=== PATIENT | male | born 1935 | race Caucasian/White ===

== ENCOUNTER → 2016-05-18 | Outpatient (CLI) | payer OTHER ==
[~2016-05-18] MED LIST: ASPI81TA85 PO; ATEN-175 PO; ATOR-22 PO; CEPH500C PO; COEN100C2 PO; CRDCD120 PO; DOXY100C PO; FRS/40 PO; LINE1TAB6 PO; LNX25 PO; MAGN500T17 PO; NZRCR EXT; POTA1080 PO; TRMCR180 EXT; WARF-246 PO
[2016-05-18 11:01] LABS: ALT/SGPT 25 U/L (12-78); AST/SGOT 15 U/L (15-37); BLOOD UREA NITROGEN 17 mg/dl (7-18); BUN/CREATININE RATIO 17.2 (10-20); CALCIUM 8.7 mg/dl (8.5-10.1); CARBON DIOXIDE 31 mmol/L (21-32); CHLORIDE 107 mmol/L (98-107); GLUCOSE 112 mg/dl (70-99); POTASSIUM 3.8 mmol/L (3.5-5.1); SODIUM 147 mmol/L (136-145)
[2016-05-18 11:04] LABS: ALB/GLOB RATIO 1.2 (0.9-2); ALKALINE PHOSPHATASE 57 U/L (45-117); CHOLESTEROL 126 mg/dl (0-200); CHOLESTEROL/HDL RATIO 3.5; HDL CHOLESTEROL 36 mg/dl; LDL CHOLESTEROL CALCULATED 60 mg/dl; TRIGLYCERIDES 152 mg/dl (0-150); VERY LOW DENSITY LIPOPROT CALC 30 mg/dl
[2016-05-18 13:12] LABS: ESTIMATED AVERAGE GLUCOSE 143 mg/dl; HA1C FLAG Normal (Normal)
== END | disposition home or self-care (01) ==
LOC: C.LABFOXMH 10:00
PROVIDERS: ATTEND Internal Medicine
DX: E78.00 Pure hypercholesterolemia, unspecified (principal); E11.9 Type 2 diabetes mellitus without complications

== ENCOUNTER → 2016-09-25 | Outpatient (CLI) | payer OTHER ==
[2016-09-25 14:45] LABS: HEMATOCRIT 47.3 % (42-52); MEAN CELL VOLUME 96.3 fL (80-100); MEAN CORPUSCULAR HEMOGLOBIN 31.6 pg (25-34); MEAN CORPUSCULAR HGB CONC 32.8 g/dl (32-36); MEAN PLATELET VOLUME 11.8 fL (7.4-10.4); PLATELET COUNT 188 K/uL (130-400); RED BLOOD COUNT 4.91 M/uL (4.7-6.1)
[2016-09-25 16:48] LABS: LYME DISEASE AB IGM NEG (NEG)
[2016-09-25 16:51] LABS: LYME DISEASE AB IGG NEG (NEG)
--- NOTE | 2016-10-20 13:56 | CODING QUERY MEDICAL NECESSITY ---
CQSUPPORTING DIAGNOSIS NEEDED A supporting diagnosis is required for the test/procedure performed on this patient in order for us to be reimbursed by the patient's insurance. Please provide a supporting diagnosis for the following test/procedure listed below next to the test name along with your signature. *If there is no additional diagnosis for this patient that would support the following test/procedure please document that below next to the test/procedure. Test(s)/Procedure(s) that require a supporting diagnosis: DOS 09/25/16 VITAMIN B12 TEST Provider Signature: Date: Thank you Katya Haque Health Information Management Once completed, please kindly fax back to [phone] For questions please call [phone]
== END | disposition home or self-care (01) ==
LOC: C.LAB 14:13
PROVIDERS: ATTEND Internal Medicine
DX: E11.42 Type 2 diabetes mellitus with diabetic polyneuropathy (principal); G62.9 Polyneuropathy, unspecified

== ENCOUNTER → 2016-09-25 | Outpatient (CLI) | payer OTHER ==
[2016-09-25 09:31] LABS: BLOOD UREA NITROGEN 20 mg/dl (7-18); CARBON DIOXIDE 30 mmol/L (21-32); CHLORIDE 108 mmol/L (98-107); GLUCOSE 102 mg/dl (70-99); POTASSIUM 3.9 mmol/L (3.5-5.1); SODIUM 144 mmol/L (136-145)
[2016-09-25 11:39] LABS: ESTIMATED AVERAGE GLUCOSE 148 mg/dl; HA1C FLAG Normal (Normal)
== END | disposition home or self-care (01) ==
LOC: C.LABFOXMH 08:15
PROVIDERS: ATTEND Internal Medicine
DX: E11.9 Type 2 diabetes mellitus without complications (principal)

== ENCOUNTER 2016-10-20 17:28 | Emergency (ER) | payer OTHER ==
[~2016-10-20] VITALS: Ht 185.4 cm; Wt 102.0 kg
[2016-10-20 17:31] VITALS: TEMP 38.9; Ht 185.4 cm; Wt 102.0 kg
--- NOTE | 2016-10-20 17:38 | EMERGENCY ROOM VISIT NOTE ---
ED Visit Note First contact with patient: 17:35 I have seen and examined this patient with Alie Solis and generally agree with the treatment plan as discussed. Allergies Coded Allergies: NSAIDs (Verified Allergy, Severe, Facial swelling, 10/20/16) Vital Signs Date Time Temp Pulse Resp B/P (MAP) Pulse Ox O2 Delivery O2 Flow Rate FiO2 10/20/16 17:31 38.9 84 20 155/89 95 Room Air Departure Information Referrals Rosario Webb (PCP) Patient Instructions [facility]
[2016-10-20] MEDS ORDERED: ONDANSETRON INJ 2 MG/ML 2 ML VIAL IV STA (17:44)
[2016-10-20] MEDS ORDERED: SODIUM CHLORIDE 0.9% 1000ML 1,000 ML IV STA (17:44)
[2016-10-20 18:05] LABS: BASO % 0.1 %; BASO ABS # 0.03 K/uL (0-0.2); COMPLETE YES; HEMATOCRIT 47.8 % (42-52); IG% 0.4 %; LYMPH % 4.7 %; LYMPH ABS # 1.08 K/uL (1.2-3.4); MEAN CORPUSCULAR HEMOGLOBIN 32.5 pg (25-34); MEAN CORPUSCULAR HGB CONC 33.9 g/dl (32-36); MEAN PLATELET VOLUME 11.5 fL (7.4-10.4); MONO % 7.5 %; NEUT % 87.3 %; PLATELET COUNT 167 K/uL (130-400); RED BLOOD COUNT 4.98 M/uL (4.7-6.1)
[2016-10-20 18:20] LABS: BUN/CREATININE RATIO 12.7 (10-20); CALCIUM 9.1 mg/dl (8.5-10.1); CREATININE 1.2 mg/dl (0.60-1.40); POTASSIUM 3.7 mmol/L (3.5-5.1)
[2016-10-20] MEDS ORDERED: CRDCD120 PO (18:39)
[2016-10-20] MEDS ORDERED: POTA1080 PO (18:39)
[2016-10-20] MEDS ORDERED: LNX25 PO (18:39)
[2016-10-20] MEDS ORDERED: ATEN-175 PO (18:39)
[2016-10-20] MEDS ORDERED: COEN100C2 PO (18:39)
[2016-10-20] MEDS ORDERED: MAGN500T17 PO (18:39)
[2016-10-20] MEDS ORDERED: FRS/40 PO (18:39)
[2016-10-20] MEDS ORDERED: ASPI81TA85 PO (18:39)
[2016-10-20] MEDS ORDERED: WARF-246 PO ×2 (18:39)
[2016-10-20] MEDS ORDERED: ATOR-22 PO (18:39)
[2016-10-20 19:04] LABS: MANUAL MICROSCOPIC REQUIRED? NO; REVIEW REQ? NO; URINE APPEARANCE CLEAR (CLEAR); URINE BILIRUBIN NEG (NEG); URINE COLOR YELLOW; URINE NITRITE NEG (NEG); URINE PH 8.5 (4.5-7.5); URINE SPECIFIC GRAVITY 1.013 (1.000-1.030); UROBILINOGEN NEG (NEG)
[2016-10-20] MEDS ORDERED: ONDANSETRON HOME PACK 4MG OD TAB PO ONE (19:15)
--- NOTE | 2016-10-20 19:22 | EMERGENCY ROOM VISIT NOTE ---
History First contact with patient: 17:35 Chief Complaint: DEHYDRATION Stated Complaint: DIZZY - NAUSEA (WAS DEHYDRATED YESTERDAY) Nursing Triage Summary: pt reports [place] after working all day outside 1 day ago , reports " I am most likely electrolyte defficient" History of Present Illness The patient is a 80 year old male who presents to the Emergency Room with complaints of nausea and vomiting. The patient states yesterday that he worked out in the yard all day and when he came in he drank 3 large glasses of water. He thought he might be dehydrated. The patient states that he slept well last night since he was very tired. He slept longer than he normally does. This morning when he got up he drank another 3 large glasses of water. He states his urine looked normal in color. At that time he denied any headaches or dizziness. Today when he was visiting his at the half-way he was walking her back to her room at approximately 3 PM when he started feeling lightheaded and then started vomiting. He has had nausea and vomiting since 3 PM. The patient denies any associated abdominal pain any change in bowel habits. He had a normal bowel movement yesterday. He denies any urinary symptoms of frequency, urgency, dysuria or hematuria. The patient denies any chest pain or shortness of breath. Review of Systems 10 system review was performed and was negative unless stated otherwise history of present illness. Past Medical/Surgical History A. fib, kidney stones, knee surgery Social History Smoking Status: Never Smoker Smokeless Tobacco Use: No Alcohol Use: none Drug Use: none Marital Status: Housing Status: lives alone Occupation Status: retired Current/Historical Medications Scheduled Aspirin (Aspirin Dr), 81 MG PO DAILY Atenolol (Tenormin), 100 MG PO BID Atorvastatin (Lipitor), 20 MG PO DAILY Coenzyme Q10 (Ubidecarenone) (Coenzyme Q-10), 100 MG PO DAILY Digoxin (Digoxin), 0.25 MG PO DAILY Diltiazem HCl (Diltiazem Cd), 120 MG PO BID Furosemide (Lasix), 40 MG PO BID Magnesium Gluconate (Magnesium Gluconate), 55 MG PO BID Potassium Citrate (Alkalinizer (Potassium Citrate ER), 3,240 MG PO BID Warfarin Sodium (Warfarin Sodium), 5 MG PO 5XWK Warfarin Sodium (Warfarin Sodium), 7.5 MG PO 2XWK Physical Exam Vital Signs Date Time Temp Pulse Resp B/P (MAP) Pulse Ox O2 Delivery O2 Flow Rate FiO2 10/20/16 18:43 68 18 126/81 94 Room Air 10/20/16 17:31 38.9 84 20 155/89 95 Room Air Physical Exam GENERAL: 80-year-old white male appears in no acute distress. He is actively vomiting as I obtained his history and physical. MENTAL Status: Alert and oriented 3. MOUTH: Mucosa is moist NECK: Supple, no lymphadenopathy noted. No carotid bruits noted. LUNGS: Clear auscultation without wheezes rales or rhonchi. CARDIAC: Regular rate and rhythm without murmur. Pulses is full and equal throughout. BACK: No CVA tenderness noted. ABDOMEN: Positive bowel sounds all 4 quadrants. Soft, nontender to palpation without organomegaly or masses. Medical Decision & Procedures Laboratory Results 10/20/16 17:45 Red Blood Count 4.98, Mean Corpuscular Volume 96.0, Mean Corpuscular Hemoglobin 32.5, Mean Corpuscular Hemoglobin Concent 33.9, Mean Platelet Volume 11.5, Neutrophils (%) (Auto) 87.3, Lymphocytes (%) (Auto) 4.7, Monocytes (%) (Auto) 7.5, Eosinophils (%) (Auto) 0.0, Basophils (%) (Auto) 0.1, Neutrophils # (Auto) 19.87, Lymphocytes # (Auto) 1.08, Monocytes # (Auto) 1.72, Eosinophils # (Auto) 0.01, Basophils # (Auto) 0.03 10/20/16 17:45 Test 10/20/16 17:45 10/20/16 18:50 White Blood Count 22.80 K/uL (4.8-10.8) Red Blood Count 4.98 M/uL (4.7-6.1) Hemoglobin 16.2 g/dL (14.0-18.0) Hematocrit 47.8 % (42-52) Mean Corpuscular Volume 96.0 fL (80-100) Mean Corpuscular Hemoglobin 32.5 pg (25-34) Mean Corpuscular Hemoglobin Concent 33.9 g/dl (32-36) Platelet Count 167 K/uL (130-400) Mean Platelet Volume 11.5 fL (7.4-10.4) Neutrophils (%) (Auto) 87.3 % Lymphocytes (%) (Auto) 4.7 % Monocytes (%) (Auto) 7.5 % Eosinophils (%) (Auto) 0.0 % Basophils (%) (Auto) 0.1 % Neutrophils # (Auto) 19.87 K/uL (1.4-6.5) Lymphocytes # (Auto) 1.08 K/uL (1.2-3.4) Monocytes # (Auto) 1.72 K/uL (0.11-0.59) Eosinophils # (Auto) 0.01 K/uL (0-0.5) Basophils # (Auto) 0.03 K/uL (0-0.2) RDW Standard Deviation 46.3 fL (36.4-46.3) RDW Coefficient of Variation 13.3 % (11.5-14.5) Immature Granulocyte % (Auto) 0.4 % Immature Granulocyte # (Auto) 0.09 K/uL (0.00-0.02) Anion Gap 9.0 mmol/L (3-11) Est Creatinine Clear Calc Drug Dose 59.6 ml/min Estimated GFR () 64.9 Estimated GFR (Non- 56.0 BUN/Creatinine Ratio 12.7 (10-20) Calcium Level 9.1 mg/dl (8.5-10.1) Total Bilirubin 1.2 mg/dl (0.2-1) Direct Bilirubin 0.3 mg/dl (0-0.2) Aspartate Amino Transf (AST/SGOT) 25 U/L (15-37) Alanine Aminotransferase (ALT/SGPT) 37 U/L (12-78) Alkaline Phosphatase 71 U/L (45-117) Total Protein 7.5 gm/dl (6.4-8.2) Albumin 4.1 gm/dl (3.4-5.0) Lipase 232 U/L (73-393) Urine Color YELLOW Urine Appearance CLEAR (CLEAR) Urine pH 8.5 (4.5-7.5) Urine Specific [place] 1.013 (1.000-1.030) Urine Protein NEG (NEG) Urine Glucose (UA) NEG (NEG) Urine Ketones NEG (NEG) Urine Occult Blood NEG (NEG) Urine Nitrite NEG (NEG) Urine Bilirubin NEG (NEG) Urine Urobilinogen NEG (NEG) Urine Leukocyte Esterase NEG (NEG) Medications Administered Medications (Trade) Dose Ordered Sig/Maria Victoria Route Start Time Stop Time Status Last Admin Dose Admin Sodium Chloride 1,000 ml @ 999 mls/hr Q1H1M STAT IV 10/20/16 17:44 10/20/16 18:44 DC 10/20/16 17:50 999 MLS/HR Ondansetron HCl (Zofran Inj) 4 mg NOW STAT IV 10/20/16 17:44 10/20/16 17:46 DC 10/20/16 17:49 4 MG ED Course The patient was evaluated. The patient's EMR medication list were reviewed. IV access was obtained. The patient was given 1 L normal saline wide-open. CBC differential, renal profile and LFTs and lipase levels was ordered. The patient was given Zofran 4 mg IV push for nausea. The patient's labs are reviewed. The patient's electrolytes were normal. His white count was elevated 20,000 but this is most likely due to his vomiting. Urinalysis was ordered and was negative. The patient was reevaluated was feeling much better. He was given a cup of ice chips and was able to keep it down. The patient was independently evaluated by Dr. Ortiz who agreed with treatment plan. The patient was discharged home in stable condition with a family member driving. Medical Decision Differential diagnosis include viral gastroenteritis, kidney stone, UTI, bowel obstruction Medication Reconcilliation Current Medication List: was personally reviewed by me Blood Pressure Screening Patient's blood pressure: Normal blood pressure Impression Primary Impression: Viral gastroenteritis Departure Information Dispostion Home / Self-Care Condition GOOD Referrals Rosario Webb (PCP) Forms HOME CARE DOCUMENTATION FORM, IMPORTANT VISIT INFORMATION, WORK / SCHOOL INSTRUCTIONS Patient Instructions ED Diet Day, [facility] Additional Instructions Push fluids. Follow bland diet. Advance diet slowly as tolerated. Take Zofran as directed for nausea. Follow-up with your family doctor in 2 days for reevaluation. If symptoms worsen in the interim, return to ER.
[2016-10-20 19:29] VITALS: BP 152/100; PULSE 110; O2SAT 93
== END 2016-10-20 19:34 | disposition home or self-care (01) ==
LOC: C.EDB 17:28 → C.EDC 19:34
DX: A08.4 Viral intestinal infection, unspecified (principal); I48.91 Unspecified atrial fibrillation; Z87.442 Personal history of urinary calculi; Z98.890 Other specified postprocedural states; Z79.01 Long term (current) use of anticoagulants; Z79.82 Long term (current) use of aspirin; Z79.899 Other long term (current) drug therapy

== ENCOUNTER 2016-10-23 09:35 | Emergency (ER) | payer OTHER ==
[~2016-10-23] VITALS: Ht 185.4 cm; Wt 102.5 kg
[~2016-10-23 09:35] MED LIST changes: -CEPH500C PO; -DOXY100C PO; -LINE1TAB6 PO; -NZRCR EXT; -TRMCR180 EXT
[2016-10-23 09:39] VITALS: TEMP 36.9; Ht 185.4 cm; Wt 102.5 kg
[2016-10-23] MEDS ORDERED: SODIUM CHLORIDE 0.9% 1000ML 1,000 ML IV STA (09:49)
--- NOTE | 2016-10-23 09:56 | EMERGENCY ROOM VISIT NOTE ---
History Report prepared by Efrain: Cristiano Richmond Under the Supervision of: Dr. Sreedhar Cabello M.D. First contact with patient: 09:38 Chief Complaint: INFECTION Stated Complaint: CELLULITIS-RT LEG Nursing Triage Summary: Pt states seen here Tues night for GI sx. Noticed Wed right lower leg was "a little red." Pt stated he placed cortisone cream on it. Worse over night , tender. History of Present Illness The patient is a 80 year old male who presents to the Emergency Room with complaints of worsening right leg swelling and rash starting two or three days ago. The patient states that he was recently here for a GI issue, and once that cleared, his right leg rash came. The patient denies any fevers, chest pain, shortness of breath, passing out, or falling. The patient states that his right leg is usually more swollen than his left leg, and there is usually a white spot on his leg from an old wound. Source of History: patient Onset: two or three days ago Position: leg (right) Quality: other (rash and swelling) Timing: worsening Associated Symptoms: No LOC, No fevers, No chest pain, No SOB Review of Systems See HPI for pertinent positives & negatives. A total of 10 systems reviewed and were otherwise negative. Past Medical & Surgical Medical Problems: (1) A-fib (2) Gastroenteritis (3) Kidney stone Social History Smoking Status: Never Smoker Alcohol Use: none Drug Use: none Marital Status: Housing Status: lives alone Occupation Status: retired Current/Historical Medications Scheduled Aspirin (Aspirin Dr), 81 MG PO DAILY Atenolol (Tenormin), 100 MG PO BID Atorvastatin (Lipitor), 20 MG PO DAILY Cephalexin Monohydrate (Keflex), 500 MG PO QID Coenzyme Q10 (Ubidecarenone) (Coenzyme Q-10), 100 MG PO DAILY Digoxin (Digoxin), 0.25 MG PO DAILY Diltiazem HCl (Diltiazem Cd), 120 MG PO BID Doxycycline Hyclate (Vibramycin), 100 MG PO BID Furosemide (Lasix), 40 MG PO BID Magnesium Gluconate (Magnesium Gluconate), 55 MG PO BID Potassium Citrate (Alkalinizer (Potassium Citrate ER), 3,240 MG PO BID Warfarin Sodium (Warfarin Sodium), 5 MG PO 5XWK Warfarin Sodium (Warfarin Sodium), 7.5 MG PO 2XWK Allergies Coded Allergies: NSAIDs (Verified Allergy, Severe, Facial swelling, 10/23/16) Ibuprofen (Verified Allergy, Intermediate, Swollen lips, 10/23/16) Physical Exam Vital Signs Date Time Temp Pulse Resp B/P (MAP) Pulse Ox O2 Delivery O2 Flow Rate FiO2 10/23/16 15:07 72 16 137/79 96 10/23/16 13:50 76 16 132/78 96 Room Air 10/23/16 13:03 75 10/23/16 10:50 71 22 117/69 94 Room Air 10/23/16 09:57 82 10/23/16 09:39 36.9 81 18 108/74 95 Room Air Physical Exam GENERAL: Patient is well appearing and in no acute distress. HEENT: No acute trauma, normocephalic atraumatic, mucous membranes moist, no nasal congestion, no scleral icterus. NECK: No stridor, no adenopathy, no meningismus, trachea is midline. LUNGS: No dyspnea. Clear to auscultation and equal bilaterally. No wheeze, no rhonchi. HEART: Regular rate and rhythm. No murmurs, rubs, gallops appreciated. ABDOMEN: Soft, nontender, bowel sounds positive, no masses appreciated, no peritonitis. BACK: No midline tenderness, no CVA tenderness EXTREMITIES: Edema of the right leg greater than left which the patient states is chronic. Cellulitis of the entire anterior right leg from the ankle to the knee with centralized dark red area and whitish skin discoloration which may be chronic from injury. Normal motion all extremities, no cyanosis NEUROLOGIC: Alert and oriented, no acute motor or sensory deficits, no focal weakness, cranial nerves grossly intact. SKIN: No rash, no jaundice, no diaphoresis. Medical Decision & Procedures Laboratory Results 10/23/16 10:00 Red Blood Count 4.82, Mean Corpuscular Volume 95.4, Mean Corpuscular Hemoglobin 32.4, Mean Corpuscular Hemoglobin Concent 33.9, Mean Platelet Volume 11.7, Neutrophils (%) (Auto) 83.1, Lymphocytes (%) (Auto) 7.2, Monocytes (%) (Auto) 9.2, Eosinophils (%) (Auto) 0.1, Basophils (%) (Auto) 0.1, Neutrophils # (Auto) 12.93, Lymphocytes # (Auto) 1.12, Monocytes # (Auto) 1.43, Eosinophils # (Auto) 0.02, Basophils # (Auto) 0.01 10/23/16 10:00 Test 10/23/16 10:00 10/23/16 10:10 White Blood Count 15.56 K/uL (4.8-10.8) Red Blood Count 4.82 M/uL (4.7-6.1) Hemoglobin 15.6 g/dL (14.0-18.0) Hematocrit 46.0 % (42-52) Mean Corpuscular Volume 95.4 fL (80-100) Mean Corpuscular Hemoglobin 32.4 pg (25-34) Mean Corpuscular Hemoglobin Concent 33.9 g/dl (32-36) Platelet Count 146 K/uL (130-400) Mean Platelet Volume 11.7 fL (7.4-10.4) Neutrophils (%) (Auto) 83.1 % Lymphocytes (%) (Auto) 7.2 % Monocytes (%) (Auto) 9.2 % Eosinophils (%) (Auto) 0.1 % Basophils (%) (Auto) 0.1 % Neutrophils # (Auto) 12.93 K/uL (1.4-6.5) Lymphocytes # (Auto) 1.12 K/uL (1.2-3.4) Monocytes # (Auto) 1.43 K/uL (0.11-0.59) Eosinophils # (Auto) 0.02 K/uL (0-0.5) Basophils # (Auto) 0.01 K/uL (0-0.2) RDW Standard Deviation 47.4 fL (36.4-46.3) RDW Coefficient of Variation 13.4 % (11.5-14.5) Immature Granulocyte % (Auto) 0.3 % Immature Granulocyte # (Auto) 0.05 K/uL (0.00-0.02) Prothrombin Time 36.8 SECONDS (9.0-12.0) Prothromb Time International Ratio 3.3 (0.9-1.1) Activated Partial Thromboplast Time 40.6 SECONDS (21.0-31.0) Partial Thromboplastin Ratio 1.6 Anion Gap 8.0 mmol/L (3-11) Est Creatinine Clear Calc Drug Dose 65.1 ml/min Estimated GFR () 72.1 Estimated GFR (Non- 62.2 BUN/Creatinine Ratio 13.7 (10-20) Calcium Level 8.6 mg/dl (8.5-10.1) C-Reactive Protein 15.00 mg/dl (0-0.29) Digoxin Level 1.4 ng/ml (0.8-2.0) Bedside Lactic Acid Venous 1.69 mmol/L (0.90-1.70) Laboratory results as reviewed by me. Medications Administered Medications (Trade) Dose Ordered Sig/Maria Victoria Route Start Time Stop Time Status Last Admin Dose Admin Sodium Chloride 1,000 ml @ 75 mls/hr [id number] STAT IV 10/23/16 09:49 10/23/16 16:00 DC 10/23/16 10:41 75 MLS/HR Vancomycin HCl 2500 mg/Sodium Chloride 550 ml @ 200 mls/hr UD IV 10/23/16 11:00 10/23/16 16:00 DC 10/23/16 11:47 200 MLS/HR Ceftriaxone Sodium (Rocephin Inj) 1 gm NOW STAT IV 10/23/16 10:51 10/23/16 10:52 DC 10/23/16 11:03 1 GM ED Course 0938: The patient was evaluated in room B12. A complete history and physical exam was performed. 0949: Sodium Chloride 1000 ml @ 75 mls/hr IV 1050: I reevaluated the patient, and he is feeling better with his foot elevated. He does not want to be admitted. He will be put on antibiotics, and once it is done he will go home. He denies any history of MRSA, though he has a history of infections. 1051: Rocephin Inj 1gm IV 1100: Vancomycin HCl 2500mg/ Sodium Chloride 550ml @ 200mls/hr IV 1510: Reevaluated the patient. Discussed results and discharge instructions: He verbalized understanding and agreement. The patient is ready for discharge. Medical Decision Differential: Cellulitis, sepsis, DVT, CHF, Arterial Occlusion, Trauma, Lymphedema, amongst other pathologies entertained. 80 yr old male arrives with complaint of right leg cellulitis. Extensive and quite red which makes me think more likely strep related. Notes his history of multiple infectious in this leg over the decades due to injury many years ago. No further fevers, nor systemic symptoms. WBC 15 which is actually improvement from other day. CRP is bumped. All of this consistent with infection. I have obtained blood cultures. Patient notes he very much does not wish to stay in hospital. We will give initial IV dosing of abx and continue on abx doxy/ keflex as outpatient. Plan to RTED immediately if worsening symptoms or other concerns. I made it very clear he must follow up with PCP and coumadin clinic in the next few days. Medication Reconcilliation Current Medication List: was personally reviewed by me Blood Pressure Screening Patient's blood pressure: Normal blood pressure Impression Primary Impression: Cellulitis of leg without foot, right Scribe Attestation The scribe's documentation has been prepared under my direction and personally reviewed by me in its entirety. I confirm that the note above accurately reflects all work, treatment, procedures, and medical decision making performed by me. Departure Information Dispostion Home / Self-Care Prescriptions Doxycycline Hyclate (VIBRAMYCIN) 100 Mg Cap 100 MG PO BID for 10 Days, #20 CAP Prov: Sreedhar Cabello M.D. 10/23/16 Cephalexin Monohydrate (Keflex) 500 Mg Cap 500 MG PO QID for 10 Days, #40 CAP Prov: Sreedhar Cabello M.D. 10/23/16 Referrals Rosario Webb (PCP) Forms HOME CARE DOCUMENTATION FORM, IMPORTANT VISIT INFORMATION, WORK / SCHOOL INSTRUCTIONS Patient Instructions [facility] Additional Instructions Your Coumadin dosing may be effected by the antibiotics. Discuss this with your primary care provider. You must have your leg reevaluated in the next few days. This is important. Return if worsening rash, fevers, vomiting, passing out, pain, drainage or other concerns. Keep leg elevated as much as possible over the next few days. You should have your Digoxin level rechecked in the next few days along with recheck of your INR.
[2016-10-23 10:26] LABS: BASO % 0.1 %; BASO ABS # 0.01 K/uL (0-0.2); COMPLETE YES; EOS % 0.1 %; IG% 0.3 %; LYMPH % 7.2 %; LYMPH ABS # 1.12 K/uL (1.2-3.4); MEAN CELL VOLUME 95.4 fL (80-100); MEAN CORPUSCULAR HEMOGLOBIN 32.4 pg (25-34); MEAN CORPUSCULAR HGB CONC 33.9 g/dl (32-36); MEAN PLATELET VOLUME 11.7 fL (7.4-10.4); MONO % 9.2 %; NEUT % 83.1 %; PLATELET COUNT 146 K/uL (130-400); RED BLOOD COUNT 4.82 M/uL (4.7-6.1); WHITE BLOOD COUNT 15.56 K/uL (4.8-10.8)
[2016-10-23 10:35] LABS: INR 3.3 (0.9-1.1); PARTIAL THROMBOPLASTIN RATIO 1.6; PROTHROMBIN TIME (PATIENT) 36.8 SECONDS (9.0-12.0)
[2016-10-23 10:39] LABS: BUN/CREATININE RATIO 13.7 (10-20); CALCIUM 8.6 mg/dl (8.5-10.1); CREATININE 1.1 mg/dl (0.60-1.40); POTASSIUM 3.5 mmol/L (3.5-5.1)
[2016-10-23] MEDS ORDERED: CEFTRIAXONE SOD INJ 1 GM ADDVIAL IV STA (10:51)
[2016-10-23] MEDS ORDERED: VANCOMYCIN INJ 2,500 MG in SODIUM CHLORIDE 0.9% 500ML 500 ML IV SCH (11:00)
[2016-10-23] MEDS ORDERED: DOXY100C PO (13:50)
[2016-10-23] MEDS ORDERED: CEPH500C PO (13:50)
[2016-10-23 15:07] VITALS: BP 137/79; PULSE 72; O2SAT 96
== END 2016-10-23 15:08 | disposition home or self-care (01) ==
LOC: C.EDB 09:37
DX: L03.115 Cellulitis of right lower limb (principal); I48.91 Unspecified atrial fibrillation; Z87.442 Personal history of urinary calculi; Z79.82 Long term (current) use of aspirin; Z79.01 Long term (current) use of anticoagulants

== ENCOUNTER 2016-10-26 11:52 | Inpatient (IN) | payer OTHER ==
[~2016-10-26] VITALS: Ht 185.4 cm; Wt 102.0 kg
[~2016-10-26 11:52] MED LIST changes: +CEPH500C PO; +DOXY100C PO
[2016-10-26] MEDS ORDERED: SODIUM CHLORIDE 0.9% 1000ML 1,000 ML IV ONE (13:01)
[2016-10-26] MEDS ORDERED: SODIUM CHLORIDE 0.9% 1000ML 1,000 ML IV STA (13:01)
[2016-10-26] MEDS ORDERED: VANCOMYCIN INJ 2,500 MG in SODIUM CHLORIDE 0.9% 500ML 500 ML IV ONE (13:15)
[2016-10-26] MEDS ORDERED: CEFEPIME IV 2000 MG in DEXTROSE 5% 100ML IV ONE (13:15)
--- NOTE | 2016-10-26 13:24 | EMERGENCY ROOM VISIT NOTE ---
History Report prepared by Efrain: Cristiano Richmond Under the Supervision of: Dr. Prince Heck M.D. First contact with patient: 12:54 Chief Complaint: INFECTION Stated Complaint: CELLULITIS History of Present Illness The patient is an 80 year old male who presents to the Emergency Room with complaints of worsening right leg infection for the past week. The patient states that he was here three days ago for a cellulitis, and he was given IV antibiotics and then sent home with a prescription for antibiotics. The patient states that he was here a week ago as well for a virus that caused him to be light headed and vomit, and he is unsure if that is connected to this incident. He is currently denying any fever, chills, chest pain, shortness of breath, light headedness, dizziness, or leg pain. The patient has a history of A-fib, and he is on Coumadin and digoxin. Source of History: patient Onset: a week ago Position: leg (right) Quality: other (infection) Timing: worsening Associated Symptoms: No fevers, No chills, No chest pain, No SOB Review of Systems See HPI for pertinent positives & negatives. A total of 10 systems reviewed and were otherwise negative. Past Medical & Surgical Medical Problems: (1) A-fib (2) Cellulitis (3) Gastroenteritis (4) Kidney stone Old medical records were reviewed. Nurse's notes were reviewed and I agree with. Chronic anticoagulation with Coumadin for A. fib. He is also on dig Social History Smoking Status: Never Smoker Alcohol Use: none Drug Use: none Marital Status: Housing Status: lives alone Occupation Status: retired Current/Historical Medications Scheduled Aspirin (Aspirin Dr), 81 MG PO DAILY Atenolol (Tenormin), 100 MG PO BID Atorvastatin (Lipitor), 20 MG PO DAILY Cephalexin Monohydrate (Keflex), 500 MG PO QID Coenzyme Q10 (Ubidecarenone) (Coenzyme Q-10), 100 MG PO DAILY Digoxin (Digoxin), 0.25 MG PO DAILY Diltiazem HCl (Diltiazem Cd), 120 MG PO BID Doxycycline Hyclate (Vibramycin), 100 MG PO BID Furosemide (Lasix), 40 MG PO BID Magnesium Gluconate (Magnesium Gluconate), 55 MG PO BID Potassium Citrate (Alkalinizer (Potassium Citrate ER), 3,240 MG PO BID Warfarin Sodium (Warfarin Sodium), 5 MG PO 5XWK Warfarin Sodium (Warfarin Sodium), 7.5 MG PO 2XWK Allergies Coded Allergies: NSAIDs (Verified Allergy, Severe, Facial swelling, 10/26/16) Ibuprofen (Verified Allergy, Intermediate, Swollen lips, 10/26/16) Physical Exam Vital Signs Date Time Temp Pulse Resp B/P (MAP) Pulse Ox O2 Delivery O2 Flow Rate FiO2 10/26/16 13:30 78 18 132/82 98 Room Air 10/26/16 11:54 36.7 78 20 117/77 95 Room Air Physical Exam General: Well developed well nourished in no acute distress, breathing comfortably on room air. Normal speech HEENT: Normal cephalic atraumatic. Pupils are equal round and reactive to light. Extraocular movements are intact. Oropharynx is pink with moist mucous membranes. No swelling of the mouth lips or tongue. Neck: Supple with a midline trachea. No meningeal signs or stiffness, no JVD or bruits. No Stridor. Chest: Clear to auscultation bilaterally. No wheezes or rhonchi. No increased work of breathing. Heart: regular rate and rhythm. Abdomen: Soft nontender, nondistended without rebound guarding or rigidity. Extremities: Diffusely red right leg with some blistering. Appears to extend beyond the previously marked margins. Normal motors and sensation. No cyanosis clubbing. No calf tenderness Spine/Back. Non tender to palpation. No CVA tenderness Skin: Good turgor without rashes. Neurologic exam: Cranial nerves two through 12 are intact. Motor and sensation are intact and symmetrical throughout. Medical Decision & Procedures Laboratory Results 10/26/16 13:20 Red Blood Count 4.60, Mean Corpuscular Volume 94.1, Mean Corpuscular Hemoglobin 33.0, Mean Corpuscular Hemoglobin Concent 35.1, Mean Platelet Volume 10.9, Neutrophils (%) (Auto) 83.2, Lymphocytes (%) (Auto) 7.9, Monocytes (%) (Auto) 7.7, Eosinophils (%) (Auto) 0.2, Basophils (%) (Auto) 0.2, Neutrophils # (Auto) 15.18, Lymphocytes # (Auto) 1.44, Monocytes # (Auto) 1.40, Eosinophils # (Auto) 0.04, Basophils # (Auto) 0.03 10/26/16 13:20 Test 10/26/16 13:20 10/26/16 13:35 White Blood Count 18.24 K/uL (4.8-10.8) Red Blood Count 4.60 M/uL (4.7-6.1) Hemoglobin 15.2 g/dL (14.0-18.0) Hematocrit 43.3 % (42-52) Mean Corpuscular Volume 94.1 fL (80-100) Mean Corpuscular Hemoglobin 33.0 pg (25-34) Mean Corpuscular Hemoglobin Concent 35.1 g/dl (32-36) Platelet Count 248 K/uL (130-400) Mean Platelet Volume 10.9 fL (7.4-10.4) Neutrophils (%) (Auto) 83.2 % Lymphocytes (%) (Auto) 7.9 % Monocytes (%) (Auto) 7.7 % Eosinophils (%) (Auto) 0.2 % Basophils (%) (Auto) 0.2 % Neutrophils # (Auto) 15.18 K/uL (1.4-6.5) Lymphocytes # (Auto) 1.44 K/uL (1.2-3.4) Monocytes # (Auto) 1.40 K/uL (0.11-0.59) Eosinophils # (Auto) 0.04 K/uL (0-0.5) Basophils # (Auto) 0.03 K/uL (0-0.2) RDW Standard Deviation 47.2 fL (36.4-46.3) RDW Coefficient of Variation 13.7 % (11.5-14.5) Immature Granulocyte % (Auto) 0.8 % Immature Granulocyte # (Auto) 0.15 K/uL (0.00-0.02) Prothrombin Time 44.3 SECONDS (9.0-12.0) Prothromb Time International Ratio 3.9 (0.9-1.1) Activated Partial Thromboplast Time 48.6 SECONDS (21.0-31.0) Partial Thromboplastin Ratio 1.9 Anion Gap 6.0 mmol/L (3-11) Est Creatinine Clear Calc Drug Dose 74.5 ml/min Estimated GFR () 85.0 Estimated GFR (Non- 73.3 BUN/Creatinine Ratio 16.3 (10-20) Calcium Level 8.5 mg/dl (8.5-10.1) Total Bilirubin 1.0 mg/dl (0.2-1) Direct Bilirubin 0.4 mg/dl (0-0.2) Aspartate Amino Transf (AST/SGOT) 150 U/L (15-37) Alanine Aminotransferase (ALT/SGPT) 180 U/L (12-78) Alkaline Phosphatase 110 U/L (45-117) Total Protein 6.5 gm/dl (6.4-8.2) Albumin 2.6 gm/dl (3.4-5.0) Lipase 352 U/L (73-393) Digoxin Level 1.1 ng/ml (0.8-2.0) Bedside Lactic Acid Venous 1.27 mmol/L (0.90-1.70) Laboratory studies as stated above per my review. Medications Administered Medications (Trade) Dose Ordered Sig/Maria Victoria Route Start Time Stop Time Status Last Admin Dose Admin Sodium Chloride 1,000 ml @ 999 mls/hr Q1H1M STAT IV 10/26/16 13:01 10/26/16 14:01 DC 10/26/16 13:33 999 MLS/HR Sodium Chloride 1,000 ml @ 150 mls/hr Q6H40M ONCE IV 10/26/16 13:01 10/26/16 19:40 10/26/16 13:01 150 MLS/HR Cefepime HCl 2000 mg/Dextrose 112.5 ml @ 225 mls/hr NOW ONCE IV 10/26/16 13:15 10/26/16 13:44 DC 10/26/16 13:34 225 MLS/HR Vancomycin HCl 2500 mg/Sodium Chloride 550 ml @ 200 mls/hr NOW ONCE IV 10/26/16 13:15 10/26/16 15:59 DC 10/26/16 13:37 200 MLS/HR ECG Indication: other (infection) Rate (beats per minute): 84 Rhythm: atrial fibrillation Findings: RBBB Comparison ECG Date: no prior available ED Course 1254: Past medical records reviewed. The patient was evaluated in room C4, and a complete history and physical examination were performed. 1301: Sodium Chloride 1000 ml @ 150 mls/hr IV, Sodium Chloride 1000 ml @ 999 mls /hr IV 1315: Vancomycin HCl 2500mg mg/Sodium Chloride 550ml @ 200mls/hr IV, Cefepime HCl 2000mg/ Dextrose 112.5ml @ 225 mls hr IV 1420. I reevaluated the patient, and he was resting. 1429: Discussed the patient's case with Mireya Tucker PA-C. The patient will be evaluated for further management. Medical Decision Differentials include, but are not limited to; cellulitis, DVT, sepsis, electrolyte or metabolic abnormality. This patient comes in as described above. He was seen here recently for cellulitis and was given IV vancomycin and IV cefepime. He was sent home home on Doxy and Keflex. Despite this, he's had continuing redness. It looks about the same and it may be a little bit worse. he's had no fever or systemic complaints. He does have some blisters but no pustules significantly. IV access established and he was given IV vancomycin and IV cefepime. He was also given additional IV hydration. Blood cultures were again drawn they are negative thus far from Wednesday. His white count was elevated 18. Given his outpatient failure as well as continuing elevated white count and large area of cellulitis as well as his extremity of age and other comorbidities, I do think he needs to be admitted for further treatment and evaluation. I have consulted the hospitalist group and they saw him in the ER for these measures. Medication Reconcilliation Current Medication List: was personally reviewed by me Blood Pressure Screening Patient's blood pressure: Normal blood pressure Consults Time Called: 1420 Consulting Physician: Mireya Tucker PA-C Returned Call: [phone] Discussed the patient's case with Mireya Tucker PA-C. The patient will be evaluated for further management. Impression Primary Impression: Cellulitis Additional Impression: Failure of outpatient treatment Scribe Attestation The scribe's documentation has been prepared under my direction and personally reviewed by me in its entirety. I confirm that the note above accurately reflects all work, treatment, procedures, and medical decision making performed by me. Departure Information Dispostion Being Evaluated By Hospitalist Referrals Rosario Webb (PCP) Patient Instructions [facility] Problem Qualifiers
[2016-10-26 13:42] LABS: BASO % 0.2 %; BASO ABS # 0.03 K/uL (0-0.2); COMPLETE YES; EOS % 0.2 %; HEMATOCRIT 43.3 % (42-52); IG% 0.8 %; LYMPH % 7.9 %; LYMPH ABS # 1.44 K/uL (1.2-3.4); MEAN CELL VOLUME 94.1 fL (80-100); MEAN CORPUSCULAR HGB CONC 35.1 g/dl (32-36); MEAN PLATELET VOLUME 10.9 fL (7.4-10.4); MONO % 7.7 %; NEUT % 83.2 %; PLATELET COUNT 248 K/uL (130-400); WHITE BLOOD COUNT 18.24 K/uL (4.8-10.8)
[2016-10-26 13:59] LABS: BUN/CREATININE RATIO 16.3 (10-20); CALCIUM 8.5 mg/dl (8.5-10.1); CREATININE 0.96 mg/dl (0.60-1.40); POTASSIUM 3.8 mmol/L (3.5-5.1)
[2016-10-26 14:03] LABS: PARTIAL THROMBOPLASTIN RATIO 1.9; PROTHROMBIN TIME (PATIENT) 44.3 SECONDS (9.0-12.0)
[2016-10-26 14:09] LABS: INR 3.9 (0.9-1.1)
--- NOTE | 2016-10-26 15:07 | History and Physical ---
History & Physical Date & Time of Service: Oct 26, 2016 at 15:00 Chief Complaint: Cellulitis Primary Care Physician: Rosario Webb History of Present Illness Source: patient, family This patient is a pleasant 80-year-old male that presents the emergency department today from [facility] with complaints of worsening right leg redness and swelling. The patient was evaluated in the emergency department 3 days ago for the same complaint. He was diagnosed with cellulitis and started on Keflex and doxycycline. The patient has been taking the medication as prescribed with no improvement. He denies any significant pain at rest. He does complain of some discomfort in the leg when he is walking. He denies any injury to the leg. He denies any fever or chills. The patient denies any other symptoms over the last few days. He does report having a GI illness, but that was approximately 2 weeks ago. He denies any recent nausea, vomiting, diarrhea or abdominal pain. The patient has a history of A. fib and is on chronic anticoagulation. Past Medical/Surgical History A. fib Right bundle branch block Coronary artery disease Family History Mother-colon cancer Father-pancreatic cancer Social History Smoking Status: Never Smoker Smokeless Tobacco Use: No Alcohol Use: none Drug Use: none Marital Status: Housing status: lives alone Occupational Status: retired Immunizations History of Influenza Vaccine: Yes History of Tetanus Vaccine?: Unknown History of Pneumococcal: Yes History of Hepatitis B Vaccine: Unknown Multi-Drug Resistant Organisms History of MDRO: No Allergies Coded Allergies: NSAIDs (Verified Allergy, Severe, Facial swelling, 10/26/16) Ibuprofen (Verified Allergy, Intermediate, Swollen lips, 10/26/16) Home Medications Scheduled Aspirin (Aspirin Dr), 81 MG PO DAILY Atenolol (Tenormin), 100 MG PO BID Atorvastatin (Lipitor), 20 MG PO DAILY Cephalexin Monohydrate (Keflex), 500 MG PO QID Coenzyme Q10 (Ubidecarenone) (Coenzyme Q-10), 100 MG PO DAILY Digoxin (Digoxin), 0.25 MG PO DAILY Diltiazem HCl (Diltiazem Cd), 120 MG PO BID Doxycycline Hyclate (Vibramycin), 100 MG PO BID Furosemide (Lasix), 40 MG PO BID Magnesium Gluconate (Magnesium Gluconate), 55 MG PO BID Potassium Citrate (Alkalinizer (Potassium Citrate ER), 3,240 MG PO BID Warfarin Sodium (Warfarin Sodium), 5 MG PO 5XWK Warfarin Sodium (Warfarin Sodium), 7.5 MG PO 2XWK Review of Systems 10 system review performed and negative unless noted in HPI or below Physical Exam Vital Signs Date Time Temp Pulse Resp B/P (MAP) Pulse Ox O2 Delivery O2 Flow Rate FiO2 10/26/16 13:30 78 18 132/82 98 Room Air 10/26/16 11:54 36.7 78 20 117/77 95 Room Air General Appearance: no apparent distress Head: normocephalic Eyes: EOMI ENT: + pertinent finding (oral mucosa slightly dry) Neck: no JVD Respiratory/Chest: lungs clear Cardiovascular: no murmur, + irregularly irregular Abdomen/GI: normal bowel sounds, non tender, soft Extremities/Musculoskelatal: + pertinent finding (+1 pitting edema with associated significant erythema of the right lower extremity from the foot extending proximally to the mid thigh. Very small, 1 cm superficial wound to the lateral aspect of the right ankle that is oozing serous fluid.) Neurologic/Psych: no motor/sensory deficits, oriented x 3 Skin: warm/dry Diagnostics Laboratory Results Results Past 24 Hours Test 10/26/16 13:20 10/26/16 13:35 Range/Units White Blood Count 18.24 4.8-10.8 K/uL Red Blood Count 4.60 4.7-6.1 M/uL Hemoglobin 15.2 14.0-18.0 g/dL Hematocrit 43.3 42-52 % Mean Corpuscular Volume 94.1 80-100 fL Mean Corpuscular Hemoglobin 33.0 25-34 pg Mean Corpuscular Hemoglobin Concent 35.1 32-36 g/dl Platelet Count 248 130-400 K/uL Mean Platelet Volume 10.9 7.4-10.4 fL Neutrophils (%) (Auto) 83.2 % Lymphocytes (%) (Auto) 7.9 % Monocytes (%) (Auto) 7.7 % Eosinophils (%) (Auto) 0.2 % Basophils (%) (Auto) 0.2 % Neutrophils # (Auto) 15.18 1.4-6.5 K/uL Lymphocytes # (Auto) 1.44 1.2-3.4 K/uL Monocytes # (Auto) 1.40 0.11-0.59 K/uL Eosinophils # (Auto) 0.04 0-0.5 K/uL Basophils # (Auto) 0.03 0-0.2 K/uL RDW Standard Deviation 47.2 36.4-46.3 fL RDW Coefficient of Variation 13.7 11.5-14.5 % Immature Granulocyte % (Auto) 0.8 % Immature Granulocyte # (Auto) 0.15 0.00-0.02 K/uL Prothrombin Time 44.3 9.0-12.0 SECONDS Prothromb Time International Ratio 3.9 0.9-1.1 Activated Partial Thromboplast Time 48.6 21.0-31.0 SECONDS Partial Thromboplastin Ratio 1.9 Sodium Level 138 136-145 mmol/L Potassium Level 3.8 3.5-5.1 mmol/L Chloride Level 102 98-107 mmol/L Carbon Dioxide Level 30 21-32 mmol/L Anion Gap 6.0 3-11 mmol/L Blood Urea Nitrogen 16 7-18 mg/dl Creatinine 0.96 0.60-1.40 mg/dl Est Creatinine Clear Calc Drug Dose 74.5 ml/min Estimated GFR () 85.0 Estimated GFR (Non- 73.3 BUN/Creatinine Ratio 16.3 10-20 Random Glucose 126 70-99 mg/dl Calcium Level 8.5 8.5-10.1 mg/dl Total Bilirubin 1.0 0.2-1 mg/dl Direct Bilirubin 0.4 0-0.2 mg/dl Aspartate Amino Transf (AST/SGOT) 150 15-37 U/L Alanine Aminotransferase (ALT/SGPT) 180 12-78 U/L Alkaline Phosphatase 110 45-117 U/L Total Protein 6.5 6.4-8.2 gm/dl Albumin 2.6 3.4-5.0 gm/dl Lipase 352 73-393 U/L Digoxin Level 1.1 0.8-2.0 ng/ml Bedside Lactic Acid Venous 1.27 0.90-1.70 mmol/L Microbiology Results 10/26/16 Blood Culture, Received Pending 10/26/16 Blood Culture, Received Pending Impression Assessment and Plan 80-year-old male returns to the emergency department with worsening redness and swelling of the right lower extremity failed outpatient therapy of doxycycline and Keflex for cellulitis. Cellulitis -Admit to medical floor -Continue vancomycin and cefepime -Follow-up blood cultures -Follow CBC abnormal LFTs -Liver ultrasound -Recheck LFTs in the morning A. fib-INR supratherapeutic -Hold warfarin -Continue diltiazem, digoxin-check level -Follow INR Coronary artery disease -Continue aspirin 81 mg daily -Hold atorvastatin 20 mg for now given elevated LFTs -Hold home dose of Lasix 40 mg BID tonight in the setting of an acute infection DVT prophylaxis -INR supratherapeutic -No teds, SCDs given cellulitis CODE STATUS -LEVEL I FULL CODE. Well Attending Addendum: I have physically seen and examined this patient, have directed the physician assistants medical activities, and agree with the H&P as noted above with the following exceptions: NONE The patient is awake, well-developed and adequately nourished, alert and oriented 3, normocephalic and atraumatic, lying in bed and in no acute distress. HEENT--PERRL, EOMI, mucous membranes and oropharynx dry. Neck--supple, no JVD or bruits, thyroid normal, trachea midline, no adenopathy. Heart--normal S1 and S2, no extra beats, no murmurs, rubs or gallops. Lungs--clear bilaterally with good air movement, no respiratory distress, no accessory muscle use. Abdomen--normal bowel sounds and soft, nontender and nondistended, no hernias or masses, no organomegaly. Extremities--right lower extremity 3+ pitting edema, left lower extremity with 2 +. There are good distal pulses b/l. Dermatologic--right lower extremity with erythema from ankle to just below knee , the small area draining serous fluid. Neurologic--cranial nerves II through XII grossly intact. Rheumatologic--normal range of motion, nontender, muscles and joints. Psychiatric--normal affect. Assessment and Plan: 1. Right lower extremity cellulitis--admitted to medical floor. Placed on vancomycin IV per kinetic monitoring and cefepime 2000 mg IV every 8 hours. Follow blood cultures. Follow serial CBC with differential, BMP and magnesium levels. 2. CAD/atrial fibrillation/hypertension continue aspirin 81 mg by mouth daily. Hold WARFARIN due to mildly supratherapeutic INR, and repeat labs in the a.m. Continue diltiazem and digoxin. Hold Lasix 40 mg by mouth twice a day. Level of Care Med/Surg Advanced Directives Existing Advance Directive: Yes Existing Living Will: Yes Existing Power of Still Tender: Yes Resuscitation Status FULL RESUSCITATION VTE Prophylaxis VTE Risk Assessment Done? Y/N: Yes Risk Level: Low Given or contraindicated: Warfarin (Coumadin) Social Service Consult Lives in Alf
[2016-10-26] MEDS ORDERED: MAGNESIUM HYDROXIDE SUSP 30 ML UDC PO PRN (15:15)
[2016-10-26] MEDS ORDERED: ALUMINUM/MAGNESIUM/SIMETH (MAALOX MAX) 30 ML UDC PO PRN (15:15)
[2016-10-26] MEDS ORDERED: ONDANSETRON INJ 2 MG/ML 2 ML VIAL IV PRN (15:15)
[2016-10-26] MEDS ORDERED: ACETAMINOPHEN 325 MG TAB PO PRN (15:15)
[2016-10-26] MEDS ORDERED: VANCOMYCIN CONSULT ACTIVE PRN (15:30)
[2016-10-26] MEDS ORDERED: CEFEPIME CONSULT ACTIVE PRN ×2 (15:45)
--- NOTE | 2016-10-26 15:55 | Pharmacy Progress Note ---
Pharmacy Abx Initial Consult Date of Service Oct 26, 2016. Pharmacy Dosing Scope Date of Consult: 10/26/16 Consultation requested by: Bright Tucker, PAC Pharmacy is consulted to initiate vancomycin and cefepime IV dosing therapy, order appropriate labs and adjust drug dose/frequency. Subjective The patient is a 80 year old male admitted on 10/26/16. Objective Height (Feet): 6 Height (Inches): 1.00 Weight (Kilograms): 102.000 Vital Signs (Past 12Hrs) Vital Signs Past 12 Hours Date Time Temp Pulse Resp B/P (MAP) Pulse Ox O2 Delivery O2 Flow Rate FiO2 10/26/16 13:30 78 18 132/82 98 Room Air 10/26/16 11:54 36.7 78 20 117/77 95 Room Air Lab Results (24Hrs) Laboratory Tests (24 Hours) Test 10/26/16 13:20 White Blood Count 18.24 K/uL (4.8-10.8) H Red Blood Count 4.60 M/uL (4.7-6.1) L Hemoglobin 15.2 g/dL (14.0-18.0) Hematocrit 43.3 % (42-52) Mean Corpuscular Volume 94.1 fL (80-100) Mean Corpuscular Hemoglobin 33.0 pg (25-34) Mean Corpuscular Hemoglobin Concent 35.1 g/dl (32-36) Platelet Count 248 K/uL (130-400) Mean Platelet Volume 10.9 fL (7.4-10.4) H Neutrophils (%) (Auto) 83.2 % Lymphocytes (%) (Auto) 7.9 % Monocytes (%) (Auto) 7.7 % Eosinophils (%) (Auto) 0.2 % Basophils (%) (Auto) 0.2 % Neutrophils # (Auto) 15.18 K/uL (1.4-6.5) H Lymphocytes # (Auto) 1.44 K/uL (1.2-3.4) Monocytes # (Auto) 1.40 K/uL (0.11-0.59) H Eosinophils # (Auto) 0.04 K/uL (0-0.5) Basophils # (Auto) 0.03 K/uL (0-0.2) Micro Results Date/Time Source Procedure Growth Status 10/26/16 13:30 Blood Blood Culture Pending Received 10/26/16 13:20 Blood Blood Culture Pending Received Risk Factors for Resistance * Resident in a fdc or extended-care facility * Antimicrobial use within the last 90 days -failed Keflex and doxycycline AS400 ADMINISTRATOR Assessment & Plan Assessment 80 year old male admitted with worsening R leg cellulitis, after being sent home from the ER a few days ago on Keflex and doxycycline. Est PK parameters: Vd 0.7 L/kg, Raza 0.066 hr-1, t1/2 10.5 hrs Plan Vancomycin IV * Loading dose: 2500 mg (25 mg/kg) given in the ER * Maintenance dose: 1000 mg IV (10 mg/kg) every 12 hours * Goal trough level for cellulitis : ~15 mcg/mL * Trough level ordered for 10/28/16 prior to the 4th overall dose Cefepime * 2 gm IV q12h - no adjustment for CrCL > 60 Pharmacy will continue to follow and will adjust dose/frequency as necessary. Thank you.
--- NOTE | 2016-10-26 17:13 | DIAGNOSTIC IMAGING REPORT ---
ABDOMEN LIMITED (US) HISTORY: Nausea abnormal LFTs vomiting. COMPARISON: None. FINDINGS: Pancreas: The pancreas demonstrates a normal echotexture. Liver: 4 x 3 cm septated cyst left hepatic lobe. Gallbladder: Gallstones CBD: 6 mm Right kidney: 12 cm maximum linear dimension. No evidence for hydronephrosis. IMPRESSION: 1. Septated liver cyst. 2. Gallstones. 3. Normal caliber bile ducts. The above report was generated using voice recognition software. It may contain grammatical, syntax or spelling errors. Electronically signed by: Cameron Solis M.D. 10/26/2016 5:11 PM Dictated Date/Time: 10/26/2016 5:09 PM
[2016-10-26 17:25] VITALS: Ht 185.4 cm; Wt 102.0 kg
[2016-10-26 17:27] VITALS: BP 144/87; PULSE 76; TEMP 36.9; O2SAT 94
[2016-10-26 20:58] VITALS: BP 132/87; PULSE 76
[2016-10-26] MEDS: DILTIAZEM HCL 120 MG CAPCR PO SCH (21:05)
[2016-10-26] MEDS: CEFEPIME IV 2,000 MG in DEXTROSE 5% 100ML 100 ML IV SCH (23:43)
[2016-10-27 00:12] VITALS: BP 135/78; PULSE 72; TEMP 36.7; O2SAT 95
[2016-10-27] MEDS: VANCOMYCIN INJ 1,000 MG in SODIUM CHLORIDE 0.9% 250ML 250 ML IV SCH ×2 (02:02→13:55)
[2016-10-27 06:12] LABS: BASO % 0.3 %; BASO ABS # 0.04 K/uL (0-0.2); COMPLETE YES; EOS % 0.8 %; HEMATOCRIT 37.9 % (42-52); IG% 0.8 %; LYMPH % 13.8 %; LYMPH ABS # 1.79 K/uL (1.2-3.4); MEAN CELL VOLUME 94.5 fL (80-100); MEAN CORPUSCULAR HEMOGLOBIN 32.9 pg (25-34); MEAN CORPUSCULAR HGB CONC 34.8 g/dl (32-36); MEAN PLATELET VOLUME 10.3 fL (7.4-10.4); MONO % 10.8 %; NEUT % 73.5 %; PLATELET COUNT 257 K/uL (130-400); RED BLOOD COUNT 4.01 M/uL (4.7-6.1)
[2016-10-27 06:18] LABS: INR 3.5 (0.9-1.1); PROTHROMBIN TIME (PATIENT) 39.9 SECONDS (9.0-12.0)
[2016-10-27 06:45] LABS: BUN/CREATININE RATIO 13.8 (10-20); CREATININE 0.81 mg/dl (0.60-1.40); POTASSIUM 3.4 mmol/L (3.5-5.1)
[2016-10-27 06:48] LABS: ALB/GLOB RATIO 0.6 (0.9-2)
[2016-10-27 07:08] VITALS: BP 129/72; PULSE 99; TEMP 37; O2SAT 97
[2016-10-27] MEDS: DILTIAZEM HCL 120 MG CAPCR PO SCH ×2 (08:57→21:29)
[2016-10-27] MEDS: ASPIRIN 81 MG ECTAB PO SCH (08:57)
[2016-10-27 10:09] VITALS: BP 121/71; PULSE 84; O2SAT 94
[2016-10-27] MEDS: CEFEPIME IV 2,000 MG in DEXTROSE 5% 100ML 100 ML IV SCH ×2 (13:21→23:50)
[2016-10-27] MEDS: DIGOXIN 0.25 MG TAB PO SCH (15:52)
[2016-10-27 15:55] VITALS: BP 122/71; PULSE 74; TEMP 36.7; O2SAT 98
--- NOTE | 2016-10-27 20:15 | Progress Note ---
Subjective Date of Service: Oct 27, 2016. Subjective Pt evaluation today including: conversation w/ patient, physical exam, chart review, lab review, review of inpatient medication list Problem List Medical Problems: (1) Cellulitis of leg without foot, right Status: Acute (2) Failure of outpatient treatment Status: Acute (3) Viral gastroenteritis Status: Acute Review of Systems Constitutional: No see HPI, No fever, No chills, No sweats, No weight loss, No weakness, No fatigue, No problem reported Eyes: No see HPI, No worsening of vision, No eye pain, No redness, No discharge , No diplopia, No problem reported ENT: No see HPI, No hearing loss, No unusual epistaxis, No nasal symptoms, No sore throat, No tinnitus, No dental problems, No trouble swallowing, No problem reported Respiratory: No see HPI, No cough, No sputum, No wheezing, No shortness of breath, No dyspnea on exertion, No dyspnea at rest, No hemoptysis, No problem reported Cardiac: No see HPI, No chest pain, No orthopnea, No PND, No edema, No claudication, No palpitations, No problem reported Abdomen: No see HPI, No pain, No nausea, No vomiting, No diarrhea, No constipation, No GI bleeding, No problem reported Musculoskeletal: + swelling, No see HPI, No joint pain, No muscle pain, No calf pain, No problem reported Male : No see HPI, No dysuria, No urinary frequency, No incontinence, No nocturia more than once/night, No slowing stream, No hematuria, No sexual dysfunction, No problem reported Neurologic: No see HPI, No memory loss, No paralysis, No weakness, No numbness/ tingling, No vertigo, No balance problems, No problem reported Psychiatric: No see HPI, No depression symptoms, No anhedonism, No anxiety, No insomnia, No substance abuse, No problem reported Heme: No see HPI, No abnormal bleeding/bruising, No clotting problems, No swollen lymph nodes, No night sweats, No problem reported Endo: No see HPI, No fatigue, No excessive thirst, No excessive urination, No problem reported Skin: No see HPI, No rash, No itch, No new/changing skin lesions, No color change, No bleeding, No problem reported Objective Vital Signs Date Time Temp Pulse Resp B/P (MAP) Pulse Ox O2 Delivery O2 Flow Rate FiO2 10/27/16 16:10 Room Air 10/27/16 15:55 36.7 74 17 122/71 (88) 98 10/27/16 15:52 72 10/27/16 11:20 Room Air 10/27/16 10:09 84 94 10/27/16 07:08 37.0 99 20 129/72 (91) 97 Room Air 10/27/16 00:12 36.7 72 16 135/78 (97) 95 Room Air 10/27/16 00:00 Room Air 10/26/16 20:58 76 132/87 (102) Physical Exam General Appearance: WD/WN, no apparent distress Eyes: normal inspection, EOMI ENT: normal ENT inspection, hearing grossly normal, TMs normal, pharynx normal Neck: supple Respiratory/Chest: chest non-tender, lungs clear, normal breath sounds, no respiratory distress, no accessory muscle use Cardiovascular: regular rate, rhythm, no edema, no gallop, no JVD, no murmur Abdomen: normal bowel sounds, non tender, soft, no organomegaly Extremities: normal range of motion, non-tender, normal inspection, no pedal edema, no calf tenderness 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79 K/uL Monocytes # (Auto) 1.40 K/uL Eosinophils # (Auto) 0.10 K/uL Basophils # (Auto) 0.04 K/uL RDW Standard Deviation 47.5 fL RDW Coefficient of Variation 13.5 % Immature Granulocyte % (Auto) 0.8 % Immature Granulocyte # (Auto) 0.10 K/uL Prothrombin Time 39.9 SECONDS Prothromb Time International Ratio 3.5 Sodium Level 141 mmol/L Potassium Level 3.4 mmol/L Chloride Level 108 mmol/L Carbon Dioxide Level 26 mmol/L Anion Gap 7.0 mmol/L Blood Urea Nitrogen 11 mg/dl Creatinine 0.81 mg/dl Est Creatinine Clear Calc Drug Dose 88.2 ml/min Estimated GFR () 95.9 Estimated GFR (Non- 82.8 BUN/Creatinine Ratio 13.8 Random Glucose 108 mg/dl Calcium Level 8.0 mg/dl Magnesium Level 2.0 mg/dl Total Bilirubin 1.2 mg/dl Aspartate Amino Transf (AST/SGOT) 92 U/L Alanine Aminotransferase (ALT/SGPT) 138 U/L Alkaline Phosphatase 90 U/L Total Protein 5.5 gm/dl Albumin 2.1 gm/dl Globulin 3.4 gm/dl Albumin/Globulin Ratio 0.6 Digoxin Level 0.9 ng/ml Assessment and Plan 80-year-old male P/W right lower extremity cellulitis failed outpatient therapy of doxycycline and Keflex for cellulitis. Cellulitis -obtain R L Ext US R/O DVT -Continue vancomycin and cefepime -Follow-up blood cultures, obtain wound Cx -ID consult abnormal LFTs -Liver ultrasound showed liver cyst (patient instructed to F/U on it as an out patient) -LFTs improved, Recheck LFTs in the morning A. fib-INR supratherapeutic -continue Holding warfarin -Continue diltiazem, digoxin-check level -Follow INR Coronary artery disease -Continue aspirin 81 mg daily -continue Holding atorvastatin 20 mg for now given elevated LFTs -Hold home dose of Lasix 40 mg BID tonight in the setting of an acute infection DVT prophylaxis -INR supratherapeutic -No teds, SCDs given cellulitis CODE STATUS -LEVEL I FULL CODE.
--- NOTE | 2016-10-27 21:12 | DIAGNOSTIC IMAGING REPORT ---
RIGHT VENOUS DOPP LOWER EXT UNILAT CLINICAL HISTORY: 80 years-old Male presenting with R/O DVT Right. TECHNIQUE: Real-time grayscale and color and spectral Doppler ultrasound imaging of the veins of the right lower extremity was performed. Compression and augmentation were also utilized. COMPARISON: None. FINDINGS: Right: Common femoral vein: Patent. Femoral vein: Patent. Greater saphenous vein: Patent. Popliteal vein: Patent. Calf veins: Limited visualization secondary to subcutaneous edema. Other: Prominent right groin lymph nodes, which maintain fatty sandie and a reniform shape, likely reactive and benign. Subcutaneous edema noted in the lower leg with dilated lymphatics. IMPRESSION: No evidence of deep venous thrombosis. Electronically signed by: Michel Perez M.D. 10/27/2016 9:11 PM Dictated Date/Time: 10/27/2016 9:09 PM
[2016-10-27 23:28] VITALS: BP 135/85; PULSE 78; TEMP 36.9; O2SAT 95
[2016-10-28] VITALS: O2SAT 94
[2016-10-28] MEDS ORDERED: VANCOMYCIN TROUGH ONE (01:30)
[2016-10-28] MEDS: VANCOMYCIN INJ 1,000 MG in SODIUM CHLORIDE 0.9% 250ML 250 ML IV SCH (02:43)
[2016-10-28 06:13] LABS: BASO % 0.4 %; BASO ABS # 0.05 K/uL (0-0.2); COMPLETE YES; EOS % 1.6 %; HEMATOCRIT 39.3 % (42-52); IG% 1.3 %; LYMPH % 16.9 %; LYMPH ABS # 2.13 K/uL (1.2-3.4); MEAN CELL VOLUME 95.2 fL (80-100); MEAN CORPUSCULAR HGB CONC 32.6 g/dl (32-36); MEAN PLATELET VOLUME 9.8 fL (7.4-10.4); MONO % 12.5 %; NEUT % 67.3 %; PLATELET COUNT 310 K/uL (130-400); RED BLOOD COUNT 4.13 M/uL (4.7-6.1); WHITE BLOOD COUNT 12.61 K/uL (4.8-10.8)
[2016-10-28 06:34] LABS: INR 2.5 (0.9-1.1); PROTHROMBIN TIME (PATIENT) 28.1 SECONDS (9.0-12.0)
[2016-10-28 06:49] LABS: CREATININE 0.84 mg/dl (0.60-1.40)
[2016-10-28 06:50] LABS: BUN/CREATININE RATIO 13.2 (10-20); CALCIUM 8.1 mg/dl (8.5-10.1); POTASSIUM 3.4 mmol/L (3.5-5.1)
[2016-10-28 06:52] LABS: ALB/GLOB RATIO 0.6 (0.9-2); PHOSPHORUS 2.9 mg/dl (2.5-4.9)
[2016-10-28 07:52] VITALS: BP 129/80; PULSE 62; TEMP 37.1; O2SAT 96
[2016-10-28] MEDS: DILTIAZEM HCL 120 MG CAPCR PO SCH ×2 (08:11→20:23)
[2016-10-28] MEDS: ASPIRIN 81 MG ECTAB PO SCH (08:11)
[2016-10-28] MEDS ORDERED: POTASSIUM CHLORIDE 10 MEQ TABCR PO STA (10:03)
--- NOTE | 2016-10-28 10:12 | Medical Consult ---
Consultation Date of Consultation: Oct 28, 2016. Attending Physician: Fritz Olmos MD Reason for Consultation: Right lower extremity cellulitis History of Present Illness 80-year-old male with history of chronic atrial fibrillation with chronic lower extremity edema, prior episode of cellulitis 6 years ago in the right leg, who was well until 10 days ago when he suffered from what sounds like an acute gastroenteritis. He subsequently developed increasing redness and swelling of his right leg. He was seen in the emergency department and started on doxycycline and cephalexin, but infection worsened with spread of erythema and blistering of the skin patient returned and was admitted to the hospital. He has been started empirically on vancomycin and cefepime. Blood cultures are negative, Gram stain from the blister fluid negative for organisms, culture is pending. Patient has not had any significant fever chills or other associated systemic complaints. He was using topical cortisone for possible dermatitis as well. Past Medical/Surgical History Medical Problems: (1) Cellulitis of leg without foot, right Status: Acute (2) Failure of outpatient treatment Status: Acute (3) Viral gastroenteritis Status: Acute Medical Problems: (1) A-fib (2) Cellulitis (3) Gastroenteritis (4) Kidney stone Family History Noncontributory Social History Smoking Status: Never Smoker Smokeless Tobacco Use: No Alcohol Use: none Drug Use: none Marital Status: Housing Status: lives alone Occupation Status: retired Allergies Coded Allergies: NSAIDs (Verified Allergy, Severe, Facial swelling, 10/26/16) Ibuprofen (Verified Allergy, Intermediate, Swollen lips, 10/26/16) Current Inpatient Medications Current Inpatient Medications Medications (Trade) Dose Ordered Sig/Maria Victoria Route Start Time Stop Time Status Last Admin Dose Admin Acetaminophen (Tylenol Tab) 650 mg Q4H PRN PO 10/26/16 15:15 11/25/16 15:14 Al Hydrox/Mg Hydrox/Simethicone (Maalox Max Susp) 15 ml Q4H PRN PO 10/26/16 15:15 11/25/16 15:14 Magnesium Hydroxide (Milk Of Magnesia Susp) 30 ml Q6H PRN PO 10/26/16 15:15 11/25/16 15:14 Ondansetron HCl (Zofran Inj) 4 mg Q6H PRN IV 10/26/16 15:15 11/25/16 15:14 Aspirin (Ecotrin Tab) 81 mg DAILY PO 10/27/16 09:00 11/26/16 08:59 10/28/16 08:11 81 MG Atenolol (Tenormin Tab) 100 mg BID PO 10/26/16 21:00 11/25/16 20:59 10/28/16 08:11 100 MG Digoxin (Lanoxin Tab) 0.25 mg DAILY@1600 PO 10/27/16 16:00 11/26/16 15:59 10/27/16 15:52 0.25 MG Diltiazem HCl (Cardizem Cd Cap) 120 mg BID PO 10/26/16 21:00 11/25/16 20:59 10/28/16 08:11 120 MG Ceftaroline Fosamil 600 mg/ Sodium Chloride 270 ml @ 250 mls/hr Q12H IV 10/28/16 11:00 11/07/16 09:59 Warfarin Sodium (Coumadin Tab) 5 mg UD PO 10/28/16 10:15 11/27/16 10:14 UNV Warfarin Sodium (Coumadin Tab) 7.5 mg UD PO 10/28/16 10:15 11/27/16 10:14 UNV Potassium Chloride (Klor-Con M10) 40 meq NOW STAT PO 10/28/16 10:03 10/28/16 10:04 UNV Review of Systems All systems were reviewed and are negative except as per HPI Physical Exam Date Time Temp Pulse Resp B/P (MAP) Pulse Ox O2 Delivery O2 Flow Rate FiO2 10/28/16 07:52 37.1 62 16 129/80 (96) 96 Room Air 10/28/16 00:00 94 Room Air 10/27/16 23:28 36.9 78 18 135/85 (102) 95 Room Air 10/27/16 16:10 Room Air 10/27/16 15:55 36.7 74 17 122/71 (88) 98 10/27/16 15:52 72 10/27/16 11:20 Room Air 10/27/16 10:09 84 94 General Appearance: WD/WN, no apparent distress Head: normocephalic, atraumatic Eyes: normal inspection, EOMI, sclerae normal ENT: normal ENT inspection, hearing grossly normal, pharynx normal Neck: supple, no adenopathy, thyroid normal, trachea midline Respiratory/Chest: chest non-tender, lungs clear, normal breath sounds, no respiratory distress Cardiovascular: no gallop, no murmur, + irregularly irregular Abdomen/GI: normal bowel sounds, non tender, soft, no organomegaly Back: normal inspection, no CVA tenderness Extremities/Musculoskelatal: normal capillary refill, + inflammation (Right leg ), + swelling (Right greater than left leg) Neurologic/Psych: alert, normal mood/affect, oriented x 3 Skin: normal color, + pertinent finding (Cellulitis of the right leg from above the knee to the foot with blistering) Lymphatic: no adenopathy Laboratory Results Date/Time Source Procedure Growth Status 10/27/16 20:00 Skin Arm , Left Lower Gram Stain - Final Resulted 10/27/16 20:00 Skin Arm , Left Lower Wound Culture Pending Resulted Last 24 Hours Test 10/28/16 01:38 10/28/16 05:44 Vancomycin Level Trough 9.5 mcg/ml White Blood Count 12.61 K/uL Red Blood Count 4.13 M/uL Hemoglobin 12.8 g/dL Hematocrit 39.3 % Mean Corpuscular Volume 95.2 fL Mean Corpuscular Hemoglobin 31.0 pg Mean Corpuscular Hemoglobin Concent 32.6 g/dl Platelet Count 310 K/uL Mean Platelet Volume 9.8 fL Neutrophils (%) (Auto) 67.3 % Lymphocytes (%) (Auto) 16.9 % Monocytes (%) (Auto) 12.5 % Eosinophils (%) (Auto) 1.6 % Basophils (%) (Auto) 0.4 % Neutrophils # (Auto) 8.48 K/uL Lymphocytes # (Auto) 2.13 K/uL Monocytes # (Auto) 1.58 K/uL Eosinophils # (Auto) 0.20 K/uL Basophils # (Auto) 0.05 K/uL RDW Standard Deviation 47.6 fL RDW Coefficient of Variation 13.7 % Immature Granulocyte % (Auto) 1.3 % Immature Granulocyte # (Auto) 0.17 K/uL Prothrombin Time 28.1 SECONDS Prothromb Time International Ratio 2.5 Sodium Level 143 mmol/L Potassium Level 3.4 mmol/L Chloride Level 110 mmol/L Carbon Dioxide Level 27 mmol/L Anion Gap 6.0 mmol/L Blood Urea Nitrogen 11 mg/dl Creatinine 0.84 mg/dl Est Creatinine Clear Calc Drug Dose 85.1 ml/min Estimated GFR () 94.5 Estimated GFR (Non- 81.5 BUN/Creatinine Ratio 13.2 Random Glucose 107 mg/dl Calcium Level 8.1 mg/dl Phosphorus Level 2.9 mg/dl Magnesium Level 2.0 mg/dl Total Bilirubin 1.0 mg/dl Aspartate Amino Transf (AST/SGOT) 93 U/L Alanine Aminotransferase (ALT/SGPT) 140 U/L Alkaline Phosphatase 88 U/L Total Protein 5.7 gm/dl Albumin 2.2 gm/dl Globulin 3.5 gm/dl Albumin/Globulin Ratio 0.6 Patient Name: JASON BENJAMIN Unit Number: [id number] Dictated: 10/27/162108 Transcribed: 10/27/162108 PBS Printed Date/Time: [~ rep prt dt]/[~ rep prt tm] [~ rep ct labl] - [~ rep ct ivnm] [facility] Radiology Department [place] [id number] Dictated: 10/27/162108 Transcribed: 10/27/162108 PBS Printed Date/Time: [~ rep prt dt]/[~ rep prt tm] [~ rep ct labl] - [~ rep ct ivnm] RIGHT VENOUS DOPP LOWER EXT UNILAT CLINICAL HISTORY: 80 years-old Male presenting with R/O DVT Right. TECHNIQUE: Real-time grayscale and color and spectral Doppler ultrasound imaging of the veins of the right lower extremity was performed. Compression and augmentation were also utilized. COMPARISON: None. FINDINGS: Right: Common femoral vein: Patent. Femoral vein: Patent. Greater saphenous vein: Patent. Popliteal vein: Patent. Calf veins: Limited visualization secondary to subcutaneous edema. Other: Prominent right groin lymph nodes, which maintain fatty sandie and a reniform shape, likely reactive and benign. Subcutaneous edema noted in the lower leg with dilated lymphatics. IMPRESSION: No evidence of deep venous thrombosis. Electronically signed by: Michel Perez M.D. 10/27/2016 9:11 PM Dictated Date/Time: 10/27/2016 9:09 PM The status of this report is Signed. Draft = Not yet reviewed or approved by Radiologist. Signed = Reviewed and approved by Radiologist. <AttendingPhy>Zachery Clark M.D.</AttendingPhy> <FamilyPhy>Lebron Viveros M.D.</FamilyPhy> <PrimaryPhy>[facility]</PrimaryPhy> <UnitNumber> [id number]</UnitNumber> <VisitNumber>[id number]</VisitNumber> <PatientName> JASON BENJAMIN</PatientName> <DateOfBirth>1935</DateOfBirth> < Location>[facility]</Location> <ServiceDate>10/26/16</ServiceDate> <MNE>ESINDI</MNE> <OrderingPhy>Shan Lerma MD</OrderingPhy> <OrderingPhyMNE>f rep ord dr marks</OrderingPhyMNE> <DictatingPhyMNE>f rep dict dr marks</DictatingPhyMNE > <CCListMNE>f rep ct mne</CCListMNE> <AdmittingPhyMNE>f pt admit dr marks</ AdmittingPhyMNE> <AttendingPhyMNE>f pt attend dr marks</AttendingPhyMNE> <ConsultingPhyMNE>f pt consult dr marks</ConsultingPhyMNE> <FamilyPhyMNE>f pt fam dr marks</FamilyPhyMNE> <OtherPhyMNE>f pt other dr marks</OtherPhyMNE> < PrimaryPhyMNE>f pt prim care dr marks</PrimaryPhyMNE> <ReferringPhyMNE>f pt referring dr marks</ReferringPhyMNE> Assessment & Plan 80-year-old male with chronic atrial fibrillation on lower extremity edema now presents with acute right leg cellulitis. Appearance most typical for streptococcal infection, especially group a and group B. however, Staph also possibility. Pending further culture results, I have change patient to IV ceftaroline 600 milligrams q.12 hours. length of IV antibiotic therapy will be determined by clinical response. Will follow.
[2016-10-28 10:23] VITALS: O2SAT 96
[2016-10-28] MEDS: CEFTAROLINE FOSAMIL INJ 600 MG in SODIUM CHLORIDE 0.9% 250ML 250 ML IV SCH ×2 (12:18→22:54)
[2016-10-28] MEDS: WARFARIN SOD 5 MG TAB PO SCH (15:37)
[2016-10-28] MEDS: DIGOXIN 0.25 MG TAB PO SCH (15:38)
[2016-10-28 16:00] VITALS: BP 149/91; PULSE 66; TEMP 36.5; O2SAT 97
[2016-10-28 22:25] VITALS: BP 150/84; PULSE 74; TEMP 37.2; O2SAT 96
--- NOTE | 2016-10-29 05:35 | Progress Note ---
Subjective Date of Service: Oct 28, 2016. Subjective Pt evaluation today including: conversation w/ patient, physical exam, chart review, lab review, review of studies (previous CT abd/pelvis, doppler of leg this admission), review of inpatient medication list Pain: minimal right leg PO Intake: normal Voiding: no voiding problems overall no issues overnight feels decent denies dyspnea, cp, abd pain Problem List Medical Problems: (1) Cellulitis of leg without foot, right Status: Acute (2) Failure of outpatient treatment Status: Acute (3) Viral gastroenteritis Status: Acute Review of Systems Constitutional: No fever, No chills Respiratory: No cough Cardiac: No chest pain Abdomen: No pain, No diarrhea Objective Vital Signs Date Time Temp Pulse Resp B/P (MAP) Pulse Ox O2 Delivery O2 Flow Rate FiO2 10/28/16 16:00 36.5 66 18 149/91 (110) 97 Room Air 10/28/16 16:00 Room Air 10/28/16 15:38 68 10/28/16 10:23 96 Room Air 10/28/16 07:52 37.1 62 16 129/80 (96) 96 Room Air 10/28/16 00:00 94 Room Air 10/27/16 23:28 36.9 78 18 135/85 (102) 95 Room Air Physical Exam General Appearance: no apparent distress ENT: pharynx normal Neck: no JVD Respiratory/Chest: lungs clear, no respiratory distress, no accessory muscle use Cardiovascular: no gallop, no murmur, + irregularly irregular Abdomen: normal bowel sounds, non tender, soft, no organomegaly Extremities: + pedal edema (right leg), + swelling (right leg) Neurologic/Psychiatric: alert, oriented x 3 Skin: + pertinent finding (right LE wrapped in tubigrip and kerlix; these were not removed (just placed by wound care team)) Laboratory Results Last 24 Hours Test 10/28/16 01:38 10/28/16 05:44 Vancomycin Level Trough 9.5 mcg/ml White Blood Count 12.61 K/uL Red Blood Count 4.13 M/uL Hemoglobin 12.8 g/dL Hematocrit 39.3 % Mean Corpuscular Volume 95.2 fL Mean Corpuscular Hemoglobin 31.0 pg Mean Corpuscular Hemoglobin Concent 32.6 g/dl Platelet Count 310 K/uL Mean Platelet Volume 9.8 fL Neutrophils (%) (Auto) 67.3 % Lymphocytes (%) (Auto) 16.9 % Monocytes (%) (Auto) 12.5 % Eosinophils (%) (Auto) 1.6 % Basophils (%) (Auto) 0.4 % Neutrophils # (Auto) 8.48 K/uL Lymphocytes # (Auto) 2.13 K/uL Monocytes # (Auto) 1.58 K/uL Eosinophils # (Auto) 0.20 K/uL Basophils # (Auto) 0.05 K/uL RDW Standard Deviation 47.6 fL RDW Coefficient of Variation 13.7 % Immature Granulocyte % (Auto) 1.3 % Immature Granulocyte # (Auto) 0.17 K/uL Prothrombin Time 28.1 SECONDS Prothromb Time International Ratio 2.5 Sodium Level 143 mmol/L Potassium Level 3.4 mmol/L Chloride Level 110 mmol/L Carbon Dioxide Level 27 mmol/L Anion Gap 6.0 mmol/L Blood Urea Nitrogen 11 mg/dl Creatinine 0.84 mg/dl Est Creatinine Clear Calc Drug Dose 85.1 ml/min Estimated GFR () 94.5 Estimated GFR (Non- 81.5 BUN/Creatinine Ratio 13.2 Random Glucose 107 mg/dl Calcium Level 8.1 mg/dl Phosphorus Level 2.9 mg/dl Magnesium Level 2.0 mg/dl Total Bilirubin 1.0 mg/dl Aspartate Amino Transf (AST/SGOT) 93 U/L Alanine Aminotransferase (ALT/SGPT) 140 U/L Alkaline Phosphatase 88 U/L Total Protein 5.7 gm/dl Albumin 2.2 gm/dl Globulin 3.5 gm/dl Albumin/Globulin Ratio 0.6 Assessment and Plan 80yo male: 1. RLE cellulitis - failed outpatient treatment. ID and wound care consults appreciated. Changed to ceftaroline by Dr. Schmitz - defer abx selection to him. Will look at wound in AM. 2. liver cyst - was 3.6cm in size on 2013 CT; it is 4x3cm on u/s this admission. Argues benign etiology. 3. abnormal LFTs - reactive to #1 ? statin? Other cause? repeat in AM. hold statin. 4. a. fib - rates controlled with BB, CCB, and dig. On coumadin. cont daily INR. 5. DVT proph - coumadin. 6. CAD - no ischemic symptoms. Cont BB and aspirin. Holding statins as above. 7. HTN - controlled. progressing slowly Continued [facility] stay due to: multiple IV medications needed Discharge planning: home
[2016-10-29 07:19] VITALS: BP 146/67; PULSE 79; TEMP 37.2; O2SAT 95
[2016-10-29 07:40] LABS: BASO % 0.3 %; BASO ABS # 0.04 K/uL (0-0.2); COMPLETE YES; EOS % 1.3 %; HEMATOCRIT 38.1 % (42-52); IG% 1.1 %; LYMPH % 14.6 %; LYMPH ABS # 1.76 K/uL (1.2-3.4); MEAN CELL VOLUME 94.5 fL (80-100); MEAN CORPUSCULAR HEMOGLOBIN 31.5 pg (25-34); MEAN CORPUSCULAR HGB CONC 33.3 g/dl (32-36); MEAN PLATELET VOLUME 9.4 fL (7.4-10.4); MONO % 10.3 %; NEUT % 72.4 %; PLATELET COUNT 283 K/uL (130-400); RED BLOOD COUNT 4.03 M/uL (4.7-6.1); WHITE BLOOD COUNT 12.08 K/uL (4.8-10.8)
[2016-10-29 07:43] LABS: INR 2.1 (0.9-1.1); PROTHROMBIN TIME (PATIENT) 23.1 SECONDS (9.0-12.0)
[2016-10-29 08:03] LABS: BUN/CREATININE RATIO 10.6 (10-20); CALCIUM 8.2 mg/dl (8.5-10.1); CREATININE 0.81 mg/dl (0.60-1.40); POTASSIUM 3.7 mmol/L (3.5-5.1)
[2016-10-29] MEDS: ASPIRIN 81 MG ECTAB PO SCH (09:10)
[2016-10-29] MEDS: DILTIAZEM HCL 120 MG CAPCR PO SCH ×2 (09:10→20:50)
[2016-10-29] MEDS: CEFTAROLINE FOSAMIL INJ 600 MG in SODIUM CHLORIDE 0.9% 250ML 250 ML IV SCH ×2 (11:28→22:24)
--- NOTE | 2016-10-29 13:47 | Hospitalist Progress Note ---
Hospitalist Progress Note Date of Service Oct 29, 2016. (Ce Lamar ., PAFernandezC) Subjective Pt evaluation today including: conversation w/ patient, physical exam, chart review, lab review, review of studies, review of inpatient medication list Voiding: no voiding problems, no incontinence Patient states he is feeling well. Eating and drinking OK. +chronic bilateral lower extremity edema- R > L Patient denies any fever, chills, sweats, lightheadedness, dizziness, vision changes, CP, palpitations, SOB, wheezing, cough, abdominal pain, nausea, vomiting, diarrhea, urinary symptoms, melena, numbness/tingling, weakness, muscle/joint pain, anxiety/depression, active bleeding. RN to changed dressing this afternoon. (Ce Lamar ., PERLAC) Medications Current Inpatient Medications Medications (Trade) Dose Ordered Sig/Maria Victoria Route Start Time Stop Time Status Last Admin Dose Admin Acetaminophen (Tylenol Tab) 650 mg Q4H PRN PO 10/26/16 15:15 11/25/16 15:14 Al Hydrox/Mg Hydrox/Simethicone (Maalox Max Susp) 15 ml Q4H PRN PO 10/26/16 15:15 11/25/16 15:14 Magnesium Hydroxide (Milk Of Magnesia Susp) 30 ml Q6H PRN PO 10/26/16 15:15 11/25/16 15:14 Ondansetron HCl (Zofran Inj) 4 mg Q6H PRN IV 10/26/16 15:15 11/25/16 15:14 Aspirin (Ecotrin Tab) 81 mg DAILY PO 10/27/16 09:00 11/26/16 08:59 10/29/16 09:10 81 MG Atenolol (Tenormin Tab) 100 mg BID PO 10/26/16 21:00 11/25/16 20:59 10/29/16 09:10 100 MG Digoxin (Lanoxin Tab) 0.25 mg DAILY@1600 PO 10/27/16 16:00 11/26/16 15:59 10/28/16 15:38 0.25 MG Diltiazem HCl (Cardizem Cd Cap) 120 mg BID PO 10/26/16 21:00 11/25/16 20:59 10/29/16 09:10 120 MG Ceftaroline Fosamil 600 mg/ Sodium Chloride 270 ml @ 250 mls/hr Q12H IV 10/28/16 11:00 11/07/16 09:59 10/29/16 11:28 250 MLS/HR Warfarin Sodium (Coumadin Tab) 5 mg SuTuWeThSa@1600 PO 10/28/16 16:00 11/27/16 15:59 10/28/16 15:37 5 MG Warfarin Sodium (Coumadin Tab) 7.5 mg MoFr@1600 PO 10/30/16 16:00 11/29/16 15:59 (Ce Lamar, DIO-C) Objective Vital Signs Date Time Temp Pulse Resp B/P (MAP) Pulse Ox O2 Delivery O2 Flow Rate FiO2 10/29/16 10:23 Room Air 10/29/16 07:19 37.2 79 18 146/67 (93) 95 Room Air 10/29/16 00:00 Room Air 10/28/16 22:25 37.2 74 20 150/84 (106) 96 Room Air 10/28/16 16:00 36.5 66 18 149/91 (110) 97 Room Air 10/28/16 16:00 Room Air 10/28/16 15:38 68 (Ce Lamar, PA-C) Physical Exam General Appearance: no apparent distress Eyes: normal inspection, PERRL ENT: hearing grossly normal Neck: supple Respiratory/Chest: lungs clear, no respiratory distress, no accessory muscle use Cardiovascular: + irregularly irregular (rate controlled) Abdomen: normal bowel sounds, non tender, soft Extremities: + pedal edema, + swelling (+2-3 pitting edema of RLE; +1 pitting edema of LLE), + pertinent finding (RLE wrapped in dressing and [place]; erythema/ warmth noted to RLE ) Neurologic/Psychiatric: alert, normal mood/affect, oriented x 3 Skin: normal color, warm/dry, no rash (Ce Lamar, DIO-C) Laboratory Results Last 24 Hours Test 10/29/16 07:15 White Blood Count 12.08 K/uL Red Blood Count 4.03 M/uL Hemoglobin 12.7 g/dL Hematocrit 38.1 % Mean Corpuscular Volume 94.5 fL Mean Corpuscular Hemoglobin 31.5 pg Mean Corpuscular Hemoglobin Concent 33.3 g/dl Platelet Count 283 K/uL Mean Platelet Volume 9.4 fL Neutrophils (%) (Auto) 72.4 % Lymphocytes (%) (Auto) 14.6 % Monocytes (%) (Auto) 10.3 % Eosinophils (%) (Auto) 1.3 % Basophils (%) (Auto) 0.3 % Neutrophils # (Auto) 8.74 K/uL Lymphocytes # (Auto) 1.76 K/uL Monocytes # (Auto) 1.25 K/uL Eosinophils # (Auto) 0.16 K/uL Basophils # (Auto) 0.04 K/uL RDW Standard Deviation 46.3 fL RDW Coefficient of Variation 13.4 % Immature Granulocyte % (Auto) 1.1 % Immature Granulocyte # (Auto) 0.13 K/uL Prothrombin Time 23.1 SECONDS Prothromb Time International Ratio 2.1 Sodium Level 141 mmol/L Potassium Level 3.7 mmol/L Chloride Level 109 mmol/L Carbon Dioxide Level 27 mmol/L Anion Gap 5.0 mmol/L Blood Urea Nitrogen 9 mg/dl Creatinine 0.81 mg/dl Est Creatinine Clear Calc Drug Dose 88.2 ml/min Estimated GFR () 95.9 Estimated GFR (Non- 82.8 BUN/Creatinine Ratio 10.6 Random Glucose 111 mg/dl Calcium Level 8.2 mg/dl Aspartate Amino Transf (AST/SGOT) 91 U/L Alanine Aminotransferase (ALT/SGPT) 139 U/L (Ce Lamar, PA-C) Assessment and Plan 80-year-old male returns to the emergency department with worsening redness and swelling of the right lower extremity failed outpatient therapy of doxycycline and Keflex for cellulitis. RLE cellulitis- failed outpatient treatment w/ Doxycycline and Keflex: - Admit to med/surg - RLE venous US- no evidence of DVT - Admitted on IV Vancomycin and Cefepime -- Changed to IV Ceftaroline by ID on 10/28 - BCx- NGTD - WCx- NGTD - Leukocytosis- IMPROVING: Follow CBC - Consult ID, appreciate recommendations -- Defer for antibiotic choice/duration - Consult wound care, appreciate recommendations Abnormal LFTs, secondary to infectious process vs statin vs other etiology: - Hold statin - Liver ultrasound- Septated liver cyst 4x3cm. Gallstones. Normal caliber bile ducts. -- Liver cyst was 3.6 cm in size on 2013 CT - Follow LFTs- trending down Mild hypokalemia at 3.4- RESOLVED: Replaced w/ KCL 40 mEq supplement- follow PRP Chronci a. fib- follows w/ Dr. Pan: - Warfarin 7.5 mg MW and 5 mg all other days held due to INR supratherapeutic at 3.9 on admission -- Resumed on 10/28- follow INR - Continue Diltiazem 120 mg BID, Digoxin 0.25 mg daily, Atenolol 100 mg BID -- Digoxin level checked- WNL CAD/HTN- STABLE: - Continue ASA 81 mg daily - Hold Atorvastatin 20 mg daily due to elevated LFTs Chronic bilateral lower extremity edema: - Hold Lasix 40 mg BID in setting of an acute infection DVT prophylaxis: Coumadin Code Status: LEVEL I, FULL Dispo: Resident of [facility]- return once medically stable for discharge (Ce Lamar ., PAFernandezC) Attending Attestation: pt seen/examined, chart reviewed, care plan d/w DIO Lamar. I agree w/ the gregorio components of her documentation. Pt w/o complaints today. He has erythema and swelling about the right knee but denies any pain with ROM of the knee or with walking. He states "it's not unusual for me to have this much swelling in this [the right ] leg." VSS no fever gen - nad heart - irregular lungs - CTA b/l abd - soft ext - 2-3+ edema noted above and below the tubigrip sleeves on right leg, 1+ edema left leg skin - there is patchy erythema about the right knee extending inferiorly to the tom; dressings not removed; there is erythema of the right foot; these areas are warm musculo - generalized edema about the right knee; passive flexion/extension elicits NO pain; palpation of right knee w/o tenderness A/P: extensive cellulitis RLE - continue ceftaroline per ID recs cont dressing changes resume lasix in AM will take dressings off in AM to evaluate the leg Fritz Olmos MD (Fritz Olmos MD)
[2016-10-29 15:21] VITALS: BP 124/73; PULSE 63; TEMP 36.7; O2SAT 93
[2016-10-29 16:08] VITALS: O2SAT 93
[2016-10-29] MEDS: WARFARIN SOD 5 MG TAB PO SCH (16:28)
[2016-10-29] MEDS: DIGOXIN 0.25 MG TAB PO SCH (16:29)
[2016-10-29 22:27] VITALS: BP 156/85; PULSE 75; TEMP 36.8; O2SAT 93
[2016-10-30] VITALS (7 sets, daily range): BP systolic 119–147; BP diastolic 67–86; PULSE 68–100; TEMP 36.8; O2SAT 93–96
[2016-10-30 07:08] LABS: HEMATOCRIT 38.5 % (42-52); MEAN CELL VOLUME 94.1 fL (80-100); MEAN CORPUSCULAR HEMOGLOBIN 31.8 pg (25-34); MEAN CORPUSCULAR HGB CONC 33.8 g/dl (32-36); MEAN PLATELET VOLUME 9.5 fL (7.4-10.4); PLATELET COUNT 296 K/uL (130-400); RED BLOOD COUNT 4.09 M/uL (4.7-6.1); WHITE BLOOD COUNT 13.57 K/uL (4.8-10.8)
[2016-10-30 07:16] LABS: PROTHROMBIN TIME (PATIENT) 21.6 SECONDS (9.0-12.0)
[2016-10-30 07:34] LABS: CALCIUM 8.3 mg/dl (8.5-10.1); CREATININE 0.87 mg/dl (0.60-1.40); POTASSIUM 3.8 mmol/L (3.5-5.1)
[2016-10-30 07:37] LABS: ALB/GLOB RATIO 0.6 (0.9-2)
[2016-10-30] MEDS: DILTIAZEM HCL 120 MG CAPCR PO SCH ×2 (08:20→21:23)
[2016-10-30] MEDS: FUROSEMIDE 40 MG TAB PO SCH ×2 (08:20→16:39)
[2016-10-30] MEDS: ASPIRIN 81 MG ECTAB PO SCH (08:20)
--- NOTE | 2016-10-30 10:13 | Hospitalist Progress Note ---
Hospitalist Progress Note Date of Service Oct 30, 2016. (Ce Lamar ., PAFernandezC) Subjective Pt evaluation today including: conversation w/ patient, physical exam, chart review, lab review, review of inpatient medication list Voiding: no voiding problems, no incontinence Patient states he is feeling well this AM. Eating and drinking OK. +edema to bilateral lower extremity- worse to R w/ cellulitis. Patient denies any fever, chills, sweats, lightheadedness, dizziness, vision changes, CP, palpitations, SOB, wheezing, cough, abdominal pain, nausea, vomiting, diarrhea, urinary symptoms, melena, numbness/tingling, weakness, muscle/joint pain, anxiety/depression, active bleeding, or new skin discoloration/changes. (Ce Lamar ., PERLAC) Medications Current Inpatient Medications Medications (Trade) Dose Ordered Sig/Maria Victoria Route Start Time Stop Time Status Last Admin Dose Admin Acetaminophen (Tylenol Tab) 650 mg Q4H PRN PO 10/26/16 15:15 11/25/16 15:14 Al Hydrox/Mg Hydrox/Simethicone (Maalox Max Susp) 15 ml Q4H PRN PO 10/26/16 15:15 11/25/16 15:14 Magnesium Hydroxide (Milk Of Magnesia Susp) 30 ml Q6H PRN PO 10/26/16 15:15 11/25/16 15:14 Ondansetron HCl (Zofran Inj) 4 mg Q6H PRN IV 10/26/16 15:15 11/25/16 15:14 Aspirin (Ecotrin Tab) 81 mg DAILY PO 10/27/16 09:00 11/26/16 08:59 10/30/16 08:20 81 MG Atenolol (Tenormin Tab) 100 mg BID PO 10/26/16 21:00 11/25/16 20:59 10/30/16 08:20 100 MG Digoxin (Lanoxin Tab) 0.25 mg DAILY@1600 PO 10/27/16 16:00 11/26/16 15:59 10/29/16 16:29 0.25 MG Diltiazem HCl (Cardizem Cd Cap) 120 mg BID PO 10/26/16 21:00 11/25/16 20:59 10/30/16 08:20 120 MG Ceftaroline Fosamil 600 mg/ Sodium Chloride 270 ml @ 250 mls/hr Q12H IV 10/28/16 11:00 11/07/16 09:59 10/29/16 22:24 250 MLS/HR Warfarin Sodium (Coumadin Tab) 5 mg SuTuWeThSa@1600 PO 10/28/16 16:00 11/27/16 15:59 10/29/16 16:28 5 MG Warfarin Sodium (Coumadin Tab) 7.5 mg MoFr@1600 PO 10/30/16 16:00 11/29/16 15:59 Furosemide (Lasix Tab) 40 mg BID17 PO 10/30/16 09:00 11/29/16 08:59 10/30/16 08:20 40 MG (Ce Lamar PA-C) Objective Vital Signs Date Time Temp Pulse Resp B/P (MAP) Pulse Ox O2 Delivery O2 Flow Rate FiO2 10/30/16 07:27 36.8 85 20 119/67 (84) 94 10/30/16 00:00 93 Room Air 10/29/16 22:27 36.8 75 18 156/85 (108) 93 Room Air 10/29/16 16:29 72 10/29/16 16:08 93 Room Air 10/29/16 15:21 36.7 63 18 124/73 (90) 93 Room Air 10/29/16 10:23 Room Air (Ce Lamar, DIO-C) Physical Exam General Appearance: no apparent distress Eyes: normal inspection, PERRL ENT: hearing grossly normal Neck: supple Respiratory/Chest: lungs clear, no respiratory distress, no accessory muscle use Cardiovascular: + irregularly irregular (rate controlled) Abdomen: normal bowel sounds, non tender, soft Extremities: no calf tenderness, + swelling (+1-2 pitting edema of LLE; +2-3 pitting edema of RLE to distal thigh ), + pertinent finding (noted minimal erythema/warmth to RLE; RLE wound wrapped in wound dressing/[place]) Neurologic/Psychiatric: alert, normal mood/affect, oriented x 3 Skin: normal color, warm/dry, no rash (Ce Lamar, DIO-C) Laboratory Results Last 24 Hours Test 10/30/16 06:45 White Blood Count 13.57 K/uL Red Blood Count 4.09 M/uL Hemoglobin 13.0 g/dL Hematocrit 38.5 % Mean Corpuscular Volume 94.1 fL Mean Corpuscular Hemoglobin 31.8 pg Mean Corpuscular Hemoglobin Concent 33.8 g/dl RDW Standard Deviation 45.6 fL RDW Coefficient of Variation 13.2 % Platelet Count 296 K/uL Mean Platelet Volume 9.5 fL Prothrombin Time 21.6 SECONDS Prothromb Time International Ratio 2.0 Sodium Level 143 mmol/L Potassium Level 3.8 mmol/L Chloride Level 110 mmol/L Carbon Dioxide Level 27 mmol/L Anion Gap 6.0 mmol/L Blood Urea Nitrogen 10 mg/dl Creatinine 0.87 mg/dl Est Creatinine Clear Calc Drug Dose 82.2 ml/min Estimated GFR () 93.2 Estimated GFR (Non- 80.4 BUN/Creatinine Ratio 11.0 Random Glucose 122 mg/dl Calcium Level 8.3 mg/dl Total Bilirubin 0.9 mg/dl Aspartate Amino Transf (AST/SGOT) 62 U/L Alanine Aminotransferase (ALT/SGPT) 119 U/L Alkaline Phosphatase 92 U/L Total Protein 6.0 gm/dl Albumin 2.2 gm/dl Globulin 3.8 gm/dl Albumin/Globulin Ratio 0.6 (Ce Lamar, PA-C) Assessment and Plan 80-year-old male returns to the emergency department with worsening redness and swelling of the right lower extremity failed outpatient therapy of doxycycline and Keflex for cellulitis. RLE cellulitis- failed outpatient treatment w/ Doxycycline and Keflex: - Admit to med/surg - RLE venous US- no evidence of DVT - Admitted on IV Vancomycin and Cefepime -- Changed to IV Ceftaroline by ID on 10/28 - BCx- NGTD - WCx- coag negative staph, no sensitives to follow - Leukocytosis: Follow CBC - Consult ID, appreciate recommendations -- Defer for antibiotic choice/duration - Consult wound care, appreciate recommendations Abnormal LFTs, secondary to infectious process vs statin vs other etiology: - Hold statin - Liver ultrasound- Septated liver cyst 4x3cm. Gallstones. Normal caliber bile ducts. -- Liver cyst was 3.6 cm in size on 2013 CT - Follow LFTs- trending down Mild hypokalemia at 3.4- RESOLVED: Replaced w/ KCL 40 mEq supplement- follow PRP Chronic a. fib- follows w/ Dr. Pan: - Warfarin 7.5 mg MW and 5 mg all other days held due to INR supratherapeutic at 3.9 on admission -- Resumed on 10/28- follow INR - Continue Diltiazem 120 mg BID, Digoxin 0.25 mg daily, Atenolol 100 mg BID -- Digoxin level checked- WNL CAD/HTN- STABLE: - Continue ASA 81 mg daily - Hold Atorvastatin 20 mg daily due to elevated LFTs Chronic bilateral lower extremity edema, secondary to CCB: - Lasix 40 mg BID held in setting of an acute infection- resumed on 10/30 DVT prophylaxis: Coumadin Code Status: LEVEL I, FULL Dispo: Resident of [facility]- return once medically stable for discharge (Ce Lamar ., PA-C) Attending Attestation: pt seen/examined, chart reviewed, care plan d/w DIO Lamar. I agree w/ the gregorio components of her documentation. Pt states his edema and redness of right leg is improved. No other new complaints. VSS no fever gen - nad heart - irregular lungs - CTA b/l abd - soft ext - less edema of right leg but still about 2+; 1+ edema left leg skin - less intense erythema of right tom/leg; ulcerated region medial aspect stable with healthy wound bed; erythema about the right knee is less intense and less in size A/P: extensive cellulitis RLE - 2nd coag neg staph - continue ceftaroline per ID recs ; I feel the leg is improved. cont dressing changes resumed lasix today INR in am for chronic coumadin usage Fritz Olmos MD (Fritz Olmos MD)
[2016-10-30] MEDS: CEFTAROLINE FOSAMIL INJ 600 MG in SODIUM CHLORIDE 0.9% 250ML 250 ML IV SCH ×2 (11:32→23:27)
--- NOTE | 2016-10-30 14:40 | Infectious Disease Progress Nt ---
Progress Note Date of Service Oct 30, 2016. Subjective Pt evaluation today including: conversation w/ patient, conversation w/ family , physical exam, chart review, lab review, review of studies, conversation w/ benefits consultant, review of inpatient medication list No new complaints. remains afebrile. Tolerating Abx. Pain controlled. All Other Systems: Reviewed and Negative Medications Current Inpatient Medications Medications (Trade) Dose Ordered Sig/Maria Victoria Route Start Time Stop Time Status Last Admin Dose Admin Acetaminophen (Tylenol Tab) 650 mg Q4H PRN PO 10/26/16 15:15 11/25/16 15:14 Al Hydrox/Mg Hydrox/Simethicone (Maalox Max Susp) 15 ml Q4H PRN PO 10/26/16 15:15 11/25/16 15:14 Magnesium Hydroxide (Milk Of Magnesia Susp) 30 ml Q6H PRN PO 10/26/16 15:15 11/25/16 15:14 Ondansetron HCl (Zofran Inj) 4 mg Q6H PRN IV 10/26/16 15:15 11/25/16 15:14 Aspirin (Ecotrin Tab) 81 mg DAILY PO 10/27/16 09:00 11/26/16 08:59 10/30/16 08:20 81 MG Atenolol (Tenormin Tab) 100 mg BID PO 10/26/16 21:00 11/25/16 20:59 10/30/16 08:20 100 MG Digoxin (Lanoxin Tab) 0.25 mg DAILY@1600 PO 10/27/16 16:00 11/26/16 15:59 10/29/16 16:29 0.25 MG Diltiazem HCl (Cardizem Cd Cap) 120 mg BID PO 10/26/16 21:00 11/25/16 20:59 10/30/16 08:20 120 MG Ceftaroline Fosamil 600 mg/ Sodium Chloride 270 ml @ 250 mls/hr Q12H IV 10/28/16 11:00 11/07/16 09:59 10/30/16 11:32 250 MLS/HR Warfarin Sodium (Coumadin Tab) 5 mg SuTuWeThSa@1600 PO 10/28/16 16:00 11/27/16 15:59 10/29/16 16:28 5 MG Warfarin Sodium (Coumadin Tab) 7.5 mg MoFr@1600 PO 10/30/16 16:00 11/29/16 15:59 Furosemide (Lasix Tab) 40 mg BID17 PO 10/30/16 09:00 11/29/16 08:59 10/30/16 08:20 40 MG Objective Vital Signs Date Time Temp Pulse Resp B/P (MAP) Pulse Ox O2 Delivery O2 Flow Rate FiO2 10/30/16 08:00 93 Room Air 10/30/16 07:27 36.8 85 20 119/67 (84) 94 10/30/16 00:00 93 Room Air 10/29/16 22:27 36.8 75 18 156/85 (108) 93 Room Air 10/29/16 16:29 72 10/29/16 16:08 93 Room Air 10/29/16 15:21 36.7 63 18 124/73 (90) 93 Room Air Physical Exam General Appearance: WD/WN, no apparent distress Eyes: normal inspection, sclerae normal ENT: normal ENT inspection, pharynx normal Neck: supple, no adenopathy, trachea midline Respiratory/Chest: chest non-tender, lungs clear, normal breath sounds, no respiratory distress Cardiovascular: no gallop, no murmur, + irregularly irregular Abdomen: normal bowel sounds, non tender, soft, no organomegaly Extremities: normal capillary refill, + inflammation (right leg), + swelling ( right leg) Neurologic/Psychiatric: alert, oriented x 3 Skin: normal color, no rash, + pertinent finding (slightly better cellulitis) Lymphatic: no adenopathy Laboratory Results RUN DATE: 10/29/16 [facility] LAB PAGE 1 RUN TIME: 4333 Specimen Inquiry PATIENT: CASSIDYJASON LOC: [facility] U # : [id number] AGE/SX: 80/M ROOM: W263 REG : 10/26/[address]: Fritz Olmos MD : 1935 BED: 2 DIS : STATUS: ADM IN TLOC: SPEC #: [id number] FIFI: 10/27/16 STATUS: COMP REQ #: [id number] RECD: 10/27/[address]: Shan Lerma MD SOURCE: SKIN ENTR: 10/27/[address]: Iftikhar Schmitz MD SPDESC: Margaret WHITE [facility] IRB APPROVED STUDY, Zachery Franz M.D., Mark R., DO ORDERED: SURF WND CU/SMR COMMENTS: Has Specimen Been Obtained/Collected? Y Procedure Result Verified Site GRAM STAIN Final 10/28/16-0754 RESULT FEW WBCs SEEN NO ORGANISMS SEEN SURFACE WOUND CULTURE Final 10/29/16-1423 Organism 1 COAG NEG STAPHYLOCOCCUS QUANITY RARE SENS NO SENSITIVITY TO FOLLOW +MIXWOUND PLUS LOW COUNTS OF PROBABLE SKIN PRANAV Last 24 Hours Test 10/30/16 06:45 White Blood Count 13.57 K/uL Red Blood Count 4.09 M/uL Hemoglobin 13.0 g/dL Hematocrit 38.5 % Mean Corpuscular Volume 94.1 fL Mean Corpuscular Hemoglobin 31.8 pg Mean Corpuscular Hemoglobin Concent 33.8 g/dl RDW Standard Deviation 45.6 fL RDW Coefficient of Variation 13.2 % Platelet Count 296 K/uL Mean Platelet Volume 9.5 fL Prothrombin Time 21.6 SECONDS Prothromb Time International Ratio 2.0 Sodium Level 143 mmol/L Potassium Level 3.8 mmol/L Chloride Level 110 mmol/L Carbon Dioxide Level 27 mmol/L Anion Gap 6.0 mmol/L Blood Urea Nitrogen 10 mg/dl Creatinine 0.87 mg/dl Est Creatinine Clear Calc Drug Dose 82.2 ml/min Estimated GFR () 93.2 Estimated GFR (Non- 80.4 BUN/Creatinine Ratio 11.0 Random Glucose 122 mg/dl Calcium Level 8.3 mg/dl Total Bilirubin 0.9 mg/dl Aspartate Amino Transf (AST/SGOT) 62 U/L Alanine Aminotransferase (ALT/SGPT) 119 U/L Alkaline Phosphatase 92 U/L Total Protein 6.0 gm/dl Albumin 2.2 gm/dl Globulin 3.8 gm/dl Albumin/Globulin Ratio 0.6 Assessment and Plan 80-year-old male with chronic atrial fibrillation on lower extremity edema now presents with acute right leg cellulitis. Appearance most typical for streptococcal infection, especially group a and group B. however, Staph also possibility. Patient will be continued on IV ceftaroline 600 milligrams q.12 hours. length of IV antibiotic therapy will be determined by clinical response. Will follow.
[2016-10-30] MEDS: WARFARIN SOD 7.5 MG TAB PO SCH (16:39)
[2016-10-30] MEDS: DIGOXIN 0.25 MG TAB PO SCH (16:39)
[2016-10-31] MEDS ORDERED: EUCERIN CR 120 GM JAR EXT PRN (05:15)
[2016-10-31 07:25] VITALS: BP 133/82; PULSE 80; TEMP 36.8; O2SAT 96
[2016-10-31 07:32] LABS: HEMATOCRIT 38.8 % (42-52); MEAN CELL VOLUME 94.4 fL (80-100); MEAN CORPUSCULAR HEMOGLOBIN 32.4 pg (25-34); MEAN CORPUSCULAR HGB CONC 34.3 g/dl (32-36); MEAN PLATELET VOLUME 9.8 fL (7.4-10.4); PLATELET COUNT 310 K/uL (130-400); RED BLOOD COUNT 4.11 M/uL (4.7-6.1)
[2016-10-31 07:51] LABS: PROTHROMBIN TIME (PATIENT) 21.8 SECONDS (9.0-12.0)
[2016-10-31 08:00] VITALS: O2SAT 93
[2016-10-31 08:09] LABS: BUN/CREATININE RATIO 11.7 (10-20); CALCIUM 8.2 mg/dl (8.5-10.1); CREATININE 0.94 mg/dl (0.60-1.40); POTASSIUM 3.5 mmol/L (3.5-5.1)
[2016-10-31 08:11] LABS: ALB/GLOB RATIO 0.6 (0.9-2)
[2016-10-31] MEDS: ASPIRIN 81 MG ECTAB PO SCH (08:50)
[2016-10-31] MEDS: FUROSEMIDE 40 MG TAB PO SCH ×2 (08:51→16:51)
[2016-10-31] MEDS: DILTIAZEM HCL 120 MG CAPCR PO SCH ×2 (08:51→20:48)
[2016-10-31] MEDS: CEFTAROLINE FOSAMIL INJ 600 MG in SODIUM CHLORIDE 0.9% 250ML 250 ML IV SCH ×2 (13:09→23:35)
--- NOTE | 2016-10-31 13:57 | Hospitalist Progress Note ---
Hospitalist Progress Note Date of Service Oct 31, 2016. (Camille Nesbitt, PA-C) Subjective Pt evaluation today including: conversation w/ patient, physical exam, chart review, lab review, review of studies, review of inpatient medication list Patient seen and evaluated. No acute events overnight. Patient keeps daily picture log and measurement log. Measures around R knee in bent position and documented a reduction of 5/8 inch since yesterday. Reporting improvement in leg (swelling/redness). He denies pain of the lower extremity. Does have dry skin at plantar aspect of foot and a dry crack fissure at the plantar aspect of big toe that wound nurse is aware of. Negative balance of -6696 fluids. INR at 2. LFTs normalizing. WBC mildly trending up but patient reports feeling well and is afebrile. Constitutional: No fever, No chills Respiratory: No cough, No shortness of breath Cardiovascular: No chest pain Abdomen: No pain, No nausea, No vomiting, No diarrhea, No constipation Musculoskeletal: + swelling, No calf pain Male : No dysuria Heme: No abnormal bleeding/bruising (Camille Nesbitt, PA-C) Medications Current Inpatient Medications Medications (Trade) Dose Ordered Sig/Maria Victoria Route Start Time Stop Time Status Last Admin Dose Admin Acetaminophen (Tylenol Tab) 650 mg Q4H PRN PO 10/26/16 15:15 11/25/16 15:14 Al Hydrox/Mg Hydrox/Simethicone (Maalox Max Susp) 15 ml Q4H PRN PO 10/26/16 15:15 11/25/16 15:14 Magnesium Hydroxide (Milk Of Magnesia Susp) 30 ml Q6H PRN PO 10/26/16 15:15 11/25/16 15:14 Ondansetron HCl (Zofran Inj) 4 mg Q6H PRN IV 10/26/16 15:15 11/25/16 15:14 Aspirin (Ecotrin Tab) 81 mg DAILY PO 10/27/16 09:00 11/26/16 08:59 10/31/16 08:50 81 MG Atenolol (Tenormin Tab) 100 mg BID PO 10/26/16 21:00 11/25/16 20:59 10/31/16 08:50 100 MG Digoxin (Lanoxin Tab) 0.25 mg DAILY@1600 PO 10/27/16 16:00 11/26/16 15:59 10/30/16 16:39 0.25 MG Diltiazem HCl (Cardizem Cd Cap) 120 mg BID PO 10/26/16 21:00 11/25/16 20:59 10/31/16 08:51 120 MG Ceftaroline Fosamil 600 mg/ Sodium Chloride 270 ml @ 250 mls/hr Q12H IV 10/28/16 11:00 11/07/16 09:59 10/31/16 13:09 250 MLS/HR Warfarin Sodium (Coumadin Tab) 5 mg SuTuWeThSa@1600 PO 10/28/16 16:00 11/27/16 15:59 10/29/16 16:28 5 MG Warfarin Sodium (Coumadin Tab) 7.5 mg MoFr@1600 PO 10/30/16 16:00 11/29/16 15:59 10/30/16 16:39 7.5 MG Furosemide (Lasix Tab) 40 mg BID17 PO 10/30/16 09:00 11/29/16 08:59 10/31/16 08:51 40 MG Multi-Ingredient Ointment (Eucerin Unscented Cr) 1 appln UD PRN EXT 10/31/16 05:15 11/30/16 05:14 (Camille Nesbitt PA-C) Objective Vital Signs Date Time Temp Pulse Resp B/P (MAP) Pulse Ox O2 Delivery O2 Flow Rate FiO2 10/31/16 08:00 93 Room Air 10/31/16 07:25 36.8 80 16 133/82 (99) 96 Room Air 10/30/16 23:59 Room Air 10/30/16 23:56 36.8 68 20 138/86 (103) 96 Room Air 10/30/16 21:20 72 147/85 (105) 10/30/16 16:39 94 10/30/16 16:00 93 Room Air 10/30/16 14:52 36.8 100 20 145/77 (99) 96 (Camille Nesbitt PA-C) Physical Exam General Appearance: WD/WN, no apparent distress Eyes: sclerae normal ENT: hearing grossly normal (with aids) Neck: supple, no JVD, trachea midline Respiratory/Chest: lungs clear, normal breath sounds, no respiratory distress, no accessory muscle use Cardiovascular: no gallop, no murmur, + irregularly irregular Abdomen: normal bowel sounds, non tender, soft Extremities: + swelling (2+ pitting edema of R foot extending to R thigh with open seeping wounds of R leg; 1+ pitting edema of LLE) Neurologic/Psychiatric: alert, oriented x 3 Skin: normal color (Camille Nesbitt, PERLAC) Laboratory Results Last 24 Hours Test 10/31/16 07:07 White Blood Count 14.80 K/uL Red Blood Count 4.11 M/uL Hemoglobin 13.3 g/dL Hematocrit 38.8 % Mean Corpuscular Volume 94.4 fL Mean Corpuscular Hemoglobin 32.4 pg Mean Corpuscular Hemoglobin Concent 34.3 g/dl RDW Standard Deviation 45.7 fL RDW Coefficient of Variation 13.2 % Platelet Count 310 K/uL Mean Platelet Volume 9.8 fL Prothrombin Time 21.8 SECONDS Prothromb Time International Ratio 2.0 Sodium Level 140 mmol/L Potassium Level 3.5 mmol/L Chloride Level 107 mmol/L Carbon Dioxide Level 28 mmol/L Anion Gap 5.0 mmol/L Blood Urea Nitrogen 11 mg/dl Creatinine 0.94 mg/dl Est Creatinine Clear Calc Drug Dose 76.0 ml/min Estimated GFR () 87.2 Estimated GFR (Non- 75.2 BUN/Creatinine Ratio 11.7 Random Glucose 119 mg/dl Calcium Level 8.2 mg/dl Total Bilirubin 1.0 mg/dl Aspartate Amino Transf (AST/SGOT) 33 U/L Alanine Aminotransferase (ALT/SGPT) 88 U/L Alkaline Phosphatase 84 U/L Total Protein 6.1 gm/dl Albumin 2.2 gm/dl Globulin 3.9 gm/dl Albumin/Globulin Ratio 0.6 (Camille Nesbitt, PA-C) Assessment and Plan 80-year-old male returns to the emergency department with worsening redness and swelling of the right lower extremity failed outpatient therapy of doxycycline and Keflex for cellulitis. RLE Cellulitis- Failed outpatient treatment w/ Doxycycline and Keflex: IMPROVING - RLE venous U/S - no evidence of DVT - Admitted on IV Vancomycin and Cefepime - currently on Ceftaroline 600 mg IV Q12H - WCx- coag negative staph, no sensitives to follow - ID Following - Await antibiotic adjustment/duration - findings support strept but possibly staph - Wound care following - appreciate dressing change/recommendations Transaminitis 2/2 Infectious Process vs Statin vs Other Etiology: NORMALIZING - Hold Lipitor and continue to trend - ALT remains elevated but trending down - Liver ultrasound- Septated liver cyst 4x3cm. Gallstones. Normal caliber bile ducts. -- Liver cyst was 3.6 cm in size on 2013 CT Mild Hypokalemia at 3.4- RESOLVED: Monitor and replete as necessary Chronic A Fib: RATE CONTROLLED - follows w/ Dr. 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 I agree w/ the gregorio components of her documentation. Pt states he feels the edema in his right leg is improved. he doesn't feel the erythema is any better. Dressings were changed just prior to my visit and thus I did not remove them today. VSS no fever gen - nad heart - irregular lungs - CTA b/l abd - soft ext - less edema of right leg today; perhaps slightly less than 2+; 1+ on left; pulses 2+ b/l skin - erythema about the right knee is modestly improved; again dressings not removed from tom A/P: extensive cellulitis RLE - 2nd coag neg staph - continue ceftaroline per ID recs ; no significant clinical improvement overnight will look at leg tomorrow during his scheduled dressing change cont dressing changes cont lasix INR in am for chronic coumadin usage - INR remains therapeutic Fritz Olmos MD (Firtz Olmos MD)
[2016-10-31 14:51] VITALS: BP 126/69; PULSE 70; TEMP 36.4; O2SAT 95
[2016-10-31 16:00] VITALS: O2SAT 93
[2016-10-31] MEDS: DIGOXIN 0.25 MG TAB PO SCH (16:51)
[2016-10-31] MEDS: WARFARIN SOD 5 MG TAB PO SCH (16:51)
[2016-10-31 20:48] VITALS: BP 142/93; PULSE 83
[2016-10-31 22:56] VITALS: BP 157/100; PULSE 74; TEMP 36.6; O2SAT 95
[2016-11-01 07:40] VITALS: BP 145/83; PULSE 81; TEMP 36.8; O2SAT 95
[2016-11-01 07:41] LABS: INR 1.9 (0.9-1.1); PROTHROMBIN TIME (PATIENT) 21.2 SECONDS (9.0-12.0)
[2016-11-01 08:00] VITALS: O2SAT 93
[2016-11-01] MEDS: FUROSEMIDE 40 MG TAB PO SCH ×2 (09:03→16:35)
[2016-11-01] MEDS: ASPIRIN 81 MG ECTAB PO SCH (09:03)
[2016-11-01] MEDS: DILTIAZEM HCL 120 MG CAPCR PO SCH ×2 (09:03→21:11)
[2016-11-01 09:37] LABS: HEMATOCRIT 38.7 % (42-52); MEAN CELL VOLUME 94.9 fL (80-100); MEAN CORPUSCULAR HEMOGLOBIN 31.9 pg (25-34); MEAN CORPUSCULAR HGB CONC 33.6 g/dl (32-36); MEAN PLATELET VOLUME 9.5 fL (7.4-10.4); PLATELET COUNT 276 K/uL (130-400); RED BLOOD COUNT 4.08 M/uL (4.7-6.1)
[2016-11-01 10:01] LABS: BUN/CREATININE RATIO 12.9 (10-20); POTASSIUM 3.5 mmol/L (3.5-5.1)
[2016-11-01] MEDS: CEFTAROLINE FOSAMIL INJ 600 MG in SODIUM CHLORIDE 0.9% 250ML 250 ML IV SCH ×2 (11:12→23:16)
[2016-11-01] MEDS: KETOCONAZOLE 2% CR 15 GM TUBE EXT SCH ×2 (11:12→21:11)
[2016-11-01] MEDS: TRIAMCINOLONE ACET 0.1% CR 80 GM TUBE EXT SCH ×3 (11:12→21:10)
[2016-11-01 14:19] VITALS: BP 115/73; PULSE 81; TEMP 36.9; O2SAT 94
[2016-11-01 15:30] VITALS: O2SAT 93
[2016-11-01] MEDS: WARFARIN SOD 5 MG TAB PO SCH (16:35)
[2016-11-01] MEDS: DIGOXIN 0.25 MG TAB PO SCH (16:35)
--- NOTE | 2016-11-01 20:27 | Progress Note ---
Subjective Date of Service: Nov 01, 2016. Subjective Pt evaluation today including: conversation w/ patient, physical exam, chart review, lab review, review of inpatient medication list Pain: none PO Intake: excellent Voiding: no voiding problems reports pruritic rash on back dressings fully removed from right leg during my visit ulcerations on medial aspect markedly improved still with moderate erythema extending from several inches below the knee to the ankle region although maybe slightly less intense redness than previous examination blotchy erythema about the right knee - slightly better gross edema improved he overall feels good Problem List Medical Problems: (1) Cellulitis of leg without foot, right Status: Acute (2) Failure of outpatient treatment Status: Acute (3) Viral gastroenteritis Status: Acute Review of Systems Constitutional: No fever, No chills Respiratory: No cough, No shortness of breath Cardiac: No chest pain Abdomen: No pain, No diarrhea Objective Vital Signs Date Time Temp Pulse Resp B/P (MAP) Pulse Ox O2 Delivery O2 Flow Rate FiO2 11/01/16 16:35 82 11/01/16 15:30 93 Room Air 11/01/16 14:19 36.9 81 20 115/73 (87) 94 11/01/16 08:00 93 Room Air 11/01/16 07:40 36.8 81 20 145/83 (103) 95 10/31/16 23:59 Room Air 10/31/16 22:56 36.6 74 18 157/100 (119) 95 Room Air 10/31/16 20:48 83 142/93 (109) Physical Exam General Appearance: no apparent distress ENT: pharynx normal Neck: no JVD Respiratory/Chest: lungs clear, no respiratory distress, no accessory muscle use Cardiovascular: no gallop, no murmur, + irregularly irregular Abdomen: normal bowel sounds, non tender, soft, no organomegaly Extremities: + swelling (2-3+ right leg, 1-2+ on left) Neurologic/Psychiatric: alert, oriented x 3 Skin: + pertinent finding (contact derm on back - erythematous papules only) Comments: skin - ulcerations on medial aspect markedly improved with clean base still with moderate erythema extending from several inches below the knee to the ankle region although maybe slightly less intense redness than previous examination blotchy erythema about the right knee - slightly better right foot - plantar aspect and inter-digit - probable tinea pedis Laboratory Results Last 24 Hours Test 11/01/16 06:50 11/01/16 09:23 11/01/16 11:10 11/01/16 16:13 Prothrombin Time 21.2 SECONDS Prothromb Time International Ratio 1.9 White Blood Count 11.40 K/uL Red Blood Count 4.08 M/uL Hemoglobin 13.0 g/dL Hematocrit 38.7 % Mean Corpuscular Volume 94.9 fL Mean Corpuscular Hemoglobin 31.9 pg Mean Corpuscular Hemoglobin Concent 33.6 g/dl RDW Standard Deviation 46.0 fL RDW Coefficient of Variation 13.3 % Platelet Count 276 K/uL Mean Platelet Volume 9.5 fL Sodium Level 141 mmol/L Potassium Level 3.5 mmol/L Chloride Level 108 mmol/L Carbon Dioxide Level 29 mmol/L Anion Gap 4.0 mmol/L Blood Urea Nitrogen 13 mg/dl Creatinine 1.00 mg/dl Est Creatinine Clear Calc Drug Dose 71.5 ml/min Estimated GFR () 80.9 Estimated GFR (Non- 69.8 BUN/Creatinine Ratio 12.9 Random Glucose 194 mg/dl Calcium Level 8.0 mg/dl Bedside Glucose 140 mg/dl Assessment and Plan 80yo male: 1. extensive cellulitis RLE - 2nd coag neg staph +/- other unidentified organisms - continues on ceftaroline per ID recs; probably 5-10% better today. Day #5 of ceftaroline. Defer course to ID; will he need midline PICC with IV abx after d/c?? cont dressing changes cont lasix 2. a. fib - rates controlled with dig, CCB, and BB. Cont coumadin as is; INR in am. 3. abnormal LFTs - 2nd to statin? have improved while here. cont to hold statin. consider rechallenge after discharge. 4. T2DM - diet-controlled. Patient is aware of dx. Change diet to T2DM/AHA. BSG's ac/hs. Manager Staffing consult for counseling. 5. DVT proph - coumadin. 6. chronic venous insufficiency - uses compression at home. 7. add K/mag supplements due to lasix use. 8. liver cyst - seen on imaging of abdomen in 2013 and has NOT changed in size since arguing for benign etiology. 9. CAD - no ischemic symptoms. Cont BB, asa. Resume statin in future if LFTs normalize. 10. contact dermatitis on back - triamcinolone cream 0.1% TID. 11. tinea pedis, right foot - ketoconazole cream BID. await ID recs on Wednesday Continued [facility] stay due to: multiple IV medications needed Discharge planning[facility]
[2016-11-01 21:09] VITALS: BP 137/89; PULSE 76
[2016-11-01 22:41] VITALS: BP 137/89; PULSE 72; TEMP 36.8; O2SAT 95
[2016-11-02 07:30] LABS: INR 1.9 (0.9-1.1)
[2016-11-02 07:45] VITALS: BP 135/82; PULSE 68; TEMP 36.5; O2SAT 94
[2016-11-02] MEDS: DILTIAZEM HCL 120 MG CAPCR PO SCH (08:50)
[2016-11-02] MEDS: ASPIRIN 81 MG ECTAB PO SCH (08:50)
[2016-11-02] MEDS: FUROSEMIDE 40 MG TAB PO SCH (08:50)
[2016-11-02] MEDS ORDERED: MAGNESIUM OXIDE 400 MG TAB PO SCH (09:00)
[2016-11-02] MEDS ORDERED: POTASSIUM CHLORIDE 20 MEQ TABCR PO SCH (09:00)
[2016-11-02 09:52] VITALS: O2SAT 93
[2016-11-02] MEDS ORDERED: NZRCR EXT (11:29)
[2016-11-02] MEDS ORDERED: TRMCR180 EXT (11:29)
[2016-11-02] MEDS ORDERED: LINE1TAB6 PO (11:29)
[2016-11-02] MEDS: TRIAMCINOLONE ACET 0.1% CR 80 GM TUBE EXT SCH ×2 (11:38→14:55)
[2016-11-02] MEDS: CEFTAROLINE FOSAMIL INJ 600 MG in SODIUM CHLORIDE 0.9% 250ML 250 ML IV SCH (11:38)
[2016-11-02] MEDS: KETOCONAZOLE 2% CR 15 GM TUBE EXT SCH (11:38)
--- NOTE | 2016-11-02 11:48 | Discharge Instructions ---
Discharge Instructions Date of Service Nov 02, 2016. Admission Reason for Admission: Cellulitis Discharge Discharge Diagnosis / Problem: Right lower extremity cellulitis Discharge Goals Goal(s): Decrease discomfort, Improve function, Increase independence, Learn about illness, Diagnostic testing, Therapeutic intervention, Prevent Disease Progression Activity Recommendations Activity Level: Up Ad Delia . Additional Information Patient informed of condition: Yes Advance Directives: Yes DNR: No Level of Care: Skilled Communicable Disease: No Prognosis: Improving Blood Catheter: No Instructions / Follow-Up Instructions / Follow-Up RLE cellulitis- failed outpatient treatment w/ Doxycycline and Keflex: - RLE venous US- no evidence of DVT - Admitted on IV Vancomycin and Cefepime -- Changed to IV Ceftaroline by ID on 10/28 -- Discussed w/ ID- discharge on Zyvox 600 mg BID x1 week - BCx- NGTD - WCx- coag negative staph, no sensitives to follow - Leukocytosis- IMPROVING - Consult ID, appreciate recommendations - Consult wound care, appreciate recommendations Abnormal LFTs, secondary to infectious process vs statin vs other etiology- IMPROVING: - Hold statin - Liver ultrasound- Septated liver cyst 4x3cm. Gallstones. Normal caliber bile ducts. -- Liver cyst was 3.6 cm in size on 2013 CT - Follow LFTs- trending down - Discussed w/ patient- would like to resume and follow-up w/ PCP and Dr. Pan to follow LFTs Mild hypokalemia at 3.4- RESOLVED: Chronic a. fib- follows w/ Dr. Pan: - Warfarin 7.5 mg MW and 5 mg all other days held due to INR supratherapeutic at 3.9 on admission -- Resumed on 10/28- INR 1.9 on discharge - Continue Diltiazem 120 mg BID, Digoxin 0.25 mg daily, Atenolol 100 mg BID -- Digoxin level checked- WNL CAD/HTN- STABLE: - Continue ASA 81 mg daily - Hold Atorvastatin 20 mg daily due to elevated LFTs- resume at discharge Chronic bilateral lower extremity edema, secondary to CCB: Continue Lasix 40 mg BID Contact dermatitis on back: Triamcinolone cream 0.1% TID Tinea pedis, right foot: Ketoconazole cream BID DVT prophylaxis: Coumadin Code Status: LEVEL I, FULL Follow-Up: Please follow-up with [facility] provider within 24-48 hours Please follow-up/keep all of your subspecialty appointments Current Hospital Diet Patient's current hospital diet: AHA Diet (Heart Healthy), Diabetes Type 2 Diet Discharge Diet Recommended Diet: AHA Diet (Heart Healthy), Diabetes Type 2 Diet Procedures Procedures Performed: Abdominal US, lower extremity venous US Pending Studies Studies pending at discharge: no Physician Orders On Transfer Dressing Changes: RLE- Xeroform gauze, cover sponge Kerlix with daily change IV Therapy: None Vital Signs: Routine POLST Discussion: Not Applicable Laboratory Results Hemoglobin A1c Test 09/25/16 06:30 Range/Units Estimated Average Glucose 148 mg/dl Hemoglobin A1c 6.8 H 4.5-5.6 % Medical Emergencies . Who to Call and When: Medical Emergencies: If at any time you feel your situation is an emergency, please call 911 immediately. . Non-Emergent Contact Non-Emergency issues call your: Primary Care Provider Call Non-Emergent contact if: you have a fever, your pain is not controlled, your pain is worsening, your pain is unusual for you, your pain is concerning you, wound has increased drainage, wound has increased redness, wound has increased pain, you have any medication questions . . "Provider Documentation" section prepared by Ce Lamar. . Core Measure Problem Core Measures: None
--- NOTE | 2016-11-02 13:40 | Discharge Summary ---
Discharge Summary Date of Service Nov 02, 2016. (Ce Lamar PA-C) Discharge Summary Admission Date: Oct 26, 2016 at 15:11 Discharge Date: Nov 02, 2016 Discharge Disposition: group home facility Principal Diagnosis: Right lower extremity cellulitis Problems/Secondary Diagnoses: Abnormal LFTs Mild hypokalemia Chronic a. fib CAD HTN Chronic bilateral lower extremity edema, secondary to CCB Contact dermatitis on back Tinea pedis, right foot Immunizations: Have You Had Influenza Vaccine: Yes History of Tetanus Vaccine?: Unknown History of Pneumococcal: Yes History of Hepatitis B Vaccine: Unknown Procedures: ABDOMEN LIMITED (US) HISTORY: Nausea abnormal LFTs vomiting. COMPARISON: None. FINDINGS: Pancreas: The pancreas demonstrates a normal echotexture. Liver: 4 x 3 cm septated cyst left hepatic lobe. Gallbladder: Gallstones CBD: 6 mm Right kidney: 12 cm maximum linear dimension. No evidence for hydronephrosis. IMPRESSION: 1. Septated liver cyst. 2. Gallstones. 3. Normal caliber bile ducts. The above report was generated using voice recognition software. It may contain grammatical, syntax or spelling errors. Electronically signed by: Cameron Solis M.D. 10/26/2016 5:11 PM Dictated Date/Time: 10/26/2016 5:09 PM The status of this report is Signed. Draft = Not yet reviewed or approved by Radiologist. Signed = Reviewed and approved by Radiologist. RIGHT VENOUS DOPP LOWER EXT UNILAT CLINICAL HISTORY: 80 years-old Male presenting with R/O DVT Right. TECHNIQUE: Real-time grayscale and color and spectral Doppler ultrasound imaging of the veins of the right lower extremity was performed. Compression and augmentation were also utilized. COMPARISON: None. FINDINGS: Right: Common femoral vein: Patent. Femoral vein: Patent. Greater saphenous vein: Patent. Popliteal vein: Patent. Calf veins: Limited visualization secondary to subcutaneous edema. Other: Prominent right groin lymph nodes, which maintain fatty sandie and a reniform shape, likely reactive and benign. Subcutaneous edema noted in the lower leg with dilated lymphatics. IMPRESSION: No evidence of deep venous thrombosis. Electronically signed by: Michel Perez M.D. 10/27/2016 9:11 PM Dictated Date/Time: 10/27/2016 9:09 PM The status of this report is Signed. Draft = Not yet reviewed or approved by Radiologist. Signed = Reviewed and approved by Radiologist. Consultations: Infectious Disease Wound Care (Ce Lamar, DENIS) Medication Reconciliation New Medications: Linezolid (Zyvox) 600 Mg Tab 600 MG PO BID for 7 Days, #14 TAB Ketoconazole (Ketoconazole) 45 Appln/15 Gm Cr 1 APPLN EXT BID for 30 Days Triamcinolone Acet (Aristocort 0.1%) 240 Appln/80 Gm Cr 1 APPLN EXT TID for 30 Days Continued Medications: Aspirin (Aspirin Dr) 81 Mg Tab 81 MG PO DAILY Atenolol (Tenormin) 100 Mg Tab 100 MG PO BID, TAB Atorvastatin (Lipitor) 20 Mg Tab 20 MG PO DAILY, TAB Coenzyme Q10 (Ubidecarenone) (Coenzyme Q-10) 100 Mg Cap 100 MG PO DAILY Digoxin (Digoxin) 0.25 Mg Tab 0.25 MG PO DAILY Diltiazem HCl (Diltiazem Cd) 120 Mg Capcr 120 MG PO BID Furosemide (Lasix) 40 Mg Tab 40 MG PO BID, TAB Magnesium Gluconate (Magnesium Gluconate) 27.5 Mg Tab 55 MG PO BID Potassium Citrate (Alkalinizer (Potassium Citrate ER) 1,080 Mg Tab 3240 MG PO BID, TAB TAKE 3 TABLETS TWO TIMES A DAY Warfarin Sodium (Warfarin Sodium) 5 Mg Tab 5 MG PO 5XWK, TAB TAKE 5 MG EVERY WEDNESDAY,WEDNESDAY,WEDNESDAY,WEDNESDAY AND WEDNESDAY OR OTHERWISE DIRECTED TO TAKE BY ANTICOAGULATION CLINIC/MD. Warfarin Sodium (Warfarin Sodium) 5 Mg Tab 7.5 MG PO 2XWK, TAB TAKE 7.5 MG EVERY WEDNESDAY AND WEDNESDAY OR OTHERWISE DIRECTED TO TAKE BY ANTICOAGULATION CLINIC/MD. Discontinued Medications: Cephalexin Monohydrate (Keflex) 500 Mg Cap 500 MG PO QID for 10 Days, #40 CAP Doxycycline Hyclate (Vibramycin) 100 Mg Cap 100 MG PO BID for 10 Days, #20 CAP Discharge Exam Review of Systems: Constitutional: No fever, No chills, No sweats, No weakness, No fatigue ENT: No hearing loss Respiratory: No cough, No sputum, No shortness of breath, No hemoptysis Cardiovascular: + edema (chronic), No chest pain, No palpitations Abdomen: No pain, No nausea, No vomiting, No diarrhea, No constipation Musculoskeletal: No joint pain, No muscle pain, No swelling, No calf pain Genitourinary - Male: No hematuria, No dysuria Neurologic: No weakness Psychiatric: No depression symptoms, No anxiety Hematologic / Lymphatic: No abnormal bleeding/bruising Integumentary: No rash, No itch Physical Exam: General Appearance: WD/WN, no apparent distress Eyes: normal inspection, PERRL ENT: hearing grossly normal Neck: supple Respiratory/Chest: lungs clear, no respiratory distress, no accessory muscle use Cardiovascular: + irregularly irregular (rate controlled) Abdomen / GI: normal bowel sounds, non tender, soft Extremities: no calf tenderness, + swelling (LLE +1 pitting edema; RLE +2-3 pitting edema ), + pertinent finding (RLE: improving erythema/warmth, lesions to lateral tom region scabbed w/ no obvious drainage) Neurologic/Psychiatric: alert, normal mood/affect, oriented x 3 Skin: normal color, warm/dry, no rash (Ce Lamar, PA-C) Hospital Course Admission H&P: This patient is a pleasant 80-year-old male that presents the emergency department today from [facility] with complaints of worsening right leg redness and swelling. The patient was evaluated in the emergency department 3 days ago for the same complaint. He was diagnosed with cellulitis and started on Keflex and doxycycline. The patient has been taking the medication as prescribed with no improvement. He denies any significant pain at rest. He does complain of some discomfort in the leg when he is walking. He denies any injury to the leg. He denies any fever or chills. The patient denies any other symptoms over the last few days. He does report having a GI illness, but that was approximately 2 weeks ago. He denies any recent nausea, vomiting, diarrhea or abdominal pain. The patient has a history of A. fib and is on chronic anticoagulation. Physical Exam Vital Signs Date Time Temp Pulse Resp B/P (MAP) Pulse Ox O2 Delivery O2 Flow Rate FiO2 10/26/16 13:30 78 18 132/82 98 Room Air 10/26/16 11:54 36.7 78 20 117/77 95 Room Air General Appearance: no apparent distress Head: normocephalic Eyes: EOMI ENT: + pertinent finding (oral mucosa slightly dry) Neck: no JVD Respiratory/Chest: lungs clear Cardiovascular: no murmur, + irregularly irregular Abdomen/GI: normal bowel sounds, non tender, soft Extremities/Musculoskelatal: + pertinent finding (+1 pitting edema with associated significant erythema of the right lower extremity from the foot extending proximally to the mid thigh. Very small, 1 cm superficial wound to the lateral aspect of the right ankle that is oozing serous fluid.) Neurologic/Psych: no motor/sensory deficits, oriented x 3 Skin: warm/dry Hospital Course: RLE cellulitis- failed outpatient treatment w/ Doxycycline and Keflex- IMPROVING : - Admit to med/surg - RLE venous US- no evidence of DVT - Admitted on IV Vancomycin and Cefepime -- Changed to IV Ceftaroline by ID on 10/28 -- Discussed w/ ID- Zyvox 600 mg BID x7 days at discharge - BCx- NGTD - WCx- coag negative staph, no sensitives to follow - Leukocytosis- IMPROVING - Consult ID, appreciate recommendations -- Defer for antibiotic choice/duration - Consult wound care, appreciate recommendations Abnormal LFTs, secondary to infectious process vs statin vs other etiology: - Hold statin - Liver ultrasound- Septated liver cyst 4x3cm. Gallstones. Normal caliber bile ducts. -- Liver cyst was 3.6 cm in size on 2013 CT - Follow LFTs- trending down - Discussed w/ patient, resume at discharge and follow closely w/ PCP/Dr. Pan for LFT follow-up Mild hypokalemia at 3.4- RESOLVED: Chronic a. fib- follows w/ Dr. Pan: - Warfarin 7.5 mg MW and 5 mg all other days held due to INR supratherapeutic at 3.9 on admission -- Resumed on 10/28- follow INR - Continue Diltiazem 120 mg BID, Digoxin 0.25 mg daily, Atenolol 100 mg BID -- Digoxin level checked- WNL CAD/HTN- STABLE: - Continue ASA 81 mg daily - Hold Atorvastatin 20 mg daily due to elevated LFTs- resume at discharge Chronic bilateral lower extremity edema, secondary to CCB: - Lasix 40 mg BID held in setting of an acute infection- resumed on 10/30 Contact dermatitis on back: Triamcinolone cream 0.1% TID Tinea pedis, right foot: Ketoconazole cream BID DVT prophylaxis: Coumadin Code Status: LEVEL I, FULL Dispo: Resident of [facility] Total Time Spent: Greater than 30 minutes This includes examination of the patient, discharge planning, medication reconciliation, and communication with other providers. (Ce Lamar, DENIS) DIO Physician Supervision Note: I interviewed and examined the patient. Discussed with Ce Lamar PAC and agree with findings and plan as documented in the note. Any exceptions or clarifications are listed here: None Patient is a diabetic right lower external cellulitis initially failing attempts to transition him to oral antibiotics, return was placed on Ceftaroline , was seen by infectious disease and given improvement was recommended to complete 7 more day course of oral Zyvox. Vital signs are stable Patient feels like has improved, there is less swelling than described the erythema has receded from the markings on his skin that remains erythema in patches to the medial calf and swelling to the dorsum of his right foot, he has tinea pedis and onychomycosis Heart is regular lungs are clear Patient be discharged to complete 1 week of Zyvox therapy following with the wound care center. he will continue his prehospital treatment for his medical problems which is atrial fibrillation on anticoagulation followed by Dr. Pan Documented By: Parminder Grissom (Parminder Grissom M.D.) Discharge Instructions Please refer to the electronic Patient Visit Report (Discharge Instructions) for additional information. (Ce Lamar PA-C) Follow-Up Follow-up with [facility] provider within 24-48 hrs Please follow-up/keep all of your subspecialty appointments (Ce Lamar PA-C) Additional Copies To Rosario Webb
--- NOTE | 2016-11-02 14:48 | Infectious Disease Progress Nt ---
Progress Note Date of Service Nov 02, 2016. Subjective Pt evaluation today including: conversation w/ patient, physical exam, chart review, lab review, review of studies, conversation w/ application security consultant, review of inpatient medication list No new complaints. Remains afebrile. Right leg improving. All Other Systems: Reviewed and Negative Medications Current Inpatient Medications Medications (Trade) Dose Ordered Sig/Maria Victoria Route Start Time Stop Time Status Last Admin Dose Admin Acetaminophen (Tylenol Tab) 650 mg Q4H PRN PO 10/26/16 15:15 11/25/16 15:14 Al Hydrox/Mg Hydrox/Simethicone (Maalox Max Susp) 15 ml Q4H PRN PO 10/26/16 15:15 11/25/16 15:14 Magnesium Hydroxide (Milk Of Magnesia Susp) 30 ml Q6H PRN PO 10/26/16 15:15 11/25/16 15:14 Ondansetron HCl (Zofran Inj) 4 mg Q6H PRN IV 10/26/16 15:15 11/25/16 15:14 Aspirin (Ecotrin Tab) 81 mg DAILY PO 10/27/16 09:00 11/26/16 08:59 11/02/16 08:50 81 MG Atenolol (Tenormin Tab) 100 mg BID PO 10/26/16 21:00 11/25/16 20:59 11/02/16 08:49 100 MG Digoxin (Lanoxin Tab) 0.25 mg DAILY@1600 PO 10/27/16 16:00 11/26/16 15:59 11/01/16 16:35 0.25 MG Diltiazem HCl (Cardizem Cd Cap) 120 mg BID PO 10/26/16 21:00 11/25/16 20:59 11/02/16 08:50 120 MG Ceftaroline Fosamil 600 mg/ Sodium Chloride 270 ml @ 250 mls/hr Q12H IV 10/28/16 11:00 11/07/16 09:59 11/02/16 11:38 250 MLS/HR Warfarin Sodium (Coumadin Tab) 5 mg SuTuWeThSa@1600 PO 10/28/16 16:00 11/27/16 15:59 11/01/16 16:35 5 MG Warfarin Sodium (Coumadin Tab) 7.5 mg MoFr@1600 PO 10/30/16 16:00 11/29/16 15:59 10/30/16 16:39 7.5 MG Furosemide (Lasix Tab) 40 mg BID17 PO 10/30/16 09:00 11/29/16 08:59 11/02/16 08:50 40 MG Multi-Ingredient Ointment (Eucerin Unscented Cr) 1 appln UD PRN EXT 10/31/16 05:15 11/30/16 05:14 Ketoconazole (Nizoral 2% Crm) 1 appln BID EXT 11/01/16 10:00 11/11/16 09:59 11/02/16 11:38 1 APPLN Triamcinolone Acetonide (Triamcinolone Acet 0.1% Crm) 1 appln TID EXT 11/01/16 10:00 12/01/16 09:59 11/02/16 11:38 1 APPLN Potassium Chloride (Klor-Con Tab) 20 meq QAM PO 11/02/16 09:00 12/02/16 08:59 11/02/16 08:50 20 MEQ Magnesium Oxide (Mag-Ox Tab) 400 mg QAM PO 11/02/16 09:00 12/02/16 08:59 11/02/16 08:49 400 MG Objective Vital Signs Date Time Temp Pulse Resp B/P (MAP) Pulse Ox O2 Delivery O2 Flow Rate FiO2 11/02/16 14:08 36.5 68 20 93 Room Air 11/02/16 09:52 93 Room Air 11/02/16 07:45 36.5 68 20 135/82 (99) 94 11/01/16 23:59 Room Air 11/01/16 22:41 36.8 72 18 137/89 (105) 95 Room Air 11/01/16 21:09 76 137/89 (105) 11/01/16 20:00 Room Air 11/01/16 16:35 82 11/01/16 15:30 93 Room Air Physical Exam General Appearance: WD/WN, no apparent distress Eyes: normal inspection, sclerae normal ENT: normal ENT inspection, pharynx normal Neck: supple, no adenopathy, trachea midline Respiratory/Chest: chest non-tender, lungs clear, normal breath sounds, no respiratory distress Cardiovascular: regular rate, rhythm, no gallop, no murmur Abdomen: normal bowel sounds, non tender, soft, no organomegaly Extremities: normal capillary refill, + inflammation (RLE) Neurologic/Psychiatric: alert, oriented x 3 Skin: normal color, no rash, + pertinent finding (right leg cellulitis improving) Lymphatic: no adenopathy Laboratory Results Last 24 Hours Test 11/01/16 16:13 11/01/16 20:18 11/02/16 06:53 11/02/16 07:36 Bedside Glucose 116 mg/dl 107 mg/dl Prothrombin Time 21.0 SECONDS Prothromb Time International Ratio 1.9 Test 11/02/16 11:25 11/02/16 12:06 Bedside Glucose 108 mg/dl 96 mg/dl Assessment and Plan 80-year-old male with chronic atrial fibrillation on lower extremity edema now presents with acute right leg cellulitis. Appearance most typical for streptococcal infection, especially group A and group B. however, Staph also possibility. Patient improved on IV ceftaroline, agree can be transitioned to oral Rx and recommend linezolid 600 mg bid for 7 more days.
[2016-11-02 15:01] VITALS: BP 147/85; PULSE 82; O2SAT 94
[2016-11-02 15:31] VITALS: BP 132/77; PULSE 75; TEMP 36.8; O2SAT 95
[2016-11-02] MEDS: DIGOXIN 0.25 MG TAB PO SCH (15:55)
[2016-11-02] MEDS: WARFARIN SOD 7.5 MG TAB PO SCH (15:56)
== END 2016-11-02 16:50 | disposition home or self-care (01) | DRG 603 ==
LOC: C.EDB 11:53 → C.MED 15:11 → ENRESERV 15:36 → C.MED 19:02 → C.MS2W 10-28 18:50
PROVIDERS: ADMIT Hospitalist; ATTEND Internal Medicine
DX: L03.115 Cellulitis of right lower limb (principal); I48.91 Unspecified atrial fibrillation; Z91.19 Patient's noncompliance with other medical treatment and regimen; I25.10 Atherosclerotic heart disease of native coronary artery without angina pectoris; R94.5 Abnormal results of liver function studies; B35.3 Tinea pedis; Z79.01 Long term (current) use of anticoagulants; Z79.82 Long term (current) use of aspirin; Z87.442 Personal history of urinary calculi

== ENCOUNTER → 2016-11-05 | Outpatient (CLI) | payer OTHER ==
[~2016-11-05] MED LIST changes: -CEPH500C PO; -DOXY100C PO; +LINE1TAB6 PO; +NZRCR EXT; +TRMCR180 EXT
[2016-11-05 09:51] LABS: INR 1.9 (0.9-1.1); PROTHROMBIN TIME (PATIENT) 21.1 SECONDS (9.0-12.0)
== END | disposition home or self-care (01) ==
LOC: C.LABFOXMH 09:04
PROVIDERS: ATTEND Internal Medicine
DX: I48.91 Unspecified atrial fibrillation (principal)

== ENCOUNTER 2016-11-06 10:18 | Emergency (ER) | payer OTHER ==
[~2016-11-06] VITALS: Ht 185.4 cm; Wt 97.4 kg
[2016-11-06 10:19] VITALS: TEMP 36.6; Ht 185.4 cm; Wt 97.4 kg
[2016-11-06 11:05] LABS: BASO % 0.3 %; BASO ABS # 0.04 K/uL (0-0.2); COMPLETE YES; EOS % 0.7 %; HEMATOCRIT 41.4 % (42-52); IG% 0.3 %; LYMPH ABS # 1.86 K/uL (1.2-3.4); MEAN CELL VOLUME 95.6 fL (80-100); MEAN CORPUSCULAR HEMOGLOBIN 32.1 pg (25-34); MEAN CORPUSCULAR HGB CONC 33.6 g/dl (32-36); MEAN PLATELET VOLUME 10.2 fL (7.4-10.4); MONO % 7.8 %; NEUT % 74.9 %; PLATELET COUNT 370 K/uL (130-400); RED BLOOD COUNT 4.33 M/uL (4.7-6.1); WHITE BLOOD COUNT 11.64 K/uL (4.8-10.8)
[2016-11-06 11:14] LABS: INR 1.8 (0.9-1.1); PARTIAL THROMBOPLASTIN RATIO 1.4; PROTHROMBIN TIME (PATIENT) 20.2 SECONDS (9.0-12.0)
[2016-11-06 11:18] LABS: BUN/CREATININE RATIO 14.3 (10-20); CALCIUM 8.8 mg/dl (8.5-10.1); CREATININE 1.3 mg/dl (0.60-1.40); POTASSIUM 3.9 mmol/L (3.5-5.1)
[2016-11-06] MEDS ORDERED: LINE1TAB6 PO (11:41)
--- NOTE | 2016-11-06 12:07 | DIAGNOSTIC IMAGING REPORT ---
ULTRASOUND LEFT VENOUS DOPP LOWER EXT UNILAT CLINICAL HISTORY: Left leg pain. Cellulitis. Abnormal petechiae. COMPARISON STUDY: No previous studies for comparison. FINDINGS: Real-time and color flow Doppler imaging were performed. Flow was seen within the femoral, popliteal and calf veins with no intraluminal thrombus demonstrated. The saphenous vein is patent. IMPRESSION: No evidence of left lower extremity DVT. Electronically signed by: Vincent Verde M.D. 11/06/2016 12:06 PM Dictated Date/Time: 11/06/2016 12:05 PM
[2016-11-06 13:19] VITALS: BP 124/83; PULSE 68; O2SAT 97
--- NOTE | 2016-11-06 18:02 | EMERGENCY ROOM VISIT NOTE ---
History Report prepared by Efrain: Angela Reynoso Under the Supervision of: Dr. Parminder Atkins M.D. First contact with patient: 10:46 Chief Complaint: INFECTION Stated Complaint: ABNORMAL PETECHIA, CELLULITIS Nursing Triage Summary: recent cellulitis on right leg. Petechiae on left leg that started yesterday. History of Present Illness The patient is an 80 year old male who presents to the Emergency Room with complaints of petechiae starting 2 days ago. The patient noticed the petechiae on his left leg and left arm. He reports that the wound care clinic changes the dressing on his left leg for his cellulitis everyday. He also notes that his right leg is not as swollen today as it normally is. He states he feels great and this is the first day that his right leg is showing significant improvement. He just had his dressing changed. The patient reports that his INR yesterday was 1.9 and that he is on Coumadin. He denies any rectal bleeding or black stools. He is traveling to [place] and wanted to make sure he was okay because of the petechiae. Source of History: patient Onset: 2 days ago Position: arm (left), leg (left) Quality: other (petechiae ) Timing: constant Associated Symptoms: No fevers, No chest pain, No SOB, No melena, No hematochezia Note: additional symptoms: cellulitis of left leg denies: rectal bleeding Review of Systems See HPI for pertinent positives & negatives. A total of 10 systems reviewed and were otherwise negative. Past Medical & Surgical Medical Problems: (1) A-fib (2) Cellulitis (3) Gastroenteritis (4) Kidney stone Family History No pertinent family history Social History Smoking Status: Never Smoker Alcohol Use: none Drug Use: none Marital Status: Housing Status: lives alone Occupation Status: retired Current/Historical Medications Scheduled Aspirin (Aspirin Dr), 81 MG PO DAILY Atenolol (Tenormin), 100 MG PO BID Atorvastatin (Lipitor), 20 MG PO DAILY Coenzyme Q10 (Ubidecarenone) (Coenzyme Q-10), 100 MG PO DAILY Digoxin (Digoxin), 0.25 MG PO DAILY Diltiazem HCl (Diltiazem Cd), 120 MG PO BID Furosemide (Lasix), 40 MG PO BID Ketoconazole (Ketoconazole), 1 APPLN EXT BID Linezolid (Zyvox), 600 MG PO BID Magnesium Gluconate (Magnesium Gluconate), 55 MG PO BID Potassium Citrate (Alkalinizer (Potassium Citrate ER), 3,240 MG PO BID Triamcinolone Acet (Aristocort 0.1%), 1 APPLN EXT TID Warfarin Sodium (Warfarin Sodium), 5 MG PO 5XWK Warfarin Sodium (Warfarin Sodium), 7.5 MG PO 2XWK Allergies Coded Allergies: NSAIDs (Verified Allergy, Severe, Facial swelling, 11/06/16) Ibuprofen (Verified Allergy, Intermediate, Swollen lips, 11/06/16) Physical Exam Vital Signs Date Time Temp Pulse Resp B/P (MAP) Pulse Ox O2 Delivery O2 Flow Rate FiO2 11/06/16 13:19 68 16 124/83 97 11/06/16 12:28 67 17 122/72 94 Room Air 11/06/16 10:19 36.6 73 17 133/81 96 Room Air Physical Exam Constitutional: Vital signs reviewed. Eyes: Pupils are equal round reactive to light. Conjunctiva are noninjected. ENT: Pharynx is clear without erythema or exudate. Mucous membranes are moist. Neck supple without meningeal signs. Respiratory: Clear to auscultation bilaterally. Breath sounds are equal bilaterally. Cardiovascular: Regular rate and rhythm. No rubs or gallops. GI: Soft, nondistended and nontender. Bowel sounds are present. Musculoskeletal: Bilateral lower extremity edema. Right leg is covered in bandage. Scattered minimal petechiae in right thigh. Left leg demonstrates no tenderness. There is petechiae throughout the left lower extremity with scattered petechiae to upper extremities. Integumentary: No cyanosis. As above. Neurological: The patient is awake and alert. No focal deficits. Psychiatric: Normal affect. Medical Decision & Procedures ER Provider Diagnostic Interpretation: Radiology results as stated below per my review and the radiologist's interpretation: ULTRASOUND LEFT VENOUS DOPP LOWER EXT UNILAT CLINICAL HISTORY: Left leg pain. Cellulitis. Abnormal petechiae. COMPARISON STUDY: No previous studies for comparison. FINDINGS: Real-time and color flow Doppler imaging were performed. Flow was seen within the femoral, popliteal and calf veins with no intraluminal thrombus demonstrated. The saphenous vein is patent. IMPRESSION: No evidence of left lower extremity DVT. Electronically signed by: Vincent Verde M.D. 11/06/2016 12:06 PM Dictated Date/Time: 11/06/2016 12:05 PM Laboratory Results 11/06/16 10:30 Red Blood Count 4.33, Mean Corpuscular Volume 95.6, Mean Corpuscular Hemoglobin 32.1, Mean Corpuscular Hemoglobin Concent 33.6, Mean Platelet Volume 10.2, Neutrophils (%) (Auto) 74.9, Lymphocytes (%) (Auto) 16.0, Monocytes (%) (Auto) 7.8, Eosinophils (%) (Auto) 0.7, Basophils (%) (Auto) 0.3, Neutrophils # (Auto) 8.72, Lymphocytes # (Auto) 1.86, Monocytes # (Auto) 0.91, Eosinophils # (Auto) 0.08, Basophils # (Auto) 0.04 11/06/16 10:30 Test 11/06/16 10:30 White Blood Count 11.64 K/uL (4.8-10.8) Red Blood Count 4.33 M/uL (4.7-6.1) Hemoglobin 13.9 g/dL (14.0-18.0) Hematocrit 41.4 % (42-52) Mean Corpuscular Volume 95.6 fL (80-100) Mean Corpuscular Hemoglobin 32.1 pg (25-34) Mean Corpuscular Hemoglobin Concent 33.6 g/dl (32-36) Platelet Count 370 K/uL (130-400) Mean Platelet Volume 10.2 fL (7.4-10.4) Neutrophils (%) (Auto) 74.9 % Lymphocytes (%) (Auto) 16.0 % Monocytes (%) (Auto) 7.8 % Eosinophils (%) (Auto) 0.7 % Basophils (%) (Auto) 0.3 % Neutrophils # (Auto) 8.72 K/uL (1.4-6.5) Lymphocytes # (Auto) 1.86 K/uL (1.2-3.4) Monocytes # (Auto) 0.91 K/uL (0.11-0.59) Eosinophils # (Auto) 0.08 K/uL (0-0.5) Basophils # (Auto) 0.04 K/uL (0-0.2) RDW Standard Deviation 46.5 fL (36.4-46.3) RDW Coefficient of Variation 13.3 % (11.5-14.5) Immature Granulocyte % (Auto) 0.3 % Immature Granulocyte # (Auto) 0.03 K/uL (0.00-0.02) Prothrombin Time 20.2 SECONDS (9.0-12.0) Prothromb Time International Ratio 1.8 (0.9-1.1) Activated Partial Thromboplast Time 35.7 SECONDS (21.0-31.0) Partial Thromboplastin Ratio 1.4 Anion Gap 7.0 mmol/L (3-11) Est Creatinine Clear Calc Drug Dose 53.8 ml/min Estimated GFR () 58.9 Estimated GFR (Non- 50.8 BUN/Creatinine Ratio 14.3 (10-20) Calcium Level 8.8 mg/dl (8.5-10.1) Total Bilirubin 0.6 mg/dl (0.2-1) Direct Bilirubin 0.2 mg/dl (0-0.2) Aspartate Amino Transf (AST/SGOT) 24 U/L (15-37) Alanine Aminotransferase (ALT/SGPT) 51 U/L (12-78) Alkaline Phosphatase 83 U/L (45-117) Total Protein 8.1 gm/dl (6.4-8.2) Albumin 3.1 gm/dl (3.4-5.0) Laboratory results as reviewed by me. ED Course 1050: The patient was evaluated in room C4. A complete history and physical exam was performed. 1210: Dr. Baig was paged. 1222: The patient reports that he has no symptoms other than the rash at this time. I am waiting to hear from Dr. Schmitz and Dr. Baig. 1247: I spoke with Dr. Lynch of [facility]. We discussed the patient and his results. Dr. Lynch said to leave the patient on Zyvox. 1300: The patient is okay with the plan. 1305: Upon reevaluation, the patient appeared to have improvement of his symptoms. I discussed tonight's findings with him. He verbalized agreement of the treatment plan. He was discharged home. Medical Decision This is an 80-year-old male who presents with petechiae. Differential diagnosis includes medication side effect, thrombocytopenia, hypercoagulable state, sepsis, DVT. I did perform a limited focused review of portions of the patient's old chart on the electronic medical record. The patient was discharged 4 days ago for light leg cellulitis and is on Zyvox. I did evaluate the patient as noted above. The patient is presenting with petechiae to his limbs, greatest in the left lower extremity. He otherwise feels well. He is stating that he is recovering rapidly from his recent cellulitis and he is going out of town today and wanted to make sure he was okay. He is afebrile here. He states his right leg is improving and just had the bandage placed. IV access was established. I did order and review the patient's blood work as noted in the electronic medical record. There is no evidence of thrombocytopenia. He has very mild anemia. I did order an ultrasound of the left leg. I did review the images myself as well as the radiology report as described above. There is no evidence of DVT. It is unclear what's causing the petechiae. He does not have pancytopenia. I did discuss the case with the ED pharmacist as well as Dr. Lynch of infectious disease. They did not feel that Zyvox was causing the symptoms and Dr. Lynch recommended he continue his course of Zyvox. His INR is subtherapeutic at 1.8. I did attempt to call the anticoagulation clinic but the physician was on vacation. At this time there is no indication for hospitalization. He was advised to return or go to the nearest hospital for any worsening symptoms or should he develop any new concerning symptoms. He will otherwise follow up with his doctor. The patient was happy with this plan. He was discharged in good condition. Medication Reconcilliation Current Medication List: was personally reviewed by me Blood Pressure Screening Patient's blood pressure: Elevated blood pressure Consults Time Called: 1200 Consulting Physician: Dr. Lynch Returned Call: [address] Lynch of [facility]. We discussed the patient and his results. Dr. Lynch said to leave the patient on Zyvox. Impression Primary Impression: Petechiae Scribe Attestation The scribe's documentation has been prepared under my direct and personally reviewed by me in its entirety. I confirm that the note above accurately reflects all work, treatment, procedures, and medical decision making performed by me. Departure Information Dispostion Home / Self-Care Referrals Rosario Webb (PCP) Forms HOME CARE DOCUMENTATION FORM, IMPORTANT VISIT INFORMATION, WORK / SCHOOL INSTRUCTIONS Patient Instructions My [facility] Additional Instructions You have been examined and treated today on an emergency basis only. This is not a substitute for, or an effort to provide, complete comprehensive medical care. It is impossible to recognize and treat all injuries or illnesses in a single emergency department visit. It is therefore important that you follow up closely with your physician. Call as soon as possible for an appointment. Return for worsening symptoms or if you develop fever, vomiting, worsening rash , shortness of breath, chest pain or any other concerning symptoms.
== END 2016-11-06 13:20 | disposition home or self-care (01) ==
LOC: C.EDB 10:20 → C.EDC 13:20
DX: R23.3 Spontaneous ecchymoses (principal); L03.115 Cellulitis of right lower limb; M79.605 Pain in left leg; I48.91 Unspecified atrial fibrillation; Z87.19 Personal history of other diseases of the digestive system; Z86.19 Personal history of other infectious and parasitic diseases; Z87.442 Personal history of urinary calculi; Z79.01 Long term (current) use of anticoagulants; Z79.82 Long term (current) use of aspirin; Z79.899 Other long term (current) drug therapy; Z88.6 Allergy status to analgesic agent; Z88.8 Allergy status to other drugs, medicaments and biological substances

== ENCOUNTER → 2016-12-28 | Outpatient (CLI) | payer OTHER ==
[2016-12-28 08:59] LABS: CHOLESTEROL/HDL RATIO 3.1
== END | disposition home or self-care (01) ==
LOC: C.LABFOXMH 08:25
PROVIDERS: ATTEND Internal Medicine Cardiovascular Disease
DX: E78.5 Hyperlipidemia, unspecified (principal)

== ENCOUNTER → 2017-02-04 | Outpatient (CLI) | payer OTHER ==
[~2017-02-04] MED LIST changes: -CRDCD120 PO; +DILT120C50 PO
[2017-02-04 09:54] LABS: ALT/SGPT 29 U/L (12-78); AST/SGOT 23 U/L (15-37); BLOOD UREA NITROGEN 17 mg/dl (7-18); BUN/CREATININE RATIO 18.8 (10-20); CALCIUM 8.8 mg/dl (8.5-10.1); CARBON DIOXIDE 30 mmol/L (21-32); CHLORIDE 106 mmol/L (98-107); CREATININE 0.91 mg/dl (0.60-1.40); GLUCOSE 112 mg/dl (70-99); POTASSIUM 3.6 mmol/L (3.5-5.1); SODIUM 139 mmol/L (136-145)
[2017-02-04 09:58] LABS: ALKALINE PHOSPHATASE 60 U/L (45-117); CHOLESTEROL 117 mg/dl (0-200); CHOLESTEROL/HDL RATIO 3.3; HDL CHOLESTEROL 36 mg/dl; LDL CHOLESTEROL CALCULATED 46 mg/dl; TRIGLYCERIDES 174 mg/dl (0-150); VERY LOW DENSITY LIPOPROT CALC 35 mg/dl
[2017-02-04 10:11] LABS: ESTIMATED AVERAGE GLUCOSE 146 mg/dl; HA1C FLAG Normal (Normal)
== END | disposition home or self-care (01) ==
LOC: C.LABFOXMH 08:45
PROVIDERS: ATTEND Internal Medicine
DX: E11.9 Type 2 diabetes mellitus without complications (principal)

== ENCOUNTER → 2017-02-12 | Outpatient (CLI) | payer OTHER ==
[~2017-02-12] MED LIST changes: +GADAVIST IV PRN
--- NOTE | 2017-02-12 10:50 | DIAGNOSTIC IMAGING REPORT ---
BRAIN COMBO FOR TRIGEMINAL CLINICAL HISTORY: 81 years-old Male presenting with NEURALGIA. TECHNIQUE: Multisequence, multiplanar MR imaging of the brain was performed before and after the administration of intravenous contrast. IV contrast: 10.3 mL of Gadavist. COMPARISON: None. FINDINGS: Proportional ventricular and sulcal prominence, likely age-related parenchymal volume loss. Periventricular and subcortical white matter T2/FLAIR hyperintensity, nonspecific but likely indicative of chronic small vessel ischemic change. No mass effect or midline shift. No restricted diffusion to suggest acute ischemia. No hemorrhage. No extra-axial fluid collection. Dedicated evaluation of the brainstem demonstrates normal internal auditory canals without evidence of nerve root thickening. Remaining visualized cranial nerves are also normal in appearance, including the bilateral trigeminal nerves through their course in Meckel's cave. Normal appearance of the inner ears structures. T2 skull base flow voids preserved. Postcontrast imaging was not performed. Bone marrow signal intensity within the calvarium within normal limits. IMPRESSION: 1. No acute intracranial pathology. No abnormal enhancement. Electronically signed by: Michel Perez M.D. 02/12/2017 10:49 AM Dictated Date/Time: 02/12/2017 10:34 AM
== END | disposition home or self-care (01) ==
LOC: C.MRI 09:12
PROVIDERS: ATTEND Internal Medicine
DX: G50.0 Trigeminal neuralgia (principal)

== ENCOUNTER → 2017-06-08 | Outpatient (CLI) | payer OTHER ==
[~2017-06-08] MED LIST changes: +DILT-202 PO; -DILT120C50 PO; -GADAVIST IV PRN
[2017-06-08 09:47] LABS: HEMOGLOBIN A1C 6.6 % (4.5-5.6)
[2017-06-08 10:22] LABS: BLOOD UREA NITROGEN 15 mg/dl (7-18); CALCIUM 8.9 mg/dl (8.5-10.1); CARBON DIOXIDE 28 mmol/L (21-32); CREATININE 0.99 mg/dl (0.60-1.40); GLUCOSE 111 mg/dl (70-99); POTASSIUM 3.9 mmol/L (3.5-5.1); SODIUM 140 mmol/L (136-145)
== END | disposition home or self-care (01) ==
LOC: C.LABFOXMH 08:53
PROVIDERS: ATTEND Internal Medicine
DX: Z51.81 Encounter for therapeutic drug level monitoring (principal); E11.9 Type 2 diabetes mellitus without complications

== ENCOUNTER → 2017-07-02 | Outpatient (CLI) | payer OTHER | END | disposition home or self-care (01) | LOC: C.LAB 11:06 | PROVIDERS: ATTEND Internal Medicine Cardiovascular Disease | DX: E78.5 Hyperlipidemia, unspecified (principal) ==

== ENCOUNTER → 2017-11-18 | Outpatient (CLI) | payer OTHER ==
[~2017-11-18] MED LIST changes: +GABA-112 PO; +WARF5TAB90 PO; +WARF7.5T PO
== END | disposition home or self-care (01) ==
LOC: C.LABFOXMH 10:37
PROVIDERS: ATTEND Internal Medicine
DX: N30.91 Cystitis, unspecified with hematuria (principal)

== ENCOUNTER → 2017-11-19 | Outpatient (CLI) | payer OTHER ==
[2017-11-19 09:45] LABS: MEAN CORPUSCULAR HGB CONC 33.2 g/dl (32-36); MEAN PLATELET VOLUME 12.6 fL (7.4-10.4); PLATELET COUNT 133 K/uL (130-400)
[2017-11-19 10:11] LABS: ALKALINE PHOSPHATASE 56 U/L (45-117); ALT/SGPT 23 U/L (12-78); AST/SGOT 26 U/L (15-37); BLOOD UREA NITROGEN 25 mg/dl (7-18); CALCIUM 8.5 mg/dl (8.5-10.1); CARBON DIOXIDE 28 mmol/L (21-32); CREATININE 1.69 mg/dl (0.60-1.40); GLUCOSE 122 mg/dl (70-99); POTASSIUM 4.5 mmol/L (3.5-5.1); SODIUM 133 mmol/L (136-145); TOTAL PROTEIN 6.4 gm/dl (6.4-8.2)
[2017-11-19 11:00] LABS: HEMATOCRIT 44.3 % (42-52); HEMOGLOBIN 14.7 g/dL (14.0-18.0); MEAN CELL VOLUME 97.1 fL (80-100); MEAN CORPUSCULAR HEMOGLOBIN 32.2 pg (25-34); RED CELL DISTRIBUTION WIDTH CV 14.1 % (11.5-14.5); WHITE BLOOD COUNT 24.74 K/uL (4.8-10.8)
[2017-11-19 11:01] LABS: BASO % 0.1 %; BASO ABS # 0.03 K/uL (0-0.2); EOS % 0.4 %; EOS ABS # 0.09 K/uL (0-0.5); IG# 0.15 K/uL (0.00-0.02); LYMPH % 3.8 %; LYMPH ABS # 0.93 K/uL (1.2-3.4); MONO % 3.9 %; MONO ABS # 0.96 K/uL (0.11-0.59); NEUT % 91.2 %; NEUT ABS # 22.58 K/uL (1.4-6.5)
== END | disposition home or self-care (01) ==
LOC: C.LABFOXMH 09:27
PROVIDERS: ATTEND Internal Medicine
DX: R50.9 Fever, unspecified (principal)

== ENCOUNTER 2019-01-31 10:07 | Inpatient (IN) ==
[2019-01-31 11:13] LABS: Basophils # (auto) 0.04 K/uL (0-0.2); Basophils % (auto) 0.3 %; Eosinophils # (auto) 0.14 K/uL (0-0.5); Eosinophils % (auto) 1.2 %; Hematocrit (blood only) 29.6 % (42-52); Hemoglobin 9.7 g/dL (14.0-18.0); Immature Granulocytes # (auto) 0.04 K/uL (0.00-0.02); Immature Granulocytes % (auto) 0.3 %; Lymphocytes % (auto) 12.9 %; Mean Corpuscular Hemoglobin 32.6 pg (25-34); Mean Corpuscular Hgb Conc 32.8 g/dL (32-36); Mean Corpuscular Volume 99.3 fL (80-100); Mean Platelet Volume 10.3 fL (7.4-10.4); Monocytes # (auto) 0.95 K/uL (0.11-0.59); Monocytes % (auto) 8.2 %; Neutrophils # (auto) 8.95 K/uL (1.4-6.5); Neutrophils % (auto) 77.1 %; Platelet Count 199 K/uL (130-400); RDW Coefficient of Variation 13.2 % (11.5-14.5); Red Blood Count 2.98 M/uL (4.7-6.1); White Blood Count 11.62 K/uL (4.8-10.8)
[2019-01-31 11:23] LABS: INR 1.1 (0.9-1.1); Partial Thromboplastin Time 26.8 Seconds (21.0-31.0); Prothrombin Time 11.3 Seconds (9.0-12.0)
--- NOTE | 2019-01-31 11:23 | XRay Report ---
XR chest 1V portable CLINICAL HISTORY: Gastrointestinal hemorrhage COMPARISON STUDY: November 19, 2017 FINDINGS: The heart is enlarged. There is mild chronic interstitial thickening at the left lung base. There is no overt failure. There is no focal pulmonary consolidation. There are no pleural effusions .[ IMPRESSION: Stable cardiomegaly and stable mild chronic interstitial thickening at the left lung base . No acute findings. Electronically signed by: Vincent Verde M.D. 01/31/2019 11:22 AM
[2019-01-31 11:25] LABS: iSTAT Creatinine 1.1 mg/dl (0.6-1.3); iSTAT Hemoglobin 9.5 g/dl (14.0-18.0); iSTAT Ionized Calcium 1.1 mmol/l (1.12-1.32); iSTAT Potassium 3.8 mEq/L (3.3-5.0)
[2019-01-31 11:30] LABS: Alanine Aminotransferase 32 U/L (12-78); Albumin Level 3.6 gm/dl (3.4-5.0); Aspartate Aminotransferase 22 U/L (15-37); BUN Creatinine Ratio 18.7 (10-20); Blood Urea Nitrogen 21 mg/dl (7-18); Calcium 8.5 mg/dl (8.5-10.1); Carbon Dioxide 29 mmol/L (21-32); Chloride 107 mmol/L (98-107); Est GFR (African American) 68.3; Est GFR (Non-African American) 58.9; Glucose 147 mg/dl (70-99); Potassium 3.8 mmol/L (3.5-5.1); Sodium 143 mmol/L (136-145)
[2019-01-31 11:32] LABS: Albumin Globulin Ratio 1.1 (0.9-2); Alkaline Phosphatase 60 U/L (45-117); Bilirubin,Total 0.3 mg/dl (0.2-1); Globulin 3.2 gm/dl (2.5-4.0); Total Protein 6.8 gm/dl (6.4-8.2)
--- NOTE | 2019-01-31 13:32 | History & Physical Report ---
Date of Service January 31, 2019 Assessment & Plan (1) LGI bleed: Patient presenting with dark-colored stools since colonoscopy on 01/25 during which 3 polyps were removed (3 mm, 3 mm, 7 mm). Acute drop in H/H to 9.7 and 29.6, down from 14.8 and 44.1 in October 2018. Patient also with symptoms of anemia to include dyspnea on exertion and dizziness. Had a documented episode of relative hypotension, also in the setting of recent increase in candesartan. He denies abdominal pain or bloating. No nausea/vomiting/hematemesis. Suspect biopsy sites as the source of bleeding. Patient presently afebrile, hemodynamically stable, no acute distress. -Admit to medical floor telemetry -CBC every 8 hours. Transfuse for active bleed, worsening symptomatic anemia or hemoglobin less than 8 and patient with CAD -We will hold Eliquis and aspirin for now. Discussed patient's stroke riskPer chads 2 BASC approximately 4.8 %/year for stroke and 6.7 %/year for other systemic embolism. -Hold antihypertensive agents -GI consultation. Assistance appreciated -Will allow clear liquids for now. No red liquids Present on Admission?: Yes (2) Persistent atrial fibrillation: Patient presently rate controlled at 85 bpm, on Eliquis anticoagulation. Last dose was yesterday morning around 10 AM. -Hold Eliquis as above -Hold diltiazem and Tenormin for now -Continue digoxin -Cardiac monitoring Present on Admission?: Yes (3) Coronary artery disease: Patient reports being told he had a "silent heart attack" in the past. He denies exertional chest pain. Has had some dyspnea as mentioned above in the setting of acute anemia. No ischemic changes on EKG -Holding aspirin as above in setting of bleed -Hold Tenormin in setting of bleed -Continue Lipitor and CoQ10 -Hold Lasix for now. Patient takes this for bilateral lower externally swelling thought to be secondary to calcium channel cornelius use. Present on Admission?: Yes (4) Hypertension: Blood pressure mildly elevated at present. Patient reports that his blood pressure typically peaks in the tape transferrer hours. -Holding antihypertensive agents as above -Continue to monitor Present on Admission?: Yes (5) Dyslipidemia: Chronic. Stable. Continue Lipitor and CoQ10 Present on Admission?: Yes (6) Trigeminal neuralgia: Chronic. Stable. Continue carbamazepine at home dosage F/E/N - Hep-Lock. Monitor electrolytes and replete as needed. Continue p.o. magnesium and potassium supplementation. 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 Spencer is a pleasant 83-year-old male with history of hypertension, hyperlipidemia, persistent atrial fibrillation on Eliquis anticoagulation presenting today with lower GIB. He had a screening colonoscopy performed by Dr. Bee on 01/25/2019 which revealed diverticulosis in the sigmoid colon. A 3 mm polyp in the ascending colon which was removed with cold biopsy forceps, a 3 mm sessile polyp in the hepatic flexure which was removed and a 7 mm polyp in the proximal transverse colon which was removed with hot snare. Patient was sent home in stable condition. Eliquis was resumed the day of the colonoscopy. He reports briefly passing red, "cranberry" colored bowel movements immediately following the colonoscopy which resolved. He has since been passing small volume of "plum colored" bowel movements. He also developed some dyspnea on exertion as well as feeling more weak and "wobbly", occasional dizziness. On Wednesday the patient was returning from the [facility] and felt quite dizzy. He had to stop a few times to allow the dizziness to pass. When he got home he checked his blood pressure and found his systolic pressure to be 98 which is quite lower than his normal. Of note, his candesartan was recently increased from 4 mg to 8 mg on January 16 to optimize blood pressure control. He denies fevers/chills/CP/palpitation/abdominal pain/distention/nausea/vomiting/hematemesis. His appetite is normal and he has been eating and drinking well. Allergies Allergy/AdvReac Type Severity Reaction Status Date / Time NSAIDS (Non-Steroidal Allergy Severe Facial Verified 01/31/19 11:08 Anti-Inflamma swelling ibuprofen Allergy Intermediate Swollen Verified 01/31/19 11:08 lips Home Medications Home Medications Medication Instructions Recorded Confirmed Type aspirin 81 mg PO QAM #0 10/20/16 01/31/19 History atenolol [Tenormin] 100 mg PO BID #0 tab 10/20/16 01/31/19 History atorvastatin [Lipitor] 20 mg PO QAM #0 tab 10/20/16 01/31/19 History coenzyme Q10 100 mg PO QAM #0 10/20/16 01/31/19 History digoxin 0.25 mg PO QAM #0 10/20/16 01/31/19 History diltiazem HCl 120 mg PO BID #0 10/20/16 01/31/19 History furosemide [Lasix] 40 mg PO BID #0 tab 10/20/16 01/31/19 History magnesium gluconate 55 mg PO BID #0 10/20/16 01/31/19 History potassium citrate 3 tab PO BID #0 tab 10/20/16 01/31/19 History apixaban 5 mg tablet 5 mg PO BID #180 tab 12/13/18 01/31/19 Rx candesartan 8 mg PO QAM 01/31/19 01/31/19 History carbamazepine 200 mg PO HS 01/31/19 01/31/19 History carbamazepine [Tegretol XR] 100 mg PO QAM 01/31/19 01/31/19 History carbamazepine [Tegretol XR] 200 mg PO HS 01/31/19 01/31/19 History gabapentin 300 mg PO HS 01/31/19 01/31/19 History nystatin 1 applic TOPICAL DAILY PRN 01/31/19 01/31/19 History Past Med/Surg History Medical History A-fib (Chronic) Carpal tunnel syndrome, bilateral (Chronic) Diabetes (Chronic) Hyperlipidemia (Chronic) Hypertension (Chronic) Osteoarthritis (Chronic) Surgical History H/O left knee surgery (Acute) Family History Other Family history non-contributory Social History Preferred Language: Sami Communication Ability: Effective Visual Impairment: Partially Limited Hearing Ability: Use of Hearing Aid Home Housekeeper Required: No Beliefs That Will Affect Care: None Current Living Situation: Alone Current Living Situation Comment: lives at [facility] independent living Other Information That Helps Us Care for You: No Feels Safe at Home: Yes Safety Concerns: Feels Safe At This Time Smoking Status: Never smoker Hx Alcohol Use: No Hx Substance Use: No Review of Systems Review of Systems: All systems reviewed & are unremarkable except as noted in HPI & below Physical Exam Physical Exam: General: patient resting comfortably, NAD, non-toxic in appearance, AA&O x 4 Skin: warm, dry, intact, no rashes or lesions HEENT: NC/AT, PERRL, EOMI, anicteric sclera, conjunctiva without injection, external ear normal to inspection and nontender, nares patent, moist mucus membranes, dentition intact, no oropharyngeal lesions, neck supple, trachea midline, no LAD, no thyromegaly, no JVD Heart: +S1/S2, irregularly irregular, no m/r/g Lungs: equal air entry bilaterally, no rales/rhonchi/wheezes Abd: +BS, soft, NT/ND, no masses/organomegaly/ascites Ext: warm, 2+ pulses in UE/LE bilaterally, no clubbing/cyanosis or edema Neuro: nonfocal, patient AA&O x 4, speech intact, no facial droop, moving all extremities on command with equal strength 5/5 Results & Data Vital Signs (Past 12 Hours) Vital Signs Temp Pulse Pulse Resp BP BP Pulse Ox 01/31/19 13:06 85 18 144/91 H 96 01/31/19 11:05 77 94 01/31/19 11:04 76 20 121/78 94 01/31/19 10:15 36.9 C 78 20 118/73 97 Laboratory Results Lab Results 01/31/19 01/31/19 01/31/19 Range/Units 10:49 10:54 10:54 WBC 11.62 H (4.8-10.8) K/uL RBC 2.98 L (4.7-6.1) M/uL Hgb 9.7 L (14.0-18.0) g/dL POC Hgb (14.0-18.0) g/dl Hct 29.6 L (42-52) % POC Hct (42-52) % MCV 99.3 (80-100) fL MCH 32.6 (25-34) pg MCHC 32.8 (32-36) g/dL RDW Std Deviation 47.0 H (36.4-46.3) fL RDW Coeff of [place] 13.2 (11.5-14.5) % Plt Count 199 (130-400) K/uL MPV 10.3 (7.4-10.4) fL Immature Gran % (Auto) 0.3 % Neut % (Auto) 77.1 % Lymph % (Auto) 12.9 % [place] % (Auto) 8.2 % Eos % (Auto) 1.2 % Baso % (Auto) 0.3 % Immature Gran # (Auto) 0.04 H (0.00-0.02) K/uL Neut # (Auto) 8.95 H (1.4-6.5) K/uL Lymph # (Auto) 1.50 (1.2-3.4) K/uL [place] # (Auto) 0.95 H (0.11-0.59) K/uL Eos # (Auto) 0.14 (0-0.5) K/uL Baso # (Auto) 0.04 (0-0.2) K/uL PT 11.3 (9.0-12.0) Seconds INR 1.1 (0.9-1.1) APTT 26.8 (21.0-31.0) Seconds PTT Ratio 1.0 POC Sodium (135-144) mEq/L Sodium (136-145) mmol/L POC Potassium (3.3-5.0) mEq/L Potassium (3.5-5.1) mmol/L POC Chloride (101-112) mEq/L Chloride (98-107) mmol/L Carbon Dioxide (21-32) mmol/L POC Total CO2 (24-31) mEq/l Anion Gap (3-11) POC Anion Gap (16-25) mmol/L POC BUN (7-18) mg/dl BUN (7-18) mg/dl Creatinine (0.6-1.4) mg/dl POC Creatinine (0.6-1.3) mg/dl Est Cr Clr Drug Dosing Est GFR ( Amer) Est GFR (Non-Af Amer) BUN/Creatinine Ratio (10-20) Glucose (70-99) mg/dl POC Glucose (other) (70-99) mg/dl Calcium (8.5-10.1) mg/dl POC Ioniz Calcium Larry (1.12-1.32) mmol/l Total Bilirubin (0.2-1) mg/dl AST (15-37) U/L ALT (12-78) U/L Alkaline Phosphatase (45-117) U/L Total Protein (6.4-8.2) gm/dl Albumin (3.4-5.0) gm/dl Globulin (2.5-4.0) gm/dl Albumin/Globulin Ratio (0.9-2) POC Stool Occult Blood Positive A (Negative) Digoxin (0.8-2.0) ng/ml Blood Type Antibody Screen 01/31/19 01/31/19 01/31/19 Range/Units 10:54 10:54 10:54 WBC (4.8-10.8) K/uL RBC (4.7-6.1) M/uL Hgb (14.0-18.0) g/dL POC Hgb (14.0-18.0) g/dl Hct (42-52) % POC Hct (42-52) % MCV (80-100) fL MCH (25-34) pg MCHC (32-36) g/dL RDW Std Deviation (36.4-46.3) fL RDW Coeff of [place] (11.5-14.5) % Plt Count (130-400) K/uL MPV (7.4-10.4) fL Immature Gran % (Auto) % Neut % (Auto) % Lymph % (Auto) % [place] % (Auto) % Eos % (Auto) % Baso % (Auto) % Immature Gran # (Auto) (0.00-0.02) K/uL Neut # (Auto) (1.4-6.5) K/uL Lymph # (Auto) (1.2-3.4) K/uL [place] # (Auto) (0.11-0.59) K/uL Eos # (Auto) (0-0.5) K/uL Baso # (Auto) (0-0.2) K/uL PT (9.0-12.0) Seconds INR (0.9-1.1) APTT (21.0-31.0) Seconds PTT Ratio POC Sodium (135-144) mEq/L Sodium 143 (136-145) mmol/L POC Potassium (3.3-5.0) mEq/L Potassium 3.8 (3.5-5.1) mmol/L POC Chloride (101-112) mEq/L Chloride 107 (98-107) mmol/L Carbon Dioxide 29 (21-32) mmol/L POC Total CO2 (24-31) mEq/l Anion Gap 7.0 (3-11) POC Anion Gap (16-25) mmol/L POC BUN (7-18) mg/dl BUN 21 H (7-18) mg/dl Creatinine 1.13 (0.6-1.4) mg/dl POC Creatinine (0.6-1.3) mg/dl Est Cr Clr Drug Dosing Not Reportable Est GFR ( Amer) 68.3 Est GFR (Non-Af Amer) 58.9 BUN/Creatinine Ratio 18.7 (10-20) Glucose 147 H (70-99) mg/dl POC Glucose (other) (70-99) mg/dl Calcium 8.5 (8.5-10.1) mg/dl POC Ioniz Calcium Larry (1.12-1.32) mmol/l Total Bilirubin 0.3 (0.2-1) mg/dl AST 22 (15-37) U/L ALT 32 (12-78) U/L Alkaline Phosphatase 60 (45-117) U/L Total Protein 6.8 (6.4-8.2) gm/dl Albumin 3.6 (3.4-5.0) gm/dl Globulin 3.2 (2.5-4.0) gm/dl Albumin/Globulin Ratio 1.1 (0.9-2) POC Stool Occult Blood (Negative) Digoxin 0.7 L (0.8-2.0) ng/ml Blood Type A Positive Antibody Screen NEGATIVE 01/31/19 Range/Units 11:09 WBC (4.8-10.8) K/uL RBC (4.7-6.1) M/uL Hgb (14.0-18.0) g/dL POC Hgb 9.5 L (14.0-18.0) g/dl Hct (42-52) % POC Hct 28 L (42-52) % MCV (80-100) fL MCH (25-34) pg MCHC (32-36) g/dL RDW Std Deviation (36.4-46.3) fL RDW Coeff of [place] (11.5-14.5) % Plt Count (130-400) K/uL MPV (7.4-10.4) fL Immature Gran % (Auto) % Neut % (Auto) % Lymph % (Auto) % [place] % (Auto) % Eos % (Auto) % Baso % (Auto) % Immature Gran # (Auto) (0.00-0.02) K/uL Neut # (Auto) (1.4-6.5) K/uL Lymph # (Auto) (1.2-3.4) K/uL [place] # (Auto) (0.11-0.59) K/uL Eos # (Auto) (0-0.5) K/uL Baso # (Auto) (0-0.2) K/uL PT (9.0-12.0) Seconds INR (0.9-1.1) APTT (21.0-31.0) Seconds PTT Ratio POC Sodium 142 (135-144) mEq/L Sodium (136-145) mmol/L POC Potassium 3.8 (3.3-5.0) mEq/L Potassium (3.5-5.1) mmol/L POC Chloride 104 (101-112) mEq/L Chloride (98-107) mmol/L Carbon Dioxide (21-32) mmol/L POC Total CO2 29 (24-31) mEq/l Anion Gap (3-11) POC Anion Gap 14.0 L (16-25) mmol/L POC BUN 20 H (7-18) mg/dl BUN (7-18) mg/dl Creatinine (0.6-1.4) mg/dl POC Creatinine 1.1 (0.6-1.3) mg/dl Est Cr Clr Drug Dosing Est GFR ( Amer) Est GFR (Non-Af Amer) BUN/Creatinine Ratio (10-20) Glucose (70-99) mg/dl POC Glucose (other) 148 H (70-99) mg/dl Calcium (8.5-10.1) mg/dl POC Ioniz Calcium Larry 1.10 L (1.12-1.32) mmol/l Total Bilirubin (0.2-1) mg/dl AST (15-37) U/L ALT (12-78) U/L Alkaline Phosphatase (45-117) U/L Total Protein (6.4-8.2) gm/dl Albumin (3.4-5.0) gm/dl Globulin (2.5-4.0) gm/dl Albumin/Globulin Ratio (0.9-2) POC Stool Occult Blood (Negative) Digoxin (0.8-2.0) ng/ml Blood Type Antibody Screen Diagnostic Findings XR chest 1V portable CLINICAL HISTORY: Gastrointestinal hemorrhage COMPARISON STUDY: November 19, 2017 FINDINGS: The heart is enlarged. There is mild chronic interstitial thickening at the left lung base. There is no overt failure. There is no focal pulmonary consolidation. There are no pleural effusions.[ IMPRESSION: Stable cardiomegaly and stable mild chronic interstitial thickening at the left lung base. No acute findings. Electronically signed by: Vincent Verde M.D. 01/31/2019 11:22 AM Dictated: 01/31/19 1121 Transcribed: 01/31/19 1121 ECG Additional Comments: Study shows atrial fibrillation at 82 bpm, QRS = 156, QTc = 495, right bundle branch block present. No obvious acute ischemic changes. Study confirmed by Dr. Pan Code Status & VTE Plan Code Status FULL VTE Prophylaxis Plan VTE Prophylaxis will be ordered: Yes PG Care Time/CCT Total # of Minutes Spent Total Time Spent with Patient: Total time spent is greater than 50% in coordination of care (as documented) at patient's floor/unit and/or counseling patient: (1) Coronary artery disease Associated angina: without angina Coronary Disease-Associated Artery/Lesion type: [place] artery [place] vs. transplanted heart: [place] heart Qualified Code(s): I25.10 - Atherosclerotic heart disease of [place] coronary artery without angina pectoris (2) Hypertension Hypertension type: essential hypertension Qualified Code(s): I10 - Essential (primary) hypertension
[2019-01-31] MEDS ORDERED: ACETAMINOPHEN 325 MG TAB PO PRN (14:52)
[2019-01-31 15:23] LABS: Basophils # (auto) 0.02 K/uL (0-0.2); Basophils % (auto) 0.2 %; Eosinophils # (auto) 0.11 K/uL (0-0.5); Eosinophils % (auto) 1.1 %; Hematocrit (blood only) 27.9 % (42-52); Hemoglobin 9.3 g/dL (14.0-18.0); Immature Granulocytes # (auto) 0.02 K/uL (0.00-0.02); Immature Granulocytes % (auto) 0.2 %; Lymphocytes # (auto) 1.69 K/uL (1.2-3.4); Lymphocytes % (auto) 16.9 %; Mean Corpuscular Hemoglobin 33.5 pg (25-34); Mean Corpuscular Hgb Conc 33.3 g/dL (32-36); Mean Corpuscular Volume 100.4 fL (80-100); Mean Platelet Volume 10.7 fL (7.4-10.4); Monocytes # (auto) 0.73 K/uL (0.11-0.59); Monocytes % (auto) 7.3 %; Neutrophils # (auto) 7.42 K/uL (1.4-6.5); Neutrophils % (auto) 74.3 %; Platelet Count 186 K/uL (130-400); RDW Coefficient of Variation 13.2 % (11.5-14.5); RDW Standard Deviation 47.8 fL (36.4-46.3); Red Blood Count 2.78 M/uL (4.7-6.1); White Blood Count 9.99 K/uL (4.8-10.8)
--- NOTE | 2019-01-31 16:12 | Consultation Report ---
DATE OF CONSULTATION: 01/31/2019 REASON FOR EVALUATION: Post-polypectomy bleeding. HISTORY OF PRESENT ILLNESS: The patient is an 83-year-old man who underwent a colonoscopy on 01/25/2019 for personal history of colon polyps. The patient had 3 polyps removed. He had a 3 millimeter polyp in the ascending colon that was removed with cold biopsy forceps, a 3 millimeter polyp in the hepatic flexure also removed with cold biopsy forceps and a 7 mm polyp in the proximal transverse colon that was removed with hot snare. There was no bleeding at the time of the procedure. The patient was discharged, but began having some post-polypectomy bleeding as an outpatient. Yesterday, he had a CBC performed with a hemoglobin of 9.8. Today, he continued to have some bright red oozing of blood and was referred for evaluation to the ER and was found to have a hemoglobin of 9.3 and heme positive stools. He has been on Eliquis and aspirin for chronic atrial fibrillation. These have been held for 3 days following the procedure, but then were restarted. The patient now is admitted for further evaluation. PAST MEDICAL HISTORY: Remarkable for chronic atrial fibrillation, history of colon polyps, coronary artery disease, hypertension, dyslipidemia, trigeminal neuralgia. He has had a carpal tunnel syndrome, arthritis and diabetes. MEDICATIONS: Includes aspirin and Eliquis, which are being held. ALLERGIES: NONSTEROIDALS. FAMILY HISTORY: Noncontributory. SOCIAL HISTORY: The patient lives alone, does not smoke, does not drink. Lives at [facility]. REVIEW OF SYSTEMS: Negative for 12 systems. PHYSICAL EXAMINATION: GENERAL: The patient appears in no acute distress. VITAL SIGNS: Blood pressure is 144/91, pulse 85. ABDOMEN: Soft and nontender. He is in atrial fibrillation. LUNGS: Clear. IMPRESSION: The patient has a post-polypectomy bleeding. The patient is most likely bleeding from the 7 mm polyp that was in the proximal transverse colon, removed with a hot snare. I plan on prepping him today and tomorrow morning and proceeding with colonoscopy tomorrow to reevaluate his colon and to treat any bleeding sites and hopefully if we are successful he could be discharged tomorrow that remains to be seen depending on what we find endoscopically.
[2019-01-31] MEDS: LAVAGE SOLUTION 4000ML PO SCH (19:03)
[2019-01-31] MEDS: CARBAMAZEPINE 200 MG TABCR PO SCH (20:22)
[2019-01-31] MEDS: GABAPENTIN 300 MG CAP PO SCH (20:22)
[2019-01-31] MEDS: POTASSIUM CITRATE 10 MEQ TAB PO SCH (20:23)
[2019-01-31] MEDS ORDERED: MAGNESIUM GLUCONATE PO SCH (21:00)
[2019-01-31] MEDS ORDERED: CARBAMAZEPINE 200 MG PO SCH (21:00)
[2019-01-31 23:13] LABS: Basophils # (auto) 0.03 K/uL (0-0.2); Basophils % (auto) 0.3 %; Eosinophils # (auto) 0.19 K/uL (0-0.5); Eosinophils % (auto) 1.8 %; Hematocrit (blood only) 30.1 % (42-52); Hemoglobin 9.7 g/dL (14.0-18.0); Immature Granulocytes # (auto) 0.03 K/uL (0.00-0.02); Immature Granulocytes % (auto) 0.3 %; Lymphocytes # (auto) 2.15 K/uL (1.2-3.4); Lymphocytes % (auto) 20.5 %; Mean Corpuscular Hemoglobin 32.6 pg (25-34); Mean Corpuscular Hgb Conc 32.2 g/dL (32-36); Mean Platelet Volume 10.2 fL (7.4-10.4); Monocytes # (auto) 0.85 K/uL (0.11-0.59); Monocytes % (auto) 8.1 %; Neutrophils # (auto) 7.26 K/uL (1.4-6.5); Platelet Count 211 K/uL (130-400); RDW Coefficient of Variation 13.3 % (11.5-14.5); RDW Standard Deviation 48.3 fL (36.4-46.3); Red Blood Count 2.98 M/uL (4.7-6.1); White Blood Count 10.51 K/uL (4.8-10.8)
[2019-02-01] MEDS: DIGOXIN 0.25 MG TAB PO SCH ×2 (01:50→20:26)
[2019-02-01 06:03] LABS: Basophils # (auto) 0.04 K/uL (0-0.2); Basophils % (auto) 0.4 %; Eosinophils # (auto) 0.24 K/uL (0-0.5); Eosinophils % (auto) 2.3 %; Hemoglobin 9.3 g/dL (14.0-18.0); Immature Granulocytes # (auto) 0.03 K/uL (0.00-0.02); Immature Granulocytes % (auto) 0.3 %; Lymphocytes # (auto) 2.16 K/uL (1.2-3.4); Lymphocytes % (auto) 20.6 %; Mean Corpuscular Hemoglobin 33.3 pg (25-34); Mean Corpuscular Hgb Conc 33.2 g/dL (32-36); Mean Corpuscular Volume 100.4 fL (80-100); Mean Platelet Volume 10.1 fL (7.4-10.4); Monocytes # (auto) 0.95 K/uL (0.11-0.59); Neutrophils # (auto) 7.09 K/uL (1.4-6.5); Neutrophils % (auto) 67.4 %; Platelet Count 187 K/uL (130-400); RDW Coefficient of Variation 13.3 % (11.5-14.5); RDW Standard Deviation 47.6 fL (36.4-46.3); Red Blood Count 2.79 M/uL (4.7-6.1); White Blood Count 10.51 K/uL (4.8-10.8)
[2019-02-01 06:35] LABS: BUN Creatinine Ratio 15.3 (10-20); Calcium 8.3 mg/dl (8.5-10.1); Creatinine Clr Calc Pharmacy 66.5 ml/min; Est GFR (African American) 78.2; Est GFR (Non-African American) 67.5; Potassium 3.8 mmol/L (3.5-5.1)
[2019-02-01] MEDS: LAVAGE SOLUTION 4000ML PO SCH (08:03)
[2019-02-01] MEDS ORDERED: DIGOXIN 0.25 MG TAB PO SCH (09:00)
[2019-02-01] MEDS ORDERED: NON-FORMULARY MEDICATION (Coenzyme Q10 100 MG) PO SCH (09:00)
[2019-02-01] MEDS: ATORVASTATIN 20 MG TAB PO SCH (09:07)
[2019-02-01] MEDS: CARBAMAZEPINE 100 MG TABCR PO SCH (09:08)
[2019-02-01] MEDS: POTASSIUM CITRATE 10 MEQ TAB PO SCH ×2 (09:09→20:26)
--- NOTE | 2019-02-01 15:21 | History & Physical Report ---
Date of Service February 01, 2019 History of Present Illness Chief Complaint: post polypectomy bleed Primary Care Provider: Lebron Viveros MD For colonoscopy Allergies Allergy/AdvReac Type Severity Reaction Status Date / Time NSAIDS (Non-Steroidal Allergy Severe Facial Verified 01/31/19 11:08 Anti-Inflamma swelling ibuprofen Allergy Intermediate Swollen Verified 01/31/19 11:08 lips Home Medications Home Medications Medication Instructions Recorded Confirmed Type aspirin 81 mg PO QAM #0 10/20/16 01/31/19 History atenolol [Tenormin] 100 mg PO BID #0 tab 10/20/16 01/31/19 History atorvastatin [Lipitor] 20 mg PO QAM #0 tab 10/20/16 01/31/19 History coenzyme Q10 100 mg PO QAM #0 10/20/16 01/31/19 History digoxin 0.25 mg PO QAM #0 10/20/16 01/31/19 History diltiazem HCl 120 mg PO BID #0 10/20/16 01/31/19 History furosemide [Lasix] 40 mg PO BID #0 tab 10/20/16 01/31/19 History magnesium gluconate 55 mg PO BID #0 10/20/16 01/31/19 History potassium citrate 3 tab PO BID #0 tab 10/20/16 01/31/19 History apixaban 5 mg tablet 5 mg PO BID #180 tab 12/13/18 01/31/19 Rx candesartan 8 mg PO QAM 01/31/19 01/31/19 History carbamazepine 200 mg PO HS 01/31/19 01/31/19 History carbamazepine [Tegretol XR] 100 mg PO QAM 01/31/19 01/31/19 History carbamazepine [Tegretol XR] 200 mg PO HS 01/31/19 01/31/19 History gabapentin 300 mg PO HS 01/31/19 01/31/19 History nystatin 1 applic TOPICAL DAILY PRN 01/31/19 01/31/19 History Past Med/Surg History Medical History A-fib (Chronic) Carpal tunnel syndrome, bilateral (Chronic) Diabetes (Chronic) Hyperlipidemia (Chronic) Hypertension (Chronic) Osteoarthritis (Chronic) Surgical History H/O left knee surgery (Acute) Family History Other Family history non-contributory Social History Preferred Language: Danish Communication Ability: Effective Visual Impairment: Partially Limited Hearing Ability: Use of Hearing Aid Wire Drawer Required: No Beliefs That Will Affect Care: None Current Living Situation: Alone Current Living Situation Comment: lives at [facility] independent living Other Information That Helps Us Care for You: No Feels Safe at Home: Yes Safety Concerns: Feels Safe At This Time Smoking Status: Never smoker Hx Alcohol Use: No Hx Substance Use: No Physical Exam Constitutional: well developed and well nourished Respiratory: normal respiratory effort Cardiovascular: Rate/Rhythm: + irregularly irregular Gastrointestinal (Abdomen): Percussion/Palpation: abdomen soft Results & Data Vital Signs (Past 12 Hours) Vital Signs Temp Pulse Pulse Resp BP BP Pulse Ox 02/01/19 14:51 152/101 H 02/01/19 14:42 36.7 C 90 16 147/109 H 96 02/01/19 10:51 36.7 C 89 20 128/81 95 02/01/19 07:42 82 02/01/19 07:23 36.7 C 83 18 137/83 94 02/01/19 03:46 36.7 C 90 19 137/78 95 Code Status & VTE Plan VTE Prophylaxis Plan VTE Prophylaxis will be ordered: Yes
--- NOTE | 2019-02-01 15:23 | Anesthesiology Consultation ---
Date of Service February 01, 2019 Assessment & Plan (1) Encounter for pre-operative examination: Chart Review Chart Review: Acceptable Risk for Surgery and Patient NOT seen in Pre Admission Testing Consults Requested none History Surgery Operation Date: 02/01/19 16:30 Proposed Procedures p Colonoscopy Dr Cristal Bee Height/Weight Height: 6 ft Weight: 103.6 kg Allergies Allergy/AdvReac Type Severity Reaction Status Date / Time NSAIDS (Non-Steroidal Allergy Severe Facial Verified 01/31/19 11:08 Anti-Inflamma swelling ibuprofen Allergy Intermediate Swollen Verified 01/31/19 11:08 lips Medications Home Medications Medication Instructions Recorded Confirmed Last Taken aspirin 81 mg PO QAM #0 10/20/16 01/31/19 01/31/19 atenolol [Tenormin] 100 mg PO BID #0 tab 10/20/16 01/31/19 01/31/19 atorvastatin [Lipitor] 20 mg PO QAM #0 tab 10/20/16 01/31/19 01/31/19 coenzyme Q10 100 mg PO QAM #0 10/20/16 01/31/19 01/31/19 digoxin 0.25 mg PO QAM #0 10/20/16 01/31/19 01/31/19 diltiazem HCl 120 mg PO BID #0 10/20/16 01/31/19 01/31/19 furosemide [Lasix] 40 mg PO BID #0 tab 10/20/16 01/31/19 01/31/19 magnesium gluconate 55 mg PO BID #0 10/20/16 01/31/19 01/31/19 potassium citrate 3 tab PO BID #0 tab 10/20/16 01/31/19 01/31/19 apixaban 5 mg tablet 5 mg PO BID #180 tab 12/13/18 01/31/19 01/30/19 candesartan 8 mg PO QAM 01/31/19 01/31/19 01/29/19 carbamazepine 200 mg PO HS 01/31/19 01/31/19 01/30/19 carbamazepine [Tegretol XR] 100 mg PO QAM 01/31/19 01/31/19 01/31/19 carbamazepine [Tegretol XR] 200 mg PO HS 01/31/19 01/31/19 01/30/19 gabapentin 300 mg PO HS 01/31/19 01/31/19 01/30/19 nystatin 1 applic TOPICAL DAILY PRN 01/31/19 01/31/19 Unknown Active Medications Generic Name Dose Route Start Last Admin Trade Name Vinnie PRN Reason Stop Dose Admin Atorvastatin Calcium 20 mg 02/01/19 09:00 02/01/19 09:07 Lipitor PO 03/03/19 08:59 20 mg QAM PETER Administration Carbamazepine 200 mg 01/31/19 21:00 01/31/19 20:22 Tegretol Xr PO 03/02/19 20:59 200 mg HS PETER Administration Carbamazepine 100 mg 02/01/19 09:00 02/01/19 09:08 Tegretol Xr PO 03/03/19 08:59 100 mg QAM PETER Administration Digoxin 0.25 mg 02/01/19 01:30 02/01/19 01:50 Lanoxin PO 03/03/19 01:29 0.25 mg HS PETER Administration Gabapentin 300 mg 01/31/19 21:00 01/31/19 20:22 Neurontin PO 03/02/19 20:59 300 mg HS PETER Administration Potassium Citrate 30 meq 01/31/19 21:00 02/01/19 09:09 Urocit-K PO 03/02/19 20:59 30 meq BID PETER Administration NPO Date Last Intake of Fluids: 02/01/19 Time Last Intake of Fluids: 11:01 Date Last Intake of Solids: 01/31/19 Time Last Intake of Solids: 08:00 Past Medical History Medical History A-fib (Chronic) Carpal tunnel syndrome, bilateral (Chronic) Diabetes (Chronic) Hyperlipidemia (Chronic) Hypertension (Chronic) Osteoarthritis (Chronic) Past Family History Family History Other Family history non-contributory Past Surgical History Surgical History H/O left knee surgery (Acute) Social History Smoking Status: Never smoker Hx Alcohol Use: No Hx Substance Use: No Physical Exam Vital Signs Last Vital Signs Temp 36.7 C 02/01/19 14:42 Pulse 90 02/01/19 14:42 Resp 16 02/01/19 14:42 BP 152/101 H 02/01/19 14:51 Pulse Ox 96 02/01/19 14:42 Testing Laboratory Results 02/01/19 05:40 02/01/19 05:40 PT 11.3 Seconds (9.0-12.0) 01/31/19 10:54 INR 1.1 (0.9-1.1) 01/31/19 10:54 APTT 26.8 Seconds (21.0-31.0) 01/31/19 10:54 Blood Type A Positive 01/31/19 10:54 Antibody Screen NEGATIVE 01/31/19 10:54
[2019-02-01] MEDS ORDERED: ePHEDrine sulfate 50 MG/ML AMP IV PRN (15:27)
[2019-02-01] MEDS ORDERED: PROPOFOL IV EMULSION 10 MG/ML 20 ML VIAL IV ONE (15:27)
[2019-02-01] MEDS ORDERED: LIDOCAINE HCL 2% 2 ML VIAL/AMP(20MG/ML) INFIL ONE (15:27)
[2019-02-01] MEDS ORDERED: ATROPINE SULFATE 0.1 MG/ML 10ML SYR IV PRN (15:27)
[2019-02-01] MEDS ORDERED: SODIUM CHLORIDE 0.9% 1000ML 1,000 ML IV SCH (15:30)
--- NOTE | 2019-02-01 16:00 | GI REPORT ---
Patient Name: Jad Musa Procedure Date: 02/01/2019 3:30 PM Date of : 1935 Admit Type: Inpatient Age: 83 Gender: Male Attending MD: Isael Bee MD Procedure: Colonoscopy Providers: Isael Bee MD Referring MD: Lebron Viveros Indications: Rectal bleeding Medicines: Propofol total dose 190 mg IV, Lidocaine 40 mg IV Complications: No immediate complications. Estimated Blood Loss: Estimated blood loss: none. Procedure: Pre-Anesthesia Assessment: - Prior to the procedure, a History and Physical was performed, and patient medications, allergies and sensitivities were reviewed. The patient's tolerance of previous anesthesia was reviewed. - The risks and benefits of the procedure and the sedation options and risks were discussed with the patient. All questions were answered and informed consent was obtained. After I obtained informed consent, the scope was passed under direct vision. Throughout the procedure, the patient's blood pressure, pulse, and oxygen saturations were monitored continuously. The Colonoscope was introduced through the anus and advanced to the cecum, identified by appendiceal orifice and ileocecal valve. The colonoscopy was performed without difficulty. The patient tolerated the procedure well. The quality of the bowel preparation was fair. Findings: A single (solitary) seven mm ulcer was found in the proximal transverse colon. No bleeding was present. No stigmata of recent bleeding were seen. To prevent bleeding after the polypectomy, three hemostatic clips were successfully placed (MR conditional). There was no bleeding during, or at the end, of the procedure. Impression: - Preparation of the colon was fair. - A single (solitary) ulcer in the proximal transverse colon. Clips (MR conditional) were placed. - No specimens collected. Recommendation: - [facility]. - Resume regular diet. Isael Bee M.D. Isael Bee MD 02/01/2019 3:59:51 PM This report has been signed electronically. Note Initiated On: 02/01/2019 3:30 PM Number of Addenda: 0 I attest to the content of the Intraoperative Record and orders documented therein, exceptions below {[id number]}
--- NOTE | 2019-02-01 16:17 | Anesthesiology Progress Note ---
Date of Service February 01, 2019 Anesthesia Post Procedure Vital Signs Vital Signs: Temp Pulse Pulse Resp BP BP Pulse Ox 02/01/19 16:12 95 H 18 140/89 97 02/01/19 15:57 36.7 C 88 18 125/72 97 02/01/19 14:51 152/101 H 02/01/19 14:42 36.7 C 90 16 147/109 H 96 02/01/19 10:51 36.7 C 89 20 128/81 95 02/01/19 07:42 82 02/01/19 07:23 36.7 C 83 18 137/83 94 02/01/19 03:46 36.7 C 90 19 137/78 95 02/01/19 02:13 85 01/31/19 23:10 36.6 C 82 18 138/90 97 01/31/19 19:34 36.9 C 82 24 148/85 H 96 Transfer of Care Handoff Completed per policy Notes Mental Status: alert / awake / arousable Patient Amnestic to Procedure: Yes Nausea / Vomiting: adequately controlled Pain: adequately controlled Airway Patency, RR, SpO2: stable & adequate BP & HR: stable & adequate Hydration State: stable & adequate Anesthetic Complications: no major complications apparent and Pt Satisfied with anesthetic care
--- NOTE | 2019-02-01 16:39 | Progress Note ---
DATE: 02/01/2019 The patient presented to the endoscopy unit today for colonoscopy following his post-polypectomy bleeding. He has had no further active bleeding and completed his bowel prep all last night instead of having it split dose, but despite that his colonoscopy was completed to the cecum. The prep was fair. The polypectomy site in the proximal transverse colon that was removed with a hot snare was identified. There was an ulceration there, but had a clean base with no stigmata of recent bleeding. There was no blood throughout the colon, 3 clips were placed over the ulceration to help close it over and prevent further bleeding going forward. IMPRESSION: Post-polypectomy bleeding site identified and clipped. No active bleeding. The patient is expecting to stay overnight to get his atrial fibrillation medications back on board and control before returning to [facility].
[2019-02-01 17:04] LABS: Basophils # (auto) 0.03 K/uL (0-0.2); Basophils % (auto) 0.4 %; Eosinophils # (auto) 0.18 K/uL (0-0.5); Eosinophils % (auto) 2.3 %; Hematocrit (blood only) 29.1 % (42-52); Hemoglobin 9.7 g/dL (14.0-18.0); Immature Granulocytes # (auto) 0.03 K/uL (0.00-0.02); Immature Granulocytes % (auto) 0.4 %; Lymphocytes # (auto) 1.45 K/uL (1.2-3.4); Lymphocytes % (auto) 18.8 %; Mean Corpuscular Hemoglobin 33.6 pg (25-34); Mean Corpuscular Hgb Conc 33.3 g/dL (32-36); Mean Corpuscular Volume 100.7 fL (80-100); Mean Platelet Volume 10.3 fL (7.4-10.4); Monocytes # (auto) 0.65 K/uL (0.11-0.59); Monocytes % (auto) 8.4 %; Neutrophils # (auto) 5.36 K/uL (1.4-6.5); Neutrophils % (auto) 69.7 %; Platelet Count 206 K/uL (130-400); RDW Coefficient of Variation 13.2 % (11.5-14.5); RDW Standard Deviation 47.4 fL (36.4-46.3); Red Blood Count 2.89 M/uL (4.7-6.1)
--- NOTE | 2019-02-01 17:23 | Hospitalist Progress Note ---
Date of Service February 01, 2019 Assessment & Plan (1) Post-polypectomy bleeding: Lower GI bleeding with resulting acute blood loss anemia was likely 2nd to bleeding from a polypectomy site (from recent outpatient colonscopy) in the setting of eliquis use. s/p colonoscopy today by Dr Bee; 3 clips placed to one of the prior polyp sites that had a small, nonbleeding ulcer. H/H low but stable over the last 24-36 hours. Resume clear liquid diet, then advance as tolerated. Will need ferrous sulfate supplementation after d/c. Pt and his daughter were counseled and all questions answered today. (2) Acute blood loss anemia: 2nd to lower GI bleeding from a prior polyp site (3 polyps were removed during a recent outpatient colonoscopy). Eliquis still on hold. Will need Fe supplementation. H/H cont to remain stable. CBC in am. (3) LGI bleed: 2nd to post-polypectomy bleeding. s/p colonoscopy on 01/25/19 during which 3 polyps were removed (3 mm, 3 mm, 7 mm). Acute drop in Hb to the 9's, down from 14.8 in October 2018. See discussion above. Cont to hold eliquis and asa. Will d/w Dr Bee when these can be safely resumed. (4) Persistent atrial fibrillation: Cont to Hold Eliquis Resume diltiazem TONIGHT Cont digoxin Can likely resume atenolol in am Keep on tele (5) Coronary artery disease: No ischemic symptoms at this time. Resume asa when ok with GI. Resume beta cornelius in am. Cont lipitor. (6) Hypertension: BP / a.fib meds had been held because of relative hypotension and his pre- hospital symptoms. These symptoms are resolved and he is now hypertensive. Resume diltiazem tonight and atenolol in am. He may not need ARB in setting of significant acute blood loss - will have to see what BPs do. (7) Dyslipidemia: Continue Lipitor and CoQ10 (8) Trigeminal neuralgia: Chronic. Stable. Continue carbamazepine at home dosage Probable d/c in am. Subjective saw the patient post colonoscopy today. I spoke with Dr Bee - one of the prior polypectomy sites had a small ulcer present; other 2 polyp sites were not seen/found. 3 clips were placed over the polypectomy site that had the ulcer. No active bleeding was found during the colonoscopy, and no stigmata of recent bleeding was seen. tele - a.fib. rates acceptable. pt otherwise feeling ok. denies any dizziness, lightheadedness, abd pain, nausea, emesis. no aura BRBPR or maroon-colored blood since yesterday am. daughter at bedside. Review of Systems Constitutional: no fever Respiratory: no cough and no dyspnea Cardiovascular: no chest pain Gastrointestinal: no abdominal pain, no nausea and no vomiting Physical Exam Constitutional: well developed and well nourished; no acute distress ENMT: external ear and nose normal, oropharynx normal Respiratory: normal respiratory effort, lungs clear to auscultation Cardiovascular: Rate/Rhythm: regular rate and + irregularly irregular Heart Sounds: normal S1 and normal S2; no murmur Vessels: posterior tibial pulses present and dorsalis pedis pulses present; no JVD Extremities: + edema (<1+ b/l) Gastrointestinal (Abdomen): normal bowel sounds, soft, nontender, no hepatosplenomegaly Skin: + pallor venous stasis changes b/l legs Psychiatric: A+Ox3, euthymic affect Results & Data Vital Signs (Past 12 Hours) Vital Signs Temp Pulse Pulse Resp BP BP Pulse Ox 02/01/19 16:50 36.3 C L 86 16 146/92 H 96 02/01/19 16:27 100 H 18 127/87 95 02/01/19 16:12 95 H 18 140/89 97 02/01/19 15:57 36.7 C 88 18 125/72 97 02/01/19 14:51 152/101 H 02/01/19 14:42 36.7 C 90 16 147/109 H 96 02/01/19 10:51 36.7 C 89 20 128/81 95 02/01/19 07:42 82 02/01/19 07:23 36.7 C 83 18 137/83 94 Laboratory Results Laboratory Results - last 24 hr 02/01/19 02/01/19 02/01/19 05:40 05:40 16:45 WBC 10.51 7.70 RBC 2.79 L 2.89 L Hgb 9.3 L 9.7 L Hct 28.0 L 29.1 L MCV 100.4 H 100.7 H MCH 33.3 33.6 MCHC 33.2 33.3 RDW Std Deviation 47.6 H 47.4 H RDW Coeff of [place] 13.3 13.2 Plt Count 187 206 MPV 10.1 10.3 Immature Gran % (Auto) 0.3 0.4 Neut % (Auto) 67.4 69.7 Lymph % (Auto) 20.6 18.8 [place] % (Auto) 9.0 8.4 Eos % (Auto) 2.3 2.3 Baso % (Auto) 0.4 0.4 Immature Gran # (Auto) 0.03 H 0.03 H Neut # (Auto) 7.09 H 5.36 Lymph # (Auto) 2.16 1.45 [place] # (Auto) 0.95 H 0.65 H Eos # (Auto) 0.24 0.18 Baso # (Auto) 0.04 0.03 Sodium 143 Potassium 3.8 Chloride 106 Carbon Dioxide 32 Anion Gap 5.0 BUN 15 Creatinine 1.01 Est Cr Clr Drug Dosing 66.5 Est GFR ( Amer) 78.2 Est GFR (Non-Af Amer) 67.5 BUN/Creatinine Ratio 15.3 Glucose 111 H Calcium 8.3 L 02/01/19 22:52 WBC 8.41 RBC 2.89 L Hgb 9.5 L Hct 28.9 L MCV 100.0 MCH 32.9 MCHC 32.9 RDW Std Deviation 47.1 H RDW Coeff of [place] 13.3 Plt Count 195 MPV 10.1 Immature Gran % (Auto) 0.2 Neut % (Auto) 64.4 Lymph % (Auto) 22.8 [place] % (Auto) 9.8 Eos % (Auto) 2.6 Baso % (Auto) 0.2 Immature Gran # (Auto) 0.02 Neut # (Auto) 5.41 Lymph # (Auto) 1.92 [place] # (Auto) 0.82 H Eos # (Auto) 0.22 Baso # (Auto) 0.02 Sodium Potassium Chloride Carbon Dioxide Anion Gap BUN Creatinine Est Cr Clr Drug Dosing Est GFR ( Amer) Est GFR (Non-Af Amer) BUN/Creatinine Ratio Glucose Calcium PG Care Time/CCT Total # of Minutes Spent Total Time Spent with Patient: Total time spent is greater than 50% in coordination of care (as documented) at patient's floor/unit and/or counseling patient: (1) Coronary artery disease Coronary Disease-Associated Artery/Lesion type: [place] artery [place] vs. transplanted heart: [place] heart Associated angina: without angina Qualified Code(s): I25.10 - Atherosclerotic heart disease of [place] coronary artery wit hout angina pectoris (2) Hypertension Hypertension type: essential hypertension Qualified Code(s): I10 - Essential (primary) hypertension
--- NOTE | 2019-02-01 19:16 | Emergency Department Note ---
Entered by Chinmay Vallejo acting as a scribe for Nadeem Ortiz MD History of Present Illness General Chief complaint: Abnormal Labs/Diagnostic Testing Stated complaint: RED BLOOD CELL COUNT DOWN Time Seen by Provider: 01/31/19 10:36 Source: patient History of Present Illness Provider complaint: Abnormal labs Onset (ago): day(s) 1 Location: head Pain Consistency: + constant Maximum Pain Intensity: 0 Relieved By: + none Exacerbated By: + other (Exertion) Associated symptoms: + weakness and + other (Lightheadedness) The patient is an 83 year old male who presents to the Emergency Room after having abnormal lab work return that showed a low hemoglobin level. The patient states he had a colonoscopy done 6 days ago and had 3 polyps removed. The patient notes he has not had full bowel movement since the procedure and when he is able to move some stool, it is a dark purple color. The patient adds that he is on Eliquis but was instructed to stop taking it yesterday so his last dose was yesterday morning. The patient reports that for the past couple of days he has experienced generalized weakness and dizziness that is worse with walking long distances. Additionally the patient mentioned that 5 days ago he had trouble controlling his blood pressure because it was too low. He adds that 2 weeks ago he was started on Candesartan, which he stopped taking yesterday. Home Medications Home Medications Medication Instructions Recorded Confirmed Type aspirin 81 mg PO QAM #0 10/20/16 01/31/19 History atenolol [Tenormin] 100 mg PO BID #0 tab 10/20/16 01/31/19 History atorvastatin [Lipitor] 20 mg PO QAM #0 tab 10/20/16 01/31/19 History coenzyme Q10 100 mg PO QAM #0 10/20/16 01/31/19 History digoxin 0.25 mg PO QAM #0 10/20/16 01/31/19 History diltiazem HCl 120 mg PO BID #0 10/20/16 01/31/19 History furosemide [Lasix] 40 mg PO BID #0 tab 10/20/16 01/31/19 History magnesium gluconate 55 mg PO BID #0 10/20/16 01/31/19 History potassium citrate 3 tab PO BID #0 tab 10/20/16 01/31/19 History apixaban 5 mg tablet 5 mg PO BID #180 tab 12/13/18 01/31/19 Rx candesartan 8 mg PO QAM 01/31/19 01/31/19 History carbamazepine 200 mg PO HS 01/31/19 01/31/19 History carbamazepine [Tegretol XR] 100 mg PO QAM 01/31/19 01/31/19 History carbamazepine [Tegretol XR] 200 mg PO HS 01/31/19 01/31/19 History gabapentin 300 mg PO HS 01/31/19 01/31/19 History nystatin 1 applic TOPICAL DAILY PRN 01/31/19 01/31/19 History Allergies Allergy/AdvReac Type Severity Reaction Status Date / Time NSAIDS (Non-Steroidal Allergy Severe Facial Verified 01/31/19 11:08 Anti-Inflamma swelling ibuprofen Allergy Intermediate Swollen Verified 01/31/19 11:08 lips Past Med/Surg History Medical History A-fib (Chronic) Carpal tunnel syndrome, bilateral (Chronic) Diabetes (Chronic) Hyperlipidemia (Chronic) Hypertension (Chronic) Osteoarthritis (Chronic) Surgical History H/O left knee surgery (Acute) Family History Other Family history non-contributory Social History Preferred Language: German Communication Ability: Effective Visual Impairment: Partially Limited Hearing Ability: Use of Hearing Aid [employer] Team Member Required: No Beliefs That Will Affect Care: None Current Living Situation: Alone Current Living Situation Comment: lives at [facility] Other Information That Helps Us Care for You: No Feels Safe at Home: Yes Safety Concerns: Feels Safe At This Time Smoking Status: Never smoker Hx Alcohol Use: No Hx Substance Use: No Review of Systems See HPI for pertinent positives & negatives. and A total of 10 systems reviewed and were otherwise negative Physical Exam Vital Signs Vital Signs - 24 hr 01/31/19 10:15 01/31/19 11:04 01/31/19 11:05 Temperature 98.4 F Temperature Source Oral Sepsis Recent Fever Within 48 Hours No Sepsis Action Taken by Nursing No Action Required Pulse Rate 78 77 Pulse Rate [Left Finger] 76 Pulse Rhythm Regular Pulse Rhythm [Left Finger] Regular Pulse Strength [Left Finger] Normal Respiratory Rate 20 20 Respiratory Effort / Characteristics Non-Labored Non-Labored Spontaneous Respiratory Depth Normal Normal Respiratory Pattern Regular Blood Pressure 118/73 Blood Pressure [Right Arm] 121/78 Blood Pressure Mean 88 Blood Pressure Mean [Right Arm] 92 Blood Pressure Position [Right Arm] Sitting Pulse Oximetry 97 94 94 Oxygen Delivery Method Room Air Room Air Room Air GENERAL: Awake, alert, well-appearing, in no distress HENT: Normocephalic, atraumatic. Oropharynx unremarkable. EYES: Normal conjunctiva. Sclera non-icteric. NECK: Supple. No nuchal rigidity. FROM. No masses. RESPIRATORY: Clear to auscultation. No wheezes. No rales. Normal respiratory effort. CARDIAC: Normal rate. Normal rhythm. No murmurs. No rubs. Extremities warm and well perfused. Pulses equal. No JVD. GI: Soft, non-distended. No tenderness to palpation. No rebound or guarding. No masses. RECTAL: Dark red stools, heme positive. MUSCULOSKELETAL: Atraumatic. Chest examination reveals no tenderness. The back is symmetrical on inspection without obvious abnormality. There is no CVA tenderness to palpation. No joint edema. LOWER EXTREMITIES: Calves are equal size bilaterally and non-tender. No edema. No discoloration. NEURO: Normal sensorium. No sensory or motor deficits noted. Course 1041: Past medical records reviewed. The patient was evaluated in room B04B, and a complete history and physical examination were performed. Given the patient's exam and current symptoms, I informed him that it is extremely likely that he will need to be hospitalized for further treatment. He understands the plan and is agreeable. 1052: I spoke to Dr. Cristal ELY to update him that the patient was in the ED with low hemoglobin. He suggested admitting the patient to medicine and he is going to prep him and take him back tomorrow. 1207: I spoke to Dr. Calderon - [facility] Hospitalist about the patient's case. She is going to accept the patient for further evaluation. Consultations Consultation #1: I spoke to Dr. Cristal ELY to update him that the patient was in the ED with low hemoglobin. He suggested admitting the patient to medicine and he is going to prep him and take him back tomorrow. Time: 10:52 Consultation #2: I spoke to Dr. Calderon - [facility] Hospitalist about the patient's case. She is going to accept the patient for further evaluation. Time: 12:07 Administered Medications Atorvastatin Calcium (Lipitor) 20 mg PO QAM [facility] Stop: 03/03/19 08:59 Last Admin: 02/01/19 09:07 Dose: 20 mg Documented by: [id number] Cosigned by: [id number] Carbamazepine (Tegretol Xr) 200 mg PO [facility] Stop: 03/02/19 20:59 Last Admin: 01/31/19 20:22 Dose: 200 mg Documented by: [id number] Carbamazepine (Tegretol Xr) [facility] Stop: 03/03/19 08:59 Last Admin: 02/01/19 09:08 Dose: 100 mg Documented by: [id number] Cosigned by: [id number] Digoxin (Lanoxin) 0.25 mg PO [facility] Stop: 03/03/19 01:29 Last Admin: 02/01/19 01:50 Dose: 0.25 mg Documented by: [id number] Gabapentin (Neurontin) 300 mg PO [facility] Stop: 03/02/19 20:59 Last Admin: 01/31/19 20:22 Dose: 300 mg Documented by: [id number] Sodium Chloride (Nss 1000ml) 1,000 mls @ 15 mls/hr IV .Q24H [facility] Stop: 02/02/19 15:29 Last Admin: 02/01/19 19:01 Dose: Not Given Documented by: [id number] Potassium Citrate (Urocit-K) 30 meq PO BID [facility] Stop: 03/02/19 20:59 Last Admin: 02/01/19 09:09 Dose: 30 meq Documented by: [id number] Cosigned by: [id number] Admin: 01/31/19 20:23 Dose: 30 meq Documented by: [id number] Discontinued Medications Lidocaine HCl (Xylocaine 2%) Confirm Administered Dose 2 ml INFIL .STK-MED [facility] Stop: 02/01/19 15:28 Last Admin: 02/01/19 19:01 Dose: Not Given Documented by: [id number] Polyethylene Glycol/Electrolytes (Golytely) 8 dose PO TODAY@0700,1800 [facility] Stop: 02/01/19 11:00 Last Admin: 02/01/19 08:03 Dose: Not Given Documented by: [id number] Admin: 01/31/19 19:03 Dose: 8 dose Documented by: [id number] Propofol (Diprivan) Confirm Administered Dose 200 mg IV .STK-MED [facility] Stop: 02/01/19 15:28 Last Admin: 02/01/19 19:00 Dose: Not Given Documented by: [id number] Medical Decision Making Differential Diagnosis Differential: Diverticulitis, AVM, Coagulopathy, Colitis, Malignancy, Upper GI bleed, Fissure, Hemorrhoids, amongst other pathologies entertained. Medical Records Attestation: I reviewed the patient's medical records. Home Medications Current Medication List: was personally reviewed by me Laboratory Data Attestation: I reviewed the patient's lab results. Result diagrams: 02/01/19 16:45 02/01/19 05:40 Lab Results 01/31/19 01/31/19 01/31/19 Range/Units 10:49 10:54 10:54 WBC 11.62 H (4.8-10.8) K/uL RBC 2.98 L (4.7-6.1) M/uL Hgb 9.7 L (14.0-18.0) g/dL POC Hgb (14.0-18.0) g/dl Hct 29.6 L (42-52) % POC Hct (42-52) % MCV 99.3 (80-100) fL MCH 32.6 (25-34) pg MCHC 32.8 (32-36) g/dL RDW Std Deviation 47.0 H (36.4-46.3) fL RDW Coeff of [place] 13.2 (11.5-14.5) % Plt Count 199 (130-400) K/uL MPV 10.3 (7.4-10.4) fL Immature Gran % (Auto) 0.3 % Neut % (Auto) 77.1 % Lymph % (Auto) 12.9 % Bates % (Auto) 8.2 % Eos % (Auto) 1.2 % Baso % (Auto) 0.3 % Immature Gran # (Auto) 0.04 H (0.00-0.02) K/uL Neut # (Auto) 8.95 H (1.4-6.5) K/uL Lymph # (Auto) 1.50 (1.2-3.4) K/uL Bates # (Auto) 0.95 H (0.11-0.59) K/uL Eos # (Auto) 0.14 (0-0.5) K/uL Baso # (Auto) 0.04 (0-0.2) K/uL PT 11.3 (9.0-12.0) Seconds INR 1.1 (0.9-1.1) APTT 26.8 (21.0-31.0) Seconds PTT Ratio 1.0 POC Sodium (135-144) mEq/L Sodium (136-145) mmol/L POC Potassium (3.3-5.0) mEq/L Potassium (3.5-5.1) mmol/L POC Chloride (101-112) mEq/L Chloride (98-107) mmol/L Carbon Dioxide (21-32) mmol/L POC Total CO2 (24-31) mEq/l Anion Gap (3-11) POC Anion Gap (16-25) mmol/L POC BUN (7-18) mg/dl BUN (7-18) mg/dl Creatinine (0.6-1.4) mg/dl POC Creatinine (0.6-1.3) mg/dl Est Cr Clr Drug Dosing Est GFR ( Amer) Est GFR (Non-Af Amer) BUN/Creatinine Ratio (10-20) Glucose (70-99) mg/dl POC Glucose (other) (70-99) mg/dl Calcium (8.5-10.1) mg/dl POC Ioniz Calcium Larry (1.12-1.32) mmol/l Total Bilirubin (0.2-1) mg/dl AST (15-37) U/L ALT (12-78) U/L Alkaline Phosphatase (45-117) U/L Total Protein (6.4-8.2) gm/dl Albumin (3.4-5.0) gm/dl Globulin (2.5-4.0) gm/dl Albumin/Globulin Ratio (0.9-2) POC Stool Occult Blood Positive A (Negative) Digoxin (0.8-2.0) ng/ml Blood Type Antibody Screen 01/31/19 01/31/19 01/31/19 Range/Units 10:54 10:54 10:54 WBC (4.8-10.8) K/uL RBC (4.7-6.1) M/uL Hgb (14.0-18.0) g/dL POC Hgb (14.0-18.0) g/dl Hct (42-52) % POC Hct (42-52) % MCV (80-100) fL MCH (25-34) pg MCHC (32-36) g/dL RDW Std Deviation (36.4-46.3) fL RDW Coeff of [place] (11.5-14.5) % Plt Count (130-400) K/uL MPV (7.4-10.4) fL Immature Gran % (Auto) % Neut % (Auto) % Lymph % (Auto) % Bates % (Auto) % Eos % (Auto) % Baso % (Auto) % Immature Gran # (Auto) (0.00-0.02) K/uL Neut # (Auto) (1.4-6.5) K/uL Lymph # (Auto) (1.2-3.4) K/uL Bates # (Auto) (0.11-0.59) K/uL Eos # (Auto) (0-0.5) K/uL Baso # (Auto) (0-0.2) K/uL PT (9.0-12.0) Seconds INR (0.9-1.1) APTT (21.0-31.0) Seconds PTT Ratio POC Sodium (135-144) mEq/L Sodium 143 (136-145) mmol/L POC Potassium (3.3-5.0) mEq/L Potassium 3.8 (3.5-5.1) mmol/L POC Chloride (101-112) mEq/L Chloride 107 (98-107) mmol/L Carbon Dioxide 29 (21-32) mmol/L POC Total CO2 (24-31) mEq/l Anion Gap 7.0 (3-11) POC Anion Gap (16-25) mmol/L POC BUN (7-18) mg/dl BUN 21 H (7-18) mg/dl Creatinine 1.13 (0.6-1.4) mg/dl POC Creatinine (0.6-1.3) mg/dl Est Cr Clr Drug Dosing Not Reportable Est GFR ( Amer) 68.3 Est GFR (Non-Af Amer) 58.9 BUN/Creatinine Ratio 18.7 (10-20) Glucose 147 H (70-99) mg/dl POC Glucose (other) (70-99) mg/dl Calcium 8.5 (8.5-10.1) mg/dl POC Ioniz Calcium Larry (1.12-1.32) mmol/l Total Bilirubin 0.3 (0.2-1) mg/dl AST 22 (15-37) U/L ALT 32 (12-78) U/L Alkaline Phosphatase 60 (45-117) U/L Total Protein 6.8 (6.4-8.2) gm/dl Albumin 3.6 (3.4-5.0) gm/dl Globulin 3.2 (2.5-4.0) gm/dl Albumin/Globulin Ratio 1.1 (0.9-2) POC Stool Occult Blood (Negative) Digoxin 0.7 L (0.8-2.0) ng/ml Blood Type A Positive Antibody Screen NEGATIVE 01/31/19 Range/Units 11:09 WBC (4.8-10.8) K/uL RBC (4.7-6.1) M/uL Hgb (14.0-18.0) g/dL POC Hgb 9.5 L (14.0-18.0) g/dl Hct (42-52) % POC Hct 28 L (42-52) % MCV (80-100) fL MCH (25-34) pg MCHC (32-36) g/dL RDW Std Deviation (36.4-46.3) fL RDW Coeff of [place] (11.5-14.5) % Plt Count (130-400) K/uL MPV (7.4-10.4) fL Immature Gran % (Auto) % Neut % (Auto) % Lymph % (Auto) % Bates % (Auto) % Eos % (Auto) % Baso % (Auto) % Immature Gran # (Auto) (0.00-0.02) K/uL Neut # (Auto) (1.4-6.5) K/uL Lymph # (Auto) (1.2-3.4) K/uL Bates # (Auto) (0.11-0.59) K/uL Eos # (Auto) (0-0.5) K/uL Baso # (Auto) (0-0.2) K/uL PT (9.0-12.0) Seconds INR (0.9-1.1) APTT (21.0-31.0) Seconds PTT Ratio POC Sodium 142 (135-144) mEq/L Sodium (136-145) mmol/L POC Potassium 3.8 (3.3-5.0) mEq/L Potassium (3.5-5.1) mmol/L POC Chloride 104 (101-112) mEq/L Chloride (98-107) mmol/L Carbon Dioxide (21-32) mmol/L POC Total CO2 29 (24-31) mEq/l Anion Gap (3-11) POC Anion Gap 14.0 L (16-25) mmol/L POC BUN 20 H (7-18) mg/dl BUN (7-18) mg/dl Creatinine (0.6-1.4) mg/dl POC Creatinine 1.1 (0.6-1.3) mg/dl Est Cr Clr Drug Dosing Est GFR ( Amer) Est GFR (Non-Af Amer) BUN/Creatinine Ratio (10-20) Glucose (70-99) mg/dl POC Glucose (other) 148 H (70-99) mg/dl Calcium (8.5-10.1) mg/dl POC Ioniz Calcium Larry 1.10 L (1.12-1.32) mmol/l Total Bilirubin (0.2-1) mg/dl AST (15-37) U/L ALT (12-78) U/L Alkaline Phosphatase (45-117) U/L Total Protein (6.4-8.2) gm/dl Albumin (3.4-5.0) gm/dl Globulin (2.5-4.0) gm/dl Albumin/Globulin Ratio (0.9-2) POC Stool Occult Blood (Negative) Digoxin (0.8-2.0) ng/ml Blood Type Antibody Screen Imaging Data Radiologist's Impression: Radiology results as stated below per my review and the radiologist's interpretation: XR chest 1V portable CLINICAL HISTORY: Gastrointestinal hemorrhage COMPARISON STUDY: November 19, 2017 FINDINGS: The heart is enlarged. There is mild chronic interstitial thickening at the left lung base. There is no overt failure. There is no focal pulmonary consolidation. There are no pleural effusions.[ IMPRESSION: Stable cardiomegaly and stable mild chronic interstitial thickening at the left lung base. No acute findings. Electronically signed by: Vincent Verde M.D. 01/31/2019 11:22 AM ECG Data Attestation: I personally reviewed and interpreted this ECG as follows: Indication: + weakness Rate (beats per minute): 82 Rhythm: + atrial fibrillation ECG Intervals/blocks: + Right Bundle branch block ECG ST segments: no ST depression and no ST elevation ECG Findings: + Other (QTC 495) Comparison ECG Date: from (11/19/17) Change: no significant change Blood Pressure Blood Pressure Findings: Elevated blood pressure Blood Pressure Disposition: further management by hospitalist MDM Narrative This is an 83-year-old male who presents emergency department with melena after having a colonoscopy last week. Patient's hemoglobin has continued to fall. Patient does have melena on physical examination. For this reason I did discuss his case with gastroenterology. At this point patient's hemoglobin is 9. He does not yet require blood transfusion. I also discussed the case with the hospitalist service who agreed to admit the patient. Patient was in agreement with the treatment plan. Impression & Plan LGI bleed, Anemia Discharge Plan Visit Data *Final* Discharge Date/Time: 01/31/19 14:29 Chief Complaint: Abnormal Labs/Diagnostic Testing Stated Complaint: RED BLOOD CELL COUNT DOWN ED Provider: Nadeem Ortiz Discharge Problem: LGI bleed, Anemia Patient Disposition: Admitted As Inpatient Discharge Instructions Interventions: ED Discharge Assessment Last Done: 01/31/19 14:29 The scribe's documentation has been prepared under my direction and personally reviewed by me in its entirety. I confirm that the note above accurately reflects all work, treatment, procedures, and medical decision making performed by me.
[2019-02-01] MEDS: GABAPENTIN 300 MG CAP PO SCH (20:25)
[2019-02-01] MEDS: CARBAMAZEPINE 200 MG TABCR PO SCH (20:26)
[2019-02-01 23:43] LABS: Basophils # (auto) 0.02 K/uL (0-0.2); Basophils % (auto) 0.2 %; Eosinophils # (auto) 0.22 K/uL (0-0.5); Eosinophils % (auto) 2.6 %; Hematocrit (blood only) 28.9 % (42-52); Hemoglobin 9.5 g/dL (14.0-18.0); Immature Granulocytes # (auto) 0.02 K/uL (0.00-0.02); Immature Granulocytes % (auto) 0.2 %; Lymphocytes # (auto) 1.92 K/uL (1.2-3.4); Lymphocytes % (auto) 22.8 %; Mean Corpuscular Hemoglobin 32.9 pg (25-34); Mean Corpuscular Hgb Conc 32.9 g/dL (32-36); Mean Platelet Volume 10.1 fL (7.4-10.4); Monocytes # (auto) 0.82 K/uL (0.11-0.59); Monocytes % (auto) 9.8 %; Neutrophils # (auto) 5.41 K/uL (1.4-6.5); Neutrophils % (auto) 64.4 %; Platelet Count 195 K/uL (130-400); RDW Coefficient of Variation 13.3 % (11.5-14.5); RDW Standard Deviation 47.1 fL (36.4-46.3); Red Blood Count 2.89 M/uL (4.7-6.1); White Blood Count 8.41 K/uL (4.8-10.8)
[2019-02-02 06:48] LABS: Basophils # (auto) 0.03 K/uL (0-0.2); Basophils % (auto) 0.4 %; Eosinophils # (auto) 0.22 K/uL (0-0.5); Eosinophils % (auto) 2.9 %; Hematocrit (blood only) 27.7 % (42-52); Hemoglobin 9.2 g/dL (14.0-18.0); Immature Granulocytes # (auto) 0.02 K/uL (0.00-0.02); Immature Granulocytes % (auto) 0.3 %; Lymphocytes # (auto) 1.48 K/uL (1.2-3.4); Lymphocytes % (auto) 19.3 %; Mean Corpuscular Hemoglobin 33.3 pg (25-34); Mean Corpuscular Hgb Conc 33.2 g/dL (32-36); Mean Corpuscular Volume 100.4 fL (80-100); Mean Platelet Volume 10.3 fL (7.4-10.4); Monocytes % (auto) 11.8 %; Neutrophils % (auto) 65.3 %; Platelet Count 197 K/uL (130-400); RDW Coefficient of Variation 13.4 % (11.5-14.5); RDW Standard Deviation 47.3 fL (36.4-46.3); Red Blood Count 2.76 M/uL (4.7-6.1); White Blood Count 7.65 K/uL (4.8-10.8)
[2019-02-02] MEDS: ATORVASTATIN 20 MG TAB PO SCH (08:09)
[2019-02-02] MEDS: POTASSIUM CITRATE 10 MEQ TAB PO SCH (08:09)
[2019-02-02] MEDS: CARBAMAZEPINE 100 MG TABCR PO SCH (08:10)
[2019-02-02] MEDS ORDERED: ATENOLOL 50 MG TABLET PO SCH (09:00)
--- NOTE | 2019-02-02 12:07 | Discharge Summary ---
Date of Service date of admission - January 31, 2019 date of discharge - February 02, 2019 Admission HPI Per Admitting Provider Mr. Spencer is a pleasant 83-year-old male with history of hypertension, hyperlipidemia, persistent atrial fibrillation on Eliquis anticoagulation presenting today with lower GIB. He had a screening colonoscopy performed by Dr. Bee on 01/25/2019 which revealed diverticulosis in the sigmoid colon. A 3 mm polyp in the ascending colon which was removed with cold biopsy forceps, a 3 mm sessile polyp in the hepatic flexure which was removed and a 7 mm polyp in the proximal transverse colon which was removed with hot snare. Patient was sent home in stable condition. Eliquis was resumed the day of the colonoscopy. He reports briefly passing red, "cranberry" colored bowel movements immediately following the colonoscopy which resolved. He has since been passing small volume of "plum colored" bowel movements. He also developed some dyspnea on exertion as well as feeling more weak and "wobbly", occasional dizziness. On Wednesday the patient was returning from the [facility] and felt quite dizzy. He had to stop a few times to allow the dizziness to pass. When he got home he checked his blood pressure and found his systolic pressure to be 98 which is quite lower than his normal. Of note, his candesartan was recently increased from 4 mg to 8 mg on January 16 to optimize blood pressure control. He denies fevers/chills/CP/palpitation/abdominal pain/distention/nausea/vomiting/hematemesis. His appetite is normal and he has been eating and drinking well. Principal Diagnosis acute blood loss anemia 2nd to lower GI bleeding from colonic post-polypectomy site Discharge Exam Constitutional well developed and well nourished; no acute distress ENMT external ear and nose normal, oropharynx normal Respiratory normal respiratory effort, lungs clear to auscultation Cardiovascular Rate/Rhythm: regular rate and + irregularly irregular Heart Sounds: normal S1 and normal S2; no murmur Vessels: posterior tibial pulses present and dorsalis pedis pulses present; no JVD Extremities: + edema (<1+ b/l) Gastrointestinal (Abdomen) normal bowel sounds, soft, nontender, no hepatosplenomegaly Skin + pallor venous stasis changes b/l legs Psychiatric A+Ox3, euthymic affect Discharge Data Allergies Allergy/AdvReac Type Severity Reaction Status Date / Time NSAIDS (Non-Steroidal Allergy Severe Facial Verified 01/31/19 11:08 Anti-Inflamma swelling ibuprofen Allergy Intermediate Swollen Verified 01/31/19 11:08 lips Consultations Gastroenterology - Isael Bee MD Procedures Performed Operation Date: 02/01/19 Colonoscopy Hemostasis - Isael Bee MD Findings: A single (solitary) seven mm ulcer was found in the proximal transverse colon. No bleeding was present. No stigmata of recent bleeding were seen. To prevent bleeding after the polypectomy, three hemostatic clips were successfully placed (MR conditional). There was no bleeding during, or at the end, of the procedure. Hospital Course (1) Post-polypectomy bleeding: Lower GI bleeding with resulting acute blood loss anemia was likely 2nd to bleeding from a polypectomy site (from recent outpatient colonscopy) in the setting of eliquis use. s/p repeat colonoscopy this admission by Dr Bee; 3 clips were placed to one of the prior polyp sites that had a small, nonbleeding ulcer. H/H were low during the hospitalization but he remained hemodynamically stable while here. Discharge hemoglobin was 9.2. His hemoglobin had been 9.7 at time of admission thus the acute blood loss anemia was just prior to admission. He did not require PRBCs. He was resumed on a clear liquid diet post-colonoscopy then advanced without difficulty. The following were recommended at discharge -- * ok to resume aspirin on day of discharge * HOLD eliquis for 1 week post-discharge then can resume thereafter * repeat CBC in 3-4 days post-discharge * ferrous sulfate supplementation - 325mg BID x 2-3 months (2) Acute blood loss anemia: 2nd to lower GI bleeding from a prior polyp site (3 polyps were removed during a recent outpatient colonoscopy). see discussion above in "post-polypectomy bleeding". Discharge Hb level was 9.2. Hemoglobin had been 14.8 in October 2018. (3) LGI bleed: 2nd to post-polypectomy bleeding. s/p colonoscopy on 01/25/19 during which 3 polyps were removed (3 mm, 3 mm, 7 mm). Acute drop in Hb to the 9's, down from 14.8 in October 2018. See discussion above. OK to resume aspirin on day of discharge but we advised he hold his eliquis for 1 week upon returning home. (4) Persistent atrial fibrillation: Rates were well-controlled during his stay. At time of discharge he was back to normal dosing of his cardizem CD, atenolol, and digoxin. Again he will hold eliquis for 1 week post-discharge then resume. (5) Coronary artery disease: No ischemic symptoms while here. Cont lipitor, aspirin, and beta cornelius. (6) Hypertension: BP / a.fib meds had been held because of relative hypotension and his pre- hospital symptoms of dizziness. These symptoms resolved and his BP meds were gradually reintroduced. At time of discharge we advised the following -- * hold lasix for 24 hours then resume * hold candesartan indefinitely unless otherwise instructed by his PCP (7) Dyslipidemia: Continue Lipitor and CoQ10 (8) Trigeminal neuralgia: Chronic. Stable. Continue carbamazepine at home dosage. Total Time Total Time Spent Total Time Spent (In Minutes): 40 Total Time Includes: Examination of the Patient, Discharge Planning, Medication Reconciliation and Communication With Other Providers (gastroenterology) Discharge Plan Discharge Items Patient Disposition: Home - Self-Care Reason For Visit: Lower gastrointestinal (GI) bleeding Discharge Diagnosis: Lower GI bleeding, likely from prior polyp removal site. Placement of 3 clips to that polyp site to prevent any further bleeding. Activity: As commented below Activity Comment: light activities for 2-3 days then gradually increase activity level Non-emergency contact: Primary Care Provider and Safety And Occupational Health Manager Call non-emergency contact if: you have any medication questions, your symptoms worsen and you have a fever Follow-up/Referrals: Isael Bee [Physician] - (see Dr Bee in 2 weeks) Lebron Viveros MD [Primary Care Provider] - (see Dr Viveros within 3-4 days ) Diet: Heart Healthy Addtl Attending Provider Instructions: You were admitted for lower GI bleeding. The bleeding was likely due to a prior polyp removal site (3 polyps were removed during your recent outpatient colonoscopy). You lost 4-5 grams of blood from this GI bleed (your hemoglobin / red cell count was over 14 in the recent past, and on day of discharge it was 9.2). Fortunately the bleeding stopped and your hemoglobin level has stayed in the low to mid 9 range over the last 36-[address] Bee saw [facility] who performed another colonoscopy. He placed 3 clips to a prior polyp removal site to prevent any future bleeding. Recommendations - 1. OK to resume your aspirin TODAY. 2. PLEASE HOLD your eliquis blood thinner for 7 days. Then can resume thereafter. 3. TAKE wcwj-hyj-moyqylb iron (ferrous sulfate) 325mg twice a day for 2-3 months. Know the iron will cause constipation and make your stools dark. This is normal. 4. HOLD your lasix (furosemide) today; RESUME it tomorrow morning on 02/03/19. 5. STOP your candesartan since your blood pressures are controlled without it. 6. AVOID anti-inflammatory pills (motrin, ibuprofen, naprosyn). OK to take tylenol for aches/pains. Please have Dr Viveros repeat a "CBC" (blood count) in 3-4 days to ensure your red cell count is stable. Follow-up with Dr Viveros and Dr Bee as stated in the follow-up section. Return to [facility] if -- * you have recurrent bright-red blood or maroon-colored material in your stools * you have severe abdominal pain * you develop fevers over 100.5 degrees * you have worsening shortness of breath * you have chest pains * you have rapid heart beating / palpitations * you have dizziness/lightheadedness OR extreme fatigue * any other concerns Pending Studies at Discharge: No Stand-Alone Forms: My [facility], Smoking Cessation Medications and DC Order Prescriptions: New ferrous sulfate 325 mg (65 mg iron) tablet,delayed release (DR/EC) 325 mg PO BID Qty: 60 RF: 2 Continued furosemide [Lasix] 40 mg Tablet 40 mg PO BID Qty: 0 RF: 0 atorvastatin [Lipitor] 20 mg Tablet 20 mg PO QAM Qty: 0 RF: 0 atenolol [Tenormin] 100 mg Tablet 100 mg PO BID Qty: 0 RF: 0 digoxin 250 mcg Tablet 0.25 mg PO QAM Qty: 0 RF: 0 aspirin 81 mg Tablet,Delayed Release (Dr/Ec) 81 mg PO QAM Qty: 0 RF: 0 diltiazem HCl 120 mg Tablet 120 mg PO BID Qty: 0 RF: 0 potassium citrate 10 mEq (1,080 mg) Tablet Extended Release 3 tab PO BID Qty: 0 RF: 0 coenzyme Q10 100 mg Capsule 100 mg PO QAM Qty: 0 RF: 0 magnesium gluconate 27.5 mg magne- sium (500 mg) Tablet 55 mg PO BID Qty: 0 RF: 0 carbamazepine [Tegretol XR] 100 mg Tablet Extended Release 12 Hr 100 mg PO QAM RF: 0 carbamazepine [Tegretol XR] 200 mg Tablet Extended Release 12 Hr 200 mg PO HS RF: 0 nystatin 100,000 unit/gram cream 1 applic topical DAILY PRN (Reason: Skin Irritation) RF: 0 gabapentin 300 mg Capsule 300 mg PO HS RF: 0 carbamazepine 200 mg capsule, ER multiphase 12 hr 200 mg PO HS RF: 0 Discontinued apixaban 5 mg tablet 5 mg PO BID Qty: 180 RF: 3 candesartan 8 mg tablet 8 mg PO QAM RF: 0 Discharge Orders: Discharge Order (Routine); Ordered 02/02/19 Ordered By: Fritz Olmos Admission Data Admit Date/Time: 01/31/19 13:31 Attending Provider: Fritz Olmos Admit Provider: Pascale Calderon Primary Care Provider: Lebron Viveros Other Providers: Isael Bee ; Pascale Calderon Other Interventions: Discharge Summary Assessment (RN) Last Done: 02/02/19 13:28 DC Date/Time DO NOT enter until pt leaves facility: 02/02/19 14:19
== END 2019-02-02 14:19 | disposition home or self-care (01) | DRG 920 ==
LOC: ED 10:07 → SUATTDRO 13:31 → 2W 13:31

== ENCOUNTER 2022-04-02 06:41 | Inpatient (IN) ==
--- NOTE | 2022-03-30 13:36 | Anesthesiology Consultation ---
Date of Service March 30, 2022 Assessment & Plan Chart Review Chart Review: Acceptable Risk for Surgery and Patient NOT seen in Pre Admission Testing Consults Requested none History Surgery Operation Date: 04/02/22 12:15 Proposed Procedures p TURBT (Transurethral Resection of the Bladder Tumor), Possible Bilateral Retrograde Pyelogram, Possible Blood Catheter Placement - Shant Aparicio MD s Possible Left Ureteral Stent Placement - Shant Aparicio MD Height/Weight Height: 6 ft Weight: 94.347 kg Allergies Allergy/AdvReac Type Severity Reaction Status Date / Time NSAIDS (Non-Steroidal Allergy Severe Facial Verified 03/30/22 09:50 Anti-Inflamma swelling ibuprofen Allergy Intermediate Swollen Verified 03/30/22 09:50 lips Medications Home Medications Medication Instructions Recorded Confirmed Last Taken aspirin 81 mg tablet,delayed 81 mg PO HS ##0 10/20/16 03/30/22 01/31/19 release coenzyme Q10 100 mg capsule 200 mg PO QAM ##0 10/20/16 03/30/22 01/31/19 potassium citrate 10 mEq (1,080 3 tab PO BID #0 tabs 10/20/16 03/30/22 01/31/19 mg) tablet,extended release nystatin 100,000 unit/gram topical 1 applic topical DAILY PRN Skin 01/31/19 03/30/22 Unknown cream Irritation candesartan 32 mg tablet 32 mg PO HS 11/20/19 03/30/22 Unknown carbamazepine 200 mg 200 mg PO UD 11/20/19 03/30/22 Unknown tablet,extended release,12 hr (Tegretol XR) levothyroxine 25 mcg capsule 25 mcg PO QAM 06/17/21 03/30/22 Unknown atenolol 100 mg tablet (Tenormin) 100 mg PO BID #180 tabs 07/08/21 03/30/22 Unknown furosemide 40 mg tablet (Lasix) 40 mg PO BID #180 tabs 07/28/21 03/30/22 Unknown diltiazem HCl 120 mg capsule,24 120 mg PO BID #180 caps 08/06/21 03/30/22 Unknown hr,extended release apixaban 5 mg tablet (Eliquis) 5 mg PO BID #180 tabs 10/13/21 03/30/22 Unknown atorvastatin 20 mg tablet (Lipitor) 20 mg PO HS 03/30/22 03/30/22 Unknown cholecalciferol (vitamin D3) 125 125 mcg PO HS 03/30/22 03/30/22 Unknown mcg (5,000 unit) tablet (Vitamin D3) digoxin 250 mcg (0.25 mg) tablet 250 mcg PO HS 03/30/22 03/30/22 Unknown magnesium citrate 100 mg tablet 100 mg PO HS 03/30/22 03/30/22 Unknown multivitamin 1 tab PO QAM 03/30/22 03/30/22 Unknown vit C 250 mg-vit E 90 mg-zinc 40 1 tab PO BID 03/30/22 03/30/22 Unknown mg-copper 1 ne-xohkde-noxrtp capsule (PreserVision AREDS-2) Past Medical History Medical History (Updated 03/30/22 @ 10:32 by Crystal Tejada) A-fib f/u dr [place], [place] Bladder mass Diabetes diet controlled Hx of renal calculi Hyperlipidemia Hypertension Osteoarthritis Trigeminal neuralgia "worse when he talks or eats" Past Family History Family History Other Family history non-contributory Past Surgical History Surgical History H/O left knee surgery History of carpal tunnel release of both wrists Hx of cataract extraction bilat. Hx of colonoscopy Hx of cystoscopy Hx of lithotripsy Hx of tonsillectomy Social History Smoking Status: Never smoker Do You Dip or Chew Tobacco: No Hx Alcohol Use: No Hx Substance Use: No substance use type: does not use Testing Laboratory Results Laboratory Tests 03/26/22 03/26/22 11:12 11:12 WBC 9.01 Hgb 15.5 Hct 46.5 Plt Count 150 Sodium 142 Potassium 4.2 Chloride 103 Carbon Dioxide 34 H BUN 31 H Creatinine 1.19 Glucose 147 H Electrocardiogram Date: 03/26/22 Findings: + AFIB @ (66) and + T wave inversion (lateral leads) Chest X-Ray Date: 03/26/22 Findings: + NAD
[~2022-04-02 06:41] MED LIST changes: -ASPI81TA85 PO; -ATEN-175 PO; -ATOR-22 PO; -COEN100C2 PO; -DILT-202 PO; -FRS/40 PO; -GABA-112 PO; -LINE1TAB6 PO; -LNX25 PO; +LR 15ML/HR IV SCH; -MAGN500T17 PO; -NZRCR EXT; -POTA1080 PO; -TRMCR180 EXT; -WARF-246 PO; -WARF5TAB90 PO; -WARF7.5T PO; +ceFAZolin 2000MG 2,000 MG/15 ML SYR IV SCH
[2022-04-02] MEDS ORDERED: PROPOFOL IV EMULSION 10 MG/ML 20 ML VIAL IV ONE (07:19)
[2022-04-02] MEDS ORDERED: LIDOCAINE 2% MPF LOCAL 5 ML VIAL INFIL ONE (07:19)
[2022-04-02] MEDS ORDERED: fentaNYL citrate 100 MCG/2 ML VIAL ONE (07:19)
[2022-04-02] MEDS ORDERED: ONDANSETRON INJ 2 MG/ML 2 ML VIAL ONE (07:19)
[2022-04-02] MEDS ORDERED: ATROPINE SULFATE 0.1 MG/ML 10ML SYR IV PRN (07:46)
[2022-04-02] MEDS ORDERED: ePHEDrine sulfate 50 MG/ML AMP IV PRN (07:46)
[2022-04-02] MEDS ORDERED: ONDANSETRON INJ 2 MG/ML 2 ML VIAL IV PRN (07:46)
[2022-04-02] MEDS ORDERED: fentaNYL citrate 100 MCG/2 ML VIAL IV PRN (07:46)
--- NOTE | 2022-04-02 07:59 | History & Physical Bridge Note ---
Date of Service April 02, 2022 History & Physical Bridge Note I have examined the patient, reviewed the History & Physical and in the interval since the performance of the History & Physical I have noted the following changes of clinical significance: no changes noted
[2022-04-02] MEDS ORDERED: ePHEDrine sulfate 50 MG/ML SYR ONE (08:44)
[2022-04-02] MEDS ORDERED: SUGAMMADEX SODIUM 200 MG/2 ML VIAL IV ONE (08:52)
--- NOTE | 2022-04-02 09:32 | Post Operative Brief Note ---
PG Immediate Post Op with CF Date of Surgery April 02, 2022 Pre & Post Diagnosis Bladder mass Operation Date: 04/02/22 08:15 <No data on this case meets the specified criteria> Bladder mass I identified the patient and participated in the time-out.: Yes Procedure Cystoscopy, TURBT large Operation Date: 04/02/22 08:15 <No data on this case meets the specified criteria> Surgeon Shant Aparicio MD Fishing Hand None Estimated Blood Loss 15 Findings See Below Large 5 cm noninvasive appearing mass over left lateral wall and left ureteral or fists. Resected down to muscle. Unable to find left UO. Specimens Specimen Description: A. Left Lateral Wall bladder tumor, superficial B. Left Lateral Wall bladder tumor, deep Drains Blood Catheter Anesthesia Type General Complications none
--- NOTE | 2022-04-02 09:37 | Operative Report ---
PG Post Operative Report Pre & Post Diagnosis Operation Date: 04/02/22 08:15 Pre-Op Diagnosis: Bladder Mass Post-Op Diagnosis: Bladder Mass I identified the patient and participated in the time-out.: Yes Procedure Operation Date: 04/02/22 08:15 Actual Procedures p Transurethral Resection of bladder tumor, Large (Not Applicable) - Shant Aparicio MD Surgeon Shant Aparicio MD Chain Maker Hand None Estimated Blood Loss 15 Findings See Below Significantly distended bladder which was quite capacious. 5 cm bladder mass on left lateral wall of her left ureteral orifice. Resected down to muscle. Unable to find ureteral orifice. Careful coagulation around but not on the area of the ureteral orifice was performed. Hemostatic at end of case. Specimens 1. Left bladder wall superficial 2. Left bladder wall deep Drains 20Fr thompson with 10cc in balloon Anesthesia Type General Complications none Indications 86 yo M with a left bladder wall mass. Description of Procedure After informed consent was obtained, the patient was transported to the operative suite. General anesthesia was induced. They were placed in dorsal lithotomy position and prepped and draped in sterile fashion. They received preoperative ancef. An appropriate surgical timeout was performed. 27 Surinamese resectoscope was inserted per urethra and the bladder. Abraham cystoscopy revealed the above-noted findings. Using a loop, the tumor was resected down to muscle. There was no concern for perforation. I did attempt to probe the area of his suspected left ureteral orifice with a 5 Surinamese open-ended catheter but was unable to intubate this. Hemostasis was achieved with careful spot coagulation around the area of suspected ureteral orifice. Tumor specimen was evacuated and sent for pathology as both superficial and deep. Remainder of bladder free of tumor or injury. Bladder was left full and scope was removed. I placed a 20 Surinamese Thompson catheter due to how distended his bladder was at the onset of the case. This was irrigated with a Ayad syringe. Balloon was inflated with 10 cc of sterile water. This concluded the end of the case. All counts correct at the end of the case. I was present, scrubbed and actively participated for the entirety of the procedure. Plan will be to see the patient back on 04/06/2022 for a void trial and to review a renal ultrasound to ensure there is no left hydronephrosis. He can restart his Eliquis on Wednesday morning if his urine remains clear. I attest to the content of the Intraoperative Record and any orders documented therein. Any exceptions are noted below.
[2022-04-02] MEDS ORDERED: oxyCODONE HCL IR 5 MG TAB (IMMEDIATE RELEASE) PO PRN (10:02)
--- NOTE | 2022-04-02 10:13 | Anesthesiology Progress Note ---
Date of Service April 02, 2022 Anesthesia Post Procedure Vital Signs Vital Signs: Temp Pulse Pulse Resp BP BP Pulse Ox 04/02/22 10:05 97.5 F L 60 14 129/70 94 04/02/22 09:55 66 24 128/73 99 04/02/22 09:47 97.2 F L 68 12 123/79 96 04/02/22 07:02 98.2 F 61 20 147/87 H 98 O2 Del Method O2 Flow Rate 04/02/22 10:05 Room Air 04/02/22 09:55 Oxymask 4 04/02/22 09:47 Oxymask 6 04/02/22 07:02 Room Air Transfer of Care Handoff Completed per policy Notes Mental Status: alert / awake / arousable and participated in evaluation Patient Amnestic to Procedure: Yes Nausea / Vomiting: adequately controlled Pain: adequately controlled Airway Patency, RR, SpO2: stable & adequate BP & HR: stable & adequate Hydration State: stable & adequate Anesthetic Complications: no major complications apparent and Pt Satisfied with anesthetic care
[2022-04-02] MEDS ORDERED: ACETAMINOPHEN 500 MG TAB PO PRN (12:50)
[2022-04-02] MEDS ORDERED: ceFAZolin 2000MG 2,000 MG/15 ML SYR IV SCH (17:00)
[2022-04-02] MEDS ORDERED: ATROPINE SULFATE 0.1 MG/ML 10ML SYR IV ONE (17:59)
[2022-04-02] MEDS ORDERED: SODIUM CHLORIDE 0.9% INJ 10 ML VIAL IV ONE (17:59)
[2022-04-02] MEDS ORDERED: CALCIUM CHLORIDE 10% 10 ML SYR IV ONE ×2 (17:59)
[2022-04-02] MEDS ORDERED: SODIUM CHLORIDE 0.9% 10ML FLUSH IV ONE (17:59)
[2022-04-02] MEDS ORDERED: AMIODARONE HCL INJ 50 MG/ML 3 ML VIAL IV ONE (17:59)
[2022-04-02] MEDS ORDERED: SODIUM BICARB 8.4% INJ 50 MEQ/50 ML SYR IV ONE ×2 (17:59)
[2022-04-02] MEDS: LACTATED RINGER'S 1,000 ML IV SCH (19:55)
[2022-04-02] MEDS ORDERED: ATENOLOL 50 MG TABLET PO SCH (21:00)
[2022-04-02] MEDS ORDERED: FUROSEMIDE 40 MG TAB PO SCH (21:00)
[2022-04-02] MEDS ORDERED: dilTIAZem HCL 120 MG CAPCR PO SCH (21:00)
[2022-04-02] MEDS ORDERED: DIGOXIN 0.25 MG TAB PO SCH (21:00)
[2022-04-02] MEDS: CHOLECALCIFEROL 5,000 UNITS 125 MCG TAB PO SCH (21:15)
[2022-04-02] MEDS: ATORVASTATIN 20 MG TAB PO SCH (21:15)
[2022-04-02] MEDS: ASPIRIN 81 MG ECTAB PO SCH (21:16)
[2022-04-03] MEDS ORDERED: Nursing to Pharmacy Communication SCH (00:30)
[2022-04-03] MEDS ORDERED: SODIUM CHLORIDE 0.9% 500 ML IV SCH ×2 (01:00)
--- NOTE | 2022-04-03 01:26 | Communication Note ---
Date of Service: April 03, 2022 I was called by nurse stating that patient was complaining of some substernal chest pain along with some lightheadedness and dizziness. I arrived at the bedside within 5 minutes. Nurse notes that during this episode the patient had a blood pressure of 80/50. His oxygen saturations were 96% on room air and his heart rate was 66 and irregular. The patient was afebrile. This patient is status post TURP today by Dr. Aparicio and he is on continuous bladder irrigation secondary to hematuria. The nurse notes that she made some attempt to slow his continuous bladder irrigation but his Blood would clot off so it is now continuing to run. There is osorio colored urine draining. A twelve-lead was performed and showed atrial fibrillation. The patient did have T wave inversions in various leads but this was consistent what was noted on prior EKGs. At the time of my arrival at the bedside the patient was resting comfortably in bed and his symptoms had subsided. He does note that he has a history of a "silent heart attack" in the past. He also has a diagnosis of atrial fibrillation for which he takes Eliquis. Since his surgical procedure his aspirin has been resumed but Eliquis that he was taking has not been resumed due to hematuria he has also been resumed on his other cardiac medications including atenolol, digoxin, Cardizem, and Lipitor. Due to the noted hypotension a 500 cc bolus of normal saline was given and his blood pressure kassidy to 110/80. As noted the patient's symptoms had completely resolved by the time of my arrival. Due to the noted hematuria I will check a CBC to make sure he does not have a significant anemia. I will also check a chemistry profile as well as a troponin with further actions to follow.
[2022-04-03 02:19] LABS: INR 1.3 (0.9-1.1); Partial Thromboplastin Ratio 1.1; Partial Thromboplastin Time 28.9 Seconds (21.0-31.0); Prothrombin Time 13.4 Seconds (9.0-12.0)
[2022-04-03 02:22] LABS: Basophils # (auto) 0.05 K/uL (0-0.2); Basophils % (auto) 0.3 %; Eosinophils # (auto) 0.07 K/uL (0-0.50); Eosinophils % (auto) 0.4 %; Hemoglobin 9.9 g/dl (14.0-18.0); Immature Granulocytes # (auto) 0.08 K/uL (0.00-0.02); Immature Granulocytes % (auto) 0.5 %; Lymphocytes # (auto) 1.26 K/uL (1.2-3.4); Lymphocytes % (auto) 7.8 %; Mean Corpuscular Hemoglobin 33.1 pg (25.0-34.0); Mean Corpuscular Volume 100.3 fL (80.0-100.0); Mean Platelet Volume 11.3 fL (9.4-12.4); Monocytes # (auto) 1.27 K/uL (0.24-0.82); Monocytes % (auto) 7.9 %; Neutrophils # (auto) 13.41 K/uL (1.4-6.5); Neutrophils % (auto) 83.1 %; Platelet Count 148 K/uL (130-400); Platelet Estimate Normal (Normal); RDW Coefficient of Variation 12.3 % (11.5-14.5); RDW Standard Deviation 45.1 fL (36.4-46.3); Red Blood Count 2.99 M/uL (4.63-6.08); White Blood Count 16.14 K/ul (4.8-10.8)
[2022-04-03 02:27] LABS: Albumin Level 2.9 gm/dl (3.4-5.0); BUN Creatinine Ratio 15.3 (10-20); Bilirubin Direct 0.2 mg/dl (0-0.2); Bilirubin,Total 0.7 mg/dl (0.2-1.0); Calcium 8.1 mg/dl (8.5-10.1); Creatinine Clr Calc Pharmacy 47.5 ml/min; Est GFR (African American) 55.9 ml/min; Est GFR (Non-African American) 48.3 ml/min; Magnesium 1.9 mg/dl (1.7-2.4); Potassium 3.9 mmol/L (3.5-5.1); Total Protein 4.7 gm/dl (6.0-8.3)
[2022-04-03 02:28] LABS: Troponin I High Sensitivity 31.6 pg/ml (0-20)
--- NOTE | 2022-04-03 02:30 | Critical Care Consultation ---
Date of Consultation April 03, 2022 Assessment & Plan (1) Cardiac arrest: (2) Hypercapnic respiratory failure: (3) Hypomagnesemia: (4) A-fib: (5) Diabetes: (6) Coronary artery disease: (7) Hematuria: (8) Bladder mass: Plan Reason Critically Ill: 86 YOM s/t TURBT, code blue called on floor for PEA arrest and ROSC. Patient awake alert following commands and currently hemodynamically stable following resuscitation. Place on BiPAP for hypoxia and hypercarbia. Neuro - Chronic trigeminal neuralgia CAM ICU: Negative - Follow nuerological examination with narcotic use Awake following commands and 5/5 strength in all extremities speech clear and appropriate - Continue carbamazepine for his trigeminal neuralgia Cardiac - PEA arrest, Afib on chronic anticoagulation, HTN, HLD, CAD Continue to treat causes for PEA regarding hypercarbia, hypoxia, volume, r/o thrombus - bedside POCUS with good contractibility, no pericardial effusion, and compressible IVC - hold further amiodarone - ECG remains with RBB and without STEMI- trend troponin I- no further complaints of chest pain - ECHO in am - decision regarding anticoagulation pending on CTA of the chest rule out PE - Hold Digoxin- dig level is pending - Hold Lasix until hemodynamics proven - Hold atenolol until hemodynamics proven - Hold Diltiazem for now- follow HR- if rate becomes uncontrolled will add BB - had brief episode of bradycardia on arrival to ICU- resolved following 1mg epinephrine and BiPAP initiation - if recurrent bradycardia- will add dopamine - cardiology consult placed Respiratory - Hypercarbic respiratory failure with hypoxia, possible aspiration, pneumonia - Continue BiPAP wean off as able following oxygenation saturations - CTA rule out PE - CXR without pneumothorax following CPR- noted right side worse than left opacities- will cover for aspiration/pneumonia - cefepime and doxycycline added - non smoker- GI - No acute needs - NPO RENAL/LYTES - Respiratory acidosis, hypomagnesemia - Replete magnesium - keep ~ 2.0 - electrolyte protocol - follow renal function - Hematuria, s/p TURBT, Bladder wall mass - Continue with bladder irrigation to light pink color- clots evacuated by urology PAKelly - Further management defer to primary service ENDO - DMII, Hypothyroidism - hyperglycemia protocol - Check TSH in am HEME - Hematuria - follow no acute needs ID - Pneumonia, s/p TURBT - send respiratory biofire - treat for pneumonia at this time - cefepime and doxy - MRSA swab pending LINES/IV ACCESS - PIV, Thompson Continue use of these lines DVT PROPHYLAXIS - SCDS, ASA, restart chemoprophy when appropriate DISPO: ICU to follow hemodynamics and respiratory efforts I have personally spent 55 minutes of critical care time in the direct management of this patient. This is a life/limb threatening event. This includes time spent evaluating patient, direct bedside care, chart review, placing orders, interpretation of diagnostic studies, discussion with consultants, patient, and family members, as well as other required patient management activities. This time is exclusive of all separately billable procedures, and separate from and in addition to any other critical care service time. Thank you for allowing us to participate in the care of this patient. Please refer to my attending physician's documentation for any further recommendations. History of Present Illness Reason for Consultation: s/p PEA cardiac arrest Requesting Physician: Zachery Clark Attending Physician: Shant Aparicio MD History of Present Illness 86 YOM POD #1 from TURBT that was performed for hematuria and concern for bladder wall mass. Medical history of Afib (on Eliquis and ASA), CAD (noted on stress testing but no invasive angiography), DM, HLD, HTN, OA. Patient was evaluated at approx 0120 for hypotensive and reports of chest pressure/pain. Following IVF given by primary team which initially responded. 0151 patient went unresponsive and code blue was called. On arrival the patient was receiving CPR no pulse and was being managed by consulting medicine team. Following magnesium and bicarb administration the patient awoken with spontaneous breathing and moving of extremities, pulse was palpable in the femoral. His BP was adequate and he was being supported by oxymask. He was given 300 mg IV amiodarone following resuscitation for concern of widening of his rhythm. Patient was transferred to the ICU, upon arrival to the ICU he was noted to become lethargic as well as bradycardic an hypotensive. 1 mg Epinephrine was given and he was noted to have increase in his pulse as well as return of his mentation. He was placed on BiPAP and ABG was obtained showing hypercarbic respiratory acidosis. His Pa02 is >300 on 70%. Will obtain CXR to rule out any acute process following CPR and will obtain CTA of the chest to rule out PE. Await pending labs to include dig level and anti XA level. His 3 way thompson with CBI was irrigated for large clots, and return of stream and irrigation is now accomplished. His Mauricio has been on hold for his TURP and for hematuria postoperatively. Family has been updated by primary service. Allergies Allergy/AdvReac Type Severity Reaction Status Date / Time NSAIDS (Non-Steroidal Allergy Severe Facial Verified 04/02/22 07:08 Anti-Inflamma swelling ibuprofen Allergy Intermediate Swollen Verified 04/02/22 07:08 lips Home Medications Medication Instructions Recorded Confirmed Type aspirin 81 mg tablet,delayed 81 mg PO HS ##0 10/20/16 04/02/22 History release coenzyme Q10 100 mg capsule 200 mg PO QAM ##0 10/20/16 04/02/22 History potassium citrate 10 mEq (1,080 3 tab PO BID #0 tabs 10/20/16 04/02/22 History mg) tablet,extended release nystatin 100,000 unit/gram topical 1 applic topical DAILY PRN Skin 01/31/19 04/02/22 History cream Irritation candesartan 32 mg tablet 32 mg PO HS 11/20/19 04/02/22 History carbamazepine 200 mg 200 mg PO UD 11/20/19 04/02/22 History tablet,extended release,12 hr (Tegretol XR) levothyroxine 25 mcg capsule 25 mcg PO QAM 06/17/21 04/02/22 History atenolol 100 mg tablet (Tenormin) 100 mg PO BID #180 tabs 07/08/21 04/02/22 Rx furosemide 40 mg tablet (Lasix) 40 mg PO BID #180 tabs 07/28/21 04/02/22 Rx diltiazem HCl 120 mg capsule,24 120 mg PO BID #180 caps 08/06/21 04/02/22 Rx hr,extended release atorvastatin 20 mg tablet (Lipitor) 20 mg PO HS 03/30/22 04/02/22 History cholecalciferol (vitamin D3) 125 125 mcg PO HS 03/30/22 04/02/22 History mcg (5,000 unit) tablet (Vitamin D3) digoxin 250 mcg (0.25 mg) tablet 250 mcg PO HS 03/30/22 04/02/22 History magnesium citrate 100 mg tablet 100 mg PO HS 03/30/22 04/02/22 History multivitamin 1 tab PO QAM 03/30/22 04/02/22 History vit C 250 mg-vit E 90 mg-zinc 40 1 tab PO BID 03/30/22 04/02/22 History mg-copper 1 [id number] capsule (PreserVision AREDS-2) Patient History Medical History (Updated 04/03/22 @ 02:56 by LARRY Soni) A-fib f/u dr [place] Bladder mass Diabetes diet controlled Hx of renal calculi Hyperlipidemia Hypertension Osteoarthritis Trigeminal neuralgia "worse when he talks or eats" Surgical History H/O left knee surgery History of carpal tunnel release of both wrists Hx of cataract extraction bilat. Hx of colonoscopy Hx of cystoscopy Hx of lithotripsy Hx of tonsillectomy Family History Other Family history non-contributory Social History Smoking Status: Never smoker Second Hand Exposure: Yes (growing up); Do You Dip or Chew Tobacco: No; Tobacco Cessation Education Requested by Patient: No Hx Alcohol Use: No Hx Substance Use: No Preferred Language: Scottish Communication Ability: Effective Visual Impairment: Partially Limited Hearing Ability: Use of Hearing Aid Childcare Worker Required: No Beliefs That Will Affect Care: None marital status: Current Living Situation: Alone Current Living Situation Comment: lives [facility] Other Information That Helps Us Care for You: No Feels Safe at Home: Yes Safety Concerns: Feels Safe At This Time Assistive Devices: Cane Assistive Devices Comment: walking stick prn; glasses prn Review of Systems Review of Systems: REVIEW OF SYSTEMS: Constitutional: No fever, sweats or chills Eyes: No diplopia, no worsening or blurred vision ENT: (+) difficulty hearing, no trouble swallowing Respiratory: (+) cough, no sputum, dyspnea at rest or on exertion Cardiovascular: (+) chest pain, tightness or palpitations Abdomen: No pain, nausea, vomiting, diarrhea or constipation Musculoskeletal: No joint pain, calf pain, swelling Neurologic: No weakness, numbness/tingling, or balance problems Psychiatric: No anxiety or depression Skin: No rash or itch Physical Exam Physical Exam: PHYSICAL EXAM: General: awake, alert, Head: Normocephalic, atraumatic ENT: PERRLA, EOMI, no pharyngeal exudate, mucous membranes moist Neuro: AAO x 3, speech clear and appropriate, strength intact bilaterally 5/5, sensation intact and equal all extremities and dermatomes, no pronator drift Chest: equal rise and fall of the chest, no accessory muscle use, no heaves or thrills, scattered rhonci throughout RT>LT Cardiac: irregular rate and rhythm, telemetry reviewed- afib, skin warm dry, cap refill <3 seconds, peripheral pulses +2 no JVD, no murmur, no edema GI: NABS x 4 quadrants, soft, nontender to palpation, no rebound, guarding or tenderness : hematuria with 3 way thompson in receiving CBI Psych: Normal mood and affect Skin: excoriation to groin folds Results & Data Results & Data ([facility]) Vital Signs (Past 12 Hours) Vital Signs Temp Pulse Resp BP Pulse Ox O2 Del Method 04/03/22 00:55 36.6 C 66 18 80/50 L 96 Room Air 04/03/22 01:25 110/78 04/02/22 23:34 114/66 04/02/22 23:08 36.9 C 94 H 16 103/64 95 Room Air 04/02/22 21:34 74 122/74 04/02/22 18:15 36.5 C 68 19 128/65 95 Room Air 04/02/22 18:35 36.6 C 65 16 152/93 H 96 Room Air 04/02/22 15:20 36.4 C L 73 16 123/79 98 Room Air Laboratory Results Abnormal lab results 04/02/22 04/03/22 04/03/22 Range/Units 09:47 01:45 01:45 WBC 16.14 H (4.8-10.8) K/ul RBC 2.99 L (4.63-6.08) M/uL Hgb 9.9 L (14.0-18.0) g/dl Hct 30.0 L (40.1-51.0) % MCV 100.3 H (80.0-100.0) fL Neut # (Auto) 13.41 H (1.4-6.5) K/uL [place] # (Auto) 1.27 H (0.24-0.82) K/uL Immature Gran # (Auto) 0.08 H (0.00-0.02) K/uL PT (9.0-12.0) Seconds INR (0.9-1.1) POC pH (7.35-7.45) POC pCO2 (35-46) mmHg POC pO2 (80-95) mmHg POC ABG O2 Sat (90-95) % Glucose 161 H (70-99(Fasting)) mg/dl POC Glucose 129 H (70-99) mg/dl Calcium 8.1 L (8.5-10.1) mg/dl Troponin I High Sens 31.6 H (0-20) pg/ml Total Protein 4.7 L (6.0-8.3) gm/dl Albumin 2.9 L (3.4-5.0) gm/dl 04/03/22 04/03/22 Range/Units 01:48 02:27 WBC (4.8-10.8) K/ul RBC (4.63-6.08) M/uL Hgb (14.0-18.0) g/dl Hct (40.1-51.0) % MCV (80.0-100.0) fL Neut # (Auto) (1.4-6.5) K/uL [place] # (Auto) (0.24-0.82) K/uL Immature Gran # (Auto) (0.00-0.02) K/uL PT 13.4 H (9.0-12.0) Seconds INR 1.3 H (0.9-1.1) POC pH 7.27 L (7.35-7.45) POC pCO2 52 H (35-46) mmHg POC pO2 307 H (80-95) mmHg POC ABG O2 Sat 100.0 H (90-95) % Glucose (70-99(Fasting)) mg/dl POC Glucose (70-99) mg/dl Calcium (8.5-10.1) mg/dl Troponin I High Sens (0-20) pg/ml Total Protein (6.0-8.3) gm/dl Albumin (3.4-5.0) gm/dl Medications Administered Home Medications aspirin 81 mg tablet,delayed release 81 mg PO HS ##0 10/20/16 [History Confirmed 04/02/22] coenzyme Q10 100 mg capsule 200 mg PO QAM ##0 10/20/16 [History Confirmed 04/02/22] potassium citrate 10 mEq (1,080 mg) tablet,extended release 3 tab PO BID #0 tabs 10/20/16 [History Confirmed 04/02/22] nystatin 100,000 unit/gram topical cream 1 applic topical DAILY PRN Skin Irritation 01/31/19 [History Confirmed 04/02/22] candesartan 32 mg tablet 32 mg PO HS 11/20/19 [History Confirmed 04/02/22] carbamazepine 200 mg tablet,extended release,12 hr (Tegretol XR) 200 mg PO UD 11/20/19 [History Confirmed 04/02/22] levothyroxine 25 mcg capsule 25 mcg PO QAM 06/17/21 [History Confirmed 04/02/22] atenolol 100 mg tablet (Tenormin) 100 mg PO BID #180 tabs 07/08/21 [Rx Confirmed 04/02/22] furosemide 40 mg tablet (Lasix) 40 mg PO BID #180 tabs 07/28/21 [Rx Confirmed 04/02/22] diltiazem HCl 120 mg capsule,24 hr,extended release 120 mg PO BID #180 caps 08/06/21 [Rx Confirmed 04/02/22] atorvastatin 20 mg tablet (Lipitor) 20 mg PO HS 03/30/22 [History Confirmed 04/02/22] cholecalciferol (vitamin D3) 125 mcg (5,000 unit) tablet (Vitamin D3) 125 mcg PO HS 03/30/22 [History Confirmed 04/02/22] digoxin 250 mcg (0.25 mg) tablet 250 mcg PO HS 03/30/22 [History Confirmed 04/02/22] magnesium citrate 100 mg tablet 100 mg PO HS 03/30/22 [History Confirmed 04/02/22] multivitamin 1 tab PO QAM 03/30/22 [History Confirmed 04/02/22] vit C 250 mg-vit E 90 mg-zinc 40 mg-copper 1 [id number] capsule (PreserVision AREDS-2) 1 tab PO BID 03/30/22 [History Confirmed 04/02/22] Active Medications Acetaminophen (Acetaminophen 500 Mg Tab) 1,000 mg PO Q8H PRN PRN Reason: Pain & Pre PT Stop: 05/02/22 12:49 Aspirin (Aspirin 81 Mg Ectab) 81 mg PO HS PETER Stop: 05/02/22 20:59 Last Admin: 04/02/22 21:16 Dose: 81 mg Atenolol (Atenolol 50 Mg Tablet) 100 mg PO BID PETER Stop: 05/02/22 20:59 Last Admin: 04/02/22 21:15 Dose: 100 mg Atorvastatin Calcium (Atorvastatin 20 Mg Tab) 20 mg PO HS PETER Stop: 05/02/22 20:59 Last Admin: 04/02/22 21:15 Dose: 20 mg Carbamazepine (Carbamazepine 200 Mg Tabcr) 200 mg PO BID PETER Stop: 05/02/22 20:59 Last Admin: 04/02/22 21:24 Dose: 200 mg Carbamazepine (Carbamazepine 200 Mg Tabcr) 200 mg PO Q3D@1400 PETER Stop: 05/03/22 13:59 Digoxin (Digoxin 0.25 Mg Tab) 0.25 mg PO HS [facility] Stop: 05/02/22 20:59 Last Admin: 04/02/22 21:15 Dose: 0.25 mg Diltiazem HCl (Diltiazem Hcl 120 Mg Capcr) 120 mg PO BID PETER Stop: 05/02/22 20:59 Last Admin: 04/02/22 21:15 Dose: 120 mg Furosemide (Furosemide 40 Mg Tab) 40 mg PO BID PETER Stop: 05/02/22 20:59 Last Admin: 04/02/22 21:15 Dose: 40 mg Lactated Ringer's (Lr) 1,000 mls @ 75 mls/hr IV .[id number] [facility] Stop: 05/02/22 12:59 Last Admin: 04/02/22 19:55 Dose: 75 mls/hr Cefazolin Sodium (Ancef 2000mg) 2,000 mg in 15 mls @ 3.75 mls/min IV Q8H [facility] Stop: 04/03/22 16:59 Last Admin: 04/02/22 20:52 Dose: 3.75 mls/min Levothyroxine Sodium (Levothyroxine Sodium 25 Mcg Tablet) 25 mcg PO DAILYBB [facility] Stop: 05/03/22 06:29 Miscellaneous (Candesartan ~ Order Awaiting Action) 1 each N/A QS PETER Stop: 05/03/22 00:00 Last Admin: 04/02/22 21:28 Dose: Not Given Oxycodone HCl (Oxycodone Hcl Ir 5 Mg Tab (Immediate Release)) 5 mg PO Q6H PRN PRN Reason: Pain Stop: 04/16/22 10:01 Vitamin D (Cholecalciferol 5,000 Units 125 Mcg Tab) 5,000 units PO HS [facility] Stop: 05/02/22 20:59 Last Admin: 04/02/22 21:15 Dose: 5,000 units ECG Additional Comments: Atrial fibrillation with rapid ventricular response Right bundle branch block Abnormal ECG When compared with ECG of 26-MAR-2022 11:55, Vent. rate has increased BY 46 BPM T wave inversion no longer evident in Anterior leads Coding Level of Care Code Critical Care 1st 30-74 mins Diagnoses Cardiac arrest I46.9 Hypercapnic respiratory failure J96.92 Hypomagnesemia E83.42 A-fib I48.91 Diabetes E11.9 Coronary artery disease I25.10 Associated angina: without angina Coronary Disease-Associated Artery/Lesion type: [place] artery [place] vs. transplanted heart: [place] heart Hematuria R31.9 Bladder mass N32.89 (1) Coronary artery disease Associated angina: without angina Coronary Disease-Associated Artery/Lesion type: [place] artery [place] vs. transplanted heart: [place] heart Qualified Code(s): I25.10 - Atherosclerotic heart disease of [place] coronary artery without angina pectoris
[2022-04-03 02:41] LABS: iSTAT Allen Test Pass; iSTAT Arterial Blood Gas HCO3 24 meg/L (19-24); iSTAT Arterial Blood Gas pCO2 52 mmHg (35-46); iSTAT Arterial Blood Gas pH 7.27 (7.35-7.45); iSTAT Arterial Blood Gas pO2 307 mmHg (80-95); iSTAT Carbon Dioxide 26 mmol/L (24-31); iSTAT FiO2 60 %; iSTAT Site L Radial
--- NOTE | 2022-04-03 03:10 | Communication Note ---
Date of Service: April 03, 2022 This patient went underwent a transurethral resection of bladder tumor on 04/02/[address] Aparicio and was kept as inpatient secondary to hematuria requirin g continuous bladder irrigation Please see previous communication report from earlier today as patient noted to have some substernal chest pressure for which the nurse called this provider prompting bedside evaluation. As previously noted at the time of my arrival to evaluate the patient at bedside his chest discomfort had completely resolved. He was noted to be hypotensive but his blood pressure responded to a 500 cc bolus of normal saline solution. No acute changes were noted on EKG during my initial evaluation. Laboratories were drawn and pending following my initial evaluation. Shortly after my initial evaluation patient called nursing staff to help reposition himself in bed and when the nursing staff went in to check on the patient he became unresponsive prompting a CODE BLUE. The patient immediately received CPR and had return of cardiac rhythm and did not require intubation. The patient was noted to be neurologically intact moving all extremities and able to converse following CPR. Stat laboratories were drawn including a CBC that showed a white blood cell count of 16.1. Hemoglobin and hematocrit were 9.9 and 30.0. This value of hemoglobin and hematocrit did demonstrate a significant drop from preoperative values. Platelet count was noted to be within normal range. INR is noted to be 1.3 and PTT was normal. An ABG showed a pH of 7.27 with a PCO2 of 52 and a P O2 of 307. His bicarb level was 24. Chemistry profile showed sodium, potassium, BUN, and creatinine were all within normal range. Magnesium was also noted to be within normal range. Initial troponin was elevated at 31.6. An EKG was performed upon return of patient's cardiac rhythm which showed atrial fibrillation. The patient was subsequent transferred to the intensive care unit in room 107. During this CODE BLUE the patient's continuous bladder irrigation was subsequently stopped temporarily and his bladder clotted off. Manual attempts to irrigate patient's Blood catheter were successful and continuous bladder irrigation was resumed with good flow of Boby-Aid colored urine. When the catheter was irrigated numerous blood clots were retrieved and patient's urine was initially dark red/maroon color cleared somewhat. I discussed the case with the hospitalist who was in attendance during the CODE BLUE as well as the intensive care unit staff and our next plan of action will be to check a CT scan of patient's chest to evaluate for pulmonary embolism. I did discuss with the patient's family via phone and again in person upon arrival to the hospital and I have updated them on the patient's condition. We will continue to follow closely while hospitalized.
[2022-04-03] MEDS ORDERED: OPTIRAY 320 500ml IV ONE (03:25)
[2022-04-03] MEDS ORDERED: LORazepam 2 MG/1 ML VIAL ONE (03:41)
[2022-04-03] MEDS ORDERED: DOPamine 400MG / 250ML D5W IV ONE (03:44)
[2022-04-03] MEDS ORDERED: LACTATED RINGER'S 500 ML IV ONE ×2 (04:23→21:36)
[2022-04-03] MEDS ORDERED: CARBOHYDRATES FOR HYPOGLYCEMIA PO PRN (04:32)
[2022-04-03] MEDS ORDERED: DEXTROSE 50% 50 ML SYRINGE IV PRN (04:32)
[2022-04-03] MEDS ORDERED: GLUCOSE 10 TAB/TUBE PO PRN (04:32)
[2022-04-03] MEDS ORDERED: GLUCAGON FOR INJ 1 MG VIAL SQ PRN (04:32)
[2022-04-03] MEDS ORDERED: GLUCOSE 40% GEL 15 GM TUBE PO PRN (04:32)
[2022-04-03 04:53] LABS: iSTAT Allen Test Pass; iSTAT Arterial Blood Gas HCO3 25 meg/L (19-24); iSTAT Arterial Blood Gas pCO2 43 mmHg (35-46); iSTAT Arterial Blood Gas pH 7.37 (7.35-7.45); iSTAT Arterial Blood Gas pO2 93 mmHg (80-95); iSTAT Carbon Dioxide 26 mmol/L (24-31); iSTAT FiO2 40 %; iSTAT Site L Radial
[2022-04-03] MEDS: LACTATED RINGER'S 1,000 ML IV SCH (05:02)
[2022-04-03] MEDS: DOXYCYCLINE HYCLATE 100 MG in DEXTROSE 5% 100 ML IV SCH ×2 (05:09→17:01)
[2022-04-03] MEDS: CEFEPIME 1,000 MG in SYRINGE 0 ML IV SCH ×2 (05:09→12:32)
[2022-04-03] MEDS ORDERED: STAT IV Infusion **Titration per Protocol STA (05:18)
[2022-04-03] MEDS ORDERED: STAT IV STA (05:19)
[2022-04-03] MEDS ORDERED: NOREPINEPHRINE/D5W 4 MG/250 ML IV ONE (05:19)
[2022-04-03 05:22] LABS: Adenovirus PCR Not Detected (NotDetected); Bordetella parapertussis PCR Not Detected (NotDetected); Bordetella pertussis PCR Not Detected (NotDetected); Chlamydia pneumoniae PCR Not Detected (NotDetected); Coronavirus 229E PCR Not Detected (NotDetected); Coronavirus CoV-2 (COVID19)PCR Not Detected (NotDetected); Coronavirus HKU1 PCR Not Detected (NotDetected); Coronavirus NL63 PCR Not Detected (NotDetected); Coronavirus OC43PCR Not Detected (NotDetected); Human Metapneumovirus PCR Not Detected (NotDetected); Influenza A PCR Not Detected (NotDetected); Influenza B PCR Not Detected (NotDetected); Mycoplasma pneumoniae PCR Not Detected (NotDetected); Parainfluenza Virus 1 PCR Not Detected (NotDetected); Parainfluenza Virus 2 PCR Not Detected (NotDetected); Parainfluenza Virus 3 PCR Not Detected (NotDetected); Parainfluenza Virus 4 PCR Not Detected (NotDetected); Respiratory Syncytial VirusPCR Not Detected (NotDetected); Rhinovirus/Enterovirus PCR Not Detected (NotDetected)
[2022-04-03] MEDS: NOREPINEPHRINE/D5W 4 MG/250 ML PLCT IV SCH ×2 (05:24→16:59)
[2022-04-03] MEDS ORDERED: CALCIUM GLUCONATE 10% 1,000 MG in DEXTROSE 5% 50 ML IV ONE (05:30)
[2022-04-03] MEDS: LEVOTHYROXINE SODIUM 25 MCG TABLET PO SCH (06:16)
--- NOTE | 2022-04-03 06:22 | Urology Progress Note ---
Date of Service April 03, 2022 Assessment & Plan (1) Hematuria: (2) Bladder mass: (3) Cardiac arrest: Plan 86-year-old male who is status post TURBT on 04/02/2022. Due to hematuria, he was admitted postoperatively and placed on CBI. He unfortunately had a cardiac arrest overnight but a pulse was regained with CPR. He was transferred to the ICU. Primary care per ICU team. Appreciate their help. Previously had ordered a renal ultrasound to evaluate for any left hydronephr osis. We will keep this and can evaluate for clot burden in the bladder as well His hematuria has improved and his urine is light pink on a moderate drip. We will continue conservative measures and try to wean CBI. Goal will be to not have to take back to the OR due to high risk for repeat procedure given his overnight cardiac arrest Family was at bedside and answered all of their questions. I explained that I am in clinic today but will come back in the afternoon when I am done to check on him. Continue to hold therapeutic anticoagulation in the setting of hematuria. Can discuss restarting once patient stabilized and based on cardiology recommendations from consult later today Admission and Anticipated Discharge Date Admission Date: April 02, 2022 Subjective Patient underwent TURBT yesterday. His tumor was over the left ureteral orifice so I was careful with cautery. Unfortunately, his urine remained fairly bloody in PACU so I opted to admit the patient and swapped out his to a catheter for three-way Blood and started him on CBI. He was admitted to the floor. He unfortunately had an episode of PEA and received what sounds like 15 to 20 minutes of CPR. A pulse was regained and he ultimately was mentating and responding to commands and did not need to be intubated. He was transferred to the ICU. His catheter did clot off during CPR this was manually irrigated and CBI was reinitiated. When I saw him earlier this morning, he was in the company of his family. He was mentating appropriately and denied any complaints. He is currently on nor epi due to some hypotension but otherwise is doing well. His CBI is light pink on a moderate drip. He did have a CT scan of the chest to look for PE which was negative. They did call possible pneumonia and he has been started on the appropriate antibiotics. Labs this morning show a white count of 29.6, hemoglobin of 10, hematocrit of 29.7, and a platelet count of 153. INR is 1.3. BMP is pending. Review of Systems Review of Systems: 14 point review of systems negative outside of what is listed above in HPI Physical Exam Physical Exam: General: Alert and oriented, no acute distress HEENT: Normocephalic, mucous membranes moist, mentating appropriately, NC in place Pulmonary: Nonlabored respirations Abdomen: Nondistended, soft, nontender : 22 [place] three-way catheter with moderate drip CBI with light pink urine. Extremities: Moves all 4 spontaneously Neuro: No gross deficits Skin: Warm, dry, no rashes noted Results & Data ([facility]) Vital Signs (Past 12 Hours) Vital Signs Temp Pulse Pulse Resp BP BP Pulse Ox 04/03/22 05:30 90 23 113/71 93 04/03/22 05:29 89 15 91/63 L 91 04/03/22 05:19 78 22 70/39 L 92 04/03/22 05:15 72 19 68/41 L 95 04/03/22 05:01 81 16 80/46 L 94 04/03/22 05:00 88 13 76/47 L 95 04/03/22 04:37 95 H 16 95/63 L 100 04/03/22 04:30 100 H 15 87/50 L 100 04/03/22 04:20 96 H 20 87/57 L 99 04/03/22 03:15 89 20 99 04/03/22 04:00 87 20 88/55 L 99 04/03/22 03:50 85 24 89/68 L 93 04/03/22 03:30 86 20 100 04/03/22 03:00 83 19 04/03/22 02:30 93 H 22 88/64 L 100 04/03/22 02:27 93 H 18 106/69 100 04/03/22 02:25 99 H 28 H 127/76 100 04/03/22 02:24 105 H 25 H 131/90 100 04/03/22 02:22 107 H 22 147/90 H 100 04/03/22 02:21 110 H 24 159/93 H 84 L 04/03/22 02:18 36.5 C 128 H 20 171/98 H 89 L 04/03/22 04:10 04/03/22 01:53 86 L 04/03/22 00:55 36.6 C 66 18 80/50 L 96 04/03/22 01:25 110/78 04/02/22 23:34 114/66 04/02/22 23:08 36.9 C 94 H 16 103/64 95 04/02/22 21:34 74 122/74 04/02/22 18:35 36.6 C 65 16 152/93 H 96 O2 Del Method O2 Flow Rate FiO2 04/03/22 05:30 High Flow Nasal Cannula 4 04/03/22 05:29 High Flow Nasal Cannula 4 04/03/22 05:19 High Flow Nasal Cannula 4 04/03/22 05:15 High Flow Nasal Cannula 4 04/03/22 05:01 High Flow Nasal Cannula 4 04/03/22 05:00 High Flow Nasal Cannula 4 04/03/22 04:37 BiPAP 40 04/03/22 04:30 BiPAP 40 04/03/22 04:20 BiPAP 40 04/03/22 03:15 40 04/03/22 04:00 BiPAP 40 04/03/22 03:50 BiPAP 40 04/03/22 03:30 BiPAP 40 04/03/22 03:00 04/03/22 02:30 BiPAP 100 04/03/22 02:27 BiPAP 100 04/03/22 02:25 BiPAP 100 04/03/22 02:24 BiPAP 100 04/03/22 02:22 BiPAP 100 04/03/22 02:21 Oxymask 10 04/03/22 02:18 Oxymask 10 04/03/22 04:10 BiPAP 40 04/03/22 01:53 Oxymask, Ambu-Bag 15 04/03/22 00:55 Room Air 04/03/22 01:25 04/02/22 23:34 04/02/22 23:08 Room Air 04/02/22 21:34 04/02/22 18:35 Room Air PG Care Time/CCT Total # of Minutes Spent Total Time Spent with Patient: Total time spent is greater than 50% in coordination of care (as documented) at patient's floor/unit and/or counseling patient: Coding Level of Care Code 61605 SUB INP/OBS CARE 2/35MIN Diagnoses Hematuria R31.9 Bladder mass N32.89 Cardiac arrest I46.9
[2022-04-03 06:44] LABS: Hematocrit (blood only) 29.7 % (40.1-51.0); Mean Corpuscular Hemoglobin 33.6 pg (25.0-34.0); Mean Corpuscular Hgb Conc 33.7 g/dL (32.0-36.0); Mean Corpuscular Volume 99.7 fL (80.0-100.0); Mean Platelet Volume 11.8 fL (9.4-12.4); Platelet Count 153 K/uL (130-400); RDW Coefficient of Variation 12.7 % (11.5-14.5); RDW Standard Deviation 45.7 fL (36.4-46.3); Red Blood Count 2.98 M/uL (4.63-6.08); White Blood Count 29.64 K/ul (4.8-10.8)
[2022-04-03 07:03] LABS: Basophils # (auto) 0.06 K/uL (0-0.2); Basophils % (auto) 0.2 %; Immature Granulocytes # (auto) 0.45 K/uL (0.00-0.02); Immature Granulocytes % (auto) 1.5 %; Lymphocytes # (auto) 0.67 K/uL (1.2-3.4); Lymphocytes % (auto) 2.3 %; Monocytes % (auto) 8.8 %; Neutrophils # (auto) 25.86 K/uL (1.4-6.5); Neutrophils % (auto) 87.2 %
[2022-04-03 07:09] LABS: Calcium 8.6 mg/dl (8.5-10.1); Creatinine Clr Calc Pharmacy 47.5 ml/min; Est GFR (African American) 55.9 ml/min; Est GFR (Non-African American) 48.3 ml/min; Potassium 4.4 mmol/L (3.5-5.1)
--- NOTE | 2022-04-03 07:21 | XRay Report ---
XR chest 1V portable CLINICAL HISTORY: Shortness of breath. COMPARISON STUDY: Chest radiograph March 26, 2022. FINDINGS: Stable moderate cardiomegaly. No pneumothorax or pleural effusion is present. There has bee n interval development of asymmetric interstitial thickening and airspace opacities within the right lung. Mild left basilar opacity. Mediastinal contours are stable. IMPRESSION: Cardiomegaly with mild interstitial thickening suggestive of pulmonary edema. Interval d evelopment of asymmetric right lung interstitial thickening and airspace opacity. This could reflect pneumonia or alveolar pulmonary edema. ACT 112: Negative or not required by law. Electronically signed by: Deepak Oneal M.D. 04/03/2022 7:19 AM
[2022-04-03 07:29] LABS: Troponin I High Sensitivity 566.2 pg/ml (0-20)
--- NOTE | 2022-04-03 07:31 | CT Scan Report ---
CHEST CTA for PULMONARY ARTERIES CT DOSE: 463.85 mGy.cm HISTORY: Shortness of breath. TECHNIQUE: Multiaxial CT images of the chest were performed following the intravenous administration of contrast to evaluate the pulmonary arteries. Maximal intensity projection images were also obtaine d. A dose lowering technique was utilized adhering to the principles of ALARA. COMPARISON STUDY: None. FINDINGS: A 2.6 cm hypodense lesion within left hepatic lobe. This favors a cyst. The spleen is unrem arkable. Normal esophagus. 1.4 cm left thyroid nodule. A few subcentimeter right thyroid nodules. A f ew prominent mediastinal and hilar lymph nodes which may be reactive. The heart is enlarged. Trace pl eural effusions. No pericardial effusion. As a lipoma within the left paraspinal musculature. Mild milo dy wall edema is noted. No evidence for an aortic dissection. No filling defects within the pulmonary arteries to suggest a pulmonary embolus. Multiple acute bilateral anterior rib fractures as well as a nondisplaced sternal fracture. Trace retrosternal hemorrhage secondary to the sternal fractures not ed. Trace mucoid material within the trachea. Otherwise, the central airways are patent. There is dif fuse interlobular septal thickening with groundglass airspace opacities, right greater the left. This favors pulmonary edema. An atypical pneumonia could also have a similar appearance. A few small nodu lar densities within the periphery of the mid to lower lung zones measure subcentimeter in size and a re likely due to the suspected pulmonary edema. Dominant subpleural nodule within the right lower lob e measures 8 mm on image 86. IMPRESSION: 1. No evidence for a pulmonary embolus. 2. Cardiomegaly, interlobular septal thickening, scattered ground glass airspace opacities, and trace bilateral pleural effusions. This favors pulmonary edema. An atypical pneumonia could also have a si milar appearance. 3. Acute bilateral anterior rib fractures and an acute midsternal fracture. No pneumothorax. 4. This report was called/faxed to the referring physician following dictation. ACT 112: Negative or not required by law. Electronically signed by: Esteban Hathaway M.D. 04/03/2022 7:30 AM
[2022-04-03] MEDS ORDERED: GLUCAGON 5 MG in SYRINGE 0 ML IV ONE (08:00)
[2022-04-03] MEDS: ICU ELECTROLYTE REPLACEMENT PROTOCOL SCH (08:49)
[2022-04-03] MEDS: MAGNESIUM SULFATE / D5W 1 GM/100 ML BAG IV SCH ×2 (08:49→10:57)
--- NOTE | 2022-04-03 09:56 | Ultrasound Report ---
RENAL ULTRASOUND HISTORY: Left flank pain. Evaluate for left-sided hydronephrosis. COMPARISON: Abdomen and pelvis CT 03/13/2022. FINDINGS: Right kidney: 11.7 cm. No hydronephrosis. Normal corticomedullary differentiation and cortical thickn ess. Left kidney: 10.5 cm. A 3 cm upper pole cyst is partially visualized. There is mild fullness within t he left renal collecting system without aura hydronephrosis. Normal corticomedullary differentiation and cortical thickness. Bladder: The bladder is diffusely thickened. There is a Blood catheter within the bladder. There is h eterogeneous debris within the bladder measuring 6 cm. This is new from the prior CT examination and therefore favors hemorrhagic products/blood clot. IMPRESSION: 1. Mild fullness within the left renal collecting system without aura hydronephrosis. 2. There is heterogeneous debris within the bladder measuring 6 cm. This is new from the prior CT exa mination and therefore favors hemorrhagic products/blood clot. An underlying mass to be difficult to exclude. ACT 112: Negative or not required by law. Electronically signed by: Esteban Hathaway M.D. 04/03/2022 9:55 AM
[2022-04-03] MEDS ORDERED: NORMOSOL-R 250 ML IV ONE (12:20)
--- NOTE | 2022-04-03 12:27 | Critical Care Progress Note ---
Date of Service April 03, 2022 Assessment & Plan (1) Cardiac arrest: (2) A-fib: (3) Acute respiratory failure with hypoxia: (4) Coronary artery disease: (5) Hematuria: (6) Bladder mass: (7) Diabetes: (8) Shock circulatory: Plan Reason Critically Ill: 86 YOM s/t TURBT, code blue called on floor for PEA arrest and ROSC. Patient awake alert following commands and currently hemodynamically stable following resuscitation. Place on BiPAP for hypoxia and hypercarbia. Neuro -Chronic trigeminal neuralgia CAM ICU: Negative - Follow nuerological examination with narcotic use Awake following commands and 5/5 strength in all extremities speech clear and appropriate - Continue carbamazepine for his trigeminal neuralgia Cardiac -PEA arrest, Afib on chronic anticoagulation, HTN, HLD, CAD --Cardiac arrest with elevated troponins Seems to be cardiac in origin Cardiology consult has been placed Continue to monitor Cannot use heparin given the hematuria EKG 04/03/2022 5:30 AM: A. fib, heart rate of 90, right bundle branch block with ST depressions appreciated on the anterio-lateral leads which are more pronounced compared to February 2022 - had brief episode of bradycardia on arrival to ICU- resolved following 1mg epinephrine and BiPAP initiation - if recurrent bradycardia- will add dopamine - cardiology consult placed Respiratory -Hypercarbic respiratory failure with hypoxia, possible aspiration, pneumonia -- Acute hypoxic respiratory failure Multifactorial from pulmonary edema s/p cardiac event as well as aspiration Adri with O2 supplementation to keep oxygen saturation between 90-92% -- Rib fractures Likely from CPR, no signs of pneumothorax Pain medication GI - No acute needs - NPO RENAL/LYTES - Monitor BUNs/creatinine Avoid nephrotoxic medication -Hematuria, s/p TURBT, Bladder wall mass -Continue with bladder irrigation to light pink color- clots evacuated by urology PA-C -Continue to monitor ENDO -DMII, Hypothyroidism Continue with ICU hypoglycemia protocol Continue with levothyroxine HEME -Hematuria Gradually improving, monitor H&H ID -Pneumonia, s/p TURBT -- Multilobar opacities Likely representing pulmonary edema with possible aspiration Respiratory bio fire negative Nasal MRSA negative Procalcitonin negative --Prophylaxis VTE: IPC given hematuria GI: None Lines: Peripheral Diet: Cardiac Plan: In/out: -2.5 L, urine output [id number]. I do not think this is accurate as they are not calculating 3 L of irrigating fluid which is put into the bladder Continue with empiric antibiotics for 48 hours. Patient's blood pressure again started to go down. We are to go up on the Levophed again to 0.05. I will give the patient bolus of 250 mL. For one of the bolus of 250 mL need be. Will consider adding dobutamine. Giving glucagon 5 mg as an antidote for beta- blockers will also be thought of. He already got calcium as an antidote for diltiazem. Follow-up 2D echo I have personally spent 45 minutes of critical care time in the direct management of this patient. This is a life/limb threatening event. This includes time spent evaluating patient, direct bedside care, chart review, placing orders, interpretation of diagnostic studies, discussion with consultants, patient, and family members, as well as other required patient management activities. This time is exclusive of all separately billable procedures, and separate from and in addition to any other critical care service time. Thank you for allowing us to participate in the care of this patient. Please refer to my attending physician's documentation for any further recommendations. Admission and Anticipated Discharge Date Admission Date: April 02, 2022 Subjective Patient seen and examined at bedside. No acute distress, no adverse events overnight. Patient was saying that he is feeling better he does complain of chest pain in the middle of the chest most likely where he got the CPR. Denies any headache, no nausea vomiting. No dizziness. He was on Levophed 0.04. His map was in the 70s. I went down to 0.02. No nausea or vomiting. Review of Systems Review of Systems: All systems reviewed & are unremarkable except as noted in Subjective Physical Exam Physical Exam: Constitutional: No acute distress HEENT: EOMI, PERRLA Respiratory system: Decreased air entry bilaterally, no wheeze, no rhonchi, positive crackles bilateral lower lobes CVS: S1-S2 positive, no murmurs or gallops Abdomen: Soft, nontender, nondistended, positive bowel sounds x4 Extremities: +2 pulses bilaterally radialis/ dorsalis pedis, no cyanosis, no edema Neuro: Awake alert oriented x3 Psych: Normal mood and affect G/U: Positive Blood Skin: no rashes, warm and dry Lymphatic: no cervical or axillary lymphadenopathy Results & Data Results & Data ([facility]) Vital Signs (Past 12 Hours) Vital Signs Temp Pulse Pulse Resp BP BP Pulse Ox 04/03/22 09:30 99 H 16 79 L 04/03/22 09:00 79 18 91 04/03/22 08:41 87 28 H 99 04/03/22 08:41 105/68 04/03/22 08:30 91 H 20 94 04/03/22 08:30 90/67 L 04/03/22 08:00 83 19 95 04/03/22 08:00 96/68 L 04/03/22 07:30 102 H 20 95 04/03/22 07:00 93 H 12 100 04/03/22 08:20 04/03/22 06:30 95 H 18 105/68 93 04/03/22 06:00 93 H 18 102/74 95 04/03/22 05:30 90 23 113/71 93 04/03/22 05:29 89 15 91/63 L 91 04/03/22 05:19 78 22 70/39 L 92 04/03/22 05:15 72 19 68/41 L 95 04/03/22 05:01 81 16 80/46 L 94 04/03/22 05:00 88 13 76/47 L 95 04/03/22 04:37 95 H 16 95/63 L 100 04/03/22 04:30 100 H 15 87/50 L 100 04/03/22 04:20 96 H 20 87/57 L 99 04/03/22 03:15 89 20 99 04/03/22 04:00 87 20 88/55 L 99 04/03/22 03:50 85 24 89/68 L 93 04/03/22 03:30 86 20 100 04/03/22 03:00 83 19 04/03/22 02:30 93 H 22 88/64 L 100 04/03/22 02:27 93 H 18 106/69 100 04/03/22 02:25 99 H 28 H 127/76 100 04/03/22 02:24 105 H 25 H 131/90 100 04/03/22 02:22 107 H 22 147/90 H 100 04/03/22 02:21 110 H 24 159/93 H 84 L 04/03/22 02:18 36.5 C 128 H 20 171/98 H 89 L 04/03/22 04:10 04/03/22 01:53 86 L 04/03/22 00:55 36.6 C 66 18 80/50 L 96 04/03/22 01:25 110/78 O2 Del Method O2 Flow Rate FiO2 04/03/22 09:30 04/03/22 09:00 04/03/22 08:41 04/03/22 08:41 04/03/22 08:30 04/03/22 08:30 04/03/22 08:00 04/03/22 08:00 04/03/22 07:30 Nasal Cannula 4 04/03/22 07:00 04/03/22 08:20 Nasal Cannula 5 04/03/22 06:30 High Flow Nasal Cannula 4 04/03/22 06:00 High Flow Nasal Cannula 4 04/03/22 05:30 High Flow Nasal Cannula 4 04/03/22 05:29 High Flow Nasal Cannula 4 04/03/22 05:19 High Flow Nasal Cannula 4 04/03/22 05:15 High Flow Nasal Cannula 4 04/03/22 05:01 High Flow Nasal Cannula 4 04/03/22 05:00 High Flow Nasal Cannula 4 04/03/22 04:37 BiPAP 40 04/03/22 04:30 BiPAP 40 04/03/22 04:20 BiPAP 40 04/03/22 03:15 40 04/03/22 04:00 BiPAP 40 04/03/22 03:50 BiPAP 40 04/03/22 03:30 BiPAP 40 04/03/22 03:00 04/03/22 02:30 BiPAP 100 04/03/22 02:27 BiPAP 100 04/03/22 02:25 BiPAP 100 04/03/22 02:24 BiPAP 100 04/03/22 02:22 BiPAP 100 04/03/22 02:21 Oxymask 10 04/03/22 02:18 Oxymask 10 04/03/22 04:10 BiPAP 40 04/03/22 01:53 Oxymask, Ambu-Bag 15 04/03/22 00:55 Room Air 04/03/22 01:25 Laboratory Results 04/03/22 06:05 04/03/22 06:05 Coding Level of Care Code Critical Care ea addt'l 30 min Diagnoses Cardiac arrest I46.9 A-fib I48.91 Acute respiratory failure with hypoxia J96.01 Coronary artery disease I25.10 Coronary Disease-Associated Artery/Lesion type: [place] artery [place] vs. transplanted heart: [place] heart Associated angina: without angina Hematuria R31.9 Bladder mass N32.89 Diabetes E11.9 Shock circulatory R57.9 Time Spent (min) 45 (1) Coronary artery disease Coronary Disease-Associated Artery/Lesion type: [place] artery [place] vs. transplanted heart: black[place] heart Associated angina: without angina Qualified Code(s): I25.10 - Atherosclerotic heart disease of [place] coronary artery without angina pectoris
--- NOTE | 2022-04-03 12:35 | XCELERA ---
[id number]
--- NOTE | 2022-04-03 12:49 | Cardiology Consultation ---
Date of Consultation April 03, 2022 Assessment & Plan (1) Cardiac arrest: -he experience chest discomfort and hypotension prior to the event. -concern for an ischemic ventricular arrhythmia. -cardiac catheterization today. (2) Coronary artery disease: -inferior VA noted on nuclear stress test, May 2007. (3) Atrial fibrillation, permanent: -has been on a rate control and long-term anticoagulation strategy. -Eliquis on hold due to his surgical procedure yesterday. (4) Aortic stenosis: -moderate to severe aortic stenosis on current echocardiogram. History of Present Illness Attending Physician: Shant Aparicio MD History of Present Illness Mr. Musa is an 86-year-old male inmate in yesterday following a trans urethral resection of bladder tumor. Early this morning, the patient suffered a cardiac arrest, and therefore, this consultation was ordered. Of note, the patient is well known to me from the outpatient setting. The patient was doing well following his surgical procedure until approximately 1:10 a.m.. He began to experience discomfort in the substernal region and across the middle of his back. Also noted some dizziness, therefore, called his nurse. Her initial evaluation, was found have a blood pressure 80/50. He was evaluated by Devon Jackson PA-C who ordered EKG and a 500 cc bolus of normal saline. An EKG was obtained which noted atrial fibrillation and a complete right bundle branch block. There were no acute changes. The patient's symptoms resolved with the administration of intravenous fluids. The patient then suffered a cardiac arrest from PEA at approximately 1:50 a.m.. Fortunately, the patient was successfully resuscitated. He was then sent to the intensive care unit. Since his event, the patient has been stable. He has not experienced any recurrent chest discomfort or dizziness. The patient is resting comfortably in bed without complaints. He carries a history of presumed coronary artery disease as a nuclear stress test noted in inferior wall myocardial infarction. That study was performed in May 2007. The patient has done well from a cardiac perspective since that time. He also carries a history of permanent atrial fibrillation and is managed with rate control and long-term anticoagulation. Eliquis has been on because of his surgical procedure. Past medical and surgical history 1. Coronary artery disease-see above 2. Moderate aortic stenosis 3. Hypertension 4. Hypercholesterolemia 5. Permanent atrial fibrillation 6. Diabetes mellitus 7. Nephrolithiasis 8. Trigeminal neuralgia 9. DJD 10. Bilateral carpal tunnel release 11. Bilateral intra-ocular lens implants 12. Tonsillectomy Social history , lives alone. No tobacco alcohol Family history Noncontributory Review of systems A 10 review systems was undertaken and negative except that described above. Allergies Allergy/AdvReac Type Severity Reaction Status Date / Time NSAIDS (Non-Steroidal Allergy Severe Facial Verified 04/02/22 07:08 Anti-Inflamma swelling ibuprofen Allergy Intermediate Swollen Verified 04/02/22 07:08 lips Home Medications Medication Instructions Recorded Confirmed Type aspirin 81 mg tablet,delayed 81 mg PO HS ##0 10/20/16 04/02/22 History release coenzyme Q10 100 mg capsule 200 mg PO QAM ##0 10/20/16 04/02/22 History potassium citrate 10 mEq (1,080 3 tab PO BID #0 tabs 10/20/16 04/02/22 History mg) tablet,extended release nystatin 100,000 unit/gram topical 1 applic topical DAILY PRN Skin 01/31/19 04/02/22 History cream Irritation candesartan 32 mg tablet 32 mg PO HS 11/20/19 04/02/22 History carbamazepine 200 mg 200 mg PO UD 11/20/19 04/02/22 History tablet,extended release,12 hr (Tegretol XR) levothyroxine 25 mcg capsule 25 mcg PO QAM 06/17/21 04/02/22 History atenolol 100 mg tablet (Tenormin) 100 mg PO BID #180 tabs 07/08/21 04/02/22 Rx furosemide 40 mg tablet (Lasix) 40 mg PO BID #180 tabs 07/28/21 04/02/22 Rx diltiazem HCl 120 mg capsule,24 120 mg PO BID #180 caps 08/06/21 04/02/22 Rx hr,extended release atorvastatin 20 mg tablet (Lipitor) 20 mg PO HS 03/30/22 04/02/22 History cholecalciferol (vitamin D3) 125 125 mcg PO HS 03/30/22 04/02/22 History mcg (5,000 unit) tablet (Vitamin D3) digoxin 250 mcg (0.25 mg) tablet 250 mcg PO HS 03/30/22 04/02/22 History magnesium citrate 100 mg tablet 100 mg PO HS 03/30/22 04/02/22 History multivitamin 1 tab PO QAM 03/30/22 04/02/22 History vit C 250 mg-vit E 90 mg-zinc 40 1 tab PO BID 03/30/22 04/02/22 History mg-copper 1 [id number] capsule (PreserVision AREDS-2) Patient History Medical History (Updated 04/03/22 @ 12:48 by Charbel Pan MD) A-fib f/u dr pan[place] Bladder mass Diabetes diet controlled Hx of renal calculi Hyperlipidemia Hypertension Osteoarthritis Trigeminal neuralgia "worse when he talks or eats" Surgical History H/O left knee surgery History of carpal tunnel release of both wrists Hx of cataract extraction bilat. Hx of colonoscopy Hx of cystoscopy Hx of lithotripsy Hx of tonsillectomy Family History Other Family history non-contributory Social History Smoking Status: Never smoker Second Hand Exposure: Yes (growing up); Do You Dip or Chew Tobacco: No; Tobacco Cessation Education Requested by Patient: No Hx Alcohol Use: No Hx Substance Use: No Preferred Language: Moldovan Communication Ability: Effective Visual Impairment: Partially Limited Hearing Ability: Use of Hearing Aid Farm Equipment Service Technician Required: No Beliefs That Will Affect Care: Gnosticist marital status: Current Living Situation: Alone Current Living Situation Comment: lives at [facility] Other Information That Helps Us Care for You: No Feels Safe at Home: Yes Safety Concerns: Feels Safe At This Time Assistive Devices: Cane and Walker Assistive Devices Comment: walking stick prn; glasses prn Physical Exam Physical Exam: In general this is a well-developed well-nourished white male in no acute distress. HEENT exam is negative. Neck reveals delayed and prolonged carotid upstrokes. No obvious transmitted murmur or bruits. No jugular venous distention. There is no thyromegaly. Cardiovascular exam reveals an irregularly irregular rhythm with distant heart sounds. There is a 2/6 crescendo decrescendo systolic murmur loudest at the base. No S3. Lungs are clear without rales, rhonchi, or wheezes. Abdomen is soft without bruits. Extremities reveal intact radial artery and posterior tibial pulses bilaterally. There is 1+ ankle and pedal edema. Results & Data ([facility]) Vital Signs (Past 12 Hours) Vital Signs Temp Pulse Pulse Resp BP BP Pulse Ox 04/03/22 12:00 73 19 94 04/03/22 12:00 84/59 L 04/03/22 11:30 76 25 H 77 L 04/03/22 11:00 84 23 71 L 04/03/22 11:00 99/68 L 04/03/22 10:30 85 27 H 93 04/03/22 10:30 97/57 L 04/03/22 10:04 80 17 94 04/03/22 10:04 73/50 L 04/03/22 10:00 78 11 L 97 04/03/22 09:30 99 H 16 79 L 04/03/22 09:00 79 18 91 04/03/22 08:41 87 28 H 99 04/03/22 08:41 105/68 04/03/22 08:30 91 H 20 94 04/03/22 08:30 90/67 L 04/03/22 08:00 83 19 95 04/03/22 08:00 96/68 L 04/03/22 07:30 102 H 20 95 04/03/22 07:00 93 H 12 100 04/03/22 08:20 04/03/22 06:30 95 H 18 105/68 93 04/03/22 06:00 93 H 18 102/74 95 04/03/22 05:30 90 23 113/71 93 04/03/22 05:29 89 15 91/63 L 91 04/03/22 05:19 78 22 70/39 L 92 04/03/22 05:15 72 19 68/41 L 95 04/03/22 05:01 81 16 80/46 L 94 04/03/22 05:00 88 13 76/47 L 95 04/03/22 04:37 95 H 16 95/63 L 100 04/03/22 04:30 100 H 15 87/50 L 100 04/03/22 04:20 96 H 20 87/57 L 99 04/03/22 03:15 89 20 99 04/03/22 04:00 87 20 88/55 L 99 04/03/22 03:50 85 24 89/68 L 93 04/03/22 03:30 86 20 100 04/03/22 03:00 83 19 04/03/22 02:30 93 H 22 88/64 L 100 04/03/22 02:27 93 H 18 106/69 100 04/03/22 02:25 99 H 28 H 127/76 100 04/03/22 02:24 105 H 25 H 131/90 100 04/03/22 02:22 107 H 22 147/90 H 100 04/03/22 02:21 110 H 24 159/93 H 84 L 04/03/22 02:18 36.5 C 128 H 20 171/98 H 89 L 04/03/22 04:10 04/03/22 01:53 86 L 04/03/22 00:55 36.6 C 66 18 80/50 L 96 04/03/22 01:25 110/78 O2 Del Method O2 Flow Rate FiO2 04/03/22 12:00 04/03/22 12:00 04/03/22 11:30 04/03/22 11:00 04/03/22 11:00 04/03/22 10:30 04/03/22 10:30 04/03/22 10:04 04/03/22 10:04 04/03/22 10:00 04/03/22 09:30 04/03/22 09:00 04/03/22 08:41 04/03/22 08:41 04/03/22 08:30 04/03/22 08:30 04/03/22 08:00 04/03/22 08:00 04/03/22 07:30 Nasal Cannula 4 04/03/22 07:00 04/03/22 08:20 Nasal Cannula 5 04/03/22 06:30 High Flow Nasal Cannula 4 04/03/22 06:00 High Flow Nasal Cannula 4 04/03/22 05:30 High Flow Nasal Cannula 4 04/03/22 05:29 High Flow Nasal Cannula 4 04/03/22 05:19 High Flow Nasal Cannula 4 04/03/22 05:15 High Flow Nasal Cannula 4 04/03/22 05:01 High Flow Nasal Cannula 4 04/03/22 05:00 High Flow Nasal Cannula 4 04/03/22 04:37 BiPAP 40 04/03/22 04:30 BiPAP 40 04/03/22 04:20 BiPAP 40 04/03/22 03:15 40 04/03/22 04:00 BiPAP 40 04/03/22 03:50 BiPAP 40 04/03/22 03:30 BiPAP 40 04/03/22 03:00 04/03/22 02:30 BiPAP 100 04/03/22 02:27 BiPAP 100 04/03/22 02:25 BiPAP 100 04/03/22 02:24 BiPAP 100 04/03/22 02:22 BiPAP 100 04/03/22 02:21 Oxymask 10 04/03/22 02:18 Oxymask 10 04/03/22 04:10 BiPAP 40 04/03/22 01:53 Oxymask, Ambu-Bag 15 04/03/22 00:55 Room Air 04/03/22 01:25 Laboratory Results CBC notes hemoglobin 10.0, hematocrit 29.7, white count 29.6, and platelet count [id number]. Electrolytes note a sodium of 140, potassium 4.4, chloride 102, bicarb 29, BUN 21,. A 1.3, and glucose of 206. Magnesium level is normal at 2.0. High sensitivity troponin drawn prior to the arrest was 31.6. Value following the rest was 566.2. Diagnostic Findings EKG noted atrial fibrillation with a complete right bundle branch block and a leftward axis. Echocardiogram notes normal systolic function with ejection fraction 55-60%. There was mild LVH along with moderate to severe aortic stenosis. There is moderate tricuspid regurgitation. No prior study for comparison. PG Care Time/CCT Total # of Minutes Spent Total Time Spent with Patient: Total time spent is greater than 50% in coordination of care (as documented) at patient's floor/unit and/or counseling patient: Coding Level of Care Code 84676 INT INP/OBS CARE 3/75MIN Diagnoses Cardiac arrest I46.9 Coronary artery disease I25.10 Coronary Disease-Associated Artery/Lesion type: [place] artery [place] vs. transplanted heart: [place] heart Associated angina: without angina Atrial fibrillation, permanent I48.21 Aortic stenosis I35.0 (1) Coronary artery disease Coronary Disease-Associated Artery/Lesion type: [place] artery [place] vs. transplanted heart: [place] heart Associated angina: without angina Qualified Code(s): I25.10 - Atherosclerotic heart disease of [place] coronary artery without angina pectoris
[2022-04-03] MEDS ORDERED: NORMOSOL-R 500 ML IV ONE (13:22)
[2022-04-03] MEDS ORDERED: fentaNYL citrate 100 MCG/2 ML VIAL ONE (15:18)
[2022-04-03] MEDS ORDERED: MIDAZOLAM HCL 1 MG/ML 2ML VIAL ONE (15:18)
[2022-04-03] MEDS ORDERED: niCARdipine HCL INJ 2.5 MG/ML 10 ML AMP ONE (15:18)
[2022-04-03] MEDS ORDERED: NITROGLYCERIN/D5W 100MCG/ML 20ML SYR ONE (15:19)
[2022-04-03] MEDS ORDERED: HEPARIN (PORCINE) 1000 UNIT/ML 10 ML (CATH LAB USE ONLY) ONE (15:22)
--- NOTE | 2022-04-03 15:44 | Pre Anesthesia Assessment ---
Date of Service April 03, 2022 Pre Sedation Assessment Vital Signs Temp Pulse Pulse Resp BP BP Pulse Ox 04/03/22 14:30 91 H 18 95 04/03/22 14:30 88/55 L 04/03/22 14:07 83 19 95 04/03/22 14:07 86/55 L 04/03/22 14:00 86 24 94 04/03/22 14:00 88/60 L 04/03/22 13:30 79 20 95 04/03/22 13:00 81 24 95 04/03/22 13:00 80/55 L 04/03/22 12:30 82 20 94 04/03/22 12:00 73 19 94 04/03/22 12:00 84/59 L 04/03/22 11:30 76 25 H 77 L 04/03/22 11:00 84 23 71 L 04/03/22 11:00 99/68 L 04/03/22 10:30 85 27 H 93 04/03/22 10:30 97/57 L 04/03/22 10:04 80 17 94 04/03/22 10:04 73/50 L 04/03/22 10:00 78 11 L 97 04/03/22 09:30 99 H 16 79 L 04/03/22 09:00 79 18 91 04/03/22 08:41 87 28 H 99 04/03/22 08:41 105/68 04/03/22 08:30 91 H 20 94 04/03/22 08:30 90/67 L 04/03/22 08:00 83 19 95 04/03/22 08:00 96/68 L 04/03/22 07:30 102 H 20 95 04/03/22 07:00 93 H 12 100 04/03/22 08:20 04/03/22 06:30 95 H 18 105/68 93 04/03/22 06:00 93 H 18 102/74 95 04/03/22 05:30 90 23 113/71 93 04/03/22 05:29 89 15 91/63 L 91 04/03/22 05:19 78 22 70/39 L 92 04/03/22 05:15 72 19 68/41 L 95 04/03/22 05:01 81 16 80/46 L 94 04/03/22 05:00 88 13 76/47 L 95 04/03/22 04:37 95 H 16 95/63 L 100 04/03/22 04:30 100 H 15 87/50 L 100 04/03/22 04:20 96 H 20 87/57 L 99 04/03/22 03:15 89 20 99 04/03/22 04:00 87 20 88/55 L 99 04/03/22 03:50 85 24 89/68 L 93 04/03/22 03:30 86 20 100 04/03/22 03:00 83 19 04/03/22 02:30 93 H 22 88/64 L 100 04/03/22 02:27 93 H 18 106/69 100 04/03/22 02:25 99 H 28 H 127/76 100 04/03/22 02:24 105 H 25 H 131/90 100 04/03/22 02:22 107 H 22 147/90 H 100 04/03/22 02:21 110 H 24 159/93 H 84 L 04/03/22 02:18 97.7 F 128 H 20 171/98 H 89 L 04/03/22 04:10 04/03/22 01:53 86 L 04/03/22 00:55 97.9 F 66 18 80/50 L 96 04/03/22 01:25 110/78 04/02/22 23:34 114/66 04/02/22 23:08 98.4 F 94 H 16 103/64 95 04/02/22 21:34 74 122/74 04/02/22 18:15 97.7 F 68 19 128/65 95 04/02/22 18:35 97.9 F 65 16 152/93 H 96 O2 Del Method O2 Flow Rate FiO2 04/03/22 14:30 Nasal Cannula 4 04/03/22 14:30 04/03/22 14:07 04/03/22 14:07 04/03/22 14:00 04/03/22 14:00 04/03/22 13:30 04/03/22 13:00 04/03/22 13:00 04/03/22 12:30 04/03/22 12:00 04/03/22 12:00 04/03/22 11:30 04/03/22 11:00 04/03/22 11:00 04/03/22 10:30 04/03/22 10:30 04/03/22 10:04 04/03/22 10:04 04/03/22 10:00 04/03/22 09:30 04/03/22 09:00 04/03/22 08:41 04/03/22 08:41 04/03/22 08:30 04/03/22 08:30 04/03/22 08:00 04/03/22 08:00 04/03/22 07:30 Nasal Cannula 4 04/03/22 07:00 04/03/22 08:20 Nasal Cannula 5 04/03/22 06:30 High Flow Nasal Cannula 4 04/03/22 06:00 High Flow Nasal Cannula 4 04/03/22 05:30 High Flow Nasal Cannula 4 04/03/22 05:29 High Flow Nasal Cannula 4 04/03/22 05:19 High Flow Nasal Cannula 4 04/03/22 05:15 High Flow Nasal Cannula 4 04/03/22 05:01 High Flow Nasal Cannula 4 04/03/22 05:00 High Flow Nasal Cannula 4 04/03/22 04:37 BiPAP 40 04/03/22 04:30 BiPAP 40 04/03/22 04:20 BiPAP 40 04/03/22 03:15 40 04/03/22 04:00 BiPAP 40 04/03/22 03:50 BiPAP 40 04/03/22 03:30 BiPAP 40 04/03/22 03:00 04/03/22 02:30 BiPAP 100 04/03/22 02:27 BiPAP 100 04/03/22 02:25 BiPAP 100 04/03/22 02:24 BiPAP 100 04/03/22 02:22 BiPAP 100 04/03/22 02:21 Oxymask 10 04/03/22 02:18 Oxymask 10 04/03/22 04:10 BiPAP 40 04/03/22 01:53 Oxymask, Ambu-Bag 15 04/03/22 00:55 Room Air 04/03/22 01:25 04/02/22 23:34 04/02/22 23:08 Room Air 04/02/22 21:34 04/02/22 18:15 Room Air 04/02/22 18:35 Room Air Cardiovascular RRR, no murmur, no edema Respiratory normal respiratory effort, lungs clear to auscultation Pre-Sedation Airway Assessment Smoking Status: Never smoker Hx Sleep Apnea: No Hx Difficult Intubation: No Short, Thick Neck: No Thyromental Distance: > or= 3.5 Finger Breadths Mallampati Class: II ASA: ASA3 Procedure Planning Contraindications for Sedation: none Current Medications Reviewed: Yes Notes The planned sedation has been discussed with the patient. Informed Consent was obtained. I have identified the patient, determined the appropriateness of sedation and have assessed the patient immediately prior to the procedure. All medicine(s) and interventions are by my order.
--- NOTE | 2022-04-03 15:55 | Electrocardiogram Report ---
Test Reason : Blood Pressure : / mmHG Vent. Rate : 082 BPM Atrial Rate : 111 BPM P-R Int : 000 ms QRS Dur : 146 ms QT Int : 438 ms P-R-T Axes : 000 257 -50 degrees QTc Int : 511 ms Atrial fibrillation Right bundle branch block Abnormal ECG When compared with ECG of 26-MAR-2022 11:55, T wave inversion less evident in Anterior leads Confirmed by Charbel Pan ([id number]) on 04/03/2022 3:54:59 PM Referred By: Shant Aparicio Confirmed By:Charbel Pan
--- NOTE | 2022-04-03 15:55 | Electrocardiogram Report ---
Test Reason : Blood Pressure : / mmHG Vent. Rate : 112 BPM Atrial Rate : 112 BPM P-R Int : 000 ms QRS Dur : 162 ms QT Int : 370 ms P-R-T Axes : 000 245 -14 degrees QTc Int : 505 ms Atrial fibrillation with rapid ventricular response Right bundle branch block Abnormal ECG When compared with ECG of 03-APR-2022 01:11, (unconfirmed) T wave inversion less evident in Inferior leads Confirmed by Charbel Pan ([id number]) on 04/03/2022 3:55:05 PM Referred By: Shant Aparicio Confirmed By:Charbel Pan
--- NOTE | 2022-04-03 15:57 | Electrocardiogram Report ---
Test Reason : Blood Pressure : / mmHG Vent. Rate : 090 BPM Atrial Rate : 063 BPM P-R Int : 000 ms QRS Dur : 158 ms QT Int : 432 ms P-R-T Axes : 000 -84 -45 degrees QTc Int : 528 ms Atrial fibrillation Left axis deviation Right bundle branch block Abnormal ECG When compared with ECG of 03-APR-2022 02:04, (unconfirmed) T wave inversion more evident in Inferior leads Confirmed by Charbel Pan ([id number]) on 04/03/2022 3:56:56 PM Referred By: Shant Aparicio Confirmed By:Charbel Pan
[2022-04-03] MEDS ORDERED: NOREPINEPHRINE BITARTRATE 1 MG/ML 4 ML VIAL (CATH LAB USE ONLY) IV ONE ×2 (16:08→16:09)
--- NOTE | 2022-04-03 16:57 | Post Anesthesia Assessment ---
Date of Service April 03, 2022 Post Sedation Assessment Vital Signs Temp Pulse Pulse Resp BP BP Pulse Ox 04/03/22 14:30 91 H 18 95 04/03/22 14:30 88/55 L 04/03/22 14:07 83 19 95 04/03/22 14:07 86/55 L 04/03/22 14:00 86 24 94 04/03/22 14:00 88/60 L 04/03/22 13:30 79 20 95 04/03/22 13:00 81 24 95 04/03/22 13:00 80/55 L 04/03/22 12:30 82 20 94 04/03/22 12:00 73 19 94 04/03/22 12:00 84/59 L 04/03/22 11:30 76 25 H 77 L 04/03/22 11:00 84 23 71 L 04/03/22 11:00 99/68 L 04/03/22 10:30 85 27 H 93 04/03/22 10:30 97/57 L 04/03/22 10:04 80 17 94 04/03/22 10:04 73/50 L 04/03/22 10:00 78 11 L 97 04/03/22 09:30 99 H 16 79 L 04/03/22 09:00 79 18 91 04/03/22 08:41 87 28 H 99 04/03/22 08:41 105/68 04/03/22 08:30 91 H 20 94 04/03/22 08:30 90/67 L 04/03/22 08:00 83 19 95 04/03/22 08:00 96/68 L 04/03/22 07:30 102 H 20 95 04/03/22 07:00 93 H 12 100 04/03/22 08:20 04/03/22 06:30 95 H 18 105/68 93 04/03/22 06:00 93 H 18 102/74 95 04/03/22 05:30 90 23 113/71 93 04/03/22 05:29 89 15 91/63 L 91 04/03/22 05:19 78 22 70/39 L 92 04/03/22 05:15 72 19 68/41 L 95 04/03/22 05:01 81 16 80/46 L 94 04/03/22 05:00 88 13 76/47 L 95 04/03/22 04:37 95 H 16 95/63 L 100 04/03/22 04:30 100 H 15 87/50 L 100 04/03/22 04:20 96 H 20 87/57 L 99 04/03/22 03:15 89 20 99 04/03/22 04:00 87 20 88/55 L 99 04/03/22 03:50 85 24 89/68 L 93 04/03/22 03:30 86 20 100 04/03/22 03:00 83 19 04/03/22 02:30 93 H 22 88/64 L 100 04/03/22 02:27 93 H 18 106/69 100 04/03/22 02:25 99 H 28 H 127/76 100 04/03/22 02:24 105 H 25 H 131/90 100 04/03/22 02:22 107 H 22 147/90 H 100 04/03/22 02:21 110 H 24 159/93 H 84 L 04/03/22 02:18 97.7 F 128 H 20 171/98 H 89 L 04/03/22 04:10 04/03/22 01:53 86 L 04/03/22 00:55 97.9 F 66 18 80/50 L 96 04/03/22 01:25 110/78 04/02/22 23:34 114/66 04/02/22 23:08 98.4 F 94 H 16 103/64 95 04/02/22 21:34 74 122/74 04/02/22 18:15 97.7 F 68 19 128/65 95 04/02/22 18:35 97.9 F 65 16 152/93 H 96 O2 Del Method O2 Flow Rate FiO2 04/03/22 14:30 Nasal Cannula 4 04/03/22 14:30 04/03/22 14:07 04/03/22 14:07 04/03/22 14:00 04/03/22 14:00 04/03/22 13:30 04/03/22 13:00 04/03/22 13:00 04/03/22 12:30 04/03/22 12:00 04/03/22 12:00 04/03/22 11:30 04/03/22 11:00 04/03/22 11:00 04/03/22 10:30 04/03/22 10:30 04/03/22 10:04 04/03/22 10:04 04/03/22 10:00 04/03/22 09:30 04/03/22 09:00 04/03/22 08:41 04/03/22 08:41 04/03/22 08:30 04/03/22 08:30 04/03/22 08:00 04/03/22 08:00 04/03/22 07:30 Nasal Cannula 4 04/03/22 07:00 04/03/22 08:20 Nasal Cannula 5 04/03/22 06:30 High Flow Nasal Cannula 4 04/03/22 06:00 High Flow Nasal Cannula 4 04/03/22 05:30 High Flow Nasal Cannula 4 04/03/22 05:29 High Flow Nasal Cannula 4 04/03/22 05:19 High Flow Nasal Cannula 4 04/03/22 05:15 High Flow Nasal Cannula 4 04/03/22 05:01 High Flow Nasal Cannula 4 04/03/22 05:00 High Flow Nasal Cannula 4 04/03/22 04:37 BiPAP 40 04/03/22 04:30 BiPAP 40 04/03/22 04:20 BiPAP 40 04/03/22 03:15 40 04/03/22 04:00 BiPAP 40 04/03/22 03:50 BiPAP 40 04/03/22 03:30 BiPAP 40 04/03/22 03:00 04/03/22 02:30 BiPAP 100 04/03/22 02:27 BiPAP 100 04/03/22 02:25 BiPAP 100 04/03/22 02:24 BiPAP 100 04/03/22 02:22 BiPAP 100 04/03/22 02:21 Oxymask 10 04/03/22 02:18 Oxymask 10 04/03/22 04:10 BiPAP 40 04/03/22 01:53 Oxymask, Ambu-Bag 15 04/03/22 00:55 Room Air 04/03/22 01:25 04/02/22 23:34 04/02/22 23:08 Room Air 04/02/22 21:34 04/02/22 18:15 Room Air 04/02/22 18:35 Room Air Recovery Score Activity: Moves 4 extremities Respiration: Deep Breath/Cough Circulation: +/-20% PreAnes Value Consciousness: Fully Awake Oxygen Saturation: > 92% On Room Air Post Anesthesia Score: 10 Discharge Sedation Level of Care: Fast Track Phase II Post Sedation Plan On clinical assessment, the patient appears to have tolerated the sedation without complications. Patient is recovering as anticipated. Patient will continue to be monitored by nursing and may be discharged when sedation discharge criteria are met per below protocol. Upon Completions of procedure up to 15 minutes continue every 5 minute vital signs and the P.A.R. score; then discharge to a Phase I or Fast Track to Phase II per the following guidelines: * Discharge Patient to appropriate Phase II area if PAR is 8 or greater or return to pre- procedure baseline. The post - procedure orders will be as directed. * If PAR score is less than 8 or not return to pre-procedure baseline then patient will follow Phase I monitoring till PAR is reached for Phase II. The Phase I may be done in procedure room or may call to secure a Phase I area. * If naloxone or flumazenil are used for reversal, hold in Phase I for continued monitoring from when last reversal dose was given for a minimum of 60 minutes or longer pending the nurse and/or physician discretion of patient condition before discharge to Phase II. Please call the Sedation Physician to re-evaluate and complete post-note for discharge to Phase II area. Do NOT discharge from procedure sedation or Phase 1 until post- sedation evaluation note is complete by procedure /sedation MD Sedation Discharge Instructions to be given to the patient at discharge to home.
--- NOTE | 2022-04-03 17:07 | Cardiac Catheterization ---
[facility] Data: Nickel Operator Cardiac Status Clinical evaluation leading to the procedure CAD Presenation: Non STEMI Anginal Classification: CCS IV Diagnostic Physicians Name: Williams Thompson MD Closure Device Recommendations: Medical Therapy and/or Counseling Cardiac Cath Procedure Full Procedure Date April 03, 2022 Pre-Procedure Diagnosis Pre-Procedure Diagnosis: Non STEMI and Cardiothoracic Symptom (cardiac arrest) AUC Score AUC Score: 7 Post-Procedure Diagnosis Post-Procedure Diagnosis: Mild CAD and Normal Intracardiac Pressures Procedure(s) Performed Procedure(s) Performed: Coronary Angiography and Left Heart Cath Road Supervisor Williams Thompson MD Sap Bi Architect(s) De[place]ler Estimated Blood Loss Estimated Blood Loss: 10 Medication(s) Medication(s): Fentanyl, Heparin, Lidocaine 1%, Nicardipine, Nitroglycerin, Norepinephrine and Versed Summary of Findings Indication: Elevated troponin, presumed CAD, post noncardiac surgery cardiac arrest Access: 6 Fr right radial artery Catheters: [place], diagnostic JL 3 5, JR4, JL 1, pigtail Findings: LM -normal caliber, no significant disease LAD -medium caliber, mildly calcified, midsegment luminal irregularities, small distal vessel tapers prior to apex. Small D1, D2 without disease. Circumflex -medium caliber, gives off high bifurcating OM1 with 50-60 % disease. Remainder of AV groove circumflex and distal limbs without significant disease. RCA -dominant, large caliber vessel, no significant disease. PDA, large PLB without disease. LVEDP -14 Peak to peak pullback aortic valve gradient 35 to 40 mmHg Arterial Closure: TR band Summary: 1. Moderate nonobstructive coronary artery disease -50 to 60% OM1. 2. Normal LVEDP 3. Aortic stenosis (peak to peak pullback gradient 35 to 40 mmHg) Recommendations: No high risk disease to explain in-hospital cardiac arrest. Continued ASCVD risk factor modification. Continued surveillance of aortic stenosis Hemodynamics Rest Ao:: 73/46/56 Final Ao: 102/66-79 LV: 137/14 Recommendations Recommendations: Medical Therapy and/or Counseling Specimens Specimens: None Radiation Exposure (mGy) 1721 Contrast (mls) 40 Anesthesia Moderate 8544-7511 Procedural Complication(s) None Disposition ICU I attest to the content of the Intraoperative Record and any orders documented therein. Any exceptions are noted below. [employer] Card Cath Procedure Codes Cardiac Catheterization Procedure 1: Cardiovascular Cath Procedures: 61547 Coronaries and LHC (+/-LV) Moderate Sedation Procedure 1: Sedation/Anesthesia: 57788 Mod Sedation by the same physician;Init15 Min Child Age 5 & Up Procedure 2: Sedation/Anesthesia: 75585 Mod Sedation by the same physician; Ea [id number] Minutes PG Care Time/CCT Total # of Minutes Spent Total Time Spent with Patient: Total time spent is greater than 50% in coordination of care (as documented) at patient's floor/unit and/or counseling patient:
--- NOTE | 2022-04-03 18:03 | Hospitalist Consultation ---
Date of Consultation April 03, 2022 Assessment & Plan (1) Cardiac arrest: (2) Hypercapnic respiratory failure: (3) Hypomagnesemia: (4) A-fib: (5) Diabetes: (6) Coronary artery disease: (7) Hematuria: (8) Bladder mass: Plan Reason Critically Ill: 86 YOM s/t TURBT, code blue called on floor for PEA arrest and ROSC. Patient awake alert following commands and currently hemodynamically stable following resuscitation. Place on BiPAP for hypoxia and hypercarbia. Neuro - Chronic trigeminal neuralgia - Continue carbamazepine for his trigeminal neuralgia opiate pain control Cardiac - PEA arrest, Afib on chronic anticoagulation, HTN, HLD, CAD Cardiology consultation and coronary angiography performed on 04/03/2022, no high risk lesions found to explain in-hospital cardiac arrest recommends continued ASCVD risk factor modification medical management - aspirin Atorvastatin, digoxin, diltiazem Respiratory - Hypercarbic respiratory failure with hypoxia, possible aspiration, pneumonia - supportive care wtih NIPPV as needed, - CTA negative PE - CXR without pneumothorax following CPR- noted right side worse than left opacities- will cover for aspiration/pneumonia - cefepime and doxycycline added, viral biofire is negative - non smoker- GI - No acute needs - NPO RENAL/LYTES - Respiratory acidosis, hypomagnesemia - Replete magnesium - keep ~ 2.0 - Hematuria, s/p TURBT, Bladder wall mass - Continue with bladder irrigation to light pink color- clots evacuated by urology PA-C - Further management defer to primary service ENDO - DMII, Hypothyroidism - hyperglycemia protocol - check tsh in am HEME - Hematuria - follow no acute needs ID - Pneumonia, s/p TURBT - send respiratory biofire - treat for pneumonia at this time - cefepime and doxy - MRSA swab pending DVT PROPHYLAXIS - SCDS, ASA, restart chemoprophy when appropriate History of Present Illness Attending Physician: Shant Aparicio MD History of Present Illness Hospitalist medical consultation was requested. Patient had a cardiac arrest he was transferred to intensive care unit where there was critical care note. Patient also underwent cardiac catheterization with cardiology consultation. Patient is on urology primary service. Subsequently at this point time the patient is being managed medically by the critical care team cardiologically by the cardiology team and attended by the urology service. At this time they will be no immediate need for medical consultation until the patient is transferred out of the intensive care unit at that time we will assume formal consultation. Allergies Allergy/AdvReac Type Severity Reaction Status Date / Time NSAIDS (Non-Steroidal Allergy Severe Facial Verified 04/02/22 07:08 Anti-Inflamma swelling ibuprofen Allergy Intermediate Swollen Verified 04/02/22 07:08 lips Home Medications Medication Instructions Recorded Confirmed Type aspirin 81 mg tablet,delayed 81 mg PO HS ##0 10/20/16 04/02/22 History release coenzyme Q10 100 mg capsule 200 mg PO QAM ##0 10/20/16 04/02/22 History potassium citrate 10 mEq (1,080 3 tab PO BID #0 tabs 10/20/16 04/02/22 History mg) tablet,extended release nystatin 100,000 unit/gram topical 1 applic topical DAILY PRN Skin 01/31/19 04/02/22 History cream Irritation candesartan 32 mg tablet 32 mg PO HS 11/20/19 04/02/22 History carbamazepine 200 mg 200 mg PO UD 11/20/19 04/02/22 History tablet,extended release,12 hr (Tegretol XR) levothyroxine 25 mcg capsule 25 mcg PO QAM 06/17/21 04/02/22 History atenolol 100 mg tablet (Tenormin) 100 mg PO BID #180 tabs 07/08/21 04/02/22 Rx furosemide 40 mg tablet (Lasix) 40 mg PO BID #180 tabs 07/28/21 04/02/22 Rx diltiazem HCl 120 mg capsule,24 120 mg PO BID #180 caps 08/06/21 04/02/22 Rx hr,extended release atorvastatin 20 mg tablet (Lipitor) 20 mg PO HS 03/30/22 04/02/22 History cholecalciferol (vitamin D3) 125 125 mcg PO HS 03/30/22 04/02/22 History mcg (5,000 unit) tablet (Vitamin D3) digoxin 250 mcg (0.25 mg) tablet 250 mcg PO HS 03/30/22 04/02/22 History magnesium citrate 100 mg tablet 100 mg PO HS 03/30/22 04/02/22 History multivitamin 1 tab PO QAM 03/30/22 04/02/22 History vit C 250 mg-vit E 90 mg-zinc 40 1 tab PO BID 03/30/22 04/02/22 History mg-copper 1 [id number] capsule (PreserVision AREDS-2) Patient History Medical History (Updated 04/03/22 @ 12:48 by Charbel Pan MD) A-fib f/u dr pan, [place] Bladder mass Diabetes diet controlled Hx of renal calculi Hyperlipidemia Hypertension Osteoarthritis Trigeminal neuralgia "worse when he talks or eats" Surgical History H/O left knee surgery History of carpal tunnel release of both wrists Hx of cataract extraction bilat. Hx of colonoscopy Hx of cystoscopy Hx of lithotripsy Hx of tonsillectomy Family History Other Family history non-contributory Social History Smoking Status: Never smoker Second Hand Exposure: Yes (growing up); Do You Dip or Chew Tobacco: No; Tobacco Cessation Education Requested by Patient: No Hx Alcohol Use: No Hx Substance Use: No Preferred Language: Mohawk Communication Ability: Effective Visual Impairment: Partially Limited Hearing Ability: Use of Hearing Aid Photography Editor Required: No Beliefs That Will Affect Care: Orthodoxy marital status: Current Living Situation: Alone Current Living Situation Comment: lives at [facility] Other Information That Helps Us Care for You: No Feels Safe at Home: Yes Safety Concerns: Feels Safe At This Time Assistive Devices: Cane and Walker Assistive Devices Comment: walking stick prn; glasses prn Results & Data Results & Data ([facility]) Vital Signs (Past 12 Hours) Vital Signs Pulse Resp BP Pulse Ox O2 Del Method O2 Flow Rate 04/03/22 14:30 91 H 18 95 Nasal Cannula 4 04/03/22 14:30 88/55 L 04/03/22 14:07 83 19 95 04/03/22 14:07 86/55 L 04/03/22 14:00 86 24 94 04/03/22 14:00 88/60 L 04/03/22 13:30 79 20 95 04/03/22 13:00 81 24 95 04/03/22 13:00 80/55 L 04/03/22 12:30 82 20 94 04/03/22 12:00 73 19 94 04/03/22 12:00 84/59 L 04/03/22 11:30 76 25 H 77 L 04/03/22 11:00 84 23 71 L 04/03/22 11:00 99/68 L 04/03/22 10:30 85 27 H 93 04/03/22 10:30 97/57 L 04/03/22 10:04 80 17 94 04/03/22 10:04 73/50 L 04/03/22 10:00 78 11 L 97 04/03/22 09:30 99 H 16 79 L 04/03/22 09:00 79 18 91 04/03/22 08:41 87 28 H 99 04/03/22 08:41 105/68 04/03/22 08:30 91 H 20 94 04/03/22 08:30 90/67 L 04/03/22 08:00 83 19 95 04/03/22 08:00 96/68 L 04/03/22 07:30 102 H 20 95 Nasal Cannula 4 04/03/22 07:00 93 H 12 100 04/03/22 08:20 Nasal Cannula 5 04/03/22 06:30 95 H 18 105/68 93 High Flow Nasal Cannula 4 04/03/22 06:00 93 H 18 102/74 95 High Flow Nasal Cannula 4 PG Care Time/CCT Total # of Minutes Spent Total Time Spent with Patient: Total time spent is greater than 50% in coordination of care (as documented) at patient's floor/unit and/or counseling patient: Coding Level of Care Code None Diagnoses Cardiac arrest I46.9 Hypercapnic respiratory failure J96.92 Hypomagnesemia E83.42 A-fib I48.91 Diabetes E11.9 Coronary artery disease I25.10 Coronary Disease-Associated Artery/Lesion type: [place] artery [place] vs. transplanted heart: [place] heart Associated angina: without angina Hematuria R31.9 Bladder mass N32.89 (1) Coronary artery disease Coronary Disease-Associated Artery/Lesion type: [place] artery [place] vs. transplanted heart: [place] heart Associated angina: without angina Qualified Code(s): I25.10 - Atherosclerotic heart disease of [place] coronary artery without angina pectoris
[2022-04-03] MEDS: ASPIRIN 81 MG ECTAB PO SCH (19:55)
[2022-04-03] MEDS: CHOLECALCIFEROL 5,000 UNITS 125 MCG TAB PO SCH (19:56)
[2022-04-03] MEDS: ATORVASTATIN 20 MG TAB PO SCH (19:56)
[2022-04-03] MEDS: CEFEPIME 2,000 MG in SYRINGE 0 ML IV SCH (19:59)
[2022-04-04] MEDS: ICU ELECTROLYTE REPLACEMENT PROTOCOL SCH ×2 (03:09→07:19)
[2022-04-04] MEDS: DOXYCYCLINE HYCLATE 100 MG in DEXTROSE 5% 100 ML IV SCH (04:32)
[2022-04-04] MEDS ORDERED: LACTATED RINGER'S 500 ML IV ONE (05:27)
[2022-04-04] MEDS: LEVOTHYROXINE SODIUM 25 MCG TABLET PO SCH (05:29)
[2022-04-04] MEDS: NOREPINEPHRINE/D5W 4 MG/250 ML PLCT IV SCH (05:31)
[2022-04-04 05:37] LABS: Basophils # (auto) 0.12 K/uL (0-0.2); Basophils % (auto) 0.5 %; Eosinophils # (auto) 0.09 K/uL (0-0.50); Eosinophils % (auto) 0.4 %; Hematocrit (blood only) 25.6 % (40.1-51.0); Hemoglobin 8.5 g/dl (14.0-18.0); Immature Granulocytes # (auto) 0.14 K/uL (0.00-0.02); Immature Granulocytes % (auto) 0.6 %; Lymphocytes # (auto) 1.71 K/uL (1.2-3.4); Lymphocytes % (auto) 7.6 %; Mean Corpuscular Hemoglobin 32.8 pg (25.0-34.0); Mean Corpuscular Hgb Conc 33.2 g/dL (32.0-36.0); Mean Corpuscular Volume 98.8 fL (80.0-100.0); Mean Platelet Volume 11.8 fL (9.4-12.4); Monocytes # (auto) 2.55 K/uL (0.24-0.82); Monocytes % (auto) 11.4 %; Neutrophils % (auto) 79.5 %; Platelet Count 163 K/uL (130-400); RDW Coefficient of Variation 13.1 % (11.5-14.5); RDW Standard Deviation 46.6 fL (36.4-46.3); Red Blood Count 2.59 M/uL (4.63-6.08); White Blood Count 22.41 K/ul (4.8-10.8)
[2022-04-04 06:07] LABS: BUN Creatinine Ratio 17.9 (10-20); Calcium 7.8 mg/dl (8.5-10.1); Creatinine Clr Calc Pharmacy 53.2 ml/min; Est GFR (African American) 64.1 ml/min; Est GFR (Non-African American) 55.3 ml/min; Phosphorus 3.7 mg/dl (2.5-4.9); Potassium 3.9 mmol/L (3.5-5.1)
[2022-04-04] MEDS ORDERED: POTASSIUM CHLORIDE CRTAB 20 MEQ TABCR PO STA (06:43)
[2022-04-04] MEDS: MAGNESIUM OXIDE 400 MG TAB PO SCH ×2 (08:36→11:58)
[2022-04-04] MEDS: CEFEPIME 2,000 MG in SYRINGE 0 ML IV SCH (08:37)
--- NOTE | 2022-04-04 08:47 | Urology Progress Note ---
Date of Service April 04, 2022 Assessment & Plan (1) Hematuria: (2) Bladder mass: (3) Cardiac arrest: Plan POD 2 s/p TURBT with subsequent cardiac arrest with resuscitation 86-year-old male who is status post TURBT on 04/02/2022. Due to hematuria, he was admitted postoperatively and placed on CBI. Patient had cardiac arrest POD0 but a pulse was regained with CPR. He was transferred to the ICU. Has been undergoing critical management and monitoring with Critical Care team as well as Cardiology. Had underwent Cardiac Catheterization 04/03 Major findings on cardiac assessment was a moderate to severe aortic stenosis. The hospitalist team, cardiology team, and critical care team have been monitoring patient closely and undergoing critical management of patient as he recovers from this major event. Patient does appear to have developed some issues with tachypnea and requiring oxygenation. Findings on chest x-ray are concerning for possible pneumonia. Patient did receive compressions with CPR at the sudden onset of PEA. Findings of rib fractures and sternal fracture on imaging may be leading to issues with atelectasis. Also possible concern for aspiration pneumonia. We will plan to continue with supportive care At this point from a urological standpoint we will plan to continue with CBI to titrate downwards. May be able to remove Blood catheter if able to clear urine down and patient is able to go back to spontaneous voiding. Will likely need repeat imaging and assessment as the UOs were involved in the tumor specimen. Still awaiting the full pathologic report from the transurethral resection of the bladder tumor. Patient is continuing to need critical care and monitoring. Will defer to critical care team moving forward. Will likely need medical management likely with the hospitalist team after able to leave the ICU. Admission and Anticipated Discharge Date Admission Date: April 02, 2022 Subjective Postop from urologic surgery. Patient had undergone transurethral resection of bladder tumor. Subsequently had been having some mild hematuria and underwent a catheter placement in order to facilitate continuous bladder irrigation. On the overnight observation patient developed issues with chest pains hypotension and subsequently went into cardiac arrest. Was revived with resuscitation and chest compressions. Has been now since monitored in the ICU with critical management. Has not had severe pain or uncontrollable pain. Patient has been tolerating catheter with a decreasing need for continuous bladder irrigation. This has been titrated down. No new nausea or vomiting. Patient has now been seen by cardiology as well as the hospitalist team and critical care team. Found to have moderate to severe aortic stenosis. Please see their full reports for the entire findings. Is concerned due to tachypnea and findings on chest x-ray of possible aspiration pneumonia. Patient is not having any major complaints at this time. Has been resting comfortably. Review of Systems Review of Systems: All systems reviewed & are unremarkable except as noted in HPI & below Physical Exam Physical Exam: General: Alert in no acute distress. HEENT: Normocephalic Atraumatic. Inspection normal. Cranial Nerves 2-12 Grossly intact. Normal inspection of face. Normal inspection of neck. Psychologic: Normal affect. Respiratory: Tachypneic on oxygen. Cardiovascular: No tachycardia Skin: [place] and Dry. No rashes or visible lesions. Extremities/Lymphatics: No edema Abdomen: Appropriately tender. Mild distended. No rebound or guarding. : Three-way Blood catheter in place draining largely clear urine with mild pink coloration. CBI has been decreased over time Results & Data ([facility]) Vital Signs (Past 12 Hours) Vital Signs Temp Pulse Resp BP Pulse Ox O2 Del Method O2 Flow Rate 04/04/22 06:30 75 24 96 04/04/22 06:30 101/66 04/04/22 06:25 91 H 27 H 95 04/04/22 06:25 104/63 04/04/22 06:20 78 27 H 98 04/04/22 06:20 101/58 L 04/04/22 06:15 72 26 H 97 04/04/22 06:15 96/56 L 04/04/22 06:10 93/57 L 04/04/22 06:10 72 26 H 97 04/04/22 06:05 96/60 L 04/04/22 06:05 77 24 95 04/04/22 06:00 72 27 H 96 04/04/22 06:00 99/61 L 04/04/22 05:55 78 24 95 04/04/22 05:55 106/58 L 04/04/22 05:50 86 27 H 98 04/04/22 05:50 103/61 04/04/22 05:45 83/46 L 04/04/22 05:45 72 22 95 04/04/22 05:40 73 29 H 95 04/04/22 05:40 92/58 L 04/04/22 05:35 69 25 H 96 04/04/22 05:35 100/63 04/04/22 05:30 75 26 H 92 04/04/22 05:30 98/66 L 04/04/22 05:25 86 24 93 04/04/22 05:25 101/60 04/04/22 05:20 72 25 H 92 04/04/22 05:20 103/62 04/04/22 05:15 77 25 H 92 04/04/22 05:15 104/66 04/04/22 05:10 73 25 H 95 04/04/22 05:10 94/54 L 04/04/22 05:05 108/70 04/04/22 05:05 78 22 93 04/04/22 05:00 71 21 95 04/04/22 05:00 99/59 L 04/04/22 04:50 67 17 96 04/04/22 04:50 81/57 L 04/04/22 04:46 79 24 95 04/04/22 04:46 81/52 L 04/04/22 04:41 73 20 95 04/04/22 04:41 87/52 L 04/04/22 04:35 65 24 94 04/04/22 04:35 108/65 04/04/22 04:30 71 21 93 04/04/22 04:30 36.5 C 94/60 L 04/04/22 04:25 78 27 H 93 04/04/22 04:25 97/54 L 04/04/22 00:35 96/58 L 04/04/22 00:35 76 21 94 04/04/22 00:30 76 21 94 04/04/22 00:30 100/59 L 04/04/22 00:25 70 22 94 04/04/22 00:25 113/65 04/04/22 00:20 76 19 94 04/04/22 00:20 117/65 04/04/22 00:15 79 16 95 04/04/22 00:15 109/62 04/04/22 00:10 83 21 96 04/04/22 00:10 89/63 L 04/04/22 00:05 73 25 H 94 04/04/22 00:05 101/61 04/04/22 00:00 78 26 H 93 04/04/22 00:00 36.6 C 105/69 04/03/22 23:55 99/71 L 04/03/22 23:55 79 23 94 04/03/22 23:50 70 24 94 04/03/22 23:50 95/62 L 04/03/22 23:45 109/62 04/03/22 23:45 80 24 94 04/03/22 23:40 77 25 H 94 04/03/22 23:40 108/64 04/03/22 23:35 110/58 L 04/03/22 23:35 74 23 95 04/03/22 23:30 71 23 94 04/03/22 23:30 110/66 04/03/22 23:25 76 23 95 04/03/22 23:25 101/60 04/03/22 23:20 78 26 H 95 04/03/22 23:20 105/69 04/03/22 23:15 74 23 96 04/03/22 23:15 96/62 L 04/03/22 23:10 69 25 H 96 04/03/22 23:10 95/60 L 04/03/22 23:05 99/55 L 04/03/22 23:05 84 23 96 04/03/22 23:00 66 24 97 04/03/22 23:00 103/66 04/03/22 22:55 74 22 99 04/03/22 22:55 96/67 L 04/03/22 22:50 97/62 L 04/03/22 22:50 76 23 99 04/03/22 22:45 70 22 99 04/03/22 22:45 107/77 04/03/22 22:40 99/64 L 04/03/22 22:40 72 23 98 04/03/22 22:35 75 24 98 04/03/22 22:35 110/61 04/03/22 22:30 73 21 97 04/03/22 22:30 103/64 04/04/22 00:08 79 04/03/22 23:00 Nasal Cannula 1 04/03/22 22:25 73 19 97 04/03/22 22:25 110/73 04/03/22 22:20 65 16 97 04/03/22 22:20 95/57 L 04/03/22 22:18 75 13 96 04/03/22 22:18 89/51 L 04/03/22 22:15 63 14 93 04/03/22 22:15 79/50 L 04/03/22 22:10 88/53 L 04/03/22 22:10 65 25 H 89 L 04/03/22 22:05 75 26 H 90 04/03/22 22:05 82/51 L 04/03/22 22:00 60 24 91 04/03/22 22:00 77/49 L 04/03/22 21:55 64 24 91 04/03/22 21:55 82/50 L 04/03/22 21:50 71 23 91 04/03/22 21:50 88/59 L 04/03/22 21:45 114/65 04/03/22 21:45 74 26 H 96 04/03/22 21:40 98/63 L 04/03/22 21:40 73 21 94 04/03/22 21:35 75 0 L 87 L 04/03/22 21:35 82/55 L 04/03/22 21:30 88 7 L 89 L 04/03/22 21:30 77/51 L 04/03/22 21:25 76 12 92 04/03/22 21:25 102/54 L 04/03/22 21:20 72 18 91 04/03/22 21:20 91/64 L 04/03/22 21:15 72 25 H 92 04/03/22 21:15 90/56 L 04/03/22 21:10 70 25 H 92 04/03/22 21:10 82/48 L 04/03/22 21:09 74 13 90 04/03/22 21:09 91/50 L 04/03/22 21:01 80 20 92 04/03/22 21:01 78/43 L 04/03/22 21:00 75 26 H 89 L PG Care Time/CCT Total # of Minutes Spent Total Time Spent with Patient: Total time spent is greater than 50% in coordination of care (as documented) at patient's floor/unit and/or counseling patient: Coding Level of Care Code 60583 SUB INP/OBS CARE 3/50MIN Diagnoses Hematuria R31.9 Bladder mass N32.89 Cardiac arrest I46.9
--- NOTE | 2022-04-04 08:56 | Urology Progress Note ---
Date of Service April 04, 2022 Assessment & Plan Admission and Anticipated Discharge Date Admission Date: April 02, 2022 Subjective No acute issues overnight. No problems with catheter. Urine is light pink on slow to moderate drip CBI. He underwent a heart cath yesterday which was negative so unclear exactly what caused his cardiac arrest. Blood pressures have been somewhat light and still needs small amount of norepinephrine. Hemoglobin went from 10-8.5 yesterday. Creatinine is stable. Renal ultrasound yesterday showed clot in bladder but fortunately no obvious left hydronephrosis. I irrigated decent amount of old clot out of his bladder yesterday afternoon. Review of Systems Review of Systems: 14 point review of systems negative outside of what is listed above in HPI Physical Exam Physical Exam: General: Alert and oriented, no acute distress HEENT: Normocephalic, mucous membranes moist Pulmonary: Nonlabored respirations Abdomen: Nondistended : 22 [place] three-way catheter with light pink urine on moderate to slow drip CBI. Extremities: Moves all 4 spontaneously Neuro: No gross deficits Skin: Warm, dry, no rashes noted Results & Data ([facility]) Vital Signs (Past 12 Hours) Vital Signs Temp Pulse Resp BP Pulse Ox O2 Del Method O2 Flow Rate 04/04/22 06:30 75 24 96 04/04/22 06:30 101/66 04/04/22 06:25 91 H 27 H 95 04/04/22 06:25 104/63 04/04/22 06:20 78 27 H 98 04/04/22 06:20 101/58 L 04/04/22 06:15 72 26 H 97 04/04/22 06:15 96/56 L 04/04/22 06:10 93/57 L 04/04/22 06:10 72 26 H 97 04/04/22 06:05 96/60 L 04/04/22 06:05 77 24 95 04/04/22 06:00 72 27 H 96 04/04/22 06:00 99/61 L 04/04/22 05:55 78 24 95 04/04/22 05:55 106/58 L 04/04/22 05:50 86 27 H 98 04/04/22 05:50 103/61 04/04/22 05:45 83/46 L 04/04/22 05:45 72 22 95 04/04/22 05:40 73 29 H 95 04/04/22 05:40 92/58 L 04/04/22 05:35 69 25 H 96 04/04/22 05:35 100/63 04/04/22 05:30 75 26 H 92 04/04/22 05:30 98/66 L 04/04/22 05:25 86 24 93 04/04/22 05:25 101/60 04/04/22 05:20 72 25 H 92 04/04/22 05:20 103/62 04/04/22 05:15 77 25 H 92 04/04/22 05:15 104/66 04/04/22 05:10 73 25 H 95 04/04/22 05:10 94/54 L 04/04/22 05:05 108/70 04/04/22 05:05 78 22 93 04/04/22 05:00 71 21 95 04/04/22 05:00 99/59 L 04/04/22 04:50 67 17 96 04/04/22 04:50 81/57 L 04/04/22 04:46 79 24 95 04/04/22 04:46 81/52 L 04/04/22 04:41 73 20 95 04/04/22 04:41 87/52 L 04/04/22 04:35 65 24 94 04/04/22 04:35 108/65 04/04/22 04:30 71 21 93 04/04/22 04:30 36.5 C 94/60 L 04/04/22 04:25 78 27 H 93 04/04/22 04:25 97/54 L 04/04/22 00:35 96/58 L 04/04/22 00:35 76 21 94 04/04/22 00:30 76 21 94 04/04/22 00:30 100/59 L 04/04/22 00:25 70 22 94 04/04/22 00:25 113/65 04/04/22 00:20 76 19 94 04/04/22 00:20 117/65 04/04/22 00:15 79 16 95 04/04/22 00:15 109/62 04/04/22 00:10 83 21 96 04/04/22 00:10 89/63 L 04/04/22 00:05 73 25 H 94 01/07/23 00:05 101/61 04/04/22 00:00 78 26 H 93 04/04/22 00:00 36.6 C 105/69 04/03/22 23:55 99/71 L 04/03/22 23:55 79 23 94 04/03/22 23:50 70 24 94 04/03/22 23:50 95/62 L 04/03/22 23:45 109/62 04/03/22 23:45 80 24 94 04/03/22 23:40 77 25 H 94 04/03/22 23:40 108/64 04/03/22 23:35 110/58 L 04/03/22 23:35 74 23 95 04/03/22 23:30 71 23 94 04/03/22 23:30 110/66 04/03/22 23:25 76 23 95 04/03/22 23:25 101/60 04/03/22 23:20 78 26 H 95 04/03/22 23:20 105/69 04/03/22 23:15 74 23 96 04/03/22 23:15 96/62 L 04/03/22 23:10 69 25 H 96 04/03/22 23:10 95/60 L 04/03/22 23:05 99/55 L 04/03/22 23:05 84 23 96 04/03/22 23:00 66 24 97 04/03/22 23:00 103/66 04/03/22 22:55 74 22 99 04/03/22 22:55 96/67 L 04/03/22 22:50 97/62 L 04/03/22 22:50 76 23 99 04/03/22 22:45 70 22 99 04/03/22 22:45 107/77 04/03/22 22:40 99/64 L 04/03/22 22:40 72 23 98 04/03/22 22:35 75 24 98 04/03/22 22:35 110/61 04/03/22 22:30 73 21 97 04/03/22 22:30 103/64 04/04/22 00:08 79 04/03/22 23:00 Nasal Cannula 1 04/03/22 22:25 73 19 97 04/03/22 22:25 110/73 04/03/22 22:20 65 16 97 04/03/22 22:20 95/57 L 04/03/22 22:18 75 13 96 04/03/22 22:18 89/51 L 04/03/22 22:15 63 14 93 04/03/22 22:15 79/50 L 04/03/22 22:10 88/53 L 04/03/22 22:10 65 25 H 89 L 04/03/22 22:05 75 26 H 90 04/03/22 22:05 82/51 L 04/03/22 22:00 60 24 91 04/03/22 22:00 77/49 L 04/03/22 21:55 64 24 91 04/03/22 21:55 82/50 L 04/03/22 21:50 71 23 91 04/03/22 21:50 88/59 L 04/03/22 21:45 114/65 04/03/22 21:45 74 26 H 96 04/03/22 21:40 98/63 L 04/03/22 21:40 73 21 94 04/03/22 21:35 75 0 L 87 L 04/03/22 21:35 82/55 L 04/03/22 21:30 88 7 L 89 L 04/03/22 21:30 77/51 L 04/03/22 21:25 76 12 92 04/03/22 21:25 102/54 L 04/03/22 21:20 72 18 91 04/03/22 21:20 91/64 L 04/03/22 21:15 72 25 H 92 04/03/22 21:15 90/56 L 04/03/22 21:10 70 25 H 92 04/03/22 21:10 82/48 L 04/03/22 21:09 74 13 90 04/03/22 21:09 91/50 L 04/03/22 21:01 80 20 92 04/03/22 21:01 78/43 L 04/03/22 21:00 75 26 H 89 L PG Care Time/CCT Total # of Minutes Spent Total Time Spent with Patient: Total time spent is greater than 50% in coordination of care (as documented) at patient's floor/unit and/or counseling patient: Coding
[2022-04-04] MEDS ORDERED: PANTOprazole 40 MG in SYRINGE 0 ML IV SCH (09:00)
--- NOTE | 2022-04-04 09:00 | Hospitalist Progress Note ---
Date of Service April 04, 2022 Assessment & Plan (1) Cardiac arrest: Plan: S/P PEA arrest likely cause multifactorial in setting of hypotension with aortic stenosis as well as hypercarbia and hypoxia - no further dysrythmias noted on telemetry- no further bradycardic events noted either - CTA of chest negative for thrombus - Cardiac angiography negative for cardiac thrombus - continue supportive care (2) Pneumonia: Plan: Aspiration pneumonia/pneumonitis likely following cardiac arrest with right > left hazy opacification - remains with leukocytosis today, afebrile, no sputum, oxygen requirements decreasing - continue with cefepime and doxy - blood cultures with NGTD - de-escalate abx when appropriate- defer to ICU (3) Aortic stenosis: Plan: Moderate to Severe on ECHO, moderate via cath with gradient noted as 35-40 - follow with cardiology regarding symptoms and plan following acute recovery from above (4) A-fib: Plan: Chronic persistent atrial fibrilation - rate controlling medications - digoxin and cardizem XR on hold - has not needed further managment while these remain on hold - if rate control becomes issue while still on vasopressor medication consider amiodarone- defer while in ICU - Dig level 1.1 - if re-initiated follow levels and electrolytes (5) Diabetes: Plan: Continue with ICU hyperglycemia goal <180mg/DL - has not needed any insulin at this time- follow with increase in dietary intake (6) Coronary artery disease: Plan: Previous diagnosis of "silent [place]" with stress test - negative obstructive disease from recent cath - medically optimize following ICU stay - continue atorvastatin - BB pending resolution of vasoactive support- appreciate cardiology recs (7) Bladder mass: Plan: As above (8) Hematuria: Plan: S/P TURBT- continue with CBI primary service- Urology managing (9) Trigeminal neuralgia: Plan: Continue with carbamazepine q3d (10) Hypercapnic respiratory failure: Plan: RESOLVED- likely related to hypotension leadig to cardiac arrest (11) Hypomagnesemia: Plan: Resolved- continue with electrolyte replacment Admission and Anticipated Discharge Date Admission Date: April 02, 2022 Supervising Physician Co-Signing Physician Notes this was a rounding note written prior to cardiac arrest Subjective Patient is HD #2 POD #2 following PEA cardiac arrest with return of ROSC after TURBT for bladder mass. Patient has been managed by ICU following cardiac arrest, where he is still remaining with variable doses of vasopressor support. Patient underwent cardiac work up yesterday with ECHO- that revealed moderate to severe Aortic Stenosis with no RWMA and underwent cardiac catheterization that did no reveal any obstructive CAD. CTA of the chest was performed following cardiac arrest and negative for pulmonary embolism. He continues with abx therapy for likely aspiration pna/pneumonitis Patient reports feeling well and is with minimal chest discomfort noting sternal fracture and anterior rib fractures. Reports feeling tired due to lack of sleep. Urology is following him for his continued hematuria with CBI. He continues to remain in Afib with Eliquis on hold secondary to his hematuria. Hope to progress activity today. Patient is normally active swimming 2-3 times per week and performing activities around the house to include [employer] projects. Review of Systems Review of Systems: REVIEW OF SYSTEMS: Constitutional: No fever, sweats or chills Eyes: No diplopia, no worsening or blurred vision ENT: (+) difficulty hearing, no trouble swallowing Respiratory: (+) cough, no sputum, dyspnea at rest or on exertion Cardiovascular: (+) chest pain, tightness or palpitations Abdomen: No pain, nausea, vomiting, diarrhea or constipation Neurologic: No weakness, numbness/tingling, or balance problems Psychiatric: No anxiety or depression Skin: No rash or itch Physical Exam Physical Exam: PHYSICAL EXAM: General: awake, alert, Head: Normocephalic, atraumatic ENT: PERRLA, EOMI, no pharyngeal exudate, mucous membranes moist Neuro: AAO x 3, speech clear and appropriate, strength intact bilaterally 5/5, sensation intact and equal all extremities and dermatomes, no pronator drift Chest: equal rise and fall of the chest, no accessory muscle use, no heaves or thrills, scattered rhonchi throughout RT>LT Cardiac: irregular rate and rhythm, telemetry reviewed- afib, skin warm dry, cap refill <3 seconds, peripheral pulses +2 no JVD, systolic murmur, 2+ edema to right hand (previous IV site removed), trace edema to lower extremities GI: NABS x 4 quadrants, soft, nontender to palpation, no rebound, guarding or tenderness : hematuria with 3 way Blood in receiving CBI Psych: Normal mood and affect Skin: excoriation to groin folds Results & Data Results & Data ([facility]) Vital Signs (Past 12 Hours) Vital Signs Temp Pulse Resp BP Pulse Ox O2 Del Method O2 Flow Rate 04/04/22 06:30 75 24 96 04/04/22 06:30 101/66 04/04/22 06:25 91 H 27 H 95 04/04/22 06:25 104/63 04/04/22 06:20 78 27 H 98 04/04/22 06:20 101/58 L 04/04/22 06:15 72 26 H 97 04/04/22 06:15 96/56 L 04/04/22 06:10 93/57 L 04/04/22 06:10 72 26 H 97 04/04/22 06:05 96/60 L 04/04/22 06:05 77 24 95 04/04/22 06:00 72 27 H 96 04/04/22 06:00 99/61 L 04/04/22 05:55 78 24 95 04/04/22 05:55 106/58 L 04/04/22 05:50 86 27 H 98 04/04/22 05:50 103/61 04/04/22 05:45 83/46 L 04/04/22 05:45 72 22 95 04/04/22 05:40 73 29 H 95 04/04/22 05:40 92/58 L 04/04/22 05:35 69 25 H 96 04/04/22 05:35 100/63 04/04/22 05:30 75 26 H 92 04/04/22 05:30 98/66 L 04/04/22 05:25 86 24 93 04/04/22 05:25 101/60 04/04/22 05:20 72 25 H 92 04/04/22 05:20 103/62 04/04/22 05:15 77 25 H 92 04/04/22 05:15 104/66 04/04/22 05:10 73 25 H 95 04/04/22 05:10 94/54 L 04/04/22 05:05 108/70 04/04/22 05:05 78 22 93 04/04/22 05:00 71 21 95 04/04/22 05:00 99/59 L 04/04/22 04:50 67 17 96 04/04/22 04:50 81/57 L 04/04/22 04:46 79 24 95 04/04/22 04:46 81/52 L 04/04/22 04:41 73 20 95 04/04/22 04:41 87/52 L 04/04/22 04:35 65 24 94 04/04/22 04:35 108/65 04/04/22 04:30 71 21 93 04/04/22 04:30 36.5 C 94/60 L 04/04/22 04:25 78 27 H 93 04/04/22 04:25 97/54 L 04/04/22 00:35 96/58 L 04/04/22 00:35 76 21 94 04/04/22 00:30 76 21 94 04/04/22 00:30 100/59 L 04/04/22 00:25 70 22 94 04/04/22 00:25 113/65 04/04/22 00:20 76 19 94 04/04/22 00:20 117/65 04/04/22 00:15 79 16 95 04/04/22 00:15 109/62 04/04/22 00:10 83 21 96 04/04/22 00:10 89/63 L 04/04/22 00:05 73 25 H 94 04/04/22 00:05 101/61 04/04/22 00:00 78 26 H 93 04/04/22 00:00 36.6 C 105/69 04/03/22 23:55 99/71 L 04/03/22 23:55 79 23 94 04/03/22 23:50 70 24 94 04/03/22 23:50 95/62 L 04/03/22 23:45 109/62 04/03/22 23:45 80 24 94 04/03/22 23:40 77 25 H 94 04/03/22 23:40 108/64 04/03/22 23:35 110/58 L 04/03/22 23:35 74 23 95 04/03/22 23:30 71 23 94 04/03/22 23:30 110/66 04/03/22 23:25 76 23 95 04/03/22 23:25 101/60 04/03/22 23:20 78 26 H 95 04/03/22 23:20 105/69 04/03/22 23:15 74 23 96 04/03/22 23:15 96/62 L 04/03/22 23:10 69 25 H 96 04/03/22 23:10 95/60 L 04/03/22 23:05 99/55 L 04/03/22 23:05 84 23 96 04/03/22 23:00 66 24 97 04/03/22 23:00 103/66 04/03/22 22:55 74 22 99 04/03/22 22:55 96/67 L 04/03/22 22:50 97/62 L 04/03/22 22:50 76 23 99 04/03/22 22:45 70 22 99 04/03/22 22:45 107/77 04/03/22 22:40 99/64 L 04/03/22 22:40 72 23 98 04/03/22 22:35 75 24 98 04/03/22 22:35 110/61 04/03/22 22:30 73 21 97 04/03/22 22:30 103/64 04/04/22 00:08 79 04/03/22 23:00 Nasal Cannula 1 04/03/22 22:25 73 19 97 04/03/22 22:25 110/73 04/03/22 22:20 65 16 97 04/03/22 22:20 95/57 L 04/03/22 22:18 75 13 96 04/03/22 22:18 89/51 L 04/03/22 22:15 63 14 93 04/03/22 22:15 79/50 L 04/03/22 22:10 88/53 L 04/03/22 22:10 65 25 H 89 L 04/03/22 22:05 75 26 H 90 04/03/22 22:05 82/51 L 04/03/22 22:00 60 24 91 04/03/22 22:00 77/49 L 04/03/22 21:55 64 24 91 04/03/22 21:55 82/50 L 04/03/22 21:50 71 23 91 04/03/22 21:50 88/59 L 04/03/22 21:45 114/65 04/03/22 21:45 74 26 H 96 04/03/22 21:40 98/63 L 04/03/22 21:40 73 21 94 04/03/22 21:35 75 0 L 87 L 04/03/22 21:35 82/55 L 01/06/23 21:30 88 7 L 89 L 01/06/23 21:30 77/51 L 04/03/22 21:25 76 12 92 04/03/22 21:25 102/54 L 04/03/22 21:20 72 18 91 04/03/22 21:20 91/64 L 04/03/22 21:15 72 25 H 92 04/03/22 21:15 90/56 L 04/03/22 21:10 70 25 H 92 04/03/22 21:10 82/48 L 04/03/22 21:09 74 13 90 04/03/22 21:09 91/50 L 04/03/22 21:01 80 20 92 04/03/22 21:01 78/43 L 04/03/22 21:00 75 26 H 89 L Laboratory Results Abnormal lab results 04/04/22 04/04/22 Range/Units 04:53 04:53 WBC 22.41 H (4.8-10.8) K/ul RBC 2.59 L (4.63-6.08) M/uL Hgb 8.5 L (14.0-18.0) g/dl Hct 25.6 L (40.1-51.0) % RDW Std Deviation 46.6 H (36.4-46.3) fL Neut # (Auto) 17.80 H (1.4-6.5) K/uL [place] # (Auto) 2.55 H (0.24-0.82) K/uL Immature Gran # (Auto) 0.14 H (0.00-0.02) K/uL Glucose 166 H (70-99(Fasting)) mg/dl Calcium 7.8 L (8.5-10.1) mg/dl Diagnostic Findings Chest X-Ray 04/03/22 02:22 XR chest 1V portable CLINICAL HISTORY: Shortness of breath. COMPARISON STUDY: Chest radiograph March 26, 2022. FINDINGS: Stable moderate cardiomegaly. No pneumothorax or pleural effusion is present. There has been interval development of asymmetric interstitial thickeni ng and airspace opacities within the right lung. Mild left basilar opacity. Mediastinal contours are stable. IMPRESSION: Cardiomegaly with mild interstitial thickening suggestive of pulmonary edema. Interval development of asymmetric right lung interstitial thickening and airspace opacity. This could reflect pneumonia or alveolar pulmonary edema. ACT 112: Negative or not required by law. Electronically signed by: Deepak Oneal M.D. 04/03/2022 7:19 AM Chest CTA 04/03/22 02:30 CHEST CTA for PULMONARY ARTERIES CT DOSE: 463.85 mGy.cm HISTORY: Shortness of breath. TECHNIQUE: Multiaxial CT images of the chest were performed following the intravenous administration of contrast to evaluate the pulmonary arteries. Maximal intensity projection images were also obtained. A dose lowering technique was utilized adhering to the principles of ALARA. COMPARISON STUDY: None. FINDINGS: A 2.6 cm hypodense lesion within left hepatic lobe. This favors a cyst. The spleen is unremarkable. Normal esophagus. 1.4 cm left thyroid nodule. A few subcentimeter right thyroid nodules. A few prominent mediastinal and hilar lymph nodes which may be reactive. The heart is enlarged. Trace pleural effusions. No pericardial effusion. As a lipoma within the left paraspinal musculature. Mild body wall edema is noted. No evidence for an aortic dissection. No filling defects within the pulmonary arteries to suggest a pulmonary embolus. Multiple acute bilateral anterior rib fractures as well as a nondisplaced sternal fracture. Trace retrosternal hemorrhage secondary to the sternal fractures noted. Trace mucoid material within the trachea. Otherwise, the central airways are patent. There is diffuse interlobular septal thickening with groundglass airspace opacities, right greater the left. This favors pulmonary edema. An atypical pneumonia could also have a similar appearance. A few small nodular densities within the periphery of the mid to lower lung zones measure subcentimeter in size and are likely due to the suspected pulmonary edema. Dominant subpleural nodule within the right lower lobe measures 8 mm on image 86. IMPRESSION: 1. No evidence for a pulmonary embolus. 2. Cardiomegaly, interlobular septal thickening, scattered ground glass airspace opacities, and trace bilateral pleural effusions. This favors pulmonary edema. An atypical pneumonia could also have a similar appearance. 3. Acute bilateral anterior rib fractures and an acute midsternal fracture. No pneumothorax. 4. This report was called/faxed to the referring physician following dictation. ACT 112: Negative or not required by law. Electronically signed by: Esteban Hathaway M.D. 04/03/2022 7:30 AM Renal Ultrasound 04/03/22 08:00 RENAL ULTRASOUND HISTORY: Left flank pain. Evaluate for left-sided hydronephrosis. COMPARISON: Abdomen and pelvis CT 03/13/2022. FINDINGS: Right kidney: 11.7 cm. No hydronephrosis. Normal corticomedullary differentiation and cortical thickness. Left kidney: 10.5 cm. A 3 cm upper pole cyst is partially visualized. There is mild fullness within the left renal collecting system without aura hydronephrosis. Normal corticomedullary differentiation and cortical thickness. Bladder: The bladder is diffusely thickened. There is a Blood catheter within the bladder. There is heterogeneous debris within the bladder measuring 6 cm. This is new from the prior CT examination and therefore favors hemorrhagic products/blood clot. IMPRESSION: 1. Mild fullness within the left renal collecting system without aura hydronephrosis. 2. There is heterogeneous debris within the bladder measuring 6 cm. This is new from the prior CT examination and therefore favors hemorrhagic products/blood clot. An underlying mass to be difficult to exclude. ACT 112: Negative or not required by law. Electronically signed by: Esteban Hathaway M.D. 04/03/2022 9:55 AM Medications Administered Home Medications aspirin 81 mg tablet,delayed release 81 mg PO HS ##0 10/20/16 [History Confirmed 04/02/22] coenzyme Q10 100 mg capsule 200 mg PO QAM ##0 10/20/16 [History Confirmed 04/02/22] potassium citrate 10 mEq (1,080 mg) tablet,extended release 3 tab PO BID #0 tabs 10/20/16 [History Confirmed 04/02/22] nystatin 100,000 unit/gram topical cream 1 applic topical DAILY PRN Skin Irritation 01/31/19 [History Confirmed 04/02/22] candesartan 32 mg tablet 32 mg PO HS 11/20/19 [History Confirmed 04/02/22] carbamazepine 200 mg tablet,extended release,12 hr (Tegretol XR) 200 mg PO UD 11/20/19 [History Confirmed 04/02/22] levothyroxine 25 mcg capsule 25 mcg PO QAM 06/17/21 [History Confirmed 04/02/22] atenolol 100 mg tablet (Tenormin) 100 mg PO BID #180 tabs 07/08/21 [Rx Confirmed 04/02/22] furosemide 40 mg tablet (Lasix) 40 mg PO BID #180 tabs 07/28/21 [Rx Confirmed 04/02/22] diltiazem HCl 120 mg capsule,24 hr,extended release 120 mg PO BID #180 caps 08/06/21 [Rx Confirmed 04/02/22] atorvastatin 20 mg tablet (Lipitor) 20 mg PO HS 03/30/22 [History Confirmed 04/02/22] cholecalciferol (vitamin D3) 125 mcg (5,000 unit) tablet (Vitamin D3) 125 mcg PO HS 03/30/22 [History Confirmed 04/02/22] digoxin 250 mcg (0.25 mg) tablet 250 mcg PO HS 03/30/22 [History Confirmed 04/02/22] magnesium citrate 100 mg tablet 100 mg PO HS 03/30/22 [History Confirmed 04/02/22] multivitamin 1 tab PO QAM 03/30/22 [History Confirmed 04/02/22] vit C 250 mg-vit E 90 mg-zinc 40 mg-copper 1 [id number] capsule (PreserVision AREDS-2) 1 tab PO BID 03/30/22 [History Confirmed 04/02/22] Active Medications Acetaminophen (Acetaminophen 500 Mg Tab) 1,000 mg PO Q8H PRN PRN Reason: Pain & Pre PT Stop: 05/02/22 12:49 Aspirin (Aspirin 81 Mg Ectab) 81 mg PO HS [facility] Stop: 05/02/22 20:59 Last Admin: 04/03/22 19:55 Dose: 81 mg Atenolol (Atenolol 50 Mg Tablet) 100 mg PO BID [facility] Stop: 05/02/22 20:59 Last Admin: 04/02/22 21:15 Dose: 100 mg Atorvastatin Calcium (Atorvastatin 20 Mg Tab) 20 mg PO HS [facility] Stop: 05/02/22 20:59 Last Admin: 04/03/22 19:56 Dose: 20 mg Carbamazepine (Carbamazepine 200 Mg Tabcr) 200 mg PO BID [facility] Stop: 05/02/22 20:59 Last Admin: 04/03/22 08:35 Dose: 200 mg Carbamazepine (Carbamazepine 200 Mg Tabcr) 200 mg PO Q3D@1400 [facility] Stop: 05/03/22 13:59 Dextrose (Dextrose 50% 50 Ml Syringe) 25 - 50 ml IV UD PRN; Protocol PRN Reason: Hypoglycemia Protocol Stop: 02/05/23 04:31 Digoxin (Digoxin 0.25 Mg Tab) 0.25 mg PO HS [facility] Stop: 05/02/22 20:59 Last Admin: 04/02/22 21:15 Dose: 0.25 mg Diltiazem HCl (Diltiazem Hcl 120 Mg Capcr) 120 mg PO BID [facility] Stop: 05/02/22 20:59 Last Admin: 04/02/22 21:15 Dose: 120 mg Furosemide (Furosemide 40 Mg Tab) 40 mg PO BID [facility] Stop: 05/02/22 20:59 Last Admin: 04/02/22 21:15 Dose: 40 mg Glucagon (Glucagon For Inj 1 Mg Vial) 1 mg SQ UD PRN; Protocol PRN Reason: Hypoglycemia Protocol Stop: 05/03/22 04:31 Glucose (Glucose 40% Gel 15 Gm Tube) 15 - 30 gm PO UD PRN; Protocol PRN Reason: Hypoglycemia Protocol Stop: 05/03/22 04:31 Glucose (Glucose 10 Tab/Tube) 4 - 8 tab PO UD PRN; Protocol PRN Reason: Hypoglycemia Treatment Stop: 05/03/22 04:31 Doxycycline Hyclate 100 mg/ (Dextrose) 110 mls @ 50 mls/hr IV Q12H [facility] Stop: 04/04/22 23:59 Last Admin: 04/04/22 04:32 Dose: 110 mls/hr Norepinephrine Bitartrate (Levophed/D5w) 4 mg in 250 mls @ 18.563 mls/hr IV .[id number] [facility]; Protocol Stop: 05/03/22 05:29 Last Admin: 04/04/22 05:31 Dose: 0.09 mcg/kg/min, 33.4 mls/hr Cefepime HCl 2,000 mg/ Syringe 20 mls @ 5 mls/min IV Q12 [facility]; Protocol Stop: 04/04/22 23:59 Last Admin: 04/04/22 08:37 Dose: 5 mls/min Pantoprazole Sodium 40 mg/ (Syringe) 10 mls @ 5 mls/min IV BID [facility] Stop: 05/04/22 08:59 Levothyroxine Sodium (Levothyroxine Sodium 25 Mcg Tablet) 25 mcg PO DAILYBB [facility] Stop: 05/03/22 06:29 Last Admin: 04/04/22 05:29 Dose: 25 mcg Magnesium Oxide (Magnesium Oxide 400 Mg Tab) 400 mg PO Q4H [facility] Stop: 04/04/22 11:46 Last Admin: 04/04/22 08:36 Dose: 400 mg Miscellaneous (Candesartan ~ Order Awaiting Action) 1 each N/A QS [facility] Stop: 05/03/22 00:00 Last Admin: 04/04/22 08:33 Dose: Not Given Miscellaneous (Carbohydrates For Hypoglycemia ) 15 - 30 gm PO UD PRN PRN Reason: Hypoglycemia Protocol Stop: 05/03/22 04:31 Miscellaneous (Icu Electrolyte Replacement Protocol) 1 each N/A BID@,18 [facility]; Protocol Stop: 04/10/22 05:59 Last Admin: 04/04/22 07:19 Dose: 1 each Oxycodone HCl (Oxycodone Hcl Ir 5 Mg Tab (Immediate Release)) 5 mg PO Q6H PRN PRN Reason: Pain Stop: 04/16/22 10:01 Vitamin D (Cholecalciferol 5,000 Units 125 Mcg Tab) 5,000 units PO HS [facility] Stop: 05/02/22 20:59 Last Admin: 04/03/22 19:56 Dose: 5,000 units PG Care Time/CCT Total # of Minutes Spent Total Time Spent with Patient: Total time spent is greater than 50% in coordination of care (as documented) at patient's floor/unit and/or counseling patient: Coding Level of Care Code 60737 SUB INP/OBS CARE 3/50MIN Diagnoses Cardiac arrest I46.9 Pneumonia J18.9 Aortic stenosis I35.0 A-fib I48.91 Diabetes E11.9 Coronary artery disease I25.10 Associated angina: without angina Coronary Disease-Associated Artery/Lesion type: [place] artery [place] vs. transplanted heart: [place] heart Bladder mass N32.89 Hematuria R31.9 Trigeminal neuralgia G50.0 Hypercapnic respiratory failure J96.92 Hypomagnesemia E83.42 (1) Coronary artery disease Associated angina: without angina Coronary Disease-Associated Artery/Lesion type: [place] artery [place] vs. transplanted heart: [place] heart Qualified Code(s): I25.10 - Atherosclerotic heart disease of [place] coronary artery without angina pectoris
[2022-04-04] MEDS ORDERED: NORMOSOL-R 500 ML IV ONE (09:01)
--- NOTE | 2022-04-04 09:14 | XRay Report ---
XR chest 1V portable HISTORY: 86 years-old Male f/u acute shortness of breath COMPARISON: Chest radiograph and CTA chest April 03, 2022 TECHNIQUE: AP view of the chest FINDINGS: Cardiac silhouette is enlarged. Pulmonary vascular congestion with interstitial coarsening redemonstr ated. Slightly improved aeration of the right lung. No pneumothorax, large pleural effusion or lobar airspace consolidation. Degenerative changes of the shoulders and spine. Anterior fractures are mirna r seen on the comparison CTA of the chest. IMPRESSION: Cardiomegaly with mild pulmonary edema redemonstrated. There is mildly improved aeration of the right lung compared to yesterday's exam. ACT 112: Negative or not required by law. The above report was generated using voice recognition software. It may contain grammatical, syntax o r spelling errors. Electronically signed by: Edward Swain M.D. 04/04/2022 9:12 AM
[2022-04-04] MEDS ORDERED: NORMOSOL-R 1,000 ML IV SCH (09:15)
--- NOTE | 2022-04-04 09:37 | Critical Care Progress Note ---
Date of Service April 04, 2022 Assessment & Plan (1) Cardiac arrest: (2) A-fib: (3) Acute respiratory failure with hypoxia: (4) Coronary artery disease: (5) Hematuria: (6) Bladder mass: (7) Diabetes: (8) Shock circulatory: Plan Reason Critically Ill: 86 YOM s/t TURBT, code blue called on floor for PEA arrest and ROSC. Patient awake alert following commands and currently hemodynamically stable following resuscitation. Place on BiPAP for hypoxia and hypercarbia. Neuro -Chronic trigeminal neuralgia CAM ICU: Negative - Follow nuerological examination with narcotic use Awake following commands and 5/5 strength in all extremities speech clear and appropriate - Continue carbamazepine for his trigeminal neuralgia Cardiac -PEA arrest, Afib on chronic anticoagulation, HTN, HLD, CAD --Cardiac arrest with elevated troponins Seems to be cardiac in origin Cannot use heparin given the hematuria Cardiac cath 04/03/2022: Moderate nonobstructive coronary artery disease, normal LVEDP, aortic stenosis moderate 2D echo 04/03/2022: EF 55-60%, mild concentric LVH, moderate to severe aortic valve stenosis, moderate TR EKG 04/03/2022 5:30 AM: A. fib, heart rate of 90, right bundle branch block with ST depressions appreciated on the anterio-lateral leads which are more pronounced compared to February 2022 - had brief episode of bradycardia on arrival to ICU- resolved following 1mg epinephrine and BiPAP initiation - if recurrent bradycardia- will add dopamine - cardiology consult placed Respiratory -Hypercarbic respiratory failure with hypoxia, possible aspiration, pneumonia -- Acute hypoxic respiratory failure Multifactorial from pulmonary edema s/p cardiac event as well as aspiration Continue with O2 supplementation to keep oxygen saturation between 90-92% -- Rib fractures Likely from CPR, no signs of pneumothorax Pain medication GI - No acute needs RENAL/LYTES - Monitor BUNs/creatinine Avoid nephrotoxic medication -Hematuria, s/p TURBT, Bladder wall mass -Continue with bladder irrigation to light pink color- clots evacuated by urology PAFernandezC -Continue to monitor ENDO -DM-II, Hypothyroidism Continue with ICU hypoglycemia protocol Continue with levothyroxine HEME - -- Hemoglobin trending down Could be from hematuria Continue to monitor H&H ID -Pneumonia, s/p TURBT -- Multilobar opacities Likely representing pulmonary edema with possible aspiration Respiratory bio fire negative Nasal MRSA negative Procalcitonin negative --Prophylaxis VTE: IPC given hematuria GI: None Lines: Peripheral Diet: Cardiac Plan: In/out: +521,Total output 8875, urine output 1725 Chest x-ray shows improvement compared to postcardiac arrest. I will give him fluids given that he is making good amount of urine with bladder irrigation.: 50 bolus followed by 100 mL/h. Patient is still requiring Levophed 0.09. We will try to gradually titrate it off Repeat H&H later today I have personally spent 42 minutes of critical care time in the direct management of this patient. This is a life/limb threatening event. This includes time spent evaluating patient, direct bedside care, chart review, placing orders, interpretation of diagnostic studies, discussion with consultants, patient, and family members, as well as other required patient management activities. This time is exclusive of all separately billable procedures, and separate from and in addition to any other critical care service time. Thank you for allowing us to participate in the care of this patient. Please refer to my attending physician's documentation for any further recommendations. Admission and Anticipated Discharge Date Admission Date: April 02, 2022 Subjective Patient seen and examined at bedside. No acute distress, no adverse events overnight. Is still getting bladder irrigation. His blood pressure at the time of examination was with MAP 72. He was on 0.09 of Levophed. We will graduate hydrocodone. Patient does have bouts of blood pressure where MAP is in the high 50s. He states he feels good. No shortness of breath Does complain of chest pain at the site of chest compressions Review of Systems Review of Systems: All systems reviewed & are unremarkable except as noted in Subjective Physical Exam Physical Exam: Constitutional: No acute distress HEENT: EOMI, PERRLA Respiratory system: Decreased air entry bilaterally, no wheeze, no rhonchi, positive crackles bilateral lower lobes CVS: S1-S2 positive, no murmurs or gallops Abdomen: Soft, nontender, nondistended, positive bowel sounds x4 Extremities: +2 pulses bilaterally radialis/ dorsalis pedis, no cyanosis, +2 pitting edema bilateral lower extremity Neuro: Awake alert oriented x3 Psych: Normal mood and affect G/U: Positive Blood Skin: no rashes, warm and dry Lymphatic: no cervical or axillary lymphadenopathy Results & Data Results & Data ([facility]) Vital Signs (Past 12 Hours) Vital Signs Temp Pulse Resp BP Pulse Ox O2 Del Method O2 Flow Rate 04/04/22 06:30 75 24 96 04/04/22 06:30 101/66 04/04/22 06:25 91 H 27 H 95 04/04/22 06:25 104/63 04/04/22 06:20 78 27 H 98 04/04/22 06:20 101/58 L 04/04/22 06:15 72 26 H 97 04/04/22 06:15 96/56 L 04/04/22 06:10 93/57 L 04/04/22 06:10 72 26 H 97 04/04/22 06:05 96/60 L 04/04/22 06:05 77 24 95 04/04/22 06:00 72 27 H 96 04/04/22 06:00 99/61 L 04/04/22 05:55 78 24 95 04/04/22 05:55 106/58 L 04/04/22 05:50 86 27 H 98 04/04/22 05:50 103/61 04/04/22 05:45 83/46 L 04/04/22 05:45 72 22 95 04/04/22 05:40 73 29 H 95 04/04/22 05:40 92/58 L 04/04/22 05:35 69 25 H 96 04/04/22 05:35 100/63 04/04/22 05:30 75 26 H 92 04/04/22 05:30 98/66 L 04/04/22 05:25 86 24 93 04/04/22 05:25 101/60 04/04/22 05:20 72 25 H 92 04/04/22 05:20 103/62 04/04/22 05:15 77 25 H 92 04/04/22 05:15 104/66 04/04/22 05:10 73 25 H 95 04/04/22 05:10 94/54 L 04/04/22 05:05 108/70 04/04/22 05:05 78 22 93 04/04/22 05:00 71 21 95 04/04/22 05:00 99/59 L 04/04/22 04:50 67 17 96 04/04/22 04:50 81/57 L 04/04/22 04:46 79 24 95 04/04/22 04:46 81/52 L 04/04/22 04:41 73 20 95 04/04/22 04:41 87/52 L 04/04/22 04:35 65 24 94 04/04/22 04:35 108/65 04/04/22 04:30 71 21 93 04/04/22 04:30 36.5 C 94/60 L 04/04/22 04:25 78 27 H 93 04/04/22 04:25 97/54 L 04/04/22 00:35 96/58 L 04/04/22 00:35 76 21 94 04/04/22 00:30 76 21 94 04/04/22 00:30 100/59 L 04/04/22 00:25 70 22 94 04/04/22 00:25 113/65 04/04/22 00:20 76 19 94 04/04/22 00:20 117/65 04/04/22 00:15 79 16 95 04/04/22 00:15 109/62 04/04/22 00:10 83 21 96 04/04/22 00:10 89/63 L 04/04/22 00:05 73 25 H 94 04/04/22 00:05 101/61 04/04/22 00:00 78 26 H 93 04/04/22 00:00 36.6 C 105/69 04/03/22 23:55 99/71 L 04/03/22 23:55 79 23 94 04/03/22 23:50 70 24 94 04/03/22 23:50 95/62 L 04/03/22 23:45 109/62 04/03/22 23:45 80 24 94 04/03/22 23:40 77 25 H 94 04/03/22 23:40 108/64 04/03/22 23:35 110/58 L 04/03/22 23:35 74 23 95 04/03/22 23:30 71 23 94 04/03/22 23:30 110/66 04/03/22 23:25 76 23 95 04/03/22 23:25 101/60 04/03/22 23:20 78 26 H 95 04/03/22 23:20 105/69 04/03/22 23:15 74 23 96 04/03/22 23:15 96/62 L 04/03/22 23:10 69 25 H 96 04/03/22 23:10 95/60 L 04/03/22 23:05 99/55 L 04/03/22 23:05 84 23 96 04/03/22 23:00 66 24 97 04/03/22 23:00 103/66 04/03/22 22:55 74 22 99 04/03/22 22:55 96/67 L 04/03/22 22:50 97/62 L 04/03/22 22:50 76 23 99 04/03/22 22:45 70 22 99 04/03/22 22:45 107/77 04/03/22 22:40 99/64 L 04/03/22 22:40 72 23 98 04/03/22 22:35 75 24 98 04/03/22 22:35 110/61 04/03/22 22:30 73 21 97 04/03/22 22:30 103/64 04/04/22 00:08 79 04/03/22 23:00 Nasal Cannula 1 04/03/22 22:25 73 19 97 04/03/22 22:25 110/73 04/03/22 22:20 65 16 97 04/03/22 22:20 95/57 L 04/03/22 22:18 75 13 96 04/03/22 22:18 89/51 L 04/03/22 22:15 63 14 93 04/03/22 22:15 79/50 L 04/03/22 22:10 88/53 L 04/03/22 22:10 65 25 H 89 L 04/03/22 22:05 75 26 H 90 04/03/22 22:05 82/51 L 04/03/22 22:00 60 24 91 04/03/22 22:00 77/49 L 04/03/22 21:55 64 24 91 04/03/22 21:55 82/50 L 04/03/22 21:50 71 23 91 04/03/22 21:50 88/59 L 04/03/22 21:45 114/65 04/03/22 21:45 74 26 H 96 04/03/22 21:40 98/63 L 04/03/22 21:40 73 21 94 04/03/22 21:35 75 0 L 87 L 04/03/22 21:35 82/55 L 04/03/22 21:30 88 7 L 89 L 04/03/22 21:30 77/51 L Laboratory Results 04/04/22 04:53 04/04/22 04:53 Coding Level of Care Code Critical Care 1st 30-74 mins Diagnoses Cardiac arrest I46.9 A-fib I48.91 Acute respiratory failure with hypoxia J96.01 Coronary artery disease I25.10 Coronary Disease-Associated Artery/Lesion type: [place] artery [place] vs. transplanted heart: [place] heart Associated angina: without angina Hematuria R31.9 Bladder mass N32.89 Diabetes E11.9 Shock circulatory R57.9 Time Spent (min) 42 (1) Coronary artery disease Coronary Disease-Associated Artery/Lesion type: [place] artery [place] vs. transplanted heart: [place] heart Associated angina: without angina Qualified Code(s): I25.10 - Atherosclerotic heart disease of [place] coronary artery without angina pectoris
[2022-04-04 12:23] LABS: Hematocrit (blood only) 24.3 % (40.1-51.0); Hemoglobin 8.2 g/dl (14.0-18.0)
[2022-04-04] MEDS ORDERED: RAPID SEQUENCE INDUCTION BAG ONE (12:28)
[2022-04-04] MEDS ORDERED: STAT IV Infusion **Titration per Protocol STA (12:32)
[2022-04-04] MEDS ORDERED: CALCIUM GLUCONATE 1000 MG/60 ML NSS IV ONE (12:41)
[2022-04-04] MEDS ORDERED: EPINEPHrine/NSS 4 MG/254 ML BAG IV SCH (12:45)
--- NOTE | 2022-04-04 13:05 | Procedure Note ---
Procedure Note Date of Service April 04, 2022 Note CODE BLUE note: Was called to evaluate the patient as patient was getting bradycardic and hypotensive Just prior to him getting bradycardic he asked for help. Patient went into PEA and then asystole CPR was also really initiated when I came to the room. He was given first epi at 1220. At 1222 there was ROSC. His Levophed was increased to 0.2. Blood pressure at the time was systolic 130. Given the agonal breathing. He was emergently intubated and saturation were still in the 70s At 1234 patient lost pulse again. CPR was again initiated. Total 4 epis, 2 bicarb and 1 calcium gluconate was given, 1 calcium chloride was given in the second round of CPR Unfortunately patient was not able to be revived. Patient was pronounced at 12:49 PM Time of 12:49 PM Patient's daughter was at bedside, Dr. Grissom was also helping during the code was able to console the daughter Please note the above document was generated using voice recognition software. It may contain grammatical, syntax or spelling errors.Any formal questions or concerns about the content, text or information contained within the body of this dictation should be directly addressed to the provider for clarification. Coding CPT Codes Resuscitation - Resuscitation: 95626 Heart/lung resuscitation CPR ([id number]) [facility] [place] Codes (Charges) Resuscitation Resuscitation: 41906 Heart/lung resuscitation CPR
--- NOTE | 2022-04-04 13:06 | Procedure Note ---
Procedure Note Date of Service April 04, 2022 Note INTUBATION PROCEDURE NOTE: Attending: Dr Tomas Don MD Patient was evaluated and plan to intubate was made for agonal breathing post cardiac arrest Sedative agent used: 20 mg of etomidate Emergent consent was implied given patients rapidly declining clinical status and need for airway protection. The patient was prepared in the appropriate fashion. The patient was easily pre-oxygenated by using [id number] ventilation. With help of glide scope grade 2 vocal cords were visualized and 7.5 [place] ETT was introduced on first attempt to 25 cm at the lip. The stylette was removed and balloon was inflated with 10mL of air. Appropriate Colorimetric change was appreciated for at least 10 breaths. Bilateral chest rise and breath sounds were appreciated without air sounds in the epigastrium. Patient tolerated the procedure well and there were no immediate complications. Chest Xray to follow for confirming placement. Coding CPT Codes Resuscitation - Resuscitation: 25225 Endotracheal Intubation, emergency ([id number]) [facility] [place] Procedure Codes (Charges) Resuscitation Resuscitation: 89002 Endotracheal Intubation, emergency
--- NOTE | 2022-04-04 17:18 | Discharge Summary ---
Date of Service April 04, 2022 Principal Diagnosis cardiac arrest secondary to PEA, possible PE at 1249 time Discharge Exam see cardiac arrest sheet Discharge Data Allergies Allergy/AdvReac Type Severity Reaction Status Date / Time NSAIDS (Non-Steroidal Allergy Severe Facial Verified 04/02/22 07:08 Anti-Inflamma swelling ibuprofen Allergy Intermediate Swollen Verified 04/02/22 07:08 lips Consultations 04/03/22 01:32 Consult Hospitalist Routine 04/03/22 02:09 Consult Assistant Director Of Public Works Stat 04/03/22 04:27 Consult Cardiology Routine Procedures Performed Operation Date: 04/02/22 08:15 Actual Procedures p Transurethral Resection of bladder tumor(Not Applicable) - Shant Aparicio MD Operation Date: 04/03/22 15:30 Actual Procedures p Cath, Left with Cors and Vent - Rupert Thompson MD s Cineradiography w/Routine Exam - Rupert Thompson MD Ordered Studies 04/03/22 02:30 CT angio chest PE protocol Stat 04/03/22 08:00 US renal/blad retro comp Routine 04/03/22 15:11 CL Cath Imgs for PACS use only Urgent 04/03/22 15:12 CL Cath Imgs for PACS use only Routine Hospital Course (1) Cardiac arrest: S/P PEA arrest likely cause multifactorial possible concern for PE in the post operative setting - CTA of chest negative for thrombus 04/03/22 - Cardiac angiography negative for cardiac thrombus or significant CAD -family requested autopsy, daughter Dorita signed consent tentative cause of is pea, possibly PE (2) Pneumonia: Aspiration pneumonia/pneumonitis likely following cardiac arrest with right > left hazy opacification - remains with leukocytosis today, afebrile, no sputum, oxygen requirements decreasing - continue with cefepime and doxy - blood cultures with NGTD - despite concern for aspiration pneumonia did not pre arrest show signs of sepsis (3) Aortic stenosis: Moderate to Severe on ECHO, moderate via cath with gradient noted as 35-40 - (4) A-fib: Chronic persistent atrial fibrillation - rate controlling medications - digoxin and Cardizem XR on hold - has not required further management while these remain on hold - - Dig level 1.1 - therapeutic (5) Diabetes: - has not needed any insulin (6) Coronary artery disease: Previous diagnosis of "silent [place]" with stress test - negative obstructive disease from recent cath (7) Bladder mass: As above (8) Hematuria: S/P TURBT- primary service- Urology (9) Trigeminal neuralgia: carbamazepine (10) Hypercapnic respiratory failure: (11) Hypomagnesemia: Total Time Total Time Spent Total Time Spent (In Minutes): greater than 30 minutes were required Discharge Plan Discharge Items Patient Disposition: Reason For Visit: Bladder Mass Discharge Diagnosis: Bladder mass Activity: Per Instructions section Lifting: No more than 10 pounds Bathing: No limitations Exercise/Sports: None Call non-emergency contact if: you have any medication questions, your pain is worsening and your temperature is above 101 Follow-up/Referrals: Jon Ponce [Primary Care Provider] - Martatl Attending Provider Instructions: -Take Tylenol and Motrin as needed for discomfort -You may notice some blood in your catheter. As long as this is draining, that is okay. -Call office if you develop fevers above 101 Fahrenheit, worsening pain or your catheter is not draining -You will be called regarding appointment to have your catheter removed and for a follow-up to discuss pathology. This can sometimes take up to 7 days to return. We will also get a renal US to ensure there is no swelling of your left kidney -Restart eliquis on Wednesday morning if urine remains clear 04/05/22. Ok to continue aspirin Pending Studies at Discharge: No Stand-Alone Forms: My [facility] Medications and DC Order Prescriptions: Continued aspirin 81 mg Tablet,Delayed Release (Dr/Ec) 81 mg PO HS Qty: 0 potassium citrate 10 mEq (1,080 mg) Tablet Extended Release 3 tab PO BID Qty: 0 Label Comments: TAKE 3 TABLETS TWO TIMES A DAY coenzyme Q10 100 mg Capsule 200 mg PO QAM Qty: 0 atenolol [Tenormin] 100 mg tablet 100 mg PO BID Qty: 180 3RF furosemide [Lasix] 40 mg tablet 40 mg PO BID Qty: 180 3RF diltiazem HCl 120 mg capsule,extended release 24 hr 120 mg PO BID Qty: 180 3RF levothyroxine 25 mcg capsule 25 mcg PO QAM candesartan 32 mg tablet 32 mg PO HS nystatin 100,000 unit/gram cream 1 applic topical DAILY PRN (Reason: Skin Irritation) carbamazepine [Tegretol XR] 200 mg tablet extended release 12 hr 200 mg PO UD Rx Instructions: take 1 tablet twice daily, take 3 tablets every third day. multivitamin Tablet 1 tab PO QAM cholecalciferol (vitamin D3) [Vitamin D3] 125 mcg (5,000 unit) Tablet 125 mcg PO HS magnesium citrate 100 mg Tablet 100 mg PO HS PreserVision AREDS-2 250-90-40-1 mg Capsule 1 tab PO BID atorvastatin [Lipitor] 20 mg tablet 20 mg PO HS digoxin 250 mcg (0.25 mg) tablet 250 mcg PO HS Discontinued Eliquis 5 mg tablet 5 mg PO BID Qty: 180 3RF Krames/Other Patient Handouts: DVT Post Op Prevention Admission Data Admit Date/Time: 04/02/22 12:50 Attending Provider: Shant Aparicio Admit Provider: Shant Aparicio Primary Care Provider: Jon Ponce Other Providers: Tomas Don ; Williams Green ; Zachery Clark ; Parminder Grissom Coding Level of Care Code HOSP INP/OBS DISCH >30 MIN Diagnoses Cardiac arrest I46.9 Pneumonia J18.9 Aortic stenosis I35.0 A-fib I48.91 Diabetes E11.9 Coronary artery disease I25.10 Coronary Disease-Associated Artery/Lesion type: [place] artery [place] vs. transplanted heart: [place] heart Associated angina: without angina Bladder mass N32.89 Hematuria R31.9 Trigeminal neuralgia G50.0 Hypercapnic respiratory failure J96.92 Hypomagnesemia E83.42
[2022-04-04] MEDS ORDERED: ETOMIDATE 2 MG/ML 20 ML VIAL IV ONE (17:59)
--- NOTE | 2022-04-05 21:59 | Electrocardiogram Report ---
Test Reason : Blood Pressure : / mmHG Vent. Rate : 083 BPM Atrial Rate : 101 BPM P-R Int : 000 ms QRS Dur : 148 ms QT Int : 432 ms P-R-T Axes : 000 -21 -80 degrees QTc Int : 507 ms Atrial fibrillation Right bundle branch block Abnormal ECG When compared with ECG of 03-APR-2022 05:31, No significant change was found Confirmed by Jm Villafuerte ([id number]) on 04/05/2022 9:59:01 PM Referred By: Shant Aparicio Confirmed By:Jm Villafuerte
--- NOTE | 2022-04-06 16:21 | Communication Note ---
Date of Service: April 06, 2022 I received a phone call from pathology regarding Mr. Spencer's autopsy report and cause of likely being a pulmonary embolism I phoned the patient's daughter, Dorita mccarty, at [phone] to disclose the results of this finding. Ms. Choi asked to be excused that she was currently in the home and she would call me back at a later time. I received a call at approximately 4:14 PM from an alternate phone number listed is [phone] which is listed as Wilma Villanueva's phone number. The caller asked me did disclose the autopsy report without identifying who she was. I asked the caller if this indeed was Dorita certified professional coder. I had met both ladies and this sounded to be the granddaughter. The caller then said this was in fact Dorita and that she was using her granddaughter's phone to call however I felt this was not true. Because this patient was a family member,and present during the postmortem discussion in the hospital, and was calling my number which I had given to dorita beasley, I disclosed the cause of of Mr Jiang to this person. The person on the call, than asked for this to be emailed to her and I declined and stated that we need to follow hippa protocol and that they would not need to present themselves to sign for health information for his records. The caller then said thank you & hung up
--- NOTE | 2022-04-14 07:21 | Coding Query ---
PATHOLOGY To promote full compliance with coding requirements relating to patient care, physician participation is requested in all cases of cyber security administrator uncertainty. Please assist us with the question(s) below: Please review the Pathology report and please document any relevant diagnosis(es) below. Thank you . MIKEY Billings [facility] Diagnosis(es): Low grade bladder cancer MTDD
--- NOTE | 2022-04-14 07:38 | Coding Query ---
CODING QUERY To promote full compliance with coding requirements relating to patient care, provider participation is requested in all cases of deputy attorney general uncertainty. Please assist us with the question(s) below: Coding Question(s): Pt admitted for excision of bladder tumor. Postoperatively documented pulmonary embolism, respiratory falure, aspiration pneumonia and cardiac arrest. Seeking to determine if these diagnoses are (postoperative) complications of care. Please check below and thanks for your help. MIKEY Billings [facility] Physician's Response(s): 1. Pulmonary Embolism : ____x___ Pulmonary embolism is a complication of care Pulmonary embolism is NOT a complication of care Cannot clinically determine if the Pulmonary embolism is a complication of care Other: please document: 2. Cardiac Arrest: x___ Cardiac arrest is a complication of care Cardiac arrest is NOT a complication of care Cannot clinically determine if Cardiac arrest is a complication of care. Other: Please document: 3. Respiratory Failure: x___ Respiratory failure is a complication of care Respiratory failure is NOT a complication of care Cannot clinically determine if Respiratory failure is a complication of care Other: Please document: 4. Aspiration Pneumonia: x____ Aspiration Pneumonia is a complication of care Aspiration Pneumonia is NOT a complication of care Cannot clinically determine if Respiratory failure is a complication of care Other: Please document: MTDD
== END 2022-04-04 18:00 | disposition expired | DRG 668 ==
LOC: ASU 06:41 → 3N 12:50 → 1E 04-03 02:17